=== PATIENT | male | born 1960 | race African-American/Black ===

== ENCOUNTER 2016-08-02 08:18 | Inpatient (IN) | payer OTHER ==
[2016-08-02 11:06] VITALS: BMI 29.4
--- NOTE | 2016-08-02 12:22 | HP ---
CIWA Score - CIWA Score Nausea/Vomitin-No Nausea/No Vomiting Muscle Tremors: 4-Moderate,w/Arms Extend Anxiety: 3 Agitation: 4-Moderately Restless Paroxysmal Sweats: 3 Orientation: 0-Oriented Tacttile Disturbances: 0-None Auditory Disturbances: 0-None Visual Disturbances: 0-None Headache: 0-None Present CIWA-Ar Total Score: 14 Admission ROS BHS - HPI Chief Complaint: I need to stop the alcohol. Allergies/Adverse Reactions: Allergies Allergy/AdvReac Type Severity Reaction Status Date / Time nkda Allergy Uncoded 08/02/16 11:16 RED SAUCE AdvReac Severe heart burn Uncoded 08/02/16 10:43 History of Present Illness: pt is a 56yr old male with a history of alcohol dependence seeking detox for treatment. Exam Limitations: No Limitations - Ebola screening Have you traveled outside of the country in the last 21 days: No Have you had contact with anyone from an Ebola affected area: No Have you been sick,other than usual withdrawal symptoms: No Do you have a fever: No - Review of Systems Constitutional: Chills, Diaphoresis, Loss of Appetite, Night Sweats EENT: reports: No Symptoms Reported Respiratory: reports: Cough Cardiac: reports: No Symptoms Reported GI: reports: Poor Appetite, Poor Fluid Intake : reports: No Symptoms Reported Musculoskeletal: reports: No Symptoms Reported Integumentary: reports: Flushing, Sweating Neuro: reports: Tingling, Tremors Endocrine: reports: Excessive Sweating, Flushing, Intolerance to Cold, Intolerance to Heat Hematology: reports: No Symptoms Reported Psychiatric: reports: Judgement Intact, Mood/Affect Appropiate, Orientated x3, Agitated, Anxious Other Systems: Reviewed and Negative Patient History - Patient Medical History Hx Anemia: No Hx Asthma: No Hx Chronic Obstructive Pulmonary Disease (COPD): No Hx Cancer: No Hx Cardiac Disorders: No Hx Congestive Heart Failure: No Hx Hypertension: No Hx Hypercholesterolemia: No Hx Pacemaker: No HX Cerebrovascular Accident: No Hx Seizures: No Hx Dementia: No Hx Diabetes: No Hx Gastrointestinal Disorders: No Hx Genitourinary Disorders: No Hx Sexually Transmitted Disorders: Yes (syphilis treated) Hx Renal Disease (ESRD): No Hx Thyroid Disease: No Hx Human Immunodeficiency Virus (HIV): No (negative) Hx Hepatitis C: No (hep c treated 2013.) Hx Depression: Yes Hx Suicide Attempt: No (denies ) Hx Bipolar Disorder: No Hx Schizophrenia: No - Patient Surgical History Past Surgical History: Yes Hx Neurologic Surgery: No Hx Cataract Extraction: No Hx Cardiac Surgery: No Hx Lung Surgery: No Hx Breast Surgery: No Hx Breast Biopsy: No Hx Abdominal Surgery: No Hx Appendectomy: No Hx Cholecystectomy: No Hx Genitourinary Surgery: No Hx Section: No Hx Orthopedic Surgery: Yes (fx, left orbit in 09/1994) - PPD History Previous Implant?: Yes Documented Results: Negative w/o proof Implanted On Prior R Admission?: No PPD to be Administered?: Yes - Reproductive History Patient is a Female of Child Bearing Age (11 -55 yrs old): No - Smoking Cessation Smoking history: Current every day smoker Have you smoked in the past 12 months: Yes Aproximately how many cigarettes per day: 5 Hx Chewing Tobacco Use: No Initiated information on smoking cessation: Yes 'Breaking Loose' booklet given: 08/02/16 - Substance & Tx. History Hx Alcohol Use: Yes Hx Substance Use: No Substance Use Type: Alcohol Hx Substance Use Treatment: Yes - Substances Abused Alcohol-vodka Route: Oral Frequency: Daily Amount used: fifth Age of first use: 16 Date of Last Use: 08/02/16 Family Disease History - Family Disease History Family Disease History: CA: Mother (lung ca ) Admission Physical Exam BHS - Vital Signs Vital Signs: Vital Signs - 24 hr 08/02/16 10:54 Temperature 97.6 F Pulse Rate 66 Respiratory 20 Rate Blood Pressure 146/75 - Physical General Appearance: Yes: Appropriately Dressed, Moderate Distress, Tremorous, Irritable, Sweating, Anxious HEENTM: Yes: Normal Voice Respiratory: Yes: Lungs Clear, Normal Breath Sounds, No Respiratory Distress Neck: Yes: No masses,lesions,Nodules Breast: Yes: Within Normal Limits Cardiology: Yes: Regular Rhythm, Regular Rate, S1, S2 Abdominal: Yes: Normal Bowel Sounds, Non Tender, Soft Genitourinary: Yes: Within Normal Limits Back: Yes: Normal Inspection Musculoskeletal: Yes: full range of Motion, Back pain Extremities: Yes: Normal Capillary Refill, Normal Inspection, Tremors Neurological: Yes: Fully Oriented, Alert, Normal Response Integumentary: Yes: Normal Color, Diaphoresis Lymphatic: Yes: Within Normal Limits - Diagnostic (1) Alcohol dependence with uncomplicated withdrawal Current Visit: Yes Status: Chronic (2) Nicotine dependence Current Visit: Yes Status: Chronic Qualifiers: Nicotine product type: cigarettes Substance use status: uncomplicated Qualified Code(s): F17.210 - Nicotine dependence, cigarettes, uncomplicated (3) Depression Current Visit: Yes Status: Acute Cleared for Admission [facility] - Detox or Rehab [facility] Level of Care: Medically Managed Detox Regimen/Protocol: Librium S Breath Alcohol Content Breath Alcohol Content: 0 Urine Drug Screen - Results Drug Screen Negative: No Urine Drug Screen Results: KASSIE-Cocaine, TCA-Tricyclic Antidepress
[2016-08-02] MEDS ORDERED: hydrOXYzine PAMOATE 50 MG CAPSULE (FP) PO PRN (12:26)
[2016-08-02] MEDS ORDERED: MENTHOL/PHENOL 1 EACH UD MM PRN (12:26)
[2016-08-02] MEDS ORDERED: MAG HYDROX/AL HYDROX/SIMETH 30 ML UNIT-DOSE CUP PO PRN (12:26)
[2016-08-02] MEDS ORDERED: MAGNESIUM HYDROX 2400MG/30ML ORAL SUSPENSION 30 ML CUP PO PRN (12:26)
[2016-08-02] MEDS ORDERED: IBUPROFEN 400 MG TABLET (FP) PO PRN (12:26)
[2016-08-02] MEDS ORDERED: chlordiazePOXIDE HCL 25 MG CAPSULE PO PRN (12:26)
[2016-08-02] MEDS ORDERED: diphenhydrAMINE HCL 50 MG CAPSULE PO PRN (12:26)
[2016-08-02] MEDS ORDERED: ACETAMINOPHEN 325 MG TABLET (FP) PO PRN (12:26)
[2016-08-02] MEDS ORDERED: MAGNESIUM CITRATE 300 ML BOTTLE PO PRN (12:26)
[2016-08-02] MEDS ORDERED: guaiFENesin/D-METHORPHAN HB 10 ML UNIT-DOSE CUPS PO PRN (12:26)
[2016-08-02] MEDS ORDERED: P-EPHED 60MG/TRIPROLIDI 2.5MG TABLET PO PRN (12:26)
[2016-08-02] MEDS ORDERED: LOPERAMIDE HCL 2 MG CAPSULE PO PRN (12:26)
[2016-08-02] MEDS ORDERED: chlordiazePOXIDE HCL 25 MG CAPSULE PO ONE (13:15)
[2016-08-02] MEDS: chlordiazePOXIDE HCL 25 MG CAPSULE PO SCH ×3 (13:46→23:30)
[2016-08-02] MEDS: NICOTINE POLACRILEX 4 MG GUM BC PRN ×3 (15:22→20:49)
--- NOTE | 2016-08-02 15:46 | CONSULT ---
[facility] Psychiatric Consult - Data Date of interview: 08/02/16 Admission source: [facility] Identifying data: First admission to [facility] for this 56 y/o AA male seeking detox treatment on for alcohol dependence.Patient is single,a father of two,domiciled,unemployed and supported on SSI benefits. Substance Abuse History: - Smoking Cessation. Smoking history: Current every day smoker. Have you smoked in the past 12 months: Yes. Aproximately how many cigarettes per day: 5. Hx Chewing Tobacco Use: No. Initiated information on smoking cessation: Yes. 'Breaking Loose' booklet given: 08/02/16. - Substance & Tx. History. Hx Alcohol Use: Yes. Hx Substance Use: No. Substance Use Type : Alcohol. Hx Substance Use Treatment: Yes. - Substances Abused. Alcohol- vodka. Route: Oral. Frequency: Daily. Amount used: fifth. Age of first use: 16. Date of Last Use: 08/02/16. Confirmed by the patient. Medical History: Hepatitis C (treated) and past treatment for syphilis.History of fracture of left orbit (1994). Psychiatric History: No history of psychiatric hospitalizations.OPD care at the [facility] OPD clinic.Diagnosed with MDD.Mr Mackey is prescribed seroquel 25 mg/hs + doxepin 25 mg/hs.Patient denies history of suicide attempts. Physical/Sexual Abuse/Trauma History: Patient denies. Additional Comment: Urine Drug Screen Results: KASSIE-Cocaine, TCA-Tricyclic Antidepressants.Noted. Mental Status Exam - Mental Status Exam Alert and Oriented to: Time, Place, Person Cognitive Function: Good Patient Appearance: Well Groomed Mood: Hopeful, Euthymic Affect: Appropriate, Normal Range Patient Behavior: Cooperative Speech Pattern: Clear, Appropriate Voice Loudness: Normal Thought Process: Goal Oriented Thought Disorder: Not Present Hallucinations: Denies Suicidal Ideation: Denies Homicidal Ideation: Denies Insight/Judgement: Fair Sleep: Poorly, Difficulty falling asleep Muscle strength/Tone: Normal Gait/Station: Normal Psychiatric Findings - Problem List ([place] 1, 2,3) (1) Alcohol dependence with uncomplicated withdrawal Current Visit: Yes Status: Chronic (2) Nicotine dependence Current Visit: Yes Status: Acute Qualifiers: Nicotine product type: cigarettes Substance use status: uncomplicated Qualified Code(s): F17.210 - Nicotine dependence, cigarettes, uncomplicated (3) Substance induced mood disorder Current Visit: Yes Status: Acute (4) Insomnia Current Visit: Yes Status: Acute - Initial Treatment Plan Initial Treatment Plan: Psychoeducation.Detoxification.Medications : seroquel 25 mg po hs + doxepin 25 mg po hs.Side effects/benefits discussed with the patient.He agrees with this careplan.Observation.
[2016-08-02 19:13] LABS: URINE APPEARANCE CLEAR; URINE BILIRUBIN NEGATIVE (NEGATIVE); URINE BLOOD NEGATIVE (NEGATIVE); URINE COLOR STRAW; URINE GLUCOSE (UA) NEGATIVE (NEGATIVE); URINE KETONE NEGATIVE (NEGATIVE); URINE LEUK ESTERASE NEGATIVE (NEGATIVE); URINE NITRITE NEGATIVE (NEGATIVE); URINE PROTEIN NEGATIVE (NEGATIVE); URINE UROBILINOGEN NEGATIVE E.U./dl (0.2-1.0)
[2016-08-02] MEDS ORDERED: DOXEPIN HCL 25 MG CAPSULE PO SCH (22:00)
[2016-08-02] MEDS ORDERED: QUEtiapine FUMARATE 25 MG TABLET (FP) PO SCH (22:00)
[2016-08-02] MEDS: THIAMINE HCL 100 MG TABLET (FP) PO SCH (23:31)
[2016-08-03] MEDS ORDERED: QUEtiapine FUMARATE 25 MG TABLET (FP) PO ONE (00:40)
[2016-08-03] MEDS ORDERED: DOXEPIN HCL 25 MG CAPSULE PO ONE (00:41)
[2016-08-03] MEDS: chlordiazePOXIDE HCL 25 MG CAPSULE PO SCH ×4 (05:51→22:44)
[2016-08-03] MEDS: NICOTINE POLACRILEX 4 MG GUM BC PRN ×6 (05:53→21:21)
[2016-08-03 10:23] LABS: MCH 29.5 pg (25.7-33.7); MCHC 32.7 g/dl (32.0-35.9); MEAN CELL VOLUME 90.3 fl (80-96); MEAN PLT VOLUME 10.3 fl (7.5-11.1); PLATELET COUNT 163 K/MM3 (134-434); RDW 14.3 % (11.9-15.9)
[2016-08-03] MEDS: PRENATAL VITAMINS W/ FOLIC ACID TABLET (FP) PO SCH (10:28)
[2016-08-03 10:35] LABS: ALBUMIN 3.7 g/dl (3.4-5.0); ANION GAP 8 (8-16); BILIRUBIN,TOTAL 0.5 mg/dL (0.2-1.0); CALCIUM 8.8 mg/dL (8.5-10.1); CO2 28 mmol/L (21-32); CREATININE 1.2 mg/dL (0.7-1.3); GLUCOSE,RANDOM 90 mg/dL (74-106); SGOT/AST 49 U/L (15-37); SGPT/ALT 100 U/L (12-78); TOT PROT 7.2 g/dl (6.4-8.2)
[2016-08-03 10:36] LABS: ALK PHOS 85 U/L (45-117)
--- NOTE | 2016-08-03 14:32 | PN ---
[facility] CIWA - CIWA Score Nausea/Vomitin Muscle Tremors: 1-None Visible, but [place] Anxiety: 4-Mod. Anxious/Guarded Agitation: 4-Moderately Restless Paroxysmal Sweats: No Perspiration Orientation: 0-Oriented Tacttile Disturbances: 0-None Auditory Disturbances: 0-None Visual Disturbances: 0-None Headache: 3-Moderate CIWA-Ar Total Score: 15 S Progress Note (SOAP) Subjective: Anxious, Restlessness, Tremors, Body Aches, Interrupted Sleep Objective: Vital Signs Temperature 96.1 F L 08/03/16 14:02 Pulse Rate 74 08/03/16 14:02 Respiratory Rate 18 08/03/16 14:02 Blood Pressure 120/72 08/03/16 14:02 O2 Sat by Pulse Oximetry (%) Laboratory Last Values WBC 5.0 K/mm3 (4.0-10.0) 08/03/16 06:00 RBC 4.97 M/mm3 (4.00-5.60) 08/03/16 06:00 Hgb 14.7 GM/dL (11.7-16.9) 08/03/16 06:00 Hct 44.9 % (35.4-49) 08/03/16 06:00 MCV 90.3 fl (80-96) 08/03/16 06:00 MCHC 32.7 g/dl (32.0-35.9) 08/03/16 06:00 RDW 14.3 % (11.9-15.9) 08/03/16 06:00 Plt Count 163 K/MM3 (134-434) 08/03/16 06:00 MPV 10.3 fl (7.5-11.1) 08/03/16 06:00 Sodium 142 mmol/L (136-145) 08/03/16 06:00 Potassium 3.9 mmol/L (3.5-5.1) 08/03/16 06:00 Chloride 106 mmol/L (98-107) 08/03/16 06:00 Carbon Dioxide 28 mmol/L (21-32) 08/03/16 06:00 Anion Gap 8 (8-16) 08/03/16 06:00 BUN 21 mg/dL (7-18) H 08/03/16 06:00 Creatinine 1.2 mg/dL (0.7-1.3) 08/03/16 06:00 Creat Clearance w eGFR > 60 (>60) 08/03/16 06:00 Random Glucose 90 mg/dL (74-106) 08/03/16 06:00 Calcium 8.8 mg/dL (8.5-10.1) 08/03/16 06:00 Total Bilirubin 0.5 mg/dL (0.2-1.0) 08/03/16 06:00 AST 49 U/L (15-37) H 08/03/16 06:00 ALT 100 U/L (12-78) H 08/03/16 06:00 Alkaline Phosphatase 85 U/L (45-117) 08/03/16 06:00 Total Protein 7.2 g/dl (6.4-8.2) 08/03/16 06:00 Albumin 3.7 g/dl (3.4-5.0) 08/03/16 06:00 Urine Color Straw 08/02/16 15:00 Urine Appearance Clear 08/02/16 15:00 Urine pH 5.0 (5.0-8.0) 08/02/16 15:00 Ur Specific [place] 1.015 (1.001-1.035) 08/02/16 15:00 Urine Protein Negative (NEGATIVE) 08/02/16 15:00 Urine Glucose (UA) Negative (NEGATIVE) 08/02/16 15:00 Urine Ketones Negative (NEGATIVE) 08/02/16 15:00 Urine Blood Negative (NEGATIVE) 08/02/16 15:00 Urine Nitrite Negative (NEGATIVE) 08/02/16 15:00 Urine Bilirubin Negative (NEGATIVE) 08/02/16 15:00 Urine Urobilinogen Negative E.U./dl (0.2-1.0) 08/02/16 15:00 Ur Leukocyte Esterase Negative (NEGATIVE) 08/02/16 15:00 RPR Titer Nonreactive (NONREACTIVE) 08/03/16 06:00 Hepatitis C Antibody >11.0 s/co ratio (0.0-0.9) H 08/02/16 11:00 labs noted Patient with Known Hx of Hep C 08/03/16 14:33 Assessment: Withdrawal Symptoms Plan: Continue Detox
[2016-08-03] MEDS: QUEtiapine FUMARATE 25 MG TABLET (FP) PO SCH (21:19)
[2016-08-03] MEDS: DOXEPIN HCL 25 MG CAPSULE PO SCH (21:19)
[2016-08-03] MEDS: THIAMINE HCL 100 MG TABLET (FP) PO SCH (21:20)
[2016-08-04] MEDS: chlordiazePOXIDE HCL 25 MG CAPSULE PO SCH (05:49)
[2016-08-04] MEDS: NICOTINE POLACRILEX 4 MG GUM BC PRN ×6 (05:51→20:58)
[2016-08-04] MEDS: chlordiazePOXIDE 5 MG CAPSULE PO SCH ×3 (10:25→22:59)
[2016-08-04] MEDS: PRENATAL VITAMINS W/ FOLIC ACID TABLET (FP) PO SCH (10:25)
--- NOTE | 2016-08-04 12:05 | PN ---
[facility] CIWA - CIWA Score Nausea/Vomitin-No Nausea/No Vomiting Muscle Tremors: 3 Anxiety: 3 Agitation: 4-Moderately Restless Paroxysmal Sweats: 3 Orientation: 0-Oriented Tacttile Disturbances: 0-None Auditory Disturbances: 0-None Visual Disturbances: 0-None Headache: 0-None Present CIWA-Ar Total Score: 13 S Progress Note (SOAP) Subjective: Sweating,interrupted sleep,anxiety,tremors,restless Objective: 08/04/16 12:03 Vital Signs - 8 hr 08/04/16 08/04/16 06:54 11:17 Temperature 96.0 F L 95.8 F L Pulse Rate 63 69 Respiratory 16 18 Rate Blood Pressure 109/70 128/80 Laboratory Last Values WBC 5.0 K/mm3 (4.0-10.0) 08/03/16 06:00 RBC 4.97 M/mm3 (4.00-5.60) 08/03/16 06:00 Hgb 14.7 GM/dL (11.7-16.9) 08/03/16 06:00 Hct 44.9 % (35.4-49) 08/03/16 06:00 MCV 90.3 fl (80-96) 08/03/16 06:00 MCHC 32.7 g/dl (32.0-35.9) 08/03/16 06:00 RDW 14.3 % (11.9-15.9) 08/03/16 06:00 Plt Count 163 K/MM3 (134-434) 08/03/16 06:00 MPV 10.3 fl (7.5-11.1) 08/03/16 06:00 Sodium 142 mmol/L (136-145) 08/03/16 06:00 Potassium 3.9 mmol/L (3.5-5.1) 08/03/16 06:00 Chloride 106 mmol/L (98-107) 08/03/16 06:00 Carbon Dioxide 28 mmol/L (21-32) 08/03/16 06:00 Anion Gap 8 (8-16) 08/03/16 06:00 BUN 21 mg/dL (7-18) H 08/03/16 06:00 Creatinine 1.2 mg/dL (0.7-1.3) 08/03/16 06:00 Creat Clearance w eGFR > 60 (>60) 08/03/16 06:00 Random Glucose 90 mg/dL (74-106) 08/03/16 06:00 Calcium 8.8 mg/dL (8.5-10.1) 08/03/16 06:00 Total Bilirubin 0.5 mg/dL (0.2-1.0) 08/03/16 06:00 AST 49 U/L (15-37) H 08/03/16 06:00 ALT 100 U/L (12-78) H 08/03/16 06:00 Alkaline Phosphatase 85 U/L (45-117) 08/03/16 06:00 Total Protein 7.2 g/dl (6.4-8.2) 08/03/16 06:00 Albumin 3.7 g/dl (3.4-5.0) 08/03/16 06:00 Urine Color Straw 08/02/16 15:00 Urine Appearance Clear 08/02/16 15:00 Urine pH 5.0 (5.0-8.0) 08/02/16 15:00 Ur Specific [place] 1.015 (1.001-1.035) 08/02/16 15:00 Urine Protein Negative (NEGATIVE) 08/02/16 15:00 Urine Glucose (UA) Negative (NEGATIVE) 08/02/16 15:00 Urine Ketones Negative (NEGATIVE) 08/02/16 15:00 Urine Blood Negative (NEGATIVE) 08/02/16 15:00 Urine Nitrite Negative (NEGATIVE) 08/02/16 15:00 Urine Bilirubin Negative (NEGATIVE) 08/02/16 15:00 Urine Urobilinogen Negative E.U./dl (0.2-1.0) 08/02/16 15:00 Ur Leukocyte Esterase Negative (NEGATIVE) 08/02/16 15:00 RPR Titer Nonreactive (NONREACTIVE) 08/03/16 06:00 Hepatitis C Antibody >11.0 s/co ratio (0.0-0.9) H 08/02/16 11:00 labs noted, pt. was treated for Hep C in the past Assessment: 08/04/16 12:05 Withdrawal sx. Plan: Continue detox
[2016-08-04] MEDS: DOXEPIN HCL 25 MG CAPSULE PO SCH (20:58)
[2016-08-04] MEDS: QUEtiapine FUMARATE 25 MG TABLET (FP) PO SCH (20:58)
[2016-08-04] MEDS: THIAMINE HCL 100 MG TABLET (FP) PO SCH (22:59)
[2016-08-05] MEDS: chlordiazePOXIDE 5 MG CAPSULE PO SCH (05:51)
[2016-08-05] MEDS: NICOTINE POLACRILEX 4 MG GUM BC PRN ×6 (05:53→20:54)
[2016-08-05] MEDS: chlordiazePOXIDE HCL 10 MG CAPSULE PO SCH ×3 (10:38→22:35)
[2016-08-05] MEDS: PRENATAL VITAMINS W/ FOLIC ACID TABLET (FP) PO SCH (10:39)
--- NOTE | 2016-08-05 12:08 | PN ---
BHS Progress Note (SOAP) Subjective: ANXIETY,SWEATS,INTERMITTENT SLEEP. Objective: 08/05/16 12:08 Vital Signs Temperature 97 F L 08/05/16 11:08 Pulse Rate 69 08/05/16 11:08 Respiratory Rate 18 08/05/16 11:08 Blood Pressure 123/80 08/05/16 11:08 O2 Sat by Pulse Oximetry (%) Assessment: 08/05/16 12:08 WITHDRAWAL SX Plan: CONTINUE DETOX
[2016-08-05] MEDS: QUEtiapine FUMARATE 25 MG TABLET (FP) PO SCH (20:53)
[2016-08-05] MEDS: DOXEPIN HCL 25 MG CAPSULE PO SCH (21:44)
[2016-08-05] MEDS: THIAMINE HCL 100 MG TABLET (FP) PO SCH (21:45)
[2016-08-06] MEDS: chlordiazePOXIDE HCL 10 MG CAPSULE PO SCH (05:51)
[2016-08-06] MEDS: NICOTINE POLACRILEX 4 MG GUM BC PRN ×6 (05:53→20:05)
[2016-08-06] MEDS: PRENATAL VITAMINS W/ FOLIC ACID TABLET (FP) PO SCH (09:50)
--- NOTE | 2016-08-06 10:45 | PN ---
S Progress Note (SOAP) Subjective: ALERT O X 3. NAD. SAFE DETOX Objective: 08/06/16 10:41 Vital Signs Temperature 96.0 F L 08/06/16 09:43 Pulse Rate 77 08/06/16 09:43 Respiratory Rate 16 08/06/16 09:43 Blood Pressure 126/85 08/06/16 09:43 O2 Sat by Pulse Oximetry (%) Laboratory Last Values WBC 5.0 K/mm3 (4.0-10.0) 08/03/16 06:00 RBC 4.97 M/mm3 (4.00-5.60) 08/03/16 06:00 Hgb 14.7 GM/dL (11.7-16.9) 08/03/16 06:00 Hct 44.9 % (35.4-49) 08/03/16 06:00 MCV 90.3 fl (80-96) 08/03/16 06:00 MCHC 32.7 g/dl (32.0-35.9) 08/03/16 06:00 RDW 14.3 % (11.9-15.9) 08/03/16 06:00 Plt Count 163 K/MM3 (134-434) 08/03/16 06:00 MPV 10.3 fl (7.5-11.1) 08/03/16 06:00 Sodium 142 mmol/L (136-145) 08/03/16 06:00 Potassium 3.9 mmol/L (3.5-5.1) 08/03/16 06:00 Chloride 106 mmol/L (98-107) 08/03/16 06:00 Carbon Dioxide 28 mmol/L (21-32) 08/03/16 06:00 Anion Gap 8 (8-16) 08/03/16 06:00 BUN 21 mg/dL (7-18) H 08/03/16 06:00 Creatinine 1.2 mg/dL (0.7-1.3) 08/03/16 06:00 Creat Clearance w eGFR > 60 (>60) 08/03/16 06:00 Random Glucose 90 mg/dL (74-106) 08/03/16 06:00 Calcium 8.8 mg/dL (8.5-10.1) 08/03/16 06:00 Total Bilirubin 0.5 mg/dL (0.2-1.0) 08/03/16 06:00 AST 49 U/L (15-37) H 08/03/16 06:00 ALT 100 U/L (12-78) H 08/03/16 06:00 Alkaline Phosphatase 85 U/L (45-117) 08/03/16 06:00 Total Protein 7.2 g/dl (6.4-8.2) 08/03/16 06:00 Albumin 3.7 g/dl (3.4-5.0) 08/03/16 06:00 Urine Color Straw 08/02/16 15:00 Urine Appearance Clear 08/02/16 15:00 Urine pH 5.0 (5.0-8.0) 08/02/16 15:00 Ur Specific [place] 1.015 (1.001-1.035) 08/02/16 15:00 Urine Protein Negative (NEGATIVE) 08/02/16 15:00 Urine Glucose (UA) Negative (NEGATIVE) 08/02/16 15:00 Urine Ketones Negative (NEGATIVE) 08/02/16 15:00 Urine Blood Negative (NEGATIVE) 08/02/16 15:00 Urine Nitrite Negative (NEGATIVE) 08/02/16 15:00 Urine Bilirubin Negative (NEGATIVE) 08/02/16 15:00 Urine Urobilinogen Negative E.U./dl (0.2-1.0) 08/02/16 15:00 Ur Leukocyte Esterase Negative (NEGATIVE) 08/02/16 15:00 RPR Titer Nonreactive (NONREACTIVE) 08/03/16 06:00 Hepatitis C Antibody >11.0 s/co ratio (0.0-0.9) H 08/02/16 11:00 Assessment: 08/06/16 10:41 DECREASED WITHDRAWAL SX Plan: REHAB IF BED AVAILABLE. 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
[2016-08-06] MEDS: DOXEPIN HCL 25 MG CAPSULE PO SCH (21:06)
[2016-08-06] MEDS: THIAMINE HCL 100 MG TABLET (FP) PO SCH (21:06)
[2016-08-06] MEDS: QUEtiapine FUMARATE 25 MG TABLET (FP) PO SCH (21:06)
[2016-08-07] MEDS: NICOTINE POLACRILEX 4 MG GUM BC PRN ×2 (05:38→10:12)
[2016-08-07 06:56] VITALS: TEMP 96
--- NOTE | 2016-08-07 09:27 | DS ---
[facility] Detox Discharge Summary Admission Date: 08/02/16 Discharge Date: 08/07/16 - History Present History: Alcohol Dependence Additional Comments: DETOX COMPLETED.ALERT O X 3. NAD. Pertinent Past History: HEP C DEPRESSION - Physical Exam Results Vital Signs: Vital Signs Temperature 96.0 F L 08/07/16 06:55 Pulse Rate 67 08/07/16 06:55 Respiratory Rate 18 08/07/16 06:55 Blood Pressure 124/82 08/07/16 06:55 O2 Sat by Pulse Oximetry (%) Pertinent Admission Physical Exam Findings: WITHDRAWAL SX - Treatment Hospital Course: Detox Protocol Followed, Detoxed Safely, Responded well, Discharged Condition Good - Medication Discharge Medications: Ambulatory Orders Doxepin HCl [[place] -] 25 mg PO HS 08/02/16 Nicotine Polacrilex [Nicotine Gum] 4 mg PO Q2H 08/02/16 Quetiapine Fumarate [Seroquel -] 25 mg PO HS 08/02/16 - Diagnosis (1) Insomnia Current Visit: Yes Status: Acute (2) Nicotine dependence Current Visit: Yes Status: Acute Qualifiers: Nicotine product type: cigarettes Substance use status: in withdrawal Qualified Code(s): F17.213 - Nicotine dependence, cigarettes, with withdrawal (3) Substance induced mood disorder Current Visit: Yes Status: Acute (4) Alcohol dependence with uncomplicated withdrawal Current Visit: Yes Status: Acute (5) History of hepatitis C Current Visit: Yes Status: Chronic - AMA Did Patient Leave Against Medical Advice: No
[2016-08-07 09:43] VITALS: BP 125/77; PULSE 78
[2016-08-07] MEDS: PRENATAL VITAMINS W/ FOLIC ACID TABLET (FP) PO SCH (10:12)
--- NOTE | 2016-08-07 10:57 | HP ---
Psychiatrist Admission - Data Date of interview: 08/07/16 Admission source: 3N Identifying data: This is the first [facility] admission for this 56 years old single Black male, father of 2 children, unemployed on SSI, domiciled seeking rehabilitation for alcohol Medical History: Significant for treatment for Hepatitis C, Syphilis and Surgery for left orbital fracture in 1994. Smokes 5 cigarettes daily. Psychiatric History: Reports that his first psychiatric contact was in 2001 when he was diagnosed with depression by a psychiatrist at [facility]. States his mother dies in 2000 while he was in nursing home. He was released in 2001 and went to live at his sister. He became homeless when he has to leave his sister's house and go to a custodial. He was seeing aPCP at [facility] and told him that he did not feel like doing anything and was depressed. So he was referred to see a staff psychiatrist there and was started on Wellbutrin XL 150 mg po daily and Trazadone from 50 to 200 mg. Ambien was later substituted for Trazadone because of the delopment of priapism. He admitted to life insurance underwriter that he was smoking crack cocaine and drinking at the time and that could have contributed to his depression. In 2003 he stopped going to [place], though he was receiving medication on & off whenever admitted to inpatient detox or rehab, he did not see a treating psychiatrist again till 2009 when he was referred to [facility] for psychiatric services from [facility]. At [facility], he was continued on Wellbutrin at first then switched to Doxepin 25 mg po HS for insomnia and Seroquel 25 mg po HS. He was seen in detox by Dr Rodriguez on 08/02/16 and was continued on same medications. Claims that Doxepin 25 mg no longer helps him sleep and he requests a higher dosage. Physical/Sexual Abuse/Trauma History: Denies history of emotional, physical or sexual abuse as well as DV relationship Additional Comment: Reports history of multiple misdemeanor arrests. Denies being on probation at present Vital Signs: Vital Signs - 24 hr 08/06/16 08/06/16 08/06/16 14:12 18:17 22:21 Temperature 96.2 F L 98.6 F 96.9 F L Pulse Rate 81 81 77 Respiratory 18 18 20 Rate Blood Pressure 130/83 123/70 129/81 08/07/16 08/07/16 08/07/16 00:30 03:30 06:55 Temperature 96.0 F L Pulse Rate 67 Respiratory 18 18 18 Rate Blood Pressure 124/82 08/07/16 09:42 Temperature 96.0 F L Pulse Rate 78 Respiratory 20 Rate Blood Pressure 125/77 Allergies/Adverse Reactions: Allergies Allergy/AdvReac Type Severity Reaction Status Date / Time No Known Drug Allergies Allergy Verified 08/02/16 13:01 nkda Allergy Uncoded 08/02/16 11:16 Date of last physical exam: 08/02/16 Concur with the findings of this exam: Yes - Substance Abuse/Tx History Hx Alcohol Use: Yes Substance Use Type: Alcohol (Started drinking alcohol at age 16, consumes a fifth of vodka daily. Last drink on 08/02/16) Hx Substance Use Treatment: Yes (multiple inpt detox & inpt rehab) - Admission Criteria Previous failed treatment: Yes Poor recovery environment: Yes Comorbidities: Yes Lacks judgement: Yes Mental Status Exam - Mental Status Exam Alert and Oriented to: Time, Place, Person Cognitive Function: Fair Patient Appearance: Well Groomed Mood: Hopeful, Euthymic Affect: Appropriate Patient Behavior: Cooperative Speech Pattern: Clear Voice Loudness: Normal Thought Process: Intact Thought Disorder: Not Present Hallucinations: Denies Suicidal Ideation: Denies Homicidal Ideation: Denies Insight/Judgement: Fair Sleep: Poorly Appetite: Good Muscle strength/Tone: Normal Gait/Station: Normal Psychiatric Findings - Problem List ([place] 1, 2,3) (1) Alcohol dependence with uncomplicated withdrawal Status: Acute (2) Nicotine dependence Status: Acute Qualifiers: Nicotine product type: cigarettes Substance use status: in withdrawal Qualified Code(s): F17.213 - Nicotine dependence, cigarettes, with withdrawal (3) Substance induced mood disorder Status: Acute (4) History of hepatitis C Status: Chronic - Initial Treatment Plan Initial Treatment Plan: 1) Continue Seroquel 25 mg po HS. 2) Start Doxepin 50 mg po HS. 3) Monitor progress
[2016-08-08 10:12] LABS: HCV LOG 10 5.944 (.)
== END 2016-08-07 10:15 | disposition other institution (70) | DRG 775 ==
LOC: YASAS 08:18 → Y3N 12:28
PROVIDERS: ADMIT Internal Medicine; ATTEND Internal Medicine
PROC: HZ2ZZZZ Detoxification Services for Substance Abuse Treatment (ICD-10-PCS; principal; 2016-08-07)
DX: F10.230 Alcohol dependence with withdrawal, uncomplicated (principal); F17.213 Nicotine dependence, cigarettes, with withdrawal; F19.24 Other psychoactive substance dependence with psychoactive substance-induced mood disorder; F32.9 Major depressive disorder, single episode, unspecified; G47.00 Insomnia, unspecified; B18.2 Chronic viral hepatitis C
CPT/HCPCS: 36415; 80053; 81003; 85027; 86593; 87522

== ENCOUNTER 2016-08-07 10:17 | Inpatient (IN) | payer OTHER ==
[2016-08-07 10:50] VITALS: BMI 29.9
[2016-08-07] MEDS ORDERED: P-EPHED 60MG/TRIPROLIDI 2.5MG TABLET PO PRN (11:01)
[2016-08-07] MEDS ORDERED: diphenhydrAMINE HCL 50 MG CAPSULE PO PRN (11:01)
[2016-08-07] MEDS ORDERED: MAG HYDROX/AL HYDROX/SIMETH 30 ML UNIT-DOSE CUP PO PRN (11:01)
[2016-08-07] MEDS ORDERED: MAGNESIUM HYDROX 2400MG/30ML ORAL SUSPENSION 30 ML CUP PO PRN (11:01)
[2016-08-07] MEDS ORDERED: IBUPROFEN 400 MG TABLET (FP) PO PRN (11:01)
[2016-08-07] MEDS ORDERED: LOPERAMIDE HCL 2 MG CAPSULE PO PRN (11:01)
[2016-08-07] MEDS ORDERED: MAGNESIUM CITRATE 300 ML BOTTLE PO PRN (11:01)
[2016-08-07] MEDS ORDERED: ACETAMINOPHEN 325 MG TABLET (FP) PO PRN (11:01)
[2016-08-07] MEDS ORDERED: MENTHOL/PHENOL 1 EACH UD MM PRN (11:01)
--- NOTE | 2016-08-07 11:53 | HP ---
Psychiatrist Admission - Data Date of interview: 08/07/16 Admission source: 3N Identifying data: This is the first [facility] admission for this 56 years old single Black male, father of 2 children, unemployed on SSI, domiciled seeking rehabilitation for alcohol Medical History: Significant for treatment for Hepatitis C, Syphilis and Surgery for left orbital fracture in 1994. Smokes 5 cigarettes daily. Psychiatric History: Reports that his first psychiatric contact was in 2001 when he was diagnosed with depression by a psychiatrist at [facility]. States his mother dies in 2000 while he was in [facility]. He was released in 2001 and went to live at his sister. He became homeless when he has to leave his sister's house and go to a detention. He was seeing aPCP at [facility] and told him that he did not feel like doing anything and was depressed. So he was referred to see a staff psychiatrist there and was started on Wellbutrin XL 150 mg po daily and Trazadone from 50 to 200 mg. Ambien was later substituted for Trazadone because of the delopment of priapism. He admitted to scenario writer that he was smoking crack cocaine and drinking at the time and that could have contributed to his depression. In 2003 he stopped going to [place], though he was receiving medication on & off whenever admitted to inpatient detox or rehab, he did not see a treating psychiatrist again till 2009 when he was referred to [facility] for psychiatric services from [facility]. At [facility], he was continued on Wellbutrin at first then switched to Doxepin 25 mg po HS for insomnia and Seroquel 25 mg po HS. He was seen in detox by Dr Rodriguez on 08/02/16 and was continued on same medications. Claims that Doxepin 25 mg no longer helps him sleep and he requests a higher dosage. Physical/Sexual Abuse/Trauma History: Denies history of Emotional, physical or sexual abuse as well as DV relationship Additional Comment: Reports history of multiple misdemeanor arrests. Denies being on probation at present Vital Signs: Vital Signs - 24 hr 08/07/16 10:32 Temperature 98.8 F Pulse Rate 84 Respiratory 16 Rate Blood Pressure 115/69 Allergies/Adverse Reactions: Allergies Allergy/AdvReac Type Severity Reaction Status Date / Time No Known Drug Allergies Allergy Verified 08/02/16 13:01 nkda Allergy Uncoded 08/02/16 11:16 Date of last physical exam: 08/02/16 Concur with the findings of this exam: Yes - Substance Abuse/Tx History Hx Alcohol Use: Yes Hx Substance Use: No Substance Use Type: Alcohol (Started drinking alcohol at age 16, consumes a fifth of vodka daily. Last drink on 08/02/16)) Hx Substance Use Treatment: Yes (Multiple inpt detox & inpt rehab) - Admission Criteria Previous failed treatment: Yes Poor recovery environment: Yes Comorbidities: Yes Lacks judgement: Yes Mental Status Exam - Mental Status Exam Alert and Oriented to: Time, Place, Person Cognitive Function: Fair Patient Appearance: Well Groomed Mood: Hopeful, Euthymic Affect: Appropriate Patient Behavior: Cooperative Speech Pattern: Clear Voice Loudness: Normal Thought Process: Intact Thought Disorder: Not Present Hallucinations: Denies Suicidal Ideation: Denies Homicidal Ideation: Denies Insight/Judgement: Fair Sleep: Poorly Muscle strength/Tone: Normal Gait/Station: Normal Psychiatric Findings - Problem List ([place] 1, 2,3) (1) Alcohol dependence with uncomplicated withdrawal Current Visit: No Status: Acute (2) Nicotine dependence Current Visit: No Status: Acute Qualifiers: Nicotine product type: cigarettes Substance use status: in withdrawal Qualified Code(s): F17.213 - Nicotine dependence, cigarettes, with withdrawal (3) Substance induced mood disorder Current Visit: No Status: Acute (4) MDD (major depressive disorder) Current Visit: Yes Status: Ruled-out (5) History of hepatitis C Current Visit: No Status: Chronic - Initial Treatment Plan Initial Treatment Plan: 1) Continue Seroquel 25 mg po HS. 2) Start Doxepin 50 mg po HS. 3) Monitor progress
[2016-08-07] MEDS: NICOTINE POLACRILEX 4 MG GUM BUC PRN ×2 (15:49→20:06)
--- NOTE | 2016-08-07 16:25 | HP ---
[facility] Rehab Assess/Revision - Admission History Admitted to Rehab from: [facility] Date of Admission to Rehab: 08/07/16 - Vital signs Vital Signs: Vital Signs Period Temp Pulse Resp BP Sys/Giron Pulse Ox Last 24 Hr 98.8 F 84 16 115/69 - Findings Detox History & Physical reviewed: Yes Concur with findings: Yes Comments/Additional Findings: transferred from detox to rehab admission as per protocol
[2016-08-07] MEDS: QUEtiapine FUMARATE 25 MG TABLET (FP) PO SCH (21:23)
[2016-08-07] MEDS: DOXEPIN HCL 50 MG CAPSULE PO SCH (21:23)
[2016-08-07] MEDS: THIAMINE HCL 100 MG TABLET (FP) PO SCH (21:23)
[2016-08-08] MEDS: NICOTINE POLACRILEX 4 MG GUM BUC PRN ×6 (05:42→21:29)
[2016-08-08] MEDS: guaiFENesin/D-METHORPHAN HB 10 ML UNIT-DOSE CUPS PO PRN ×2 (08:28→17:04)
[2016-08-08] MEDS: PRENATAL VITAMINS W/ FOLIC ACID TABLET (FP) PO SCH (09:47)
[2016-08-08] MEDS ORDERED: PT OWN MED DRAWER 7, Y5N ONE (10:52)
[2016-08-08] MEDS: DOXEPIN HCL 50 MG CAPSULE PO SCH (21:28)
[2016-08-08] MEDS: THIAMINE HCL 100 MG TABLET (FP) PO SCH (21:28)
[2016-08-08] MEDS: QUEtiapine FUMARATE 25 MG TABLET (FP) PO SCH (21:28)
[2016-08-09] MEDS: NICOTINE POLACRILEX 4 MG GUM BUC PRN ×7 (06:17→22:24)
[2016-08-09] MEDS: PRENATAL VITAMINS W/ FOLIC ACID TABLET (FP) PO SCH (09:05)
[2016-08-09] MEDS: QUEtiapine FUMARATE 25 MG TABLET (FP) PO SCH (21:35)
[2016-08-09] MEDS: THIAMINE HCL 100 MG TABLET (FP) PO SCH (21:35)
[2016-08-09] MEDS: DOXEPIN HCL 50 MG CAPSULE PO SCH (21:36)
[2016-08-10] MEDS: NICOTINE POLACRILEX 4 MG GUM BUC PRN ×7 (05:34→21:25)
[2016-08-10] MEDS: PRENATAL VITAMINS W/ FOLIC ACID TABLET (FP) PO SCH (10:08)
[2016-08-10] MEDS: QUEtiapine FUMARATE 25 MG TABLET (FP) PO SCH (21:24)
[2016-08-10] MEDS: guaiFENesin/D-METHORPHAN HB 10 ML UNIT-DOSE CUPS PO PRN (21:24)
[2016-08-10] MEDS: DOXEPIN HCL 50 MG CAPSULE PO SCH (21:24)
[2016-08-10] MEDS: THIAMINE HCL 100 MG TABLET (FP) PO SCH (21:25)
[2016-08-11] MEDS: NICOTINE POLACRILEX 4 MG GUM BUC PRN ×6 (05:59→22:09)
[2016-08-11] MEDS: PRENATAL VITAMINS W/ FOLIC ACID TABLET (FP) PO SCH (10:00)
[2016-08-11] MEDS: THIAMINE HCL 100 MG TABLET (FP) PO SCH (21:44)
[2016-08-11] MEDS: QUEtiapine FUMARATE 25 MG TABLET (FP) PO SCH (21:44)
[2016-08-11] MEDS: DOXEPIN HCL 50 MG CAPSULE PO SCH (21:44)
[2016-08-12] MEDS: NICOTINE POLACRILEX 4 MG GUM BUC PRN ×4 (08:38→15:41)
[2016-08-12] MEDS: PRENATAL VITAMINS W/ FOLIC ACID TABLET (FP) PO SCH (10:30)
--- NOTE | 2016-08-12 14:23 | PN ---
BHS Progress Note (SOAP) Subjective: cough , phlegm in am > 1 yr Objective: 08/12/16 14:22 Vital Signs Temperature 98.3 F 08/12/16 06:05 Pulse Rate 69 08/12/16 06:05 Respiratory Rate 20 08/12/16 06:05 Blood Pressure 111/71 08/12/16 06:05 O2 Sat by Pulse Oximetry (%) pt aox3 in nad ambulating lungs clear to a/p Assessment: 08/12/16 14:22 chronic cough Plan: fluids robitussin dm prn cxr
[2016-08-12] MEDS: guaiFENesin/D-METHORPHAN HB 10 ML UNIT-DOSE CUPS PO PRN ×2 (14:54→21:20)
[2016-08-12] MEDS: THIAMINE HCL 100 MG TABLET (FP) PO SCH (21:18)
[2016-08-12] MEDS: QUEtiapine FUMARATE 25 MG TABLET (FP) PO SCH (21:19)
[2016-08-12] MEDS: DOXEPIN HCL 50 MG CAPSULE PO SCH (21:19)
[2016-08-13] MEDS: guaiFENesin/D-METHORPHAN HB 10 ML UNIT-DOSE CUPS PO PRN ×2 (03:34→10:24)
[2016-08-13] MEDS: NICOTINE POLACRILEX 4 MG GUM BUC PRN ×7 (06:02→19:59)
[2016-08-13] MEDS: PRENATAL VITAMINS W/ FOLIC ACID TABLET (FP) PO SCH (10:23)
--- NOTE | 2016-08-13 14:38 | PN ---
BHS Progress Note Note: cough phlegm , nasal congestion oral +pnd --- cxr -neg imp- post nasal drip plan flonase nasasl spray augmentin 875mg bid
[2016-08-13] MEDS: AMOX TR/POT CLAV 875MG/125MG TABLETS (FP) PO SCH (17:30)
[2016-08-13] MEDS: FLUTICASONE PROP 0.05% 16 GM NASAL SPRAY NS SCH (21:18)
[2016-08-13] MEDS: QUEtiapine FUMARATE 25 MG TABLET (FP) PO SCH (21:19)
[2016-08-13] MEDS: THIAMINE HCL 100 MG TABLET (FP) PO SCH (21:19)
[2016-08-13] MEDS: DOXEPIN HCL 50 MG CAPSULE PO SCH (21:19)
[2016-08-14] MEDS: guaiFENesin/D-METHORPHAN HB 10 ML UNIT-DOSE CUPS PO PRN ×3 (02:44→17:32)
[2016-08-14] MEDS: NICOTINE POLACRILEX 4 MG GUM BUC PRN ×6 (06:04→21:20)
[2016-08-14] MEDS: AMOX TR/POT CLAV 875MG/125MG TABLETS (FP) PO SCH ×2 (07:13→17:32)
[2016-08-14] MEDS ORDERED: PT OWN MED DRAWER 7, Y5N ONE ×2 (08:58→21:19)
[2016-08-14] MEDS: FLUTICASONE PROP 0.05% 16 GM NASAL SPRAY NS SCH ×2 (10:03→21:19)
[2016-08-14] MEDS: PRENATAL VITAMINS W/ FOLIC ACID TABLET (FP) PO SCH (10:03)
[2016-08-14] MEDS: THIAMINE HCL 100 MG TABLET (FP) PO SCH (21:18)
[2016-08-14] MEDS: DOXEPIN HCL 50 MG CAPSULE PO SCH (21:18)
[2016-08-14] MEDS: QUEtiapine FUMARATE 25 MG TABLET (FP) PO SCH (21:18)
[2016-08-15] MEDS: guaiFENesin/D-METHORPHAN HB 10 ML UNIT-DOSE CUPS PO PRN ×3 (02:01→17:25)
[2016-08-15] MEDS: NICOTINE POLACRILEX 4 MG GUM BUC PRN ×5 (06:16→21:38)
[2016-08-15] MEDS: AMOX TR/POT CLAV 875MG/125MG TABLETS (FP) PO SCH ×2 (07:06→17:24)
[2016-08-15] MEDS: FLUTICASONE PROP 0.05% 16 GM NASAL SPRAY NS SCH ×2 (10:13→21:37)
[2016-08-15] MEDS ORDERED: PT OWN MED DRAWER 7, Y5N ONE ×2 (10:13→21:38)
[2016-08-15] MEDS: PRENATAL VITAMINS W/ FOLIC ACID TABLET (FP) PO SCH (10:14)
[2016-08-15] MEDS ORDERED: NICOTINE POLACRILEX 4 MG GUM BUC ONE (17:25)
[2016-08-15] MEDS: THIAMINE HCL 100 MG TABLET (FP) PO SCH (21:36)
[2016-08-15] MEDS: QUEtiapine FUMARATE 25 MG TABLET (FP) PO SCH (21:37)
[2016-08-15] MEDS: DOXEPIN HCL 50 MG CAPSULE PO SCH (21:37)
[2016-08-16] MEDS: guaiFENesin/D-METHORPHAN HB 10 ML UNIT-DOSE CUPS PO PRN ×3 (06:28→19:21)
[2016-08-16] MEDS: NICOTINE POLACRILEX 4 MG GUM BUC PRN ×4 (06:28→21:42)
[2016-08-16] MEDS: AMOX TR/POT CLAV 875MG/125MG TABLETS (FP) PO SCH ×2 (07:02→17:05)
[2016-08-16] MEDS ORDERED: PT OWN MED DRAWER 7, Y5N ONE ×2 (09:27→21:41)
[2016-08-16] MEDS: FLUTICASONE PROP 0.05% 16 GM NASAL SPRAY NS SCH ×2 (10:17→21:41)
[2016-08-16] MEDS: PRENATAL VITAMINS W/ FOLIC ACID TABLET (FP) PO SCH (10:17)
[2016-08-16] MEDS: QUEtiapine FUMARATE 25 MG TABLET (FP) PO SCH (21:41)
[2016-08-16] MEDS: DOXEPIN HCL 50 MG CAPSULE PO SCH (21:41)
[2016-08-17] MEDS: THIAMINE HCL 100 MG TABLET (FP) PO SCH ×2 (00:03→21:31)
[2016-08-17] MEDS: guaiFENesin/D-METHORPHAN HB 10 ML UNIT-DOSE CUPS PO PRN ×3 (03:57→17:30)
[2016-08-17] MEDS: NICOTINE POLACRILEX 4 MG GUM BUC PRN ×5 (06:17→21:32)
[2016-08-17] MEDS: AMOX TR/POT CLAV 875MG/125MG TABLETS (FP) PO SCH ×2 (07:11→17:29)
[2016-08-17] MEDS ORDERED: PT OWN MED DRAWER 7, Y5N ONE ×2 (09:24→21:32)
[2016-08-17] MEDS: PRENATAL VITAMINS W/ FOLIC ACID TABLET (FP) PO SCH (10:21)
[2016-08-17] MEDS: FLUTICASONE PROP 0.05% 16 GM NASAL SPRAY NS SCH ×2 (10:21→21:32)
[2016-08-17] MEDS: QUEtiapine FUMARATE 25 MG TABLET (FP) PO SCH (21:31)
[2016-08-17] MEDS: DOXEPIN HCL 50 MG CAPSULE PO SCH (21:32)
[2016-08-17] MEDS ORDERED: NICOTINE POLACRILEX 4 MG GUM BUC ONE (21:33)
[2016-08-18] MEDS: NICOTINE POLACRILEX 4 MG GUM BUC PRN ×7 (05:50→21:32)
[2016-08-18] MEDS: guaiFENesin/D-METHORPHAN HB 10 ML UNIT-DOSE CUPS PO PRN ×3 (05:50→17:48)
[2016-08-18] MEDS: AMOX TR/POT CLAV 875MG/125MG TABLETS (FP) PO SCH ×2 (07:05→17:29)
[2016-08-18] MEDS ORDERED: PT OWN MED DRAWER 7, Y5N ONE ×2 (08:44→21:32)
[2016-08-18] MEDS: PRENATAL VITAMINS W/ FOLIC ACID TABLET (FP) PO SCH (09:52)
[2016-08-18] MEDS: FLUTICASONE PROP 0.05% 16 GM NASAL SPRAY NS SCH ×2 (09:52→21:32)
[2016-08-18] MEDS: QUEtiapine FUMARATE 25 MG TABLET (FP) PO SCH (21:31)
[2016-08-18] MEDS: THIAMINE HCL 100 MG TABLET (FP) PO SCH (21:31)
[2016-08-18] MEDS: DOXEPIN HCL 50 MG CAPSULE PO SCH (21:32)
[2016-08-19] MEDS: guaiFENesin/D-METHORPHAN HB 10 ML UNIT-DOSE CUPS PO PRN ×2 (06:12→21:30)
[2016-08-19 06:48] VITALS: PULSE 68
[2016-08-19] MEDS: AMOX TR/POT CLAV 875MG/125MG TABLETS (FP) PO SCH ×3 (07:32→18:17)
[2016-08-19] MEDS: PRENATAL VITAMINS W/ FOLIC ACID TABLET (FP) PO SCH (10:17)
[2016-08-19] MEDS: FLUTICASONE PROP 0.05% 16 GM NASAL SPRAY NS SCH ×2 (10:17→21:29)
[2016-08-19] MEDS: NICOTINE POLACRILEX 4 MG GUM BUC PRN ×2 (10:20→18:14)
--- NOTE | 2016-08-19 13:13 | PN ---
Psychiatric Progress Note Vital Signs: Vital Signs Period Temp Pulse Resp BP Sys/Giron Pulse Ox Last 24 Hr 98.6 F 68 18-18 115/70 Date of Session: 08/19/16 Chief Complaint:: Psychiatrist Discharge Note HPI: Patient addressing Alcohol mDependence comorbid with Nicotine Dependence and Substance-Induced mood Disorder ROS: Hepatitis C was medically managed Current Medications: Active Medications Generic Name Dose Route Start Last Admin Trade Name Freq PRN Reason Stop Dose Admin Acetaminophen 650 mg 08/07/16 11:01 08/08/16 17:04 Tylenol - PO 650 mg Q4H PRN Administration FEVER OR PAIN Al Hydroxide/Mg Hydroxide 30 ml 08/07/16 11:01 Mylanta Oral Suspension - PO Q6H PRN DYSPEPSIA Amoxicillin/Clavulanate Potassium 1 tab 08/13/16 17:30 08/19/16 07:32 Augmentin - 875mg Tablet PO 1 tab BID@0800,1730 RICARDO Administration Diphenhydramine HCl 50 mg 08/07/16 11:01 Benadryl - PO HSMR1 PRN FOR ITCHING Doxepin HCl 50 mg 08/07/16 22:00 08/18/16 21:32 Sinequan - PO 50 mg HS RICARDO Administration Eucalyptus/Menthol/Phenol/Sorbitol 1 each 08/07/16 11:01 Cepastat Lozenge - MM Q4H PRN SORE THROAT Fluticasone Propionate 1 spray 08/13/16 22:00 08/19/16 10:17 Flonase - NS Not Given BID RICARDO Guaifenesin 10 ml 08/07/16 11:01 08/19/16 06:12 Robitussin Dm - PO 10 ml Q6H PRN Administration COUGH Ibuprofen 400 mg 08/07/16 11:01 08/08/16 06:42 Motrin - PO 400 mg Q6H PRN Administration PAIN Loperamide HCl 4 mg 08/07/16 11:01 Imodium - PO Q6H PRN DIARRHEA Magnesium Hydroxide 30 ml 08/07/16 11:01 Milk Of Magnesia - PO DAILY PRN CONSTIPATION Nicotine Polacrilex 4 mg 08/07/16 11:01 08/19/16 10:20 Nicorette Gum - BUC 4 mg Q2H PRN Administration NICOTINE REPLACEMENT RX Multivit/Folic Acid/Iron 1 tab 08/08/16 10:00 08/19/16 10:17 Vitamins (Sjr) - PO 1 tab DAILY RICARDO Administration Pseudoephedrine/Triprolidine 1 combo 08/07/16 11:01 Actifed - PO TID PRN NASAL CONGESTION Quetiapine Fumarate 25 mg 08/07/16 22:00 08/18/16 21:31 Seroquel - PO 25 mg HS RICARDO Administration Thiamine HCl 100 mg 08/07/16 22:00 08/18/16 21:31 Vitamin B1 - PO 100 mg HS RICARDO Administration Current Side Effect: No Lab tests ordered: Yes Lab tests reviewed: Yes Provider note:: Patient will complete this program on 08/20/16. He has met his treatment goals and will continue to address his issues by attending AA/NA since he refuses referral to outpatient treatment. Told parts data writer that from his participation in this program, he has learm to identify his triggers and how to deal with them. He responded well to Seroquel 25 mg po HS and Doxepin 50 mg po HS. Scripts for 30 days supply of medications will be electronicaly transmitted to [facility]. He is stable for discharge on 08/20/16 Total face to face time:: 35 Mental Status Exam - Mental Status Exam Alert and Oriented to: Time, Place, Person Cognitive Function: Fair Patient Appearance: Well Groomed Mood: Hopeful, Euthymic Affect: Appropriate Patient Behavior: Cooperative Speech Pattern: Clear Voice Loudness: Normal Thought Process: Intact Thought Disorder: Not Present Hallucinations: Denies Suicidal Ideation: Denies Homicidal Ideation: Denies Insight/Judgement: Fair Sleep: Fair Appetite: Good Muscle strength/Tone: Normal Gait/Station: Normal Psychiatric Treatment Plan - Problem List (1) Alcohol dependence with uncomplicated withdrawal Current Visit: No (2) Nicotine dependence Current Visit: No Qualifiers: Nicotine product type: cigarettes Substance use status: in withdrawal Qualified Code(s): F17.213 - Nicotine dependence, cigarettes, with withdrawal (3) Substance induced mood disorder Current Visit: No (4) MDD (major depressive disorder) Current Visit: Yes (5) History of hepatitis C Current Visit: No Initial treatment plan: Patient is discharged tomorrow and will be attending AA/ NA
[2016-08-19] MEDS: THIAMINE HCL 100 MG TABLET (FP) PO SCH (21:29)
[2016-08-19] MEDS: QUEtiapine FUMARATE 25 MG TABLET (FP) PO SCH (21:30)
[2016-08-19] MEDS: DOXEPIN HCL 50 MG CAPSULE PO SCH (21:30)
[2016-08-20] MEDS: guaiFENesin/D-METHORPHAN HB 10 ML UNIT-DOSE CUPS PO PRN (06:14)
[2016-08-20 06:56] VITALS: BP 126/70; TEMP 98
[2016-08-20] MEDS: AMOX TR/POT CLAV 875MG/125MG TABLETS (FP) PO SCH (07:13)
[2016-08-20] MEDS ORDERED: PT OWN MED DRAWER 7, Y5N ONE ×2 (08:57→09:27)
[2016-08-20] MEDS: FLUTICASONE PROP 0.05% 16 GM NASAL SPRAY NS SCH (09:32)
[2016-08-20] MEDS: PRENATAL VITAMINS W/ FOLIC ACID TABLET (FP) PO SCH (09:32)
== END 2016-08-20 09:40 | disposition home or self-care (01) | DRG 772 ==
LOC: YASAS 10:17 → Y3W 10:19
PROVIDERS: ADMIT Psychiatry & Neurology Psychiatry; ATTEND Psychiatry & Neurology Psychiatry
PROC: HZ42ZZZ Group Counseling for Substance Abuse Treatment, Cognitive-Behavioral (ICD-10-PCS; principal; 2016-08-20)
DX: F10.230 Alcohol dependence with withdrawal, uncomplicated (principal); F17.213 Nicotine dependence, cigarettes, with withdrawal; F19.24 Other psychoactive substance dependence with psychoactive substance-induced mood disorder; F33.9 Major depressive disorder, recurrent, unspecified; B18.2 Chronic viral hepatitis C
CPT/HCPCS: 71020-TC

== ENCOUNTER 2017-11-03 12:08 | Inpatient (IN) | payer OTHER ==
[2017-11-03 13:56] VITALS: BMI 30.2
--- NOTE | 2017-11-03 15:02 | HP ---
CIWA Score - CIWA Score Nausea/Vomitin Muscle Tremors: 3 Anxiety: 3 Agitation: 3 Paroxysmal Sweats: 2 Orientation: 0-Oriented Tacttile Disturbances: 1-Very Mild Itch/Numbness Auditory Disturbances: 2-Mild Harshness/Frighten Visual Disturbances: 0-None Headache: 2-Mild CIWA-Ar Total Score: 18 Admission ROS BHS - HPI Chief Complaint: i need help to stop drinking alcohol and cocaine Allergies/Adverse Reactions: Allergies Allergy/AdvReac Type Severity Reaction Status Date / Time No Known Drug Allergies Allergy Verified 11/03/17 13:38 History of Present Illness: this 57 years old male with alcohol and cocaine dependence,seeking withdrawal symptom,last detox 09/10 [facility],complete syncope last 2 weeks ago hepatitis c treated 2012 depression nicotine dependence old injury of right knee since 1979 longest period of sobriety 2 years Exam Limitations: No Limitations - Ebola screening Have you traveled outside of the country in the last 21 days: No (N) Have you had contact with anyone from an Ebola affected area: No Have you been sick,other than usual withdrawal symptoms: No Do you have a fever: No - Review of Systems Constitutional: Malaise, Night Sweats, Changes in sleep, Weakness, Unexplained wgt Loss EENT: reports: Nose Congestion Respiratory: reports: No Symptoms reported Cardiac: reports: No Symptoms Reported GI: reports: Nausea, Poor Appetite, Abdominal cramping : reports: No Symptoms Reported Musculoskeletal: reports: Back Pain, Joint Pain (right knee pain), Muscle Pain Integumentary: reports: Dryness Neuro: reports: Headache, Tremors Endocrine: reports: No Symptoms Reported Hematology: reports: No Symptoms Reported Psychiatric: reports: No Sypmtoms Reported, Judgement Intact, Mood/Affect Appropiate, Orientated x3 (insomnia), Depressed Patient History - Patient Medical History Hx Anemia: No Hx Asthma: No Hx Chronic Obstructive Pulmonary Disease (COPD): No Hx Cancer: No Hx Cardiac Disorders: No Hx Congestive Heart Failure: No Hx Hypertension: No Hx Hypercholesterolemia: No Hx Pacemaker: No HX Cerebrovascular Accident: No Hx Seizures: No Hx Dementia: No Hx Diabetes: No Hx Gastrointestinal Disorders: No Hx Genitourinary Disorders: No Hx Sexually Transmitted Disorders: Yes (syphilis) Hx Renal Disease (ESRD): No Hx Thyroid Disease: No Hx Human Immunodeficiency Virus (HIV): No (negative) Hx Hepatitis C: No (hep c treated 2012.) Hx Depression: Yes Hx Suicide Attempt: No Hx Bipolar Disorder: No Hx Schizophrenia: No Other Medical History: no suicidal,no homicidal - Patient Surgical History Past Surgical History: Yes Hx Neurologic Surgery: No Hx Cataract Extraction: No Hx Cardiac Surgery: No Hx Lung Surgery: No Hx Breast Surgery: No Hx Breast Biopsy: No Hx Abdominal Surgery: No Hx Appendectomy: No Hx Cholecystectomy: No Hx Genitourinary Surgery: No Hx Section: No Hx Orthopedic Surgery: Yes (fx, left orbit in 09/1994) - PPD History Previous Implant?: Yes Documented Results: Negative w/proof Implanted On Prior [facility] Admission?: Yes Date: 08/04/16 Results: 0 mm PPD to be Administered?: Yes - Smoking Cessation Smoking history: Current every day smoker Have you smoked in the past 12 months: Yes Aproximately how many cigarettes per day: 5 Hx Chewing Tobacco Use: No Initiated information on smoking cessation: Yes 'Breaking Loose' booklet given: 11/03/17 - Substance & Tx. History Hx Alcohol Use: Yes Hx Substance Use: Yes Substance Use Type: Alcohol, Cocaine Hx Substance Use Treatment: Yes ([facility] 09/10) - Substances Abused Alcohol-vodka Route: Oral Frequency: Daily Amount used: fifth Age of first use: 16 Date of Last Use: 11/03/17 Cocaine Route: Inhalation Frequency: 1-3 times last 30 days Amount used: 20$ Age of first use: 24 Date of Last Use: 11/01/17 Family Disease History - Family Disease History Family Disease History: CA: Mother (lung ca ,decesed) Admission Physical Exam S - Vital Signs Vital Signs: Vital Signs - 24 hr 11/03/17 13:46 Temperature 99 F Pulse Rate 64 Respiratory 20 Rate Blood Pressure 142/77 - Physical General Appearance: Yes: Moderate Distress, Tremorous, Irritable, Sweating, Anxious HEENTM: Yes: Normal ENT Inspection, KEEGAN, Pharynx Normal Respiratory: Yes: Lungs Clear, Normal Breath Sounds, No Respiratory Distress Neck: Yes: Within Normal Limits, Supple, Trachea in good position Breast: Yes: Within Normal Limits Cardiology: Yes: Within Normal Limits, Regular Rhythm, Regular Rate, S1, S2 Abdominal: Yes: Within Normal Limits, Normal Bowel Sounds, Flat, Soft Genitourinary: Yes: Within Normal Limits Back: Yes: Normal Inspection, Muscle Spasm Musculoskeletal: Yes: full range of Motion, Back pain, Muscle Pain, Other ( swelling of right knee won bandage right knee) Extremities: Yes: Within Normal Limits, Tremors Neurological: Yes: extension associate II-XII NML intact, Alert, Motor Strength 5/5 Integumentary: Yes: Dry Lymphatic: Yes: Within Normal Limits - Diagnostic (1) Alcohol dependence with uncomplicated withdrawal Current Visit: No Status: Acute (2) Depression Current Visit: No Status: Acute (3) Insomnia Current Visit: No Status: Acute (4) Nicotine dependence Current Visit: No Status: Acute Qualifiers: Nicotine product type: cigarettes Substance use status: in withdrawal Qualified Code(s): F17.213 - Nicotine dependence, cigarettes, with withdrawal (5) History of hepatitis C Current Visit: No Status: Chronic (6) Cocaine dependence Current Visit: Yes Status: Acute Cleared for Admission [facility] - Detox or Rehab [facility] Level of Care: Medically Managed Detox Regimen/Protocol: Librium S Breath Alcohol Content Breath Alcohol Content: 0 Urine Drug Screen - Results Drug Screen Negative: No Urine Drug Screen Results: KASSIE-Cocaine
[2017-11-03] MEDS ORDERED: MAGNESIUM HYDROX 2400MG/30ML ORAL SUSPENSION 30 ML CUP PO PRN (15:19)
[2017-11-03] MEDS ORDERED: P-EPHED 60MG/TRIPROLIDI 2.5MG TABLET PO PRN (15:19)
[2017-11-03] MEDS ORDERED: LOPERAMIDE HCL 2 MG CAPSULE PO PRN (15:19)
[2017-11-03] MEDS ORDERED: chlordiazePOXIDE HCL 25 MG CAPSULE PO PRN (15:19)
[2017-11-03] MEDS ORDERED: guaiFENesin/D-METHORPHAN HB 10 ML UNIT-DOSE CUPS PO PRN (15:19)
[2017-11-03] MEDS ORDERED: MAGNESIUM CITRATE 300 ML BOTTLE PO PRN (15:19)
[2017-11-03] MEDS ORDERED: MENTHOL/PHENOL 1 EACH UD MM PRN (15:19)
[2017-11-03] MEDS ORDERED: hydrOXYzine PAMOATE 50 MG CAPSULE (FP) PO PRN (15:19)
[2017-11-03] MEDS ORDERED: MAG HYDROX/AL HYDROX/SIMETH 30 ML UNIT-DOSE CUP PO PRN (15:19)
[2017-11-03] MEDS ORDERED: ACETAMINOPHEN 325 MG TABLET (FP) PO PRN (15:19)
[2017-11-03] MEDS ORDERED: chlordiazePOXIDE HCL 25 MG CAPSULE PO ONE (15:40)
[2017-11-03] MEDS: chlordiazePOXIDE HCL 25 MG CAPSULE PO SCH ×2 (17:13→22:28)
[2017-11-03] MEDS: NICOTINE POLACRILEX 2 MG GUM BC PRN ×2 (17:45→22:30)
[2017-11-03] MEDS ORDERED: MELATONIN 5 MG TABLETS PO PRN (22:00)
[2017-11-03] MEDS: THIAMINE HCL 100 MG TABLET (FP) PO SCH (22:28)
[2017-11-03 23:30] LABS: URINE APPEARANCE CLEAR; URINE BILIRUBIN NEGATIVE (<2.0 mg/dL); URINE COLOR LTYELLOW; URINE GLUCOSE (UA) NEGATIVE (NEGATIVE); URINE KETONE NEGATIVE (NEGATIVE); URINE LEUK ESTERASE NEGATIVE (NEGATIVE); URINE NITRITE NEGATIVE (NEGATIVE); URINE PROTEIN NEGATIVE (NEGATIVE); URINE UROBILINOGEN NEGATIVE mg/dL (0.2-1.0)
[2017-11-04] MEDS: chlordiazePOXIDE HCL 25 MG CAPSULE PO SCH ×4 (05:22→22:20)
[2017-11-04] MEDS: NICOTINE POLACRILEX 2 MG GUM BC PRN ×3 (05:22→10:36)
[2017-11-04] MEDS: IBUPROFEN 400 MG TABLET (FP) PO PRN ×2 (06:15→13:36)
[2017-11-04 10:09] LABS: MCH 30.1 pg (25.7-33.7); MCHC 34.1 g/dl (32.0-35.9); MEAN CELL VOLUME 88.5 fl (80-96); MEAN PLT VOLUME 9.9 fl (7.5-11.1); PLATELET COUNT 183 K/MM3 (134-434); RBC 4.98 M/mm3 (4.00-5.60); RDW 13.9 % (11.9-15.9); WHITE BLOOD COUNT 6.7 K/mm3 (4.0-10.0)
[2017-11-04] MEDS: PRENATAL VITAMINS W/ FOLIC ACID TABLET (FP) PO SCH (10:15)
[2017-11-04 10:50] LABS: CHLORIDE 105 mmol/L (98-107); SODIUM 139 mmol/L (136-145)
--- NOTE | 2017-11-04 11:14 | PN ---
[facility] CIWA - CIWA Score Nausea/Vomitin-No Nausea/No Vomiting Muscle Tremors: 4-Moderate,w/Arms Extend Anxiety: 4-Mod. Anxious/Guarded Agitation: 4-Moderately Restless Paroxysmal Sweats: 1-Minimal Palms Moist Orientation: 0-Oriented Tacttile Disturbances: 3-Moderate Itch/Numb/Burn Auditory Disturbances: 0-None Visual Disturbances: 0-None Headache: 0-None Present CIWA-Ar Total Score: 16 BHS Progress Note (SOAP) Subjective: ANXIETY,IRRITABILITY,SWEATS,C/O PAIN TO LEFT HAND AFTER AWAKENING AT HOME 2 DAYS AGO. DENIES FALL OR TRUAMA TO HAND. Objective: 11/04/17 11:10 Vital Signs 11/04/17 11/04/17 11/04/17 03:30 06:12 06:30 Temperature 97.2 F L Pulse Rate 68 Respiratory 18 18 18 Rate Blood Pressure 132/90 11/04/17 09:06 Temperature 98.0 F Pulse Rate 65 Respiratory 18 Rate Blood Pressure 112/70 Laboratory Tests 11/03/17 11/04/17 11/04/17 22:30 05:50 05:50 WBC 6.7 D RBC 4.98 Hgb 15.0 Hct 44.0 MCV 88.5 MCH 30.1 MCHC 34.1 RDW 13.9 Plt Count 183 MPV 9.9 Sodium 139 Potassium 4.0 Chloride 105 Urine Color Ltyellow Urine Appearance Clear Urine pH 5.0 Ur Specific [place] 1.012 Urine Protein Negative Urine Glucose (UA) Negative Urine Ketones Negative Urine Blood Negative Urine Nitrite Negative Urine Bilirubin Negative Urine Urobilinogen Negative Ur Leukocyte Esterase Negative OTHER LABS PENDING SLIGHT REDNESS, SWELLING WITH PAIN TO LEFT HAND BETWEEN BASE OF INDEX FINGER AND THUMB. ACTIVE ROM TO ALL HAND JOINTS Assessment: 11/04/17 11:10 WITHDRAWAL SX PAIN AND SWELLING TO LEFT HAND Plan: CONTINUE DETOX MOTRIN PRN ANALGESIC BALM TO AREA.
[2017-11-04 12:20] LABS: ALBUMIN 3.9 g/dl (3.4-5.0); ALK PHOS 73 U/L (45-117); ANION GAP 11 (8-16); BILIRUBIN,TOTAL 0.4 mg/dL (0.2-1.0); BLOOD UREA NITROGEN 13 mg/dL (7-18); CALCIUM 9.1 mg/dL (8.5-10.1); CO2 23 mmol/L (21-32); CREATININE 1.1 mg/dL (0.7-1.3); GLUCOSE,RANDOM 84 mg/dL (74-106); SGOT/AST 58 U/L (15-37); SGPT/ALT 115 U/L (12-78); TOT PROT 7.6 g/dl (6.4-8.2)
--- NOTE | 2017-11-04 12:25 | EKG ---
Test Reason : Blood Pressure : / mmHG Vent. Rate : 060 BPM Atrial Rate : 060 BPM P-R Int : 146 ms QRS Dur : 100 ms QT Int : 410 ms P-R-T Axes : 056 073 064 degrees QTc Int : 410 ms NORMAL SINUS RHYTHM MINIMAL VOLTAGE CRITERIA FOR LVH, MAY BE NORMAL VARIANT BORDERLINE ECG NO PREVIOUS ECGS AVAILABLE Confirmed by MD SANTOSH, JAILYN ([id number]) on 11/04/2017 12:25:01 PM Referred By: Confirmed By:JAILYN FROST MD
--- NOTE | 2017-11-04 13:07 | CONSULT ---
[facility] Psychiatric Consult - Data Date of interview: 11/04/17 Admission source: [facility] Identifying data: Patient is a 57 year old single male, father of two, unemployed, domiciled, and supported by [facility]. This is one of multiple admissions for detox. Pt. admitted to for alcohol and cocaine dependence. Substance Abuse History: Smoking Cessation. Smoking history: Current every day smoker. Have you smoked in the past 12 months: Yes. Aproximately how many cigarettes per day: 5. Hx Chewing Tobacco Use: No. Initiated information on smoking cessation: Yes. 'Breaking Loose' booklet given: 11/03/17. - Substance & Tx. History. Hx Alcohol Use: Yes. Hx Substance Use: Yes. Substance Use Type : Alcohol, Cocaine. Hx [facility] - Substances Abused. Alcohol-vodka. Route: Oral. Frequency: Daily. Amount used: fifth. Age of first use: 16. Date of Last Use: 11/03/17. Cocaine. Route: Inhalation. Frequency: 1-3 times last 30 days. Amount used: 20$. Age of first use: 24. Date of Last Use: 11/01/17 Medical History: Hep C Psychiatric History: Patient denies h/o psychiatric hospitalizations and suicide attempt. Patient's first psychiatric contact was in 2001 at the diagnostic center in [place] which resulted in a diagnosis of depression. OPD is provided at [facility] outpatient clinic. Pt. is prescribed doxepin 50mg qhs + Seroquel 25mg. Physical/Sexual Abuse/Trauma History: Denies. Mental Status Exam - Mental Status Exam Alert and Oriented to: Time, Place, Person Cognitive Function: Good Patient Appearance: Well Groomed Mood: Hopeful Affect: Mood Congruent Patient Behavior: Appropriate, Cooperative Speech Pattern: Appropriate Voice Loudness: Normal Thought Process: Intact, Goal Oriented Thought Disorder: Not Present Hallucinations: Denies Suicidal Ideation: Denies Homicidal Ideation: Denies Insight/Judgement: Poor Sleep: Poorly Appetite: Fair Muscle strength/Tone: Normal Gait/Station: Normal Psychiatric Findings - Problem List ([place] 1, 2,3) (1) Alcohol dependence with uncomplicated withdrawal Current Visit: Yes Status: Acute (2) Cocaine dependence Current Visit: Yes Status: Acute Qualifiers: Substance use status: uncomplicated Qualified Code(s): F14.20 - Cocaine dependence, uncomplicated (3) Nicotine dependence Current Visit: Yes Status: Chronic Qualifiers: Nicotine product type: cigarettes Substance use status: in withdrawal Qualified Code(s): F17.213 - Nicotine dependence, cigarettes, with withdrawal (4) Insomnia Current Visit: Yes Status: Acute (5) Substance induced mood disorder Current Visit: Yes Status: Acute - Initial Treatment Plan Initial Treatment Plan: Psychoeducation provided. Detoxification in progress. Doxepin 50mg qhs + Seroquel 25mg qhs ordered. Benefits and side effects discussed. Verbal consent given. Will continue to monitor.
[2017-11-04] MEDS: NICOTINE POLACRILEX 4 MG GUM BUC PRN ×3 (13:37→19:35)
[2017-11-04] MEDS: METHYL SALICYLATE/MENTHOL OINT 30 GM TUBE TP SCH ×2 (13:43→21:26)
[2017-11-04] MEDS: DOXEPIN HCL 50 MG CAPSULE PO SCH (21:24)
[2017-11-04] MEDS: THIAMINE HCL 100 MG TABLET (FP) PO SCH (21:24)
[2017-11-04] MEDS: QUEtiapine FUMARATE 25 MG TABLET (FP) PO SCH (21:25)
[2017-11-05] MEDS: chlordiazePOXIDE HCL 25 MG CAPSULE PO SCH ×2 (05:41→10:06)
[2017-11-05] MEDS: METHYL SALICYLATE/MENTHOL OINT 30 GM TUBE TP SCH ×3 (07:59→21:32)
[2017-11-05] MEDS: IBUPROFEN 400 MG TABLET (FP) PO PRN (08:50)
[2017-11-05] MEDS: NICOTINE POLACRILEX 4 MG GUM BUC PRN ×4 (08:51→21:31)
[2017-11-05] MEDS: PRENATAL VITAMINS W/ FOLIC ACID TABLET (FP) PO SCH (10:06)
--- NOTE | 2017-11-05 10:21 | PN ---
S CIWA - CIWA Score Nausea/Vomitin-No Nausea/No Vomiting Muscle Tremors: 4-Moderate,w/Arms Extend Anxiety: 4-Mod. Anxious/Guarded Agitation: 4-Moderately Restless Paroxysmal Sweats: 1-Minimal Palms Moist Orientation: 0-Oriented Tacttile Disturbances: 0-None Auditory Disturbances: 0-None Visual Disturbances: 0-None Headache: 0-None Present CIWA-Ar Total Score: 13 BHS Progress Note (SOAP) Subjective: ANXIETY,SWEATS,SLIGHT TREMORS, LEFT HAND PAIN. Objective: 11/05/17 10:20 Vital Signs 11/05/17 11/05/17 11/05/17 03:30 06:36 09:14 Temperature 97.9 F 96.4 F L Pulse Rate 73 75 Respiratory 18 18 18 Rate Blood Pressure 112/77 123/74 Laboratory Tests 11/03/17 11/04/17 11/04/17 22:30 05:50 05:50 WBC 6.7 D RBC 4.98 Hgb 15.0 Hct 44.0 MCV 88.5 MCH 30.1 MCHC 34.1 RDW 13.9 Plt Count 183 MPV 9.9 Sodium Potassium Chloride Carbon Dioxide Anion Gap BUN Creatinine Creat Clearance w eGFR Random Glucose Calcium Total Bilirubin AST ALT Alkaline Phosphatase Total Protein Albumin Urine Color Ltyellow Urine Appearance Clear Urine pH 5.0 Ur Specific [place] 1.012 Urine Protein Negative Urine Glucose (UA) Negative Urine Ketones Negative Urine Blood Negative Urine Nitrite Negative Urine Bilirubin Negative Urine Urobilinogen Negative Ur Leukocyte Esterase Negative RPR Titer HIV 1&2 Antibody Screen Negative HIV P24 Antigen Negative 11/04/17 11/04/17 05:50 05:50 WBC RBC Hgb Hct MCV MCH MCHC RDW Plt Count MPV Sodium 139 Potassium 4.0 Chloride 105 Carbon Dioxide 23 Anion Gap 11 BUN 13 D Creatinine 1.1 Creat Clearance w eGFR > 60 Random Glucose 84 Calcium 9.1 Total Bilirubin 0.4 AST 58 H ALT 115 H Alkaline Phosphatase 73 Total Protein 7.6 Albumin 3.9 Urine Color Urine Appearance Urine pH Ur Specific [place] Urine Protein Urine Glucose (UA) Urine Ketones Urine Blood Urine Nitrite Urine Bilirubin Urine Urobilinogen Ur Leukocyte Esterase RPR Titer Nonreactive HIV 1&2 Antibody Screen HIV P24 Antigen Assessment: 11/05/17 10:20 WITHDRAWAL SX Plan: CONTINUE DETOX XRAY LEFT HAND R/O FRACTURE.
--- NOTE | 2017-11-05 15:15 | PN ---
BHS Progress Note Note: XRAY LEFT HAND NO FRACTURE ON RESULT. SLIGHT TISSUE SWELLING. PLAN:COLD COMPRESS.
[2017-11-05] MEDS: chlordiazePOXIDE 5 MG CAPSULE PO SCH ×2 (17:15→22:21)
[2017-11-05] MEDS: DOXEPIN HCL 50 MG CAPSULE PO SCH (21:30)
[2017-11-05] MEDS: QUEtiapine FUMARATE 25 MG TABLET (FP) PO SCH (21:30)
[2017-11-05] MEDS: THIAMINE HCL 100 MG TABLET (FP) PO SCH (21:32)
[2017-11-06 09:16] VITALS: BP 117/71; PULSE 81; TEMP 98.5
[2017-11-06] MEDS: chlordiazePOXIDE HCL 10 MG CAPSULE PO SCH ×2 (09:42→10:05)
[2017-11-06] MEDS: METHYL SALICYLATE/MENTHOL OINT 30 GM TUBE TP SCH ×2 (09:42→13:05)
[2017-11-06] MEDS: PRENATAL VITAMINS W/ FOLIC ACID TABLET (FP) PO SCH (10:05)
[2017-11-06] MEDS: NICOTINE POLACRILEX 4 MG GUM BUC PRN ×2 (10:08→13:06)
--- NOTE | 2017-11-06 10:43 | PN ---
BHS Progress Note (SOAP) Subjective: DETOX COMPLETED. ALERT O X 3. NAD. PT REFERRED TO REHAB TODAY. Objective: 11/06/17 10:41 Vital Signs 11/06/17 09:16 Temperature 98.5 F Pulse Rate 81 Respiratory 18 Rate Blood Pressure 117/71 Laboratory Tests 11/03/17 11/04/17 11/04/17 22:30 05:50 05:50 WBC 6.7 D RBC 4.98 Hgb 15.0 Hct 44.0 MCV 88.5 MCH 30.1 MCHC 34.1 RDW 13.9 Plt Count 183 MPV 9.9 Sodium Potassium Chloride Carbon Dioxide Anion Gap BUN Creatinine Creat Clearance w eGFR Random Glucose Calcium Total Bilirubin AST ALT Alkaline Phosphatase Total Protein Albumin Urine Color Ltyellow Urine Appearance Clear Urine pH 5.0 Ur Specific [place] 1.012 Urine Protein Negative Urine Glucose (UA) Negative Urine Ketones Negative Urine Blood Negative Urine Nitrite Negative Urine Bilirubin Negative Urine Urobilinogen Negative Ur Leukocyte Esterase Negative RPR Titer HIV 1&2 Antibody Screen Negative HIV P24 Antigen Negative 11/04/17 11/04/17 05:50 05:50 WBC RBC Hgb Hct MCV MCH MCHC RDW Plt Count MPV Sodium 139 Potassium 4.0 Chloride 105 Carbon Dioxide 23 Anion Gap 11 BUN 13 D Creatinine 1.1 Creat Clearance w eGFR > 60 Random Glucose 84 Calcium 9.1 Total Bilirubin 0.4 AST 58 H ALT 115 H Alkaline Phosphatase 73 Total Protein 7.6 Albumin 3.9 Urine Color Urine Appearance Urine pH Ur Specific [place] Urine Protein Urine Glucose (UA) Urine Ketones Urine Blood Urine Nitrite Urine Bilirubin Urine Urobilinogen Ur Leukocyte Esterase RPR Titer Nonreactive HIV 1&2 Antibody Screen HIV P24 Antigen Assessment: 11/06/17 10:42 MEDICALLY STABLE Plan: D/C PT TODAY
--- NOTE | 2017-11-06 10:48 | DS ---
[facility] Detox Discharge Summary Admission Date: 11/03/17 Discharge Date: 11/06/17 - History Present History: Alcohol Dependence, Cocaine Dependence Additional Comments: DETOX COMPLETED. ALERT O X 3. NAD. PT REPORTS PRIMARY CARE AT [facility] BY [facility] WITH DR. CHANEL AT [address] [place] [address]. PT IS REFERRED TO AFTERCARE TODAY IN [address] Pertinent Past History: PLEASE SEE DX BELOW - Physical Exam Results Vital Signs: Vital Signs Temperature 98.5 F 11/06/17 09:16 Pulse Rate 81 11/06/17 09:16 Respiratory Rate 18 11/06/17 09:16 Blood Pressure 117/71 11/06/17 09:16 O2 Sat by Pulse Oximetry (%) Pertinent Admission Physical Exam Findings: WITHDRAWAL SX Laboratory Tests 11/03/17 11/04/17 11/04/17 22:30 05:50 05:50 WBC 6.7 D RBC 4.98 Hgb 15.0 Hct 44.0 MCV 88.5 MCH 30.1 MCHC 34.1 RDW 13.9 Plt Count 183 MPV 9.9 Sodium Potassium Chloride Carbon Dioxide Anion Gap BUN Creatinine Creat Clearance w eGFR Random Glucose Calcium Total Bilirubin AST ALT Alkaline Phosphatase Total Protein Albumin Urine Color Ltyellow Urine Appearance Clear Urine pH 5.0 Ur Specific Burton 1.012 Urine Protein Negative Urine Glucose (UA) Negative Urine Ketones Negative Urine Blood Negative Urine Nitrite Negative Urine Bilirubin Negative Urine Urobilinogen Negative Ur Leukocyte Esterase Negative RPR Titer HIV 1&2 Antibody Screen Negative HIV P24 Antigen Negative 11/04/17 11/04/17 05:50 05:50 WBC RBC Hgb Hct MCV MCH MCHC RDW Plt Count MPV Sodium 139 Potassium 4.0 Chloride 105 Carbon Dioxide 23 Anion Gap 11 BUN 13 D Creatinine 1.1 Creat Clearance w eGFR > 60 Random Glucose 84 Calcium 9.1 Total Bilirubin 0.4 AST 58 H ALT 115 H Alkaline Phosphatase 73 Total Protein 7.6 Albumin 3.9 Urine Color Urine Appearance Urine pH Ur Specific Burton Urine Protein Urine Glucose (UA) Urine Ketones Urine Blood Urine Nitrite Urine Bilirubin Urine Urobilinogen Ur Leukocyte Esterase RPR Titer Nonreactive HIV 1&2 Antibody Screen HIV P24 Antigen LEFT HAND PAIN WITH SWELLING ON ADMISSION. XRAY LEFT HAND: NO FRACTURE. - Treatment Hospital Course: Detox Protocol Followed, Detoxed Safely, Responded well, Discharged Condition Good, Rehab Referral Accepted Patient has Accepted a Rehab Referral to: [facility] - Medication Discharge Medications: Ambulatory Orders Quetiapine Fumarate [Seroquel -] 25 mg PO HS 08/02/16 Doxepin HCl 50 mg PO HS #30 capsule 08/19/16 - Diagnosis (1) Cocaine dependence Status: Acute Qualifiers: Substance use status: uncomplicated Qualified Code(s): F14.20 - Cocaine dependence, uncomplicated (2) Alcohol dependence with uncomplicated withdrawal Status: Acute (3) Nicotine dependence Status: Chronic Qualifiers: Nicotine product type: cigarettes Substance use status: in withdrawal Qualified Code(s): F17.213 - Nicotine dependence, cigarettes, with withdrawal (4) History of hepatitis C Status: Chronic (5) Pain in left hand Status: Acute - AMA Did Patient Leave Against Medical Advice: No
[2017-11-06] MEDS ORDERED: chlordiazePOXIDE HCL 10 MG CAPSULE PO SCH (17:00)
== END 2017-11-06 13:08 | disposition other institution (70) | DRG 774 ==
LOC: YASAS 12:08 → Y3N 14:53
PROVIDERS: ADMIT Surgery; ATTEND Surgery
PROC: HZ2ZZZZ Detoxification Services for Substance Abuse Treatment (ICD-10-PCS; principal; 2017-11-03)
DX: F10.230 Alcohol dependence with withdrawal, uncomplicated (principal); F14.20 Cocaine dependence, uncomplicated; F17.213 Nicotine dependence, cigarettes, with withdrawal; F19.24 Other psychoactive substance dependence with psychoactive substance-induced mood disorder; F32.9 Major depressive disorder, single episode, unspecified; B18.2 Chronic viral hepatitis C; M79.642 Pain in left hand; G47.00 Insomnia, unspecified; Z87.438 Personal history of other diseases of male genital organs
CPT/HCPCS: 36415; 73130-TC-LR-FY; 80053; 81003; 85027; 86593; 87389; 93005; 93010

== ENCOUNTER 2017-11-06 13:27 | Inpatient (IN) | payer OTHER ==
--- NOTE | 2017-11-06 13:41 | HP ---
Psychiatrist Admission - Data Date of interview: 11/06/17 Admission source: [facility] Identifying data: Patient is a 57 year old single male, father of two, unemployed, domiciled, and supported by [facility]. This is one of multiple admissions for detox. Pt. admitted to for alcohol dependence. Medical History: Hep C Psychiatric History: Patient denies h/o psychiatric hospitalizations and suicide attempt. Patient's first psychiatric contact was in 2001 at the diagnostic center in [place] which resulted in a diagnosis of depression. Patient had trials of accepting wellbutrin, trazodone (had an episiode of priapism) and ambien. Current OPD is provided at [facility] outpatient clinic. Pt. is prescribed doxepin 50mg qhs + Seroquel 25mg. Physical/Sexual Abuse/Trauma History: Denies. Allergies/Adverse Reactions: Allergies Allergy/AdvReac Type Severity Reaction Status Date / Time No Known Drug Allergies Allergy Verified 11/06/17 13:55 Date of last physical exam: 11/03/17 Concur with the findings of this exam: Yes - Substance Abuse/Tx History Hx Alcohol Use: Yes (1/5 of a bottle of vodka daily) Hx Substance Use: Yes ($20 every 2-3 months) Substance Use Type: Opiates Hx Substance Use Treatment: Yes (2017 at [facility]) Mental Status Exam - Mental Status Exam Alert and Oriented to: Time, Place, Person Cognitive Function: Good Patient Appearance: Well Groomed Mood: Hopeful Affect: Mood Congruent Patient Behavior: Appropriate, Cooperative Speech Pattern: Clear, Appropriate Voice Loudness: Normal Thought Process: Intact, Goal Oriented Thought Disorder: Not Present Hallucinations: Denies Suicidal Ideation: Denies Homicidal Ideation: Denies Insight/Judgement: Poor Sleep: Fair Appetite: Good Muscle strength/Tone: Normal Gait/Station: Normal Psychiatric Findings - Problem List ([place] 1, 2,3) (1) Alcohol dependence Current Visit: Yes Status: Acute (2) Substance-induced sleep disorder Current Visit: Yes Status: Acute (3) Nicotine dependence Current Visit: Yes Status: Chronic Qualifiers: Nicotine product type: cigarettes Substance use status: in withdrawal Qualified Code(s): F17.213 - Nicotine dependence, cigarettes, with withdrawal - Initial Treatment Plan Initial Treatment Plan: Psychoeducation provided. Detoxification in progress. Doxepin 50mg qhs + Seroquel 25mg qhs ordered. Benefits and side effects discussed. Verbal consent given.
[2017-11-06] MEDS ORDERED: ACETAMINOPHEN 325 MG TABLET (FP) PO PRN (14:42)
[2017-11-06] MEDS ORDERED: LOPERAMIDE HCL 2 MG CAPSULE PO PRN (14:42)
[2017-11-06] MEDS ORDERED: MAG HYDROX/AL HYDROX/SIMETH 30 ML UNIT-DOSE CUP PO PRN (14:42)
[2017-11-06] MEDS ORDERED: hydrOXYzine PAMOATE 50 MG CAPSULE (FP) PO PRN (14:42)
[2017-11-06] MEDS ORDERED: MAGNESIUM CITRATE 300 ML BOTTLE PO PRN (14:42)
[2017-11-06] MEDS ORDERED: P-EPHED 60MG/TRIPROLIDI 2.5MG TABLET PO PRN (14:42)
[2017-11-06] MEDS ORDERED: MAGNESIUM HYDROX 2400MG/30ML ORAL SUSPENSION 30 ML CUP PO PRN (14:42)
[2017-11-06] MEDS ORDERED: guaiFENesin/D-METHORPHAN HB 10 ML UNIT-DOSE CUPS PO PRN (14:42)
[2017-11-06] MEDS ORDERED: MENTHOL/PHENOL 1 EACH UD MM PRN (14:42)
--- NOTE | 2017-11-06 14:42 | HP ---
[facility] Rehab Assess/Revision - Admission History Admitted to Rehab from[facility] Date of Admission to Rehab: 11/06/17 - Vital signs Vital Signs: Vital Signs Period Temp Pulse Resp BP Sys/Giron Pulse Ox Last 24 Hr 98.6 F 82 18 145/84 - Findings Detox History & Physical reviewed: Yes Concur with findings: Yes Comments/Additional Findings: PT COMPLETED DETOX TODAY. ALERT O X 3. NAD. ADMIT TO REHAB FOR AFTERCARE. Inpatient Rehab Admission - Initial Determination Are CD services needed?: Yes Free of communicable disease: Yes Not in need of hospitalization: Yes - Rehab Admission Criteria Patient is meeting Inpatient Rehab admission criteria:: Yes
[2017-11-06] MEDS: NICOTINE POLACRILEX 2 MG GUM BUC PRN ×2 (15:40→20:10)
[2017-11-06] MEDS: NICOTINE 14 MG/24 HOURS TOPICAL PATCH TD SCH (15:42)
[2017-11-06] MEDS: DOXEPIN HCL 50 MG CAPSULE PO SCH (21:00)
[2017-11-06] MEDS: QUEtiapine FUMARATE 25 MG TABLET (FP) PO SCH (21:00)
[2017-11-06] MEDS: THIAMINE HCL 100 MG TABLET (FP) PO SCH (21:00)
[2017-11-06] MEDS ORDERED: MELATONIN 5 MG TABLETS PO PRN (22:00)
[2017-11-07] MEDS: NICOTINE POLACRILEX 2 MG GUM BUC PRN ×3 (05:00→12:56)
[2017-11-07] MEDS: PRENATAL VITAMINS W/ FOLIC ACID TABLET (FP) PO SCH (10:34)
[2017-11-07] MEDS: NICOTINE 14 MG/24 HOURS TOPICAL PATCH TD SCH (10:34)
[2017-11-07] MEDS: IBUPROFEN 400 MG TABLET (FP) PO PRN (10:54)
[2017-11-07] MEDS: NICOTINE POLACRILEX 4 MG GUM BUC PRN ×2 (14:57→16:57)
[2017-11-07] MEDS: THIAMINE HCL 100 MG TABLET (FP) PO SCH (21:05)
[2017-11-07] MEDS: DOXEPIN HCL 50 MG CAPSULE PO SCH (21:05)
[2017-11-07] MEDS: METHYL SALICYLATE/MENTHOL OINT 30 GM TUBE TP SCH (21:05)
[2017-11-07] MEDS: QUEtiapine FUMARATE 25 MG TABLET (FP) PO SCH (21:05)
[2017-11-08] MEDS: IBUPROFEN 400 MG TABLET (FP) PO PRN ×2 (06:22→18:36)
[2017-11-08] MEDS: NICOTINE POLACRILEX 4 MG GUM BUC PRN ×5 (06:23→21:09)
[2017-11-08] MEDS: NICOTINE 21 MG/24 HOURS TOPICAL PATCH TD SCH (10:20)
[2017-11-08] MEDS: PRENATAL VITAMINS W/ FOLIC ACID TABLET (FP) PO SCH (10:20)
[2017-11-08] MEDS: METHYL SALICYLATE/MENTHOL OINT 30 GM TUBE TP SCH ×2 (10:20→21:09)
[2017-11-08] MEDS: DOXEPIN HCL 50 MG CAPSULE PO SCH (21:08)
[2017-11-08] MEDS: QUEtiapine FUMARATE 25 MG TABLET (FP) PO SCH (21:08)
[2017-11-08] MEDS: THIAMINE HCL 100 MG TABLET (FP) PO SCH (21:09)
[2017-11-09] MEDS: NICOTINE POLACRILEX 4 MG GUM BUC PRN ×5 (08:52→21:12)
[2017-11-09] MEDS: PRENATAL VITAMINS W/ FOLIC ACID TABLET (FP) PO SCH (10:27)
[2017-11-09] MEDS: NICOTINE 21 MG/24 HOURS TOPICAL PATCH TD SCH (10:28)
[2017-11-09] MEDS: METHYL SALICYLATE/MENTHOL OINT 30 GM TUBE TP SCH ×2 (10:28→21:10)
[2017-11-09] MEDS: THIAMINE HCL 100 MG TABLET (FP) PO SCH (21:10)
[2017-11-09] MEDS: DOXEPIN HCL 50 MG CAPSULE PO SCH (21:10)
[2017-11-09] MEDS: QUEtiapine FUMARATE 25 MG TABLET (FP) PO SCH (21:10)
[2017-11-09] MEDS: BENZOCAINE 20 % GEL 9 GM TUBE MM PRN (21:11)
[2017-11-10] MEDS: NICOTINE POLACRILEX 4 MG GUM BUC PRN ×5 (06:00→21:11)
[2017-11-10] MEDS: BENZOCAINE 20 % GEL 9 GM TUBE MM PRN ×2 (06:05→14:06)
[2017-11-10] MEDS: IBUPROFEN 400 MG TABLET (FP) PO PRN (08:44)
[2017-11-10] MEDS: METHYL SALICYLATE/MENTHOL OINT 30 GM TUBE TP SCH ×2 (10:47→21:11)
[2017-11-10] MEDS: PRENATAL VITAMINS W/ FOLIC ACID TABLET (FP) PO SCH (10:47)
[2017-11-10] MEDS: NICOTINE 21 MG/24 HOURS TOPICAL PATCH TD SCH (10:47)
[2017-11-10] MEDS: DOXEPIN HCL 50 MG CAPSULE PO SCH (21:11)
[2017-11-10] MEDS: THIAMINE HCL 100 MG TABLET (FP) PO SCH (21:11)
[2017-11-10] MEDS: QUEtiapine FUMARATE 25 MG TABLET (FP) PO SCH (21:11)
[2017-11-11] MEDS: NICOTINE POLACRILEX 4 MG GUM BUC PRN ×6 (06:13→21:03)
[2017-11-11] MEDS: METHYL SALICYLATE/MENTHOL OINT 30 GM TUBE TP SCH ×2 (10:12→21:07)
[2017-11-11] MEDS: NICOTINE 21 MG/24 HOURS TOPICAL PATCH TD SCH (10:12)
[2017-11-11] MEDS: PRENATAL VITAMINS W/ FOLIC ACID TABLET (FP) PO SCH (10:12)
[2017-11-11] MEDS: IBUPROFEN 400 MG TABLET (FP) PO PRN (14:14)
[2017-11-11] MEDS: DOXEPIN HCL 50 MG CAPSULE PO SCH (21:03)
[2017-11-11] MEDS: QUEtiapine FUMARATE 25 MG TABLET (FP) PO SCH (21:03)
[2017-11-11] MEDS: THIAMINE HCL 100 MG TABLET (FP) PO SCH (21:03)
[2017-11-12] MEDS: BENZOCAINE 20 % GEL 9 GM TUBE MM PRN (06:42)
[2017-11-12] MEDS: IBUPROFEN 400 MG TABLET (FP) PO PRN (06:42)
[2017-11-12] MEDS: NICOTINE POLACRILEX 4 MG GUM BUC PRN ×5 (08:51→21:06)
[2017-11-12] MEDS: NICOTINE 21 MG/24 HOURS TOPICAL PATCH TD SCH (10:05)
[2017-11-12] MEDS: METHYL SALICYLATE/MENTHOL OINT 30 GM TUBE TP SCH ×2 (10:05→21:06)
[2017-11-12] MEDS: PRENATAL VITAMINS W/ FOLIC ACID TABLET (FP) PO SCH (10:05)
[2017-11-12] MEDS: DOXEPIN HCL 50 MG CAPSULE PO SCH (21:06)
[2017-11-12] MEDS: QUEtiapine FUMARATE 25 MG TABLET (FP) PO SCH (21:06)
[2017-11-12] MEDS: THIAMINE HCL 100 MG TABLET (FP) PO SCH (21:06)
[2017-11-13] MEDS: NICOTINE POLACRILEX 4 MG GUM BUC PRN ×6 (05:14→20:09)
[2017-11-13] MEDS: BENZOCAINE 20 % GEL 9 GM TUBE MM PRN (07:03)
[2017-11-13] MEDS: IBUPROFEN 400 MG TABLET (FP) PO PRN ×2 (07:04→14:10)
[2017-11-13] MEDS: PRENATAL VITAMINS W/ FOLIC ACID TABLET (FP) PO SCH (09:54)
[2017-11-13] MEDS: METHYL SALICYLATE/MENTHOL OINT 30 GM TUBE TP SCH ×2 (09:54→21:06)
[2017-11-13] MEDS: NICOTINE 21 MG/24 HOURS TOPICAL PATCH TD SCH (09:55)
[2017-11-13] MEDS: DOXEPIN HCL 50 MG CAPSULE PO SCH (21:05)
[2017-11-13] MEDS: QUEtiapine FUMARATE 25 MG TABLET (FP) PO SCH (21:05)
[2017-11-13] MEDS: THIAMINE HCL 100 MG TABLET (FP) PO SCH (21:05)
[2017-11-14] MEDS: NICOTINE POLACRILEX 4 MG GUM BUC PRN ×5 (06:31→21:09)
[2017-11-14] MEDS: IBUPROFEN 400 MG TABLET (FP) PO PRN ×2 (06:32→21:08)
[2017-11-14] MEDS: BENZOCAINE 20 % GEL 9 GM TUBE MM PRN ×2 (06:32→21:08)
[2017-11-14] MEDS: NICOTINE 21 MG/24 HOURS TOPICAL PATCH TD SCH (09:48)
[2017-11-14] MEDS: METHYL SALICYLATE/MENTHOL OINT 30 GM TUBE TP SCH ×2 (09:48→21:06)
[2017-11-14] MEDS: PRENATAL VITAMINS W/ FOLIC ACID TABLET (FP) PO SCH (09:48)
[2017-11-14] MEDS: DOXEPIN HCL 50 MG CAPSULE PO SCH (21:05)
[2017-11-14] MEDS: QUEtiapine FUMARATE 25 MG TABLET (FP) PO SCH (21:05)
[2017-11-14] MEDS: THIAMINE HCL 100 MG TABLET (FP) PO SCH (21:06)
[2017-11-15] MEDS: IBUPROFEN 400 MG TABLET (FP) PO PRN ×2 (06:21→12:38)
[2017-11-15] MEDS: NICOTINE POLACRILEX 4 MG GUM BUC PRN ×5 (06:23→21:01)
[2017-11-15] MEDS: BENZOCAINE 20 % GEL 9 GM TUBE MM PRN (06:25)
[2017-11-15] MEDS: NICOTINE 21 MG/24 HOURS TOPICAL PATCH TD SCH (09:39)
[2017-11-15] MEDS: PRENATAL VITAMINS W/ FOLIC ACID TABLET (FP) PO SCH (09:39)
[2017-11-15] MEDS: METHYL SALICYLATE/MENTHOL OINT 30 GM TUBE TP SCH ×2 (11:34→21:02)
[2017-11-15] MEDS: DOXEPIN HCL 50 MG CAPSULE PO SCH (21:01)
[2017-11-15] MEDS: THIAMINE HCL 100 MG TABLET (FP) PO SCH (21:01)
[2017-11-15] MEDS: QUEtiapine FUMARATE 25 MG TABLET (FP) PO SCH (21:01)
[2017-11-16] MEDS: NICOTINE POLACRILEX 4 MG GUM BUC PRN ×3 (06:55→17:37)
[2017-11-16] MEDS: PRENATAL VITAMINS W/ FOLIC ACID TABLET (FP) PO SCH (09:51)
[2017-11-16] MEDS: METHYL SALICYLATE/MENTHOL OINT 30 GM TUBE TP SCH (09:51)
[2017-11-16] MEDS: NICOTINE 21 MG/24 HOURS TOPICAL PATCH TD SCH (09:51)
[2017-11-16] MEDS: BENZOCAINE 20 % GEL 9 GM TUBE MM PRN (09:53)
[2017-11-16] MEDS: IBUPROFEN 400 MG TABLET (FP) PO PRN (09:54)
[2017-11-17] MEDS: DOXEPIN HCL 50 MG CAPSULE PO SCH (00:16)
[2017-11-17] MEDS: QUEtiapine FUMARATE 25 MG TABLET (FP) PO SCH (00:16)
[2017-11-17] MEDS: METHYL SALICYLATE/MENTHOL OINT 30 GM TUBE TP SCH ×3 (00:16→21:05)
[2017-11-17] MEDS: THIAMINE HCL 100 MG TABLET (FP) PO SCH ×2 (00:17→21:06)
[2017-11-17] MEDS: NICOTINE POLACRILEX 4 MG GUM BUC PRN ×5 (06:04→20:12)
[2017-11-17] MEDS: PRENATAL VITAMINS W/ FOLIC ACID TABLET (FP) PO SCH (09:36)
[2017-11-17] MEDS: NICOTINE 21 MG/24 HOURS TOPICAL PATCH TD SCH (09:37)
[2017-11-17] MEDS: DOXEPIN HCL 50 MG PO SCH (21:05)
[2017-11-17] MEDS: QUETIAPINE FUMARATE 25 MG PO SCH (21:05)
[2017-11-18] MEDS: NICOTINE POLACRILEX 4 MG GUM BUC PRN (06:34)
[2017-11-18] MEDS: METHYL SALICYLATE/MENTHOL OINT 30 GM TUBE TP SCH ×2 (09:46→22:13)
[2017-11-18] MEDS: NICOTINE 21 MG/24 HOURS TOPICAL PATCH TD SCH (09:46)
[2017-11-18] MEDS: PRENATAL VITAMINS W/ FOLIC ACID TABLET (FP) PO SCH (09:46)
[2017-11-18] MEDS: IBUPROFEN 400 MG TABLET (FP) PO PRN (09:47)
[2017-11-18] MEDS: QUETIAPINE FUMARATE 25 MG PO SCH (22:10)
[2017-11-18] MEDS: THIAMINE HCL 100 MG TABLET (FP) PO SCH (22:13)
[2017-11-18] MEDS: DOXEPIN HCL 50 MG PO SCH (22:13)
[2017-11-19] MEDS: NICOTINE POLACRILEX 4 MG GUM BUC PRN ×3 (05:55→16:43)
[2017-11-19] MEDS: NICOTINE 21 MG/24 HOURS TOPICAL PATCH TD SCH (10:01)
[2017-11-19] MEDS: METHYL SALICYLATE/MENTHOL OINT 30 GM TUBE TP SCH ×2 (10:01→21:04)
[2017-11-19] MEDS: IBUPROFEN 400 MG TABLET (FP) PO PRN (10:02)
[2017-11-19] MEDS: PRENATAL VITAMINS W/ FOLIC ACID TABLET (FP) PO SCH (10:02)
[2017-11-19] MEDS ORDERED: INSULIN (NOVOLOG) ASPART 100 UNITS/ML 10ML VIAL SQ ONE (10:30)
[2017-11-19] MEDS ORDERED: INSULIN REGULAR HUMAN 100 UNITS/ML *VIAL SQ ONE (10:30)
[2017-11-19] MEDS ORDERED: INSULIN (NOVOLOG) ASPART 100 UNITS/ML 10ML VIAL ONE ×3 (10:33→21:07)
--- NOTE | 2017-11-19 13:04 | PN ---
S Progress Note Note: NOTIFIED BY RN THIS MORNING AT 10AM, PATIENT COMPLAINING OF BLURRY VISION AND INCREASED URINATION. BGM RESULTS 577. Laboratory Tests 11/19/17 11:54 POC Glucometer 391 Vital Signs Temperature 97.1 F L 11/19/17 06:47 Pulse Rate 64 11/19/17 06:47 Respiratory Rate 18 11/19/17 06:47 Blood Pressure 119/82 11/19/17 06:47 O2 Sat by Pulse Oximetry (%) SUBJ: PATIENT EVALUATED WHILE IN BED. ALERT AND ORIENTED X 3. IN NAD. DENIES HEADACHE , CP, SOB AND DIZZINESS. OBJ: SKIN:WARM AND DRY CAR: S1S2, RRR RESP: CTA BL GI: SOFT, BS+, NT EXT: NO EDEMA A/P: NEW DX OF DM WILL ORDER CMP AND AIC STAT 12 UNITS OF NOVOLOG GIVEN STAT BGM AC/HS ORDERED START METFORMIN 500MG BID DIET MODIFICATIONS REVIEWED PATIENT RECOMMENDED TO FOLLOW UP WITH PCP NOEL UPON DISCHARGE FOR ONGOING MEDICAL CARE CONTINUE TO MONITOR CLINICALLY REPEAT BGM 391 WILL FOLLOW UP LABS ONCE AVAILABLE.
[2017-11-19 14:30] LABS: CHLORIDE 97 mmol/L (98-107); POTASSIUM 4.1 mmol/L (3.5-5.1); SODIUM 133 mmol/L (136-145)
[2017-11-19 14:40] LABS: ALBUMIN 4.1 g/dl (3.4-5.0); ALK PHOS 175 U/L (45-117); ANION GAP 9 (8-16); BILIRUBIN,TOTAL 0.5 mg/dL (0.2-1.0); BLOOD UREA NITROGEN 22 mg/dL (7-18); CALCIUM 9.2 mg/dL (8.5-10.1); CO2 27 mmol/L (21-32); CREATININE 1.2 mg/dL (0.7-1.3); SGOT/AST 97 U/L (15-37); SGPT/ALT 207 U/L (12-78); TOT PROT 8.1 g/dl (6.4-8.2)
[2017-11-19 15:36] LABS: GLUCOSE,RANDOM 499 mg/dL (74-106)
--- NOTE | 2017-11-19 15:54 | PN ---
S Progress Note Note: Vital Signs Temperature 97.1 F L 11/19/17 06:47 Pulse Rate 64 11/19/17 06:47 Respiratory Rate 18 11/19/17 06:47 Blood Pressure 119/82 11/19/17 06:47 O2 Sat by Pulse Oximetry (%) Laboratory Tests 11/19/17 11/19/17 11/19/17 11:15 11:15 11:54 Sodium 133 L Potassium 4.1 Chloride 97 L Carbon Dioxide 27 Anion Gap 9 BUN 22 H Creatinine 1.2 Creat Clearance w eGFR > 60 POC Glucometer 391 Random Glucose 499 H* D Hemoglobin A1c % 8.7 H Calcium 9.2 Total Bilirubin 0.5 AST 97 H D ALT 207 H D Alkaline Phosphatase 175 H D Total Protein 8.1 Albumin 4.1 LABS REVIEWED NOTED ABOVE. REVIEWED LABS WITH PATIENT AND EXPLAINED RESULTS. PATIENT TO BE DISCHARGED TOMORROW. D/C MEDICATION AND GLUCOMETER SENT. PATIENT STRONGLY RECOMMENDED TO FOLLOW UP WITH PCP FOR ONGOING MANAGEMENT. ADVISED TO GO TO ER IF DIZZINESS, NERVOUSNESS, CP, SOB AND SWEATING OCCURS. PT VERBALIZED UNDERSTADING OF EDUCATION PROVIDED. WILL CONTINUE TO MONITOR CLINICALLY.
[2017-11-19] MEDS: metFORMIN HCL 500 MG TABLET (FP) PO SCH (16:39)
[2017-11-19] MEDS: INSULIN SLIDING SCALE (NOVOLOG) 1 VIAL SQ SCH ×2 (16:43→21:08)
[2017-11-19] MEDS: QUETIAPINE FUMARATE 25 MG PO SCH (21:04)
[2017-11-19] MEDS: DOXEPIN HCL 50 MG PO SCH (21:04)
[2017-11-19] MEDS: THIAMINE HCL 100 MG TABLET (FP) PO SCH (21:08)
[2017-11-20] MEDS: metFORMIN HCL 500 MG TABLET (FP) PO SCH (06:21)
[2017-11-20 06:23] VITALS: BP 105/72; PULSE 70; TEMP 98.7
[2017-11-20] MEDS ORDERED: INSULIN (NOVOLOG) ASPART 100 UNITS/ML 10ML VIAL ONE (06:26)
[2017-11-20] MEDS: NICOTINE POLACRILEX 4 MG GUM BUC PRN ×2 (06:27→09:56)
[2017-11-20] MEDS: INSULIN SLIDING SCALE (NOVOLOG) 1 VIAL SQ SCH (06:27)
[2017-11-20] MEDS: PRENATAL VITAMINS W/ FOLIC ACID TABLET (FP) PO SCH (09:56)
[2017-11-20] MEDS: METHYL SALICYLATE/MENTHOL OINT 30 GM TUBE TP SCH (09:56)
[2017-11-20] MEDS: NICOTINE 21 MG/24 HOURS TOPICAL PATCH TD SCH (09:56)
--- NOTE | 2017-11-20 10:06 | PN ---
Psychiatric Progress Note Vital Signs: Vital Signs Period Temp Pulse Resp BP Sys/Giron Pulse Ox Last 24 Hr 98.7 F 70 18-18 105/72 Date of Session: 11/20/17 Chief Complaint:: Discharge visit HPI: patient addressed Alcohol and Cocaine dependence comorbid with substance induced mood/sleep disorder. ROS: Significant for hyperglycemia. Current Medications: Active Medications Generic Name Dose Route Start Last Admin Trade Name Freq PRN Reason Stop Dose Admin Acetaminophen 650 mg 11/06/17 14:42 Tylenol - PO Q4H PRN FEVER Al Hydroxide/Mg Hydroxide 30 ml 11/06/17 14:42 11/18/17 08:27 Mylanta Oral Suspension - PO 30 ml Q6H PRN Administration DYSPEPSIA Benzocaine 1 applic 11/09/17 16:03 11/16/17 09:53 Anbesol - MM 1 applic Q2H PRN Administration FOR TOOTHACHE Doxepin HCl 50 mg 11/17/17 21:00 11/19/17 21:04 Sinequan - PO 50 mg HS@2100 RICARDO Administration Eucalyptus/Menthol/Phenol/Sorbitol 1 each 11/06/17 14:42 Cepastat Lozenge - MM Q4H PRN SORE THROAT Guaifenesin 10 ml 11/06/17 14:42 Robitussin Dm - PO Q6H PRN COUGH Hydroxyzine Pamoate 50 mg 11/06/17 14:42 Vistaril - PO Q4H PRN AGITATION Ibuprofen 400 mg 11/06/17 14:42 11/19/17 10:02 Motrin - PO 400 mg Q6H PRN Administration Pain Level 4-6 Insulin Aspart 1 vial 11/19/17 16:30 11/20/17 06:27 Novolog Vial Sliding Scale - SQ 8 units ACHS RICARDO Administration Protocol Loperamide HCl 4 mg 11/06/17 14:42 Imodium - PO Q6H PRN DIARRHEA Magnesium Citrate 300 ml 11/06/17 14:42 Citroma - PO Q48H PRN CONSTIPATION Magnesium Hydroxide 30 ml 11/06/17 14:42 11/18/17 22:11 Milk Of Magnesia - PO 30 ml DAILY PRN Administration CONSTIPATION Melatonin 5 mg 11/06/17 22:00 Melatonin PO HS PRN INSOMNIA Metformin HCl 500 mg 11/19/17 16:30 06/28/18 06:21 Glucophage - PO 500 mg BID@0700,1630 RICARDO Administration Methyl Salicylate 1 applic 11/07/17 22:00 11/20/17 09:56 Khari-Sharma - TP Not Given BID RICARDO Nicotine 21 mg 11/08/17 10:00 11/20/17 09:56 Nicoderm Patch - TD Not Given DAILY RICARDO Nicotine Polacrilex 4 mg 11/07/17 13:01 11/20/17 09:56 Nicorette Gum - BUC 4 mg Q2H PRN Administration NICOTINE REPLACEMENT RX Multivit/Folic Acid/Iron 1 tab 11/07/17 10:00 11/20/17 09:56 Vitamins (Sjr) - PO Not Given DAILY RICARDO Pseudoephedrine/Triprolidine 1 combo 11/06/17 14:42 Actifed - PO TID PRN NASAL CONGESTION Quetiapine Fumarate 25 mg 11/17/17 21:00 11/19/17 21:04 Seroquel - PO 25 mg HS@2100 RICARDO Administration Thiamine HCl 100 mg 11/06/17 22:00 11/19/17 21:08 Vitamin B1 - PO Not Given HS RICARDO Current Side Effect: No Lab tests ordered: No Lab tests reviewed: Yes Provider note:: Patient completed this program today.he has met his treatment goals and will continue to address his issues at [facility].Patient will continue current medications as per plan.scripts for 30 days supply provided. Psychotherapy provided focusing on relapse prevention. Patient is stabble for discharge today. Total face to face time:: 25 Mental Status Exam - Mental Status Exam Alert and Oriented to: Time, Place, Person Cognitive Function: Grossly Intact Patient Appearance: Well Groomed Mood: Hopeful, Euthymic Affect: Appropriate, Mood Congruent Patient Behavior: Cooperative Speech Pattern: Clear Voice Loudness: Normal Thought Process: Goal Oriented Thought Disorder: Not Present Hallucinations: Denies Suicidal Ideation: Denies Homicidal Ideation: Denies Insight/Judgement: Fair Sleep: Fair Appetite: Fair Muscle strength/Tone: Normal Gait/Station: Normal Psychiatric Treatment Plan - Problem List (1) Alcohol dependence Current Visit: Yes (2) Substance-induced sleep disorder Current Visit: Yes (3) Nicotine dependence Current Visit: Yes Qualifiers: Nicotine product type: cigarettes Substance use status: in withdrawal Qualified Code(s): F17.213 - Nicotine dependence, cigarettes, with withdrawal (4) Cocaine dependence Current Visit: No Qualifiers: Substance use status: uncomplicated Qualified Code(s): F14.20 - Cocaine dependence, uncomplicated (5) Hyperglycemia Current Visit: Yes
== END 2017-11-20 10:55 | disposition home or self-care (01) | DRG 772 ==
LOC: YASAS 13:27 → Y5N 13:28
PROVIDERS: ADMIT Psychiatry & Neurology Psychiatry; ATTEND Psychiatry & Neurology Psychiatry
PROC: HZ42ZZZ Group Counseling for Substance Abuse Treatment, Cognitive-Behavioral (ICD-10-PCS; principal; 2017-11-06)
DX: F10.20 Alcohol dependence, uncomplicated (principal); F14.20 Cocaine dependence, uncomplicated; F17.213 Nicotine dependence, cigarettes, with withdrawal; F19.24 Other psychoactive substance dependence with psychoactive substance-induced mood disorder; F19.282 Other psychoactive substance dependence with psychoactive substance-induced sleep disorder; R73.9 Hyperglycemia, unspecified
CPT/HCPCS: 36415; 80053; 82962; 83036

== ENCOUNTER 2018-02-07 08:16 | Inpatient (IN) | payer OTHER ==
[2018-02-07 09:17] VITALS: BMI 32.0
--- NOTE | 2018-02-07 11:29 | HP ---
CIWA Score - CIWA Score Nausea/Vomitin-Mild Nausea/No Vomiting Muscle Tremors: 4-Moderate,w/Arms Extend Anxiety: 4-Mod. Anxious/Guarded Agitation: 1-Slight > Activity Paroxysmal Sweats: 1-Minimal Palms Moist Orientation: 0-Oriented Tacttile Disturbances: 1-Very Mild Itch/Numbness Auditory Disturbances: 1-Very Mild Visual Disturbances: 1-Very Mild Sensitivity Headache: 2-Mild CIWA-Ar Total Score: 16 Admission ROS BHS - HPI Chief Complaint: My boss said I have to get help to stop drinking, I got caught drinking on the job Allergies/Adverse Reactions: Allergies Allergy/AdvReac Type Severity Reaction Status Date / Time No Known Drug Allergies Allergy Verified 02/07/18 10:20 History of Present Illness: 57 yo gentleman here for detox from alcohol, also using cocaine. No seizures, does have black outs. Last here October 2017 but relapsed. Exam Limitations: No Limitations - Ebola screening Have you traveled outside of the country in the last 21 days: No (N) Have you had contact with anyone from an Ebola affected area: No Have you been sick,other than usual withdrawal symptoms: No Do you have a fever: No - Review of Systems Constitutional: Night Sweats, Changes in sleep EENT: reports: No Symptoms Reported Respiratory: reports: No Symptoms reported Cardiac: reports: No Symptoms Reported GI: reports: Nausea, Indigestion, Abdominal cramping : reports: Frequency Musculoskeletal: reports: Back Pain, Joint Pain (right knee - wears won wrap) Integumentary: reports: Dryness Neuro: reports: Headache, Tremors Endocrine: reports: No Symptoms Reported Hematology: reports: No Symptoms Reported Psychiatric: reports: Mood/Affect Appropiate, Orientated x3, Anxious Other Systems: Reviewed and Negative Patient History - Patient Medical History Hx Anemia: No Hx Asthma: No Hx Chronic Obstructive Pulmonary Disease (COPD): No Hx Cancer: No Hx Cardiac Disorders: No Hx Congestive Heart Failure: No Hx Hypertension: Yes (ON MEDICATION) Hx Hypercholesterolemia: No Hx Pacemaker: No HX Cerebrovascular Accident: No Hx Seizures: No Hx Dementia: No Hx Diabetes: Yes (on meds) Hx Gastrointestinal Disorders: No Hx Liver Disease: Yes (fatty liver) Hx Genitourinary Disorders: No Hx Sexually Transmitted Disorders: Yes (SYPHILIS TREATED ON ) Hx Renal Disease (ESRD): No Hx Thyroid Disease: No Hx Human Immunodeficiency Virus (HIV): No (negative) Hx Hepatitis C: No (hep c treated 2013.) Hx Depression: Yes (on meds, with insomnia) Hx Suicide Attempt: No Hx Bipolar Disorder: No Hx Schizophrenia: No Other Medical History: right knee osteoarthritis - Patient Surgical History Past Surgical History: Yes Hx Neurologic Surgery: No Hx Cataract Extraction: No Hx Cardiac Surgery: No Hx Lung Surgery: No Hx Breast Surgery: No Hx Breast Biopsy: No Hx Abdominal Surgery: No Hx Appendectomy: No Hx Cholecystectomy: No Hx Genitourinary Surgery: No Hx Section: No Hx Orthopedic Surgery: Yes (fx, left orbit in 09/1994) Anesthesia Reaction: No - PPD History Previous Implant?: Yes Documented Results: Negative w/proof Implanted On Prior R Admission?: Yes Date: 11/05/17 Results: 0 mm PPD to be Administered?: No - Reproductive History Patient is a Female of Child Bearing Age (11 -55 yrs old): No (amle) - Smoking Cessation Smoking history: Current every day smoker Have you smoked in the past 12 months: Yes Aproximately how many cigarettes per day: 3 Hx Chewing Tobacco Use: No Initiated information on smoking cessation: Yes 'Breaking Loose' booklet given: 02/07/18 (give on floor) - Substance & Tx. History Hx Alcohol Use: Yes Hx Substance Use: Yes Substance Use Type: Alcohol, Cocaine Hx Substance Use Treatment: Yes (detox , rehab) - Substances Abused Alcohol Route: Oral Frequency: Daily Amount used: 1/5TH VODKA Age of first use: 16 Date of Last Use: 02/07/18 Cocaine Route: Inhalation Frequency: 1-3 times last 30 days Amount used: $30-40 Age of first use: 24 Date of Last Use: 02/05/18 Family Disease History - Family Disease History Family Disease History: Diabetes: Sister (one ), [place]: Father (, hx etoh) , Mother (lung ca ,), Other: Father, Brother (one - in [place]), Sister, Son (one - adult - healthy), Daughter (one - adult - healthy) Admission Physical Exam BHS - Vital Signs Vital Signs: Vital Signs - 24 hr 02/07/18 09:10 Temperature 98.2 F Pulse Rate 62 Respiratory 18 Rate Blood Pressure 143/82 - Physical General Appearance: Yes: Nourished, Appropriately Dressed, Moderate Distress, Anxious HEENTM: Yes: EOMI, Hearing grossly Normal, Normocephalic, Normal Voice, Pharynx Normal Respiratory: Yes: Normal Breath Sounds, No Respiratory Distress Neck: Yes: No masses,lesions,Nodules, Supple Breast: Yes: Breast Exam Deferred Cardiology: Yes: Regular Rhythm, Regular Rate Abdominal: Yes: Soft Genitourinary: Yes: Within Normal Limits Back: Yes: Normal Inspection Musculoskeletal: Yes: full range of Motion, Gait Steady, Joint Stiffness (right knee) Extremities: Yes: Normal Inspection, Normal Range of Motion, Other (right knee with OA - wears won wrap) Neurological: Yes: Fully Oriented, Alert, Normal Mood/Affect, Normal Response Integumentary: Yes: Normal Color, Dry, Warm Lymphatic: Yes: Within Normal Limits - Addiitonal Findings: [id number] - Diagnostic (1) Alcohol dependence with uncomplicated withdrawal Current Visit: Yes Status: Chronic (2) Cocaine dependence Current Visit: Yes Status: Acute Qualifiers: Substance use status: uncomplicated Qualified Code(s): F14.20 - Cocaine dependence, uncomplicated (3) Diabetes mellitus treated with oral medication Current Visit: Yes Status: Chronic (4) Osteoarthritis of right knee Current Visit: Yes Status: Chronic Qualifiers: Osteoarthritis type: primary Qualified Code(s): M17.11 - Unilateral primary osteoarthritis, right knee (5) History of hepatitis C Current Visit: Yes Status: Chronic (6) Nicotine dependence Current Visit: Yes Status: Chronic Qualifiers: Nicotine product type: cigarettes Substance use status: in withdrawal Qualified Code(s): F17.213 - Nicotine dependence, cigarettes, with withdrawal (7) Fatty liver Current Visit: Yes Status: Chronic Cleared for Admission [facility] - Detox or Rehab [facility] Level of Care: Medically Managed Detox Regimen/Protocol: Librium [facility] Breath Alcohol Content Breath Alcohol Content: 0.024 Urine Drug Screen - Results Drug Screen Negative: No Urine Drug Screen Results: KASSIE-Cocaine
[2018-02-07] MEDS ORDERED: MAGNESIUM HYDROX 2400MG/30ML ORAL SUSPENSION 30 ML CUP PO PRN (11:40)
[2018-02-07] MEDS ORDERED: LOPERAMIDE HCL 2 MG CAPSULE PO PRN (11:40)
[2018-02-07] MEDS ORDERED: hydrOXYzine PAMOATE 25 MG CAPSULE (FP) PO PRN (11:40)
[2018-02-07] MEDS ORDERED: MENTHOL/PHENOL 1 EACH UD MM PRN (11:40)
[2018-02-07] MEDS ORDERED: guaiFENesin/D-METHORPHAN HB 10 ML UNIT-DOSE CUPS PO PRN (11:40)
[2018-02-07] MEDS ORDERED: MAGNESIUM CITRATE 300 ML BOTTLE PO PRN (11:40)
[2018-02-07] MEDS ORDERED: chlordiazePOXIDE HCL 25 MG CAPSULE PO PRN (11:40)
[2018-02-07] MEDS ORDERED: ACETAMINOPHEN 325 MG TABLET (FP) PO PRN (11:40)
[2018-02-07] MEDS ORDERED: P-EPHED 60MG/TRIPROLIDI 2.5MG TABLET PO PRN (11:40)
[2018-02-07] MEDS ORDERED: MAG HYDROX/AL HYDROX/SIMETH 30 ML UNIT-DOSE CUP PO PRN (11:40)
[2018-02-07] MEDS ORDERED: chlordiazePOXIDE HCL 25 MG CAPSULE PO ONE (13:00)
[2018-02-07] MEDS: METHYL SALICYLATE/MENTHOL OINT 30 GM TUBE TP SCH ×2 (13:49→22:06)
[2018-02-07] MEDS: NICOTINE POLACRILEX 4 MG GUM BUC PRN ×4 (13:49→22:08)
[2018-02-07] MEDS: INSULIN SLIDING SCALE (NOVOLOG) 1 VIAL SQ SCH (17:14)
[2018-02-07] MEDS: chlordiazePOXIDE HCL 25 MG CAPSULE PO SCH ×2 (17:14→22:04)
[2018-02-07] MEDS ORDERED: MELATONIN 5 MG TABLETS PO PRN (22:00)
[2018-02-07] MEDS: THIAMINE HCL 100 MG TABLET (FP) PO SCH (22:05)
[2018-02-08] MEDS: chlordiazePOXIDE HCL 25 MG CAPSULE PO SCH ×4 (05:56→22:21)
[2018-02-08] MEDS: NICOTINE POLACRILEX 4 MG GUM BUC PRN ×5 (06:00→20:16)
[2018-02-08] MEDS: INSULIN SLIDING SCALE (NOVOLOG) 1 VIAL SQ SCH ×2 (06:21→17:21)
[2018-02-08] MEDS: METHYL SALICYLATE/MENTHOL OINT 30 GM TUBE TP SCH ×2 (10:08→22:22)
[2018-02-08] MEDS: IBUPROFEN 400 MG TABLET (FP) PO PRN (10:10)
[2018-02-08] MEDS: PRENATAL VITAMINS W/ FOLIC ACID TABLET (FP) PO SCH (10:13)
[2018-02-08 10:41] LABS: HEMATOCRIT 44.6 % (35.4-49); HEMOGLOBIN 14.7 GM/dL (11.7-16.9); MCH 29.5 pg (25.7-33.7); MEAN CELL VOLUME 89.2 fl (80-96); MEAN PLT VOLUME 10.4 fl (7.5-11.1); PLATELET COUNT 172 K/MM3 (134-434); RDW 14.4 % (11.9-15.9); WHITE BLOOD COUNT 5.2 K/mm3 (4.0-10.0)
[2018-02-08 10:51] LABS: CHLORIDE 106 mmol/L (98-107); SODIUM 143 mmol/L (136-145)
[2018-02-08 10:59] LABS: ALBUMIN 3.8 g/dl (3.4-5.0); ALK PHOS 84 U/L (45-117); ANION GAP 10 MMOL/L (8-16); BILIRUBIN,TOTAL 0.4 mg/dL (0.2-1.0); BLOOD UREA NITROGEN 12 mg/dL (7-18); CO2 27 mmol/L (21-32); CREATININE 0.8 mg/dL (0.55-1.3); GLUCOSE,RANDOM 96 mg/dL (74-106); SGOT/AST 32 U/L (15-37); SGPT/ALT 69 U/L (13-61)
[2018-02-08] MEDS: LOSARTAN POTASSIUM 25 MG TABLET PO SCH (11:12)
--- NOTE | 2018-02-08 12:49 | PN ---
S CIWA - CIWA Score Nausea/Vomitin-Mild Nausea/No Vomiting Muscle Tremors: 4-Moderate,w/Arms Extend Anxiety: 4-Mod. Anxious/Guarded Agitation: 4-Moderately Restless Paroxysmal Sweats: 3 Orientation: 0-Oriented Tacttile Disturbances: 0-None Auditory Disturbances: 0-None Visual Disturbances: 0-None Headache: 0-None Present CIWA-Ar Total Score: 16 BHS Progress Note (SOAP) Subjective: Interrupted sleep Objective: 02/08/18 12:47 Last Vital Signs Temp Pulse Resp BP Pulse Ox 97 F L 57 L 18 119/79 02/08/18 09:27 02/08/18 09:27 02/08/18 09:27 02/08/18 09:27 Laboratory Tests 02/07/18 02/07/18 02/08/18 10:37 16:59 05:55 WBC RBC Hgb Hct MCV MCH MCHC RDW Plt Count MPV Sodium Potassium Chloride Carbon Dioxide Anion Gap BUN Creatinine Creat Clearance w eGFR POC Glucometer 111 125 120 Random Glucose Calcium Total Bilirubin AST ALT Alkaline Phosphatase Total Protein Albumin RPR Titer 02/08/18 02/08/18 02/08/18 07:25 07:25 07:25 WBC 5.2 RBC 5.00 Hgb 14.7 Hct 44.6 MCV 89.2 MCH 29.5 MCHC 33.0 RDW 14.4 Plt Count 172 MPV 10.4 Sodium 143 Potassium 4.0 Chloride 106 Carbon Dioxide 27 Anion Gap 10 BUN 12 Creatinine 0.8 Creat Clearance w eGFR > 60 POC Glucometer Random Glucose 96 Calcium 9.0 Total Bilirubin 0.4 AST 32 ALT 69 H Alkaline Phosphatase 84 Total Protein 7.0 Albumin 3.8 RPR Titer Nonreactive Labs reviewed Assessment: 02/08/18 12:48 Withdrawal symptoms Plan: Continue detox Encouraged PO water hydration
[2018-02-08 18:07] LABS: URINE APPEARANCE CLEAR; URINE BILIRUBIN NEGATIVE (<2.0 mg/dL); URINE COLOR YELLOW; URINE GLUCOSE (UA) NEGATIVE (NEGATIVE); URINE KETONE NEGATIVE (NEGATIVE); URINE LEUK ESTERASE TRACE (NEGATIVE); URINE NITRITE NEGATIVE (NEGATIVE); URINE PROTEIN NEGATIVE (NEGATIVE)
[2018-02-08 18:33] LABS: EPI CELLS RARE /HPF (FEW); URINE MUCUS RARE
[2018-02-08] MEDS: THIAMINE HCL 100 MG TABLET (FP) PO SCH (22:20)
--- NOTE | 2018-02-08 22:30 | EKG ---
Test Reason : Blood Pressure : / mmHG Vent. Rate : 061 BPM Atrial Rate : 061 BPM P-R Int : 144 ms QRS Dur : 098 ms QT Int : 404 ms P-R-T Axes : 047 069 057 degrees QTc Int : 406 ms NORMAL SINUS RHYTHM NORMAL ECG WHEN COMPARED WITH ECG OF 03-NOV-2017 16:54, NO SIGNIFICANT CHANGE WAS FOUND Confirmed by ANTHONY LAO MD ([id number]) on 02/08/2018 10:29:43 PM Referred By: Confirmed By:ANTHONY LAO MD
[2018-02-09] MEDS: chlordiazePOXIDE HCL 25 MG CAPSULE PO SCH ×2 (05:03→10:18)
[2018-02-09] MEDS: NICOTINE POLACRILEX 4 MG GUM BUC PRN ×6 (05:05→21:21)
[2018-02-09] MEDS: INSULIN SLIDING SCALE (NOVOLOG) 1 VIAL SQ SCH ×2 (08:20→16:29)
[2018-02-09] MEDS: PRENATAL VITAMINS W/ FOLIC ACID TABLET (FP) PO SCH (10:17)
[2018-02-09] MEDS: METHYL SALICYLATE/MENTHOL OINT 30 GM TUBE TP SCH ×2 (10:17→21:22)
[2018-02-09] MEDS: LOSARTAN POTASSIUM 25 MG TABLET PO SCH (10:19)
--- NOTE | 2018-02-09 13:30 | PN ---
BHS CIWA - CIWA Score Nausea/Vomitin Muscle Tremors: 3 Anxiety: 3 Agitation: 2 Paroxysmal Sweats: 3 Orientation: 0-Oriented Tacttile Disturbances: 0-None Auditory Disturbances: 0-None Visual Disturbances: 0-None Headache: 0-None Present CIWA-Ar Total Score: 13 BHS Progress Note (SOAP) Subjective: sleep disturbance itch between the feet some sweats Objective: 02/09/18 13:30 A & O x 3 met in day room eating Vital Signs Period Temp Pulse Resp BP Sys/Giron Pulse Ox Last 24 Hr 96.6 F-98.2 F 61-82 -18 107-132/69-78 Assessment: 02/09/18 13:42 withdrawal syndrome Athlete's foot Plan: continue detox antifungal for athlete's foot
--- NOTE | 2018-02-09 17:04 | CONSULT ---
[facility] Psychiatric Consult - Data Date of interview: 02/09/18 Admission source: [facility] Identifying data: This is one of several admissions to [facility] for this 57 y/ o AA male self-referred for detoxification treatment (cocaine,alcohol dependence ).Admitted to [address] [place] [address].Patient is single,a father of two,domiciled,unemployed and supported on SSI benefits. Substance Abuse History: Confirmed by the patient in this interview.Details in current [facility] report : Smoking history: Current every day smoker. Have you smoked in the past 12 months: Yes. Aproximately how many cigarettes per day: 3. Hx Chewing Tobacco Use: No. Initiated information on smoking cessation: Yes. 'Breaking Loose' booklet given: 02/07/18 (give on floor). - Substance & Tx. History. Hx Alcohol Use: Yes. Hx Substance Use: Yes. Substance Use Type: Alcohol, Cocaine. Hx Substance Use Treatment: Yes (detox , rehab). - Substances Abused. Alcohol. Route: Oral. Frequency: Daily. Amount used: / VODKA. Age of first use: 16. Date of Last Use: 02/07/18. Cocaine. Route: Inhalation. Frequency: 1-3 times last 30 days. Amount used: $30-40. Age of first use: 24. Date of Last Use: 02/05/18 Medical History: Hypertension,diabetes mellitus,hepatitis C (treated),fatty liver,osteoarthritis of right knee and antecedent of syphilis.History of fracture of left orbit (1994). Psychiatric History: Patient denies history of psychiatric hospitalizations.First contact with Psychiatry in 2001.Diagnosed with MDD at the [facility] and tried on various psychotropic medications ( bupropion,trazodone,doxepin,seroquel).After several months of non-adherence, the patient resumed OPD care at the [facility] mental health clinic.Currently managed with doxepin 50 mg/hs + seroquel 25 mg/hs.Mr Mackey denies history of suicide attempts. Physical/Sexual Abuse/Trauma History: Patient denies. Additional Comment: Urine Drug Screen Results: KASSIE-Cocaine.Noted. Mental Status Exam - Mental Status Exam Alert and Oriented to: Time, Place, Person Cognitive Function: Good Patient Appearance: Well Groomed (poor oral hygiene) Mood: Nervous, Withdrawn, Hopeful Affect: Appropriate, Normal Range Patient Behavior: Appropriate, Cooperative Speech Pattern: Clear Voice Loudness: Normal Thought Process: Intact, Goal Oriented Thought Disorder: Not Present Hallucinations: Denies Suicidal Ideation: Denies Homicidal Ideation: Denies Insight/Judgement: Poor Sleep: Poorly, Difficulty falling asleep Appetite: Good Muscle strength/Tone: Normal Gait/Station: Normal Psychiatric Findings - Problem List ([place] 1, 2,3) (1) Alcohol dependence with uncomplicated withdrawal Current Visit: Yes Status: Acute (2) Cocaine dependence Current Visit: Yes Status: Acute Qualifiers: Substance use status: uncomplicated Qualified Code(s): F14.20 - Cocaine dependence, uncomplicated (3) Nicotine dependence Current Visit: Yes Status: Acute Qualifiers: Nicotine product type: cigarettes Substance use status: in withdrawal Qualified Code(s): F17.213 - Nicotine dependence, cigarettes, with withdrawal (4) Substance induced mood disorder Current Visit: Yes Status: Chronic (5) Insomnia Current Visit: Yes Status: Acute - Initial Treatment Plan Initial Treatment Plan: Psychoeducation.Sleep hygiene discussed in this session.Detoxification in progress.Groups.AA meetings.Medications : doxepin 50 mg po hs + seroquel 25 mg po hs.Side effects/benefits of both medications are discussed with the patient.Mr Mackey is in agreement with this careplan.Observation.NO need for scripts at discharge (refills already available from OPD provider as of 02/06/18).
[2018-02-09] MEDS: NYSTATIN POWDER 100,000 UNITS/GM - 15 GM TOPICAL POWDER TP SCH (17:26)
[2018-02-09] MEDS: chlordiazePOXIDE 5 MG CAPSULE PO SCH ×2 (17:27→22:13)
--- NOTE | 2018-02-09 21:07 | PN ---
[facility] Progress Note Note: Psychiatric nurse practitioner note: Call received by RN requesting patients evening dose of doxepin + Seroquel. Dr. Rodriguez note read and appreciated. Will order Doxepin 50mg qhs + Seroquel 25mg qhs.
[2018-02-09] MEDS: THIAMINE HCL 100 MG TABLET (FP) PO SCH (21:19)
[2018-02-09] MEDS ORDERED: DOXEPIN HCL 50 MG CAPSULE PO SCH (22:00)
[2018-02-09] MEDS ORDERED: QUEtiapine FUMARATE 25 MG TABLET (FP) PO SCH (22:00)
[2018-02-10] MEDS: chlordiazePOXIDE 5 MG CAPSULE PO SCH ×2 (05:20→10:04)
[2018-02-10] MEDS: NICOTINE POLACRILEX 4 MG GUM BUC PRN ×7 (05:25→20:04)
[2018-02-10] MEDS: INSULIN SLIDING SCALE (NOVOLOG) 1 VIAL SQ SCH ×2 (06:26→17:13)
--- NOTE | 2018-02-10 09:56 | PN ---
[facility] CIWA - CIWA Score Nausea/Vomitin-No Nausea/No Vomiting Muscle Tremors: None Anxiety: 1-Mildly Anxious Agitation: 1-Slight > Activity Paroxysmal Sweats: No Perspiration Orientation: 0-Oriented Tacttile Disturbances: 0-None Auditory Disturbances: 0-None Visual Disturbances: 0-None Headache: 0-None Present CIWA-Ar Total Score: 2 [facility] Progress Note (SOAP) Subjective: PATIENT PRESENTS WITH MILD ANXIETY REGARDING BLOOD SUGAR. PACING IN HALLWAY. Objective: 02/10/18 09:55 Laboratory Tests 02/07/18 02/07/18 02/08/18 10:37 16:59 05:55 WBC RBC Hgb Hct MCV MCH MCHC RDW Plt Count MPV Sodium Potassium Chloride Carbon Dioxide Anion Gap BUN Creatinine Creat Clearance w eGFR POC Glucometer 111 125 120 Random Glucose Calcium Total Bilirubin AST ALT Alkaline Phosphatase Total Protein Albumin Urine Color Urine Appearance Urine pH Ur Specific [place] Urine Protein Urine Glucose (UA) Urine Ketones Urine Blood Urine Nitrite Urine Bilirubin Urine Urobilinogen Ur Leukocyte Esterase Urine WBC (Auto) Urine RBC (Auto) Ur Epithelial Cells Urine Mucus RPR Titer 02/08/18 02/08/18 02/08/18 07:25 07:25 07:25 WBC 5.2 RBC 5.00 Hgb 14.7 Hct 44.6 MCV 89.2 MCH 29.5 MCHC 33.0 RDW 14.4 Plt Count 172 MPV 10.4 Sodium 143 Potassium 4.0 Chloride 106 Carbon Dioxide 27 Anion Gap 10 BUN 12 Creatinine 0.8 Creat Clearance w eGFR > 60 POC Glucometer Random Glucose 96 Calcium 9.0 Total Bilirubin 0.4 AST 32 ALT 69 H Alkaline Phosphatase 84 Total Protein 7.0 Albumin 3.8 Urine Color Urine Appearance Urine pH Ur Specific [place] Urine Protein Urine Glucose (UA) Urine Ketones Urine Blood Urine Nitrite Urine Bilirubin Urine Urobilinogen Ur Leukocyte Esterase Urine WBC (Auto) Urine RBC (Auto) Ur Epithelial Cells Urine Mucus RPR Titer Nonreactive 02/08/18 02/08/18 02/09/18 16:24 17:34 05:04 WBC RBC Hgb Hct MCV MCH MCHC RDW Plt Count MPV Sodium Potassium Chloride Carbon Dioxide Anion Gap BUN Creatinine Creat Clearance w eGFR POC Glucometer 95 81 Random Glucose Calcium Total Bilirubin AST ALT Alkaline Phosphatase Total Protein Albumin Urine Color Yellow Urine Appearance Clear Urine pH 6.0 Ur Specific [place] 1.030 Urine Protein Negative Urine Glucose (UA) Negative Urine Ketones Negative Urine Blood Negative Urine Nitrite Negative Urine Bilirubin Negative Urine Urobilinogen 2.0 Ur Leukocyte Esterase Trace Urine WBC (Auto) 1 Urine RBC (Auto) 1 Ur Epithelial Cells Rare Urine Mucus Rare RPR Titer 02/09/18 02/10/18 16:14 05:23 WBC RBC Hgb Hct MCV MCH MCHC RDW Plt Count MPV Sodium Potassium Chloride Carbon Dioxide Anion Gap BUN Creatinine Creat Clearance w eGFR POC Glucometer 116 173 Random Glucose Calcium Total Bilirubin AST ALT Alkaline Phosphatase Total Protein Albumin Urine Color Urine Appearance Urine pH Ur Specific [place] Urine Protein Urine Glucose (UA) Urine Ketones Urine Blood Urine Nitrite Urine Bilirubin Urine Urobilinogen Ur Leukocyte Esterase Urine WBC (Auto) Urine RBC (Auto) Ur Epithelial Cells Urine Mucus RPR Titer Laboratory Tests 02/07/18 02/07/18 02/08/18 10:37 16:59 05:55 WBC RBC Hgb Hct MCV MCH MCHC RDW Plt Count MPV Sodium Potassium Chloride Carbon Dioxide Anion Gap BUN Creatinine Creat Clearance w eGFR POC Glucometer 111 125 120 Random Glucose Calcium Total Bilirubin AST ALT Alkaline Phosphatase Total Protein Albumin Urine Color Urine Appearance Urine pH Ur Specific [place] Urine Protein Urine Glucose (UA) Urine Ketones Urine Blood Urine Nitrite Urine Bilirubin Urine Urobilinogen Ur Leukocyte Esterase Urine WBC (Auto) Urine RBC (Auto) Ur Epithelial Cells Urine Mucus RPR Titer 02/08/18 02/08/18 02/08/18 07:25 07:25 07:25 WBC 5.2 RBC 5.00 Hgb 14.7 Hct 44.6 MCV 89.2 MCH 29.5 MCHC 33.0 RDW 14.4 Plt Count 172 MPV 10.4 Sodium 143 Potassium 4.0 Chloride 106 Carbon Dioxide 27 Anion Gap 10 BUN 12 Creatinine 0.8 Creat Clearance w eGFR > 60 POC Glucometer Random Glucose 96 Calcium 9.0 Total Bilirubin 0.4 AST 32 ALT 69 H Alkaline Phosphatase 84 Total Protein 7.0 Albumin 3.8 Urine Color Urine Appearance Urine pH Ur Specific [place] Urine Protein Urine Glucose (UA) Urine Ketones Urine Blood Urine Nitrite Urine Bilirubin Urine Urobilinogen Ur Leukocyte Esterase Urine WBC (Auto) Urine RBC (Auto) Ur Epithelial Cells Urine Mucus RPR Titer Nonreactive 02/08/18 02/08/18 02/09/18 16:24 17:34 05:04 WBC RBC Hgb Hct MCV MCH MCHC RDW Plt Count MPV Sodium Potassium Chloride Carbon Dioxide Anion Gap BUN Creatinine Creat Clearance w eGFR POC Glucometer 95 81 Random Glucose Calcium Total Bilirubin AST ALT Alkaline Phosphatase Total Protein Albumin Urine Color Yellow Urine Appearance Clear Urine pH 6.0 Ur Specific [place] 1.030 Urine Protein Negative Urine Glucose (UA) Negative Urine Ketones Negative Urine Blood Negative Urine Nitrite Negative Urine Bilirubin Negative Urine Urobilinogen 2.0 Ur Leukocyte Esterase Trace Urine WBC (Auto) 1 Urine RBC (Auto) 1 Ur Epithelial Cells Rare Urine Mucus Rare RPR Titer 02/09/18 02/10/18 16:14 05:23 WBC RBC Hgb Hct MCV MCH MCHC RDW Plt Count MPV Sodium Potassium Chloride Carbon Dioxide Anion Gap BUN Creatinine Creat Clearance w eGFR POC Glucometer 116 173 Random Glucose Calcium Total Bilirubin AST ALT Alkaline Phosphatase Total Protein Albumin Urine Color Urine Appearance Urine pH Ur Specific [place] Urine Protein Urine Glucose (UA) Urine Ketones Urine Blood Urine Nitrite Urine Bilirubin Urine Urobilinogen Ur Leukocyte Esterase Urine WBC (Auto) Urine RBC (Auto) Ur Epithelial Cells Urine Mucus RPR Titer Vital Signs Temperature 96.6 F L 02/10/18 09:20 Pulse Rate 72 02/10/18 09:20 Respiratory Rate 18 02/10/18 09:20 Blood Pressure 104/59 02/10/18 09:20 O2 Sat by Pulse Oximetry (%) SKIN: AFEBRILE, WARM AND DRY CAR: S1S2 RESP: CTA BL EXT: NO EDEMA Assessment: 02/10/18 09:56 WITHDRAWAL SYNDROME DM Plan: CONTINUE DETOX PER PROTOCOL CONTINUE TO MONITOR BLOOD SUGAR ORDERED CHECK AIC CONTINUE TO MONITOR CLINICALLY
[2018-02-10] MEDS: METHYL SALICYLATE/MENTHOL OINT 30 GM TUBE TP SCH ×2 (10:03→22:42)
[2018-02-10] MEDS: LOSARTAN POTASSIUM 25 MG TABLET PO SCH ×2 (10:04→18:17)
[2018-02-10] MEDS: PRENATAL VITAMINS W/ FOLIC ACID TABLET (FP) PO SCH (10:04)
[2018-02-10] MEDS: NYSTATIN POWDER 100,000 UNITS/GM - 15 GM TOPICAL POWDER TP SCH (10:04)
[2018-02-10] MEDS: IBUPROFEN 400 MG TABLET (FP) PO PRN ×2 (10:07→20:02)
[2018-02-10] MEDS: chlordiazePOXIDE HCL 10 MG CAPSULE PO SCH ×2 (17:13→22:42)
--- NOTE | 2018-02-10 19:16 | PN ---
S Progress Note Note: Psychiatry Attending's note : Patient requested that his HS medications be dispensed at 9 PM. Medications concerned : seroquel and doxepin.Discussed with the patient. Intervention : time changed to 21:00 (according to patient's wishes).
[2018-02-10] MEDS ORDERED: DOXEPIN HCL 50 MG CAPSULE PO SCH (21:00)
[2018-02-10] MEDS ORDERED: QUEtiapine FUMARATE 25 MG TABLET (FP) PO SCH (21:00)
[2018-02-10] MEDS: THIAMINE HCL 100 MG TABLET (FP) PO SCH (22:42)
[2018-02-11] MEDS: chlordiazePOXIDE HCL 10 MG CAPSULE PO SCH ×2 (05:22→10:04)
[2018-02-11] MEDS: NICOTINE POLACRILEX 4 MG GUM BUC PRN ×4 (05:23→15:35)
[2018-02-11] MEDS: INSULIN SLIDING SCALE (NOVOLOG) 1 VIAL SQ SCH ×2 (06:09→16:55)
--- NOTE | 2018-02-11 09:42 | PN ---
[facility] Progress Note Note: Patient tolerating detox well. No medical complaints offered. Patient for discharge today and would like to go to rehab here at [facility]. Inpatient bed pending. Vital Signs Temperature 97.0 F L 02/11/18 09:04 Pulse Rate 70 02/11/18 09:04 Respiratory Rate 18 02/11/18 09:04 Blood Pressure 113/66 02/11/18 09:04 O2 Sat by Pulse Oximetry (%) Laboratory Tests 02/07/18 02/07/18 02/08/18 10:37 16:59 05:55 WBC RBC Hgb Hct MCV MCH MCHC RDW Plt Count MPV Sodium Potassium Chloride Carbon Dioxide Anion Gap BUN Creatinine Creat Clearance w eGFR POC Glucometer 111 125 120 Random Glucose Calcium Total Bilirubin AST ALT Alkaline Phosphatase Total Protein Albumin Urine Color Urine Appearance Urine pH Ur Specific [place] Urine Protein Urine Glucose (UA) Urine Ketones Urine Blood Urine Nitrite Urine Bilirubin Urine Urobilinogen Ur Leukocyte Esterase Urine WBC (Auto) Urine RBC (Auto) Ur Epithelial Cells Urine Mucus RPR Titer 02/08/18 02/08/18 02/08/18 07:25 07:25 07:25 WBC 5.2 RBC 5.00 Hgb 14.7 Hct 44.6 MCV 89.2 MCH 29.5 MCHC 33.0 RDW 14.4 Plt Count 172 MPV 10.4 Sodium 143 Potassium 4.0 Chloride 106 Carbon Dioxide 27 Anion Gap 10 BUN 12 Creatinine 0.8 Creat Clearance w eGFR > 60 POC Glucometer Random Glucose 96 Calcium 9.0 Total Bilirubin 0.4 AST 32 ALT 69 H Alkaline Phosphatase 84 Total Protein 7.0 Albumin 3.8 Urine Color Urine Appearance Urine pH Ur Specific [place] Urine Protein Urine Glucose (UA) Urine Ketones Urine Blood Urine Nitrite Urine Bilirubin Urine Urobilinogen Ur Leukocyte Esterase Urine WBC (Auto) Urine RBC (Auto) Ur Epithelial Cells Urine Mucus RPR Titer Nonreactive 02/08/18 02/08/18 02/09/18 16:24 17:34 05:04 WBC RBC Hgb Hct MCV MCH MCHC RDW Plt Count MPV Sodium Potassium Chloride Carbon Dioxide Anion Gap BUN Creatinine Creat Clearance w eGFR POC Glucometer 95 81 Random Glucose Calcium Total Bilirubin AST ALT Alkaline Phosphatase Total Protein Albumin Urine Color Yellow Urine Appearance Clear Urine pH 6.0 Ur Specific [place] 1.030 Urine Protein Negative Urine Glucose (UA) Negative Urine Ketones Negative Urine Blood Negative Urine Nitrite Negative Urine Bilirubin Negative Urine Urobilinogen 2.0 Ur Leukocyte Esterase Trace Urine WBC (Auto) 1 Urine RBC (Auto) 1 Ur Epithelial Cells Rare Urine Mucus Rare RPR Titer 02/09/18 02/10/18 02/10/18 16:14 05:23 16:21 WBC RBC Hgb Hct MCV MCH MCHC RDW Plt Count MPV Sodium Potassium Chloride Carbon Dioxide Anion Gap BUN Creatinine Creat Clearance w eGFR POC Glucometer 116 173 182 Random Glucose Calcium Total Bilirubin AST ALT Alkaline Phosphatase Total Protein Albumin Urine Color Urine Appearance Urine pH Ur Specific [place] Urine Protein Urine Glucose (UA) Urine Ketones Urine Blood Urine Nitrite Urine Bilirubin Urine Urobilinogen Ur Leukocyte Esterase Urine WBC (Auto) Urine RBC (Auto) Ur Epithelial Cells Urine Mucus RPR Titer 02/11/18 03:44 WBC RBC Hgb Hct MCV MCH MCHC RDW Plt Count MPV Sodium Potassium Chloride Carbon Dioxide Anion Gap BUN Creatinine Creat Clearance w eGFR POC Glucometer 140 Random Glucose Calcium Total Bilirubin AST ALT Alkaline Phosphatase Total Protein Albumin Urine Color Urine Appearance Urine pH Ur Specific [place] Urine Protein Urine Glucose (UA) Urine Ketones Urine Blood Urine Nitrite Urine Bilirubin Urine Urobilinogen Ur Leukocyte Esterase Urine WBC (Auto) Urine RBC (Auto) Ur Epithelial Cells Urine Mucus RPR Titer obj: alert and oriented skin warm and dry car s1s2 resp cta bl ext no edema a/p: Withdrawal syndrome: stable. Tolerated detox well. rehab bed pending.
[2018-02-11] MEDS: PRENATAL VITAMINS W/ FOLIC ACID TABLET (FP) PO SCH (10:04)
[2018-02-11] MEDS: NYSTATIN POWDER 100,000 UNITS/GM - 15 GM TOPICAL POWDER TP SCH (10:04)
[2018-02-11] MEDS: LOSARTAN POTASSIUM 25 MG TABLET PO SCH (10:04)
[2018-02-11] MEDS: METHYL SALICYLATE/MENTHOL OINT 30 GM TUBE TP SCH ×2 (10:06→21:43)
[2018-02-11] MEDS ORDERED: QUEtiapine FUMARATE 25 MG TABLET (FP) PO SCH (21:00)
[2018-02-11] MEDS ORDERED: DOXEPIN HCL 50 MG CAPSULE PO SCH (21:00)
[2018-02-11] MEDS: THIAMINE HCL 100 MG TABLET (FP) PO SCH (21:43)
[2018-02-12] MEDS: NICOTINE POLACRILEX 4 MG GUM BUC PRN ×4 (05:47→12:35)
[2018-02-12] MEDS: IBUPROFEN 400 MG TABLET (FP) PO PRN (06:33)
[2018-02-12] MEDS: INSULIN SLIDING SCALE (NOVOLOG) 1 VIAL SQ SCH (06:35)
[2018-02-12 09:07] VITALS: BP 124/75; PULSE 75; TEMP 97.4
--- NOTE | 2018-02-12 09:35 | DS ---
[facility] Detox Discharge Summary Admission Date: 02/07/18 Discharge Date: 02/12/18 - History Present History: Alcohol Dependence - Physical Exam Results Vital Signs: Vital Signs Temperature 97.4 F L 02/12/18 09:06 Pulse Rate 75 02/12/18 09:06 Respiratory Rate 18 02/12/18 09:06 Blood Pressure 124/75 02/12/18 09:06 O2 Sat by Pulse Oximetry (%) - Treatment Hospital Course: Detox Protocol Followed, Detoxed Safely, Responded well, Discharged Condition Good, Rehab Referral Accepted - Medication Discharge Medications: Ambulatory Orders Doxepin HCl 50 mg PO HS #30 capsule 11/20/17 Losartan Potassium 25 mg PO DAILY 02/07/18 Metformin HCl 850 mg PO BID 02/07/18 Nicotine Polacrilex [Nicotine Gum] 4 mg PO Q2H PRN 02/07/18 Quetiapine Fumarate [Seroquel -] 25 mg PO HS 02/07/18 - Diagnosis (1) Alcohol dependence with uncomplicated withdrawal Current Visit: Yes Status: Acute (2) Diabetes mellitus treated with oral medication Current Visit: Yes Status: Chronic - AMA Did Patient Leave Against Medical Advice: No
--- NOTE | 2018-02-12 09:45 | PN ---
[facility] Progress Note Note: Patient seen for follow up withdrawal syndrome. Patient states he is feeling well. Denies chest pain, tremors, headache, CP and SOB. Laboratory Tests 02/07/18 02/07/18 02/08/18 10:37 16:59 05:55 WBC RBC Hgb Hct MCV MCH MCHC RDW Plt Count MPV Sodium Potassium Chloride Carbon Dioxide Anion Gap BUN Creatinine Creat Clearance w eGFR POC Glucometer 111 125 120 Random Glucose Hemoglobin A1c % Calcium Total Bilirubin AST ALT Alkaline Phosphatase Total Protein Albumin Urine Color Urine Appearance Urine pH Ur Specific [place] Urine Protein Urine Glucose (UA) Urine Ketones Urine Blood Urine Nitrite Urine Bilirubin Urine Urobilinogen Ur Leukocyte Esterase Urine WBC (Auto) Urine RBC (Auto) Ur Epithelial Cells Urine Mucus RPR Titer 02/08/18 02/08/18 02/08/18 07:25 07:25 07:25 WBC 5.2 RBC 5.00 Hgb 14.7 Hct 44.6 MCV 89.2 MCH 29.5 MCHC 33.0 RDW 14.4 Plt Count 172 MPV 10.4 Sodium 143 Potassium 4.0 Chloride 106 Carbon Dioxide 27 Anion Gap 10 BUN 12 Creatinine 0.8 Creat Clearance w eGFR > 60 POC Glucometer Random Glucose 96 Hemoglobin A1c % Calcium 9.0 Total Bilirubin 0.4 AST 32 ALT 69 H Alkaline Phosphatase 84 Total Protein 7.0 Albumin 3.8 Urine Color Urine Appearance Urine pH Ur Specific [place] Urine Protein Urine Glucose (UA) Urine Ketones Urine Blood Urine Nitrite Urine Bilirubin Urine Urobilinogen Ur Leukocyte Esterase Urine WBC (Auto) Urine RBC (Auto) Ur Epithelial Cells Urine Mucus RPR Titer Nonreactive 02/08/18 02/08/18 02/09/18 16:24 17:34 05:04 WBC RBC Hgb Hct MCV MCH MCHC RDW Plt Count MPV Sodium Potassium Chloride Carbon Dioxide Anion Gap BUN Creatinine Creat Clearance w eGFR POC Glucometer 95 81 Random Glucose Hemoglobin A1c % Calcium Total Bilirubin AST ALT Alkaline Phosphatase Total Protein Albumin Urine Color Yellow Urine Appearance Clear Urine pH 6.0 Ur Specific [place] 1.030 Urine Protein Negative Urine Glucose (UA) Negative Urine Ketones Negative Urine Blood Negative Urine Nitrite Negative Urine Bilirubin Negative Urine Urobilinogen 2.0 Ur Leukocyte Esterase Trace Urine WBC (Auto) 1 Urine RBC (Auto) 1 Ur Epithelial Cells Rare Urine Mucus Rare RPR Titer 02/09/18 02/10/18 02/10/18 16:14 05:23 16:21 WBC RBC Hgb Hct MCV MCH MCHC RDW Plt Count MPV Sodium Potassium Chloride Carbon Dioxide Anion Gap BUN Creatinine Creat Clearance w eGFR POC Glucometer 116 173 182 Random Glucose Hemoglobin A1c % Calcium Total Bilirubin AST ALT Alkaline Phosphatase Total Protein Albumin Urine Color Urine Appearance Urine pH Ur Specific [place] Urine Protein Urine Glucose (UA) Urine Ketones Urine Blood Urine Nitrite Urine Bilirubin Urine Urobilinogen Ur Leukocyte Esterase Urine WBC (Auto) Urine RBC (Auto) Ur Epithelial Cells Urine Mucus RPR Titer 02/11/18 02/11/18 02/11/18 03:44 07:23 16:20 WBC RBC Hgb Hct MCV MCH MCHC RDW Plt Count MPV Sodium Potassium Chloride Carbon Dioxide Anion Gap BUN Creatinine Creat Clearance w eGFR POC Glucometer 140 110 Random Glucose Hemoglobin A1c % 5.7 Calcium Total Bilirubin AST ALT Alkaline Phosphatase Total Protein Albumin Urine Color Urine Appearance Urine pH Ur Specific [place] Urine Protein Urine Glucose (UA) Urine Ketones Urine Blood Urine Nitrite Urine Bilirubin Urine Urobilinogen Ur Leukocyte Esterase Urine WBC (Auto) Urine RBC (Auto) Ur Epithelial Cells Urine Mucus RPR Titer 02/12/18 04:29 WBC RBC Hgb Hct MCV MCH MCHC RDW Plt Count MPV Sodium Potassium Chloride Carbon Dioxide Anion Gap BUN Creatinine Creat Clearance w eGFR POC Glucometer 126 Random Glucose Hemoglobin A1c % Calcium Total Bilirubin AST ALT Alkaline Phosphatase Total Protein Albumin Urine Color Urine Appearance Urine pH Ur Specific [place] Urine Protein Urine Glucose (UA) Urine Ketones Urine Blood Urine Nitrite Urine Bilirubin Urine Urobilinogen Ur Leukocyte Esterase Urine WBC (Auto) Urine RBC (Auto) Ur Epithelial Cells Urine Mucus RPR Titer PE: alert and oriented x 3 skin warm and dry car s1s2 resp cta bl ext no edema neuro cn 1-x11 grossly intact a/p: withdrawal syndrome: patient tolerated detox well. Medically stable. Accepted transfer to rehab here at [facility]. To be transferred today. dm continue medication. A1C 5.7. diet modifications reinforced.
[2018-02-12] MEDS: METHYL SALICYLATE/MENTHOL OINT 30 GM TUBE TP SCH (10:01)
[2018-02-12] MEDS: LOSARTAN POTASSIUM 25 MG TABLET PO SCH (10:01)
[2018-02-12] MEDS: PRENATAL VITAMINS W/ FOLIC ACID TABLET (FP) PO SCH (10:01)
[2018-02-12] MEDS: NYSTATIN POWDER 100,000 UNITS/GM - 15 GM TOPICAL POWDER TP SCH (10:04)
== END 2018-02-12 12:59 | disposition other institution (70) | DRG 774 ==
LOC: YASAS 08:16 → Y3N 11:13
PROC: HZ2ZZZZ Detoxification Services for Substance Abuse Treatment (ICD-10-PCS; principal; 2018-02-07)
DX: F10.230 Alcohol dependence with withdrawal, uncomplicated (principal); F14.20 Cocaine dependence, uncomplicated; F17.213 Nicotine dependence, cigarettes, with withdrawal; F19.24 Other psychoactive substance dependence with psychoactive substance-induced mood disorder; F32.9 Major depressive disorder, single episode, unspecified; G47.00 Insomnia, unspecified; I10 Essential (primary) hypertension; E11.9 Type 2 diabetes mellitus without complications; Z79.84 Long term (current) use of oral hypoglycemic drugs; B18.2 Chronic viral hepatitis C; K76.0 Fatty (change of) liver, not elsewhere classified; M17.11 Unilateral primary osteoarthritis, right knee; B35.3 Tinea pedis; Z86.19 Personal history of other infectious and parasitic diseases
CPT/HCPCS: 36415; 80053; 81003; 81015; 82962; 83036; 85027; 86593; 93005; 93010

== ENCOUNTER 2018-02-12 13:01 | Inpatient (IN) | payer OTHER ==
[2018-02-12] MEDS ORDERED: MENTHOL/PHENOL 1 EACH UD MM PRN (13:21)
[2018-02-12] MEDS ORDERED: MAGNESIUM HYDROX 2400MG/30ML ORAL SUSPENSION 30 ML CUP PO PRN (13:21)
[2018-02-12] MEDS ORDERED: guaiFENesin/D-METHORPHAN HB 10 ML UNIT-DOSE CUPS PO PRN (13:21)
[2018-02-12] MEDS ORDERED: hydrOXYzine PAMOATE 50 MG CAPSULE (FP) PO PRN (13:21)
[2018-02-12] MEDS ORDERED: P-EPHED 60MG/TRIPROLIDI 2.5MG TABLET PO PRN (13:21)
[2018-02-12] MEDS ORDERED: MAG HYDROX/AL HYDROX/SIMETH 30 ML UNIT-DOSE CUP PO PRN (13:21)
[2018-02-12] MEDS ORDERED: ACETAMINOPHEN 325 MG TABLET (FP) PO PRN (13:21)
[2018-02-12] MEDS ORDERED: MAGNESIUM CITRATE 300 ML BOTTLE PO PRN (13:21)
[2018-02-12] MEDS ORDERED: LOPERAMIDE HCL 2 MG CAPSULE PO PRN (13:21)
--- NOTE | 2018-02-12 14:27 | HP ---
Psychiatrist Admission - Data Date of interview: 02/12/18 Admission source: 3N Identifying data: This is the second [facility] admission for this single Black male, father of 2 children, unemployed on SSI, domiciled Medical History: Significant for hypertension, diabetes mellitus, hepatitis C ( treated), fatty liver, osteoarthritis of right knee, history of treatment for syphilis and orthosurgery for fracture of left orbit (1994). Smokes 3 cigarettes daily Psychiatric History: Reports that his first psychiatric contact was in 2001 when he was diagnosed with MDD by a a psychiatrist at [facility]. Over the years, he was tried on several psychotropic medications( Wellbutrin, Trazadone, Seroquel, Doxepin) He currently receives OPD care at [facility] and He is prescribed Doxepin 50 mg po HS and Seroquel 25 mg po HS. Denies history of previous psychiatric hospitalization or suicidal attempt. At present, reports sleeping poorly Physical/Sexual Abuse/Trauma History: Denies history of emotional, physical or sexual abuse as well as DV relationship. No service Additional Comment: Reports history of multiple previous misdemeanor arrests Allergies/Adverse Reactions: Allergies Allergy/AdvReac Type Severity Reaction Status Date / Time No Known Drug Allergies Allergy Verified 02/07/18 10:20 Date of last physical exam: 02/07/18 Concur with the findings of this exam: Yes - Substance Abuse/Tx History Hx Alcohol Use: Yes Hx Substance Use: Yes Hx Substance Use Treatment: Yes (9 previous inpt detox & 12 inpt rehab) Mental Status Exam - Mental Status Exam Alert and Oriented to: Time, Place, Person Cognitive Function: Fair Patient Appearance: Well Groomed Mood: Hopeful, Euthymic Patient Behavior: Cooperative Speech Pattern: Clear Voice Loudness: Normal Thought Process: Intact, Goal Oriented Thought Disorder: Not Present Hallucinations: Denies Suicidal Ideation: Denies Homicidal Ideation: Denies Insight/Judgement: Fair Sleep: Poorly Appetite: Good Muscle strength/Tone: Normal Gait/Station: Normal Psychiatric Findings - Problem List ([place] 1, 2,3) (1) Alcohol dependence Current Visit: No Status: Acute (2) Cocaine dependence Current Visit: No Status: Acute Qualifiers: Substance use status: uncomplicated Qualified Code(s): F14.20 - Cocaine dependence, uncomplicated (3) Nicotine dependence Current Visit: No Status: Chronic Qualifiers: Nicotine product type: cigarettes Substance use status: in withdrawal Qualified Code(s): F17.213 - Nicotine dependence, cigarettes, with withdrawal (4) Substance induced mood disorder Current Visit: No Status: Chronic (5) MDD (major depressive disorder) Current Visit: No Status: Ruled-out (6) Diabetes mellitus treated with oral medication Current Visit: No Status: Chronic (7) Fatty liver Current Visit: No Status: Chronic (8) HTN (hypertension), benign Current Visit: No Status: Chronic (9) History of hepatitis C Current Visit: No Status: Chronic (10) Osteoarthritis of right knee Current Visit: No Status: Chronic Qualifiers: Osteoarthritis type: primary Qualified Code(s): M17.11 - Unilateral primary osteoarthritis, right knee - Initial Treatment Plan Initial Treatment Plan: 1) Continue Doxepin 50 mg po HS and Seroquel 25 mg po HS. 2) Monitor progress
[2018-02-12 14:48] VITALS: BMI 32.8
--- NOTE | 2018-02-12 15:03 | HP ---
[facility] Rehab Assess/Revision - Admission History Admitted to Rehab from: [facility] [place] Date of Admission to Rehab: 02/12/18 - Vital signs Vital Signs: Vital Signs Period Temp Pulse Resp BP Sys/Giron Pulse Ox Last 24 Hr 98.4 F 80 19 116/66 - Findings Detox History & Physical reviewed: Yes Concur with findings: Yes Inpatient Rehab Admission - Initial Determination Are CD services needed?: Yes Free of communicable disease: Yes Not in need of hospitalization: Yes - Rehab Admission Criteria Previous failed treatment: Yes Poor recovery environment: Yes Comorbidities: Yes Lacks judgement: Yes Patient is meeting Inpatient Rehab admission criteria:: Yes
[2018-02-12] MEDS: NICOTINE POLACRILEX 4 MG GUM BUC PRN ×2 (15:27→17:42)
[2018-02-12] MEDS ORDERED: PT OWN MED DRAWER 7, Y5N ONE (17:24)
[2018-02-12] MEDS: THIAMINE HCL 100 MG TABLET (FP) PO SCH (21:59)
[2018-02-12] MEDS ORDERED: DOXEPIN HCL 50 MG CAPSULE PO SCH (22:00)
[2018-02-12] MEDS ORDERED: QUEtiapine FUMARATE 25 MG TABLET (FP) PO SCH (22:00)
[2018-02-12] MEDS ORDERED: MELATONIN 5 MG TABLETS PO PRN (22:00)
[2018-02-13] MEDS: NICOTINE POLACRILEX 4 MG GUM BUC PRN ×7 (06:10→20:12)
[2018-02-13] MEDS ORDERED: PT OWN MED DRAWER 7, Y5N ONE ×2 (08:22→16:31)
[2018-02-13] MEDS: IBUPROFEN 400 MG TABLET (FP) PO PRN (08:23)
[2018-02-13] MEDS ORDERED: LOSARTAN POTASSIUM 25 MG TABLET PO SCH (10:00)
[2018-02-13] MEDS: PRENATAL VITAMINS W/ FOLIC ACID TABLET (FP) PO SCH (10:31)
[2018-02-13] MEDS: LOSARTAN POTASSIUM 25 MG TABLET PO SCH (10:31)
[2018-02-13] MEDS: METHYL SALICYLATE/MENTHOL OINT 30 GM TUBE TP SCH (10:31)
[2018-02-13] MEDS: DOXEPIN HCL 50 MG CAPSULE PO SCH (20:12)
[2018-02-13] MEDS: QUEtiapine FUMARATE 25 MG TABLET (FP) PO SCH (20:12)
[2018-02-13] MEDS: THIAMINE HCL 100 MG TABLET (FP) PO SCH (22:30)
[2018-02-14] MEDS: NICOTINE POLACRILEX 4 MG GUM BUC PRN ×3 (06:06→13:53)
[2018-02-14] MEDS: IBUPROFEN 400 MG TABLET (FP) PO PRN (08:49)
[2018-02-14] MEDS: METHYL SALICYLATE/MENTHOL OINT 30 GM TUBE TP SCH (10:01)
[2018-02-14] MEDS: PRENATAL VITAMINS W/ FOLIC ACID TABLET (FP) PO SCH (10:01)
[2018-02-14] MEDS: LOSARTAN POTASSIUM 25 MG TABLET PO SCH (10:01)
[2018-02-14] MEDS ORDERED: PT OWN MED DRAWER 7, Y5N ONE (19:35)
[2018-02-14] MEDS: DOXEPIN HCL 50 MG CAPSULE PO SCH (22:19)
[2018-02-14] MEDS: QUEtiapine FUMARATE 25 MG TABLET (FP) PO SCH (22:19)
[2018-02-14] MEDS: THIAMINE HCL 100 MG TABLET (FP) PO SCH (22:19)
[2018-02-15] MEDS: NICOTINE POLACRILEX 4 MG GUM BUC PRN ×6 (06:02→21:00)
[2018-02-15] MEDS: PRENATAL VITAMINS W/ FOLIC ACID TABLET (FP) PO SCH (10:06)
[2018-02-15] MEDS: LOSARTAN POTASSIUM 25 MG TABLET PO SCH (10:06)
[2018-02-15] MEDS: METHYL SALICYLATE/MENTHOL OINT 30 GM TUBE TP SCH (10:06)
[2018-02-15] MEDS: IBUPROFEN 400 MG TABLET (FP) PO PRN (10:07)
[2018-02-15] MEDS: QUEtiapine FUMARATE 25 MG TABLET (FP) PO SCH (20:53)
[2018-02-15] MEDS: DOXEPIN HCL 50 MG CAPSULE PO SCH (20:53)
[2018-02-15] MEDS: THIAMINE HCL 100 MG TABLET (FP) PO SCH (21:00)
[2018-02-16] MEDS: NICOTINE POLACRILEX 4 MG GUM BUC PRN ×4 (06:00→17:02)
[2018-02-16] MEDS: METHYL SALICYLATE/MENTHOL OINT 30 GM TUBE TP SCH (10:05)
[2018-02-16] MEDS: LOSARTAN POTASSIUM 25 MG TABLET PO SCH (10:05)
[2018-02-16] MEDS: PRENATAL VITAMINS W/ FOLIC ACID TABLET (FP) PO SCH (10:05)
[2018-02-16] MEDS: IBUPROFEN 400 MG TABLET (FP) PO PRN (10:06)
--- NOTE | 2018-02-16 10:22 | PN ---
[facility] Progress Note Note: PT REQUESTS BLOOD SUGAR MONITORING TO TID BUT WILL INCREASE BLOOD SUGAR MONITORING TO [facility]. PT AGREED TO PLAN.
[2018-02-16] MEDS ORDERED: PT OWN MED DRAWER 7, Y5N ONE ×2 (16:32→22:28)
[2018-02-16] MEDS: QUEtiapine FUMARATE 25 MG TABLET (FP) PO SCH (20:00)
[2018-02-16] MEDS: DOXEPIN HCL 50 MG CAPSULE PO SCH (20:00)
[2018-02-16] MEDS: THIAMINE HCL 100 MG TABLET (FP) PO SCH (22:10)
[2018-02-17] MEDS: NICOTINE POLACRILEX 4 MG GUM BUC PRN ×5 (05:59→17:47)
[2018-02-17] MEDS: LOSARTAN POTASSIUM 25 MG TABLET PO SCH (10:14)
[2018-02-17] MEDS: PRENATAL VITAMINS W/ FOLIC ACID TABLET (FP) PO SCH (10:14)
[2018-02-17] MEDS: METHYL SALICYLATE/MENTHOL OINT 30 GM TUBE TP SCH (10:15)
[2018-02-17] MEDS ORDERED: PT OWN MED DRAWER 7, Y5N ONE ×2 (10:15→20:05)
[2018-02-17] MEDS: IBUPROFEN 400 MG TABLET (FP) PO PRN (10:15)
[2018-02-17] MEDS: QUEtiapine FUMARATE 25 MG TABLET (FP) PO SCH (20:18)
[2018-02-17] MEDS: DOXEPIN HCL 50 MG CAPSULE PO SCH (20:18)
[2018-02-17] MEDS: THIAMINE HCL 100 MG TABLET (FP) PO SCH (22:07)
[2018-02-18] MEDS: NICOTINE POLACRILEX 4 MG GUM BUC PRN ×6 (06:01→16:29)
[2018-02-18] MEDS: LOSARTAN POTASSIUM 25 MG TABLET PO SCH (10:02)
[2018-02-18] MEDS: METHYL SALICYLATE/MENTHOL OINT 30 GM TUBE TP SCH (10:03)
[2018-02-18] MEDS: PRENATAL VITAMINS W/ FOLIC ACID TABLET (FP) PO SCH (10:03)
--- NOTE | 2018-02-18 12:58 | PN ---
Psychiatric Progress Note Vital Signs: Vital Signs Period Temp Pulse Resp BP Sys/Giron Pulse Ox Last 24 Hr 98.1 F 63-77 -18 110-126/64-71 Date of Session: 02/18/18 Chief Complaint:: Discharge Note HPI: Patient addressing Alcohol and Cocaine Dependence comorbid with Nicotine Dependence, MDD and Substance-Induced Mood Disorder ROS: Type 2 DNM, HTN, Hep C, Osteoarthritis right knee Current Medications: Active Medications Generic Name Dose Route Start Last Admin Trade Name Freq PRN Reason Stop Dose Admin Acetaminophen 650 mg 02/12/18 13:21 Tylenol - PO Q4H PRN FEVER Al Hydroxide/Mg Hydroxide 30 ml 02/12/18 13:21 Mylanta Oral Suspension - PO Q6H PRN DYSPEPSIA Doxepin HCl 50 mg 02/13/18 20:00 02/17/18 20:18 Sinequan - PO 50 mg HS@2000 RICARDO Administration Eucalyptus/Menthol/Phenol/Sorbitol 1 each 02/12/18 13:21 Cepastat Lozenge - MM Q4H PRN SORE THROAT Guaifenesin 10 ml 02/12/18 13:21 Robitussin Dm - PO Q6H PRN COUGH Hydroxyzine Pamoate 50 mg 02/12/18 13:21 Vistaril - PO Q4H PRN AGITATION Ibuprofen 400 mg 02/12/18 13:21 02/17/18 10:15 Motrin - PO 400 mg Q6H PRN Administration Pain Level 4-6 Loperamide HCl 4 mg 02/12/18 13:21 Imodium - PO Q6H PRN DIARRHEA Losartan Potassium 25 mg 02/13/18 10:00 02/18/18 10:02 Cozaar - PO 25 mg DAILY RICARDO Administration Magnesium Citrate 300 ml 02/12/18 13:21 Citroma - PO Q48H PRN CONSTIPATION Magnesium Hydroxide 30 ml 02/12/18 13:21 Milk Of Magnesia - PO DAILY PRN CONSTIPATION Melatonin 5 mg 02/12/18 22:00 Melatonin PO HS PRN INSOMNIA Metformin HCl 850 mg 02/13/18 07:00 02/18/18 07:09 Glucophage - PO 850 mg BID@0700,1630 RICARDO Administration Methyl Salicylate 1 applic 02/13/18 10:00 02/18/18 10:03 Khari-Sharma - TP 1 applic DAILY RICARDO Administration Nicotine Polacrilex 4 mg 02/12/18 13:21 02/18/18 12:46 Nicorette Gum - BUC 4 mg Q2H PRN Administration NICOTINE REPLACEMENT RX Multivit/Folic Acid/Iron 1 tab 02/13/18 10:00 02/18/18 10:03 Vitamins (Sjr) - PO 1 tab DAILY RICARDO Administration Pseudoephedrine/Triprolidine 1 combo 02/12/18 13:21 Actifed - PO TID PRN NASAL CONGESTION Quetiapine Fumarate 25 mg 02/13/18 20:00 02/17/18 20:18 Seroquel - PO 25 mg HS@2000 RICARDO Administration Thiamine HCl 100 mg 02/12/18 22:00 02/17/18 22:07 Vitamin B1 - PO 100 mg HS RICARDO Administration Current Side Effect: No Lab tests ordered: Yes Lab tests reviewed: Yes Provider note:: Patient will complete this program on 02/19/18. He has met his treatment goals and ayad continue to address his issues in outpatient treatment at [facility]. 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 He responded well to Doxepin 50 mg po HS and Seroquel 25 mg po HS. Scripts fot 30 days supply of these medications will be electronicaly transmitted to [facility] at [address] [place] [address]. He is stable for discharge on 02/19/18 Total face to face time:: 35 Mental Status Exam - Mental Status Exam Alert and Oriented to: Time, Place, Person Cognitive Function: Fair Patient Appearance: Well Groomed Mood: Hopeful, Euthymic Affect: Appropriate Patient Behavior: Cooperative Speech Pattern: Clear Voice Loudness: Normal Thought Process: Intact, Goal Oriented Thought Disorder: Not Present Hallucinations: Denies Suicidal Ideation: Denies Homicidal Ideation: Denies Insight/Judgement: Fair Sleep: Fair Appetite: Good Muscle strength/Tone: Normal Gait/Station: Normal Psychiatric Treatment Plan - Problem List (1) Alcohol dependence Current Visit: No (2) Cocaine dependence Current Visit: No Qualifiers: Substance use status: uncomplicated Qualified Code(s): F14.20 - Cocaine dependence, uncomplicated (3) Nicotine dependence Current Visit: No Qualifiers: Nicotine product type: cigarettes Substance use status: in withdrawal Qualified Code(s): F17.213 - Nicotine dependence, cigarettes, with withdrawal (4) Substance induced mood disorder Current Visit: No (5) MDD (major depressive disorder) Current Visit: No (6) Diabetes mellitus treated with oral medication Current Visit: No (7) Fatty liver Current Visit: No (8) HTN (hypertension), benign Current Visit: No (9) History of hepatitis C Current Visit: No (10) Osteoarthritis of right knee Current Visit: No Qualifiers: Osteoarthritis type: primary Qualified Code(s): M17.11 - Unilateral primary osteoarthritis, right knee Initial treatment plan: Patient will be discharged tomorrow and referred to [facility] for outpatient treatment
[2018-02-18] MEDS: QUEtiapine FUMARATE 25 MG TABLET (FP) PO SCH (20:31)
[2018-02-18] MEDS: DOXEPIN HCL 50 MG CAPSULE PO SCH (20:31)
[2018-02-18] MEDS ORDERED: PT OWN MED DRAWER 7, Y5N ONE ×2 (20:32→20:44)
[2018-02-18] MEDS: THIAMINE HCL 100 MG TABLET (FP) PO SCH (22:04)
[2018-02-19 07:12] VITALS: BP 134/77; PULSE 63; TEMP 98.3
[2018-02-19] MEDS: METHYL SALICYLATE/MENTHOL OINT 30 GM TUBE TP SCH (09:48)
[2018-02-19] MEDS: LOSARTAN POTASSIUM 25 MG TABLET PO SCH (09:48)
[2018-02-19] MEDS: PRENATAL VITAMINS W/ FOLIC ACID TABLET (FP) PO SCH (09:48)
== END 2018-02-19 10:00 | disposition home or self-care (01) | DRG 772 ==
LOC: YASAS 13:01 → Y3W 13:03
PROVIDERS: ADMIT Psychiatry & Neurology Psychiatry; ATTEND Psychiatry & Neurology Psychiatry
PROC: HZ42ZZZ Group Counseling for Substance Abuse Treatment, Cognitive-Behavioral (ICD-10-PCS; principal; 2018-02-12)
DX: F10.20 Alcohol dependence, uncomplicated (principal); F14.20 Cocaine dependence, uncomplicated; F17.213 Nicotine dependence, cigarettes, with withdrawal; F19.24 Other psychoactive substance dependence with psychoactive substance-induced mood disorder; F33.9 Major depressive disorder, recurrent, unspecified; I10 Essential (primary) hypertension; E11.9 Type 2 diabetes mellitus without complications; Z79.84 Long term (current) use of oral hypoglycemic drugs; B18.2 Chronic viral hepatitis C; M17.11 Unilateral primary osteoarthritis, right knee
CPT/HCPCS: 82962

== ENCOUNTER 2018-06-13 09:18 | Inpatient (IN) | payer OTHER ==
[2018-06-13 09:38] VITALS: BMI 30.1
--- NOTE | 2018-06-13 09:59 | HP ---
CIWA Score Nausea/Vomitin Muscle Tremors: 4-Moderate,w/Arms Extend Anxiety: 3 Agitation: 0-Normal Activity Paroxysmal Sweats: No Perspiration Orientation: 0-Oriented Tacttile Disturbances: 0-None Auditory Disturbances: 1-Very Mild Visual Disturbances: 1-Very Mild Sensitivity Headache: 2-Mild CIWA-Ar Total Score: 13 - Admission Criteria OASAS Guidelines: Admission for Medically Managed Detox: Requires at least one of the followin. CIWA greater than 12 2. Seizures within the past 24 hours 3. Delirium tremens within the past 24 hours 4. Hallucinations within the past 24 hours 5. Acute intervention needed for co occurring medical disorder 6. Acute intervention needed for co occurring psychiatric disorder 7. Severe withdrawal that cannot be handled at a lower level of care (continued vomiting, continued diarrhea, abnormal vital signs) requiring intravenous medication and/or fluids 8. Patient presents the following: CIWA greater than 12 Admission Criteria Met: Admission criteria met Admission ROS S - HPI Chief Complaint: My job sent me, I need help to stop drinking Allergies/Adverse Reactions: Allergies Allergy/AdvReac Type Severity Reaction Status Date / Time No Known Drug Allergies Allergy Verified 06/13/18 09:50 History of Present Illness: 58 yo gentleman here for detox from alcohol - also using crack. Previously here in January for treatment - attended 12 step meetings but then stopped and susequently relapsed about three months ago. Works as manager security. History of black outs, no seizures. Exam Limitations: Clinical Condition - Ebola screening Have you traveled outside of the country in the last 21 days: No (N) Have you had contact with anyone from an Ebola affected area: No Have you been sick,other than usual withdrawal symptoms: No Do you have a fever: No - Review of Systems Constitutional: Loss of Appetite, Night Sweats, Changes in sleep EENT: reports: No Symptoms Reported Respiratory: reports: No Symptoms reported Cardiac: reports: No Symptoms Reported GI: reports: Diarrhea, Nausea, Poor Fluid Intake, Abdominal cramping : reports: Frequency Musculoskeletal: reports: Joint Pain Integumentary: reports: Dryness Neuro: reports: Headache, Tremors Endocrine: reports: No Symptoms Reported Hematology: reports: No Symptoms Reported Psychiatric: reports: Judgement Intact, Mood/Affect Appropiate, Orientated x3, Anxious Other Systems: Reviewed and Negative Patient History - Patient Medical History Hx Anemia: No Hx Asthma: No Hx Chronic Obstructive Pulmonary Disease (COPD): No Hx Cancer: No Hx Cardiac Disorders: No Hx Congestive Heart Failure: No Hx Hypertension: Yes Hx Hypercholesterolemia: No Hx Pacemaker: No HX Cerebrovascular Accident: No Hx Seizures: No Hx Dementia: No Hx Diabetes: Yes Hx Gastrointestinal Disorders: No Hx Liver Disease: Yes (fatty liver) Hx Genitourinary Disorders: No Hx Sexually Transmitted Disorders: No Hx Renal Disease (ESRD): No Hx Thyroid Disease: No Hx Human Immunodeficiency Virus (HIV): No (negative) Hx Hepatitis C: Yes (hep c treated 2012 however noted + viral load 08/02/2016) Hx Depression: Yes (never hospitalized, sees psych outpatient) Hx Suicide Attempt: No (denies) Hx Bipolar Disorder: No Hx Schizophrenia: No Other Medical History: right knee arthritis - Patient Surgical History Past Surgical History: Yes Hx Neurologic Surgery: No Hx Cataract Extraction: No Hx Cardiac Surgery: No Hx Lung Surgery: No Hx Breast Surgery: No Hx Breast Biopsy: No Hx Abdominal Surgery: No Hx Appendectomy: No Hx Cholecystectomy: No Hx Genitourinary Surgery: No Hx Section: No Hx Orthopedic Surgery: Yes (fx, left orbit in 09/1994) Anesthesia Reaction: No - PPD History Previous Implant?: Yes Documented Results: Negative w/proof Implanted On Prior R Admission?: Yes Date: 11/05/17 Results: 0 MM PPD to be Administered?: No - Reproductive History Patient is a Female of Child Bearing Age (11 -55 yrs old): No (male) - Smoking Cessation Smoking history: Current every day smoker Have you smoked in the past 12 months: Yes Aproximately how many cigarettes per day: 3 Hx Chewing Tobacco Use: No Initiated information on smoking cessation: Yes 'Breaking Loose' booklet given: 06/13/18 (give on floor) - Substance & Tx. History Hx Alcohol Use: Yes Hx Substance Use: Yes Substance Use Type: Alcohol, Cocaine Hx Substance Use Treatment: Yes (detox, rehab) - Substances Abused Alcohol Route: Oral Frequency: Daily Amount used: 5TH VODKA Age of first use: 16 Date of Last Use: 06/12/18 Cocaine Route: Smoking Frequency: 3-6 times per week Amount used: $60 Age of first use: 24 Date of Last Use: 06/12/18 Family Disease History - Family Disease History Family Disease History: Diabetes: Sister (one ), CA: Father (, hx etoh) , Mother (lung ca ,), Other: Father, Brother (one - in [place]), Sister, Son (one - adult - healthy), Daughter (one - adult - healthy) Admission Physical Exam S - Vital Signs Vital Signs: Vital Signs - 24 hr 06/13/18 09:31 Temperature 99.3 F Pulse Rate 58 L Respiratory 18 Rate Blood Pressure 161/96 - Physical General Appearance: Yes: Nourished, Appropriately Dressed, Moderate Distress, Tremorous, Anxious HEENTM: Yes: EOMI, Hearing grossly Normal, Normocephalic, Normal Voice, Pharynx Normal Respiratory: Yes: Normal Breath Sounds, No Respiratory Distress Neck: Yes: No masses,lesions,Nodules, Supple Breast: Yes: Breast Exam Deferred Cardiology: Yes: Regular Rhythm, Regular Rate Abdominal: Yes: Soft Genitourinary: Yes: Frequency Back: Yes: Normal Inspection Musculoskeletal: Yes: Gait Steady, Joint Stiffness (right knee), Other (slight limp from right knee arthritis) Extremities: Yes: Other (right knee arthritis - wears won wrap) Neurological: Yes: Fully Oriented, Alert, Motor Strength 5/5, Normal Mood/Affect , Normal Response Integumentary: Yes: Normal Color, Dry, Warm Lymphatic: Yes: Within Normal Limits - Addiitonal Findings: UMR=175 - Diagnostic (1) Alcohol dependence with uncomplicated withdrawal Current Visit: Yes Status: Acute (2) Cocaine dependence Current Visit: Yes Status: Acute Qualifiers: Substance use status: uncomplicated Qualified Code(s): F14.20 - Cocaine dependence, uncomplicated (3) Depression Current Visit: Yes Status: Acute Qualifiers: Depression Type: other depression Qualified Code(s): F32.89 - Other specified depressive episodes (4) Hyperglycemia Current Visit: Yes Status: Acute (5) Insomnia Current Visit: Yes Status: Acute Qualifiers: Insomnia type: primary Qualified Code(s): F51.01 - Primary insomnia (6) Diabetes mellitus treated with oral medication Current Visit: Yes Status: Chronic (7) Fatty liver Current Visit: Yes Status: Chronic (8) HTN (hypertension), benign Current Visit: Yes Status: Chronic (9) History of hepatitis C Current Visit: Yes Status: Chronic (10) Nicotine dependence Current Visit: Yes Status: Chronic Qualifiers: Nicotine product type: cigarettes Substance use status: in withdrawal Qualified Code(s): F17.213 - Nicotine dependence, cigarettes, with withdrawal (11) Osteoarthritis of right knee Current Visit: Yes Status: Chronic Qualifiers: Osteoarthritis type: primary Qualified Code(s): M17.11 - Unilateral primary osteoarthritis, right knee Cleared for Admission S - Detox or Rehab [facility] Level of Care: Medically Managed Detox Regimen/Protocol: Librium S Breath Alcohol Content Breath Alcohol Content: 0 Urine Drug Screen - Results Drug Screen Negative: No Urine Drug Screen Results: KASSIE-Cocaine
[2018-06-13] MEDS ORDERED: MENTHOL/PHENOL 1 EACH UD MM PRN (10:05)
[2018-06-13] MEDS ORDERED: IBUPROFEN 400 MG TABLET (FP) PO PRN (10:05)
[2018-06-13] MEDS ORDERED: P-EPHED 60MG/TRIPROLIDI 2.5MG TABLET PO PRN (10:05)
[2018-06-13] MEDS ORDERED: LOPERAMIDE HCL 2 MG CAPSULE PO PRN (10:05)
[2018-06-13] MEDS ORDERED: ACETAMINOPHEN 325 MG TABLET (FP) PO PRN (10:05)
[2018-06-13] MEDS ORDERED: MAGNESIUM HYDROX 2400MG/30ML ORAL SUSPENSION 30 ML CUP PO PRN (10:05)
[2018-06-13] MEDS ORDERED: MAG HYDROX/AL HYDROX/SIMETH 30 ML UNIT-DOSE CUP PO PRN (10:05)
[2018-06-13] MEDS ORDERED: guaiFENesin/D-METHORPHAN HB 10 ML UNIT-DOSE CUPS PO PRN (10:05)
[2018-06-13] MEDS ORDERED: chlordiazePOXIDE HCL 25 MG CAPSULE PO PRN (10:05)
[2018-06-13] MEDS ORDERED: MAGNESIUM CITRATE 300 ML BOTTLE PO PRN (10:05)
[2018-06-13] MEDS: INSULIN SLIDING SCALE (NOVOLOG) 1 VIAL SQ SCH ×3 (11:30→22:30)
[2018-06-13] MEDS: METHYL SALICYLATE/MENTHOL OINT 30 GM TUBE TP SCH ×2 (13:26→22:32)
[2018-06-13] MEDS: LOSARTAN POTASSIUM 25 MG TABLET PO SCH (13:26)
[2018-06-13] MEDS: NICOTINE POLACRILEX 4 MG GUM BUC PRN ×3 (15:28→22:31)
[2018-06-13] MEDS: chlordiazePOXIDE HCL 25 MG CAPSULE PO SCH ×2 (17:24→22:31)
[2018-06-13] MEDS ORDERED: DOXEPIN HCL 50 MG CAPSULE PO SCH (22:00)
[2018-06-13] MEDS ORDERED: QUEtiapine FUMARATE 25 MG TABLET (FP) PO SCH (22:00)
[2018-06-13] MEDS ORDERED: MELATONIN 5 MG TABLETS PO PRN (22:00)
[2018-06-13] MEDS: THIAMINE HCL 100 MG TABLET (FP) PO SCH (22:30)
[2018-06-14] MEDS: chlordiazePOXIDE HCL 25 MG CAPSULE PO SCH ×4 (06:11→22:48)
[2018-06-14] MEDS: NICOTINE POLACRILEX 4 MG GUM BUC PRN ×3 (06:14→14:04)
[2018-06-14] MEDS: INSULIN SLIDING SCALE (NOVOLOG) 1 VIAL SQ SCH ×4 (06:21→22:47)
[2018-06-14] MEDS: PRENATAL VITAMINS W/ FOLIC ACID TABLET (FP) PO SCH (10:05)
[2018-06-14] MEDS: METHYL SALICYLATE/MENTHOL OINT 30 GM TUBE TP SCH ×2 (10:05→22:46)
[2018-06-14] MEDS: LOSARTAN POTASSIUM 25 MG TABLET PO SCH (10:05)
[2018-06-14 11:27] LABS: ALBUMIN 3.7 g/dl (3.4-5.0); ALK PHOS 74 U/L (45-117); ANION GAP 9 MMOL/L (8-16); BILIRUBIN,TOTAL 0.8 mg/dL (0.2-1); BLOOD UREA NITROGEN 16 mg/dL (7-18); CALCIUM 8.6 mg/dL (8.5-10.1); CHLORIDE 104 mmol/L (98-107); CO2 25 mmol/L (21-32); CREATININE 1.3 mg/dL (0.55-1.3); GLUCOSE,RANDOM 151 mg/dL (74-106); POTASSIUM 3.8 mmol/L (3.5-5.1); SGOT/AST 85 U/L (15-37); SGPT/ALT 135 U/L (13-61); SODIUM 139 mmol/L (136-145); TOT PROT 7.1 g/dl (6.4-8.2)
[2018-06-14 11:33] LABS: HEMATOCRIT 41.8 % (35.4-49); HEMOGLOBIN 14.1 GM/dL (11.7-16.9); MCH 30.5 pg (25.7-33.7); MCHC 33.8 g/dl (32.0-35.9); MEAN CELL VOLUME 90.2 fl (80-96); MEAN PLT VOLUME 10.7 fl (7.5-11.1); PLATELET COUNT 193 K/MM3 (134-434); RBC 4.64 M/mm3 (4.00-5.60); RDW 14.3 % (11.9-15.9); WHITE BLOOD COUNT 4.9 K/mm3 (4.0-10.0)
[2018-06-14] MEDS: CLOTRIMAZOLE 1% CREAM 15 GM TUBE TP SCH ×2 (15:04→22:46)
--- NOTE | 2018-06-14 17:16 | PN ---
S CIWA - CIWA Score Nausea/Vomitin Muscle Tremors: 4-Moderate,w/Arms Extend Anxiety: 4-Mod. Anxious/Guarded Agitation: 4-Moderately Restless Paroxysmal Sweats: 3 Orientation: 0-Oriented Tacttile Disturbances: 0-None Auditory Disturbances: 0-None Visual Disturbances: 0-None Headache: 0-None Present CIWA-Ar Total Score: 17 BHS Progress Note (SOAP) Subjective: Diarrhea, anxious; c/o itching between toes and requesting fungal treatment. Patient requested to change his doxopin and seroquel to 7pm because that's the time he takes it at home as he works at night and it's currently making him drowsy if takes it qhs. Objective: 06/14/18 17:12 Last Vital Signs Temp Pulse Resp BP Pulse Ox 97.4 F L 66 19 106/57 L 06/14/18 15:03 06/14/18 15:03 06/14/18 15:03 06/14/18 15:03 Laboratory Tests 06/13/18 06/13/18 06/13/18 10:41 11:29 16:24 WBC RBC Hgb Hct MCV MCH MCHC RDW Plt Count MPV Sodium Potassium Chloride Carbon Dioxide Anion Gap BUN Creatinine Creat Clearance w eGFR POC Glucometer 173 147 147 Random Glucose Calcium Total Bilirubin AST ALT Alkaline Phosphatase Total Protein Albumin RPR Titer 06/13/18 06/14/18 06/14/18 21:13 05:50 05:50 WBC 4.9 RBC 4.64 Hgb 14.1 Hct 41.8 MCV 90.2 MCH 30.5 MCHC 33.8 RDW 14.3 Plt Count 193 MPV 10.7 Sodium 139 Potassium 3.8 Chloride 104 Carbon Dioxide 25 Anion Gap 9 BUN 16 Creatinine 1.3 Creat Clearance w eGFR 57.10 POC Glucometer 140 Random Glucose 151 H Calcium 8.6 Total Bilirubin 0.8 AST 85 H ALT 135 H Alkaline Phosphatase 74 Total Protein 7.1 Albumin 3.7 RPR Titer 06/14/18 06/14/18 06/14/18 05:50 06:13 11:42 WBC RBC Hgb Hct MCV MCH MCHC RDW Plt Count MPV Sodium Potassium Chloride Carbon Dioxide Anion Gap BUN Creatinine Creat Clearance w eGFR POC Glucometer 98 138 Random Glucose Calcium Total Bilirubin AST ALT Alkaline Phosphatase Total Protein Albumin RPR Titer Nonreactive 06/14/18 16:24 WBC RBC Hgb Hct MCV MCH MCHC RDW Plt Count MPV Sodium Potassium Chloride Carbon Dioxide Anion Gap BUN Creatinine Creat Clearance w eGFR POC Glucometer 113 Random Glucose Calcium Total Bilirubin AST ALT Alkaline Phosphatase Total Protein Albumin RPR Titer Labs reviewed: prerenal azotemia Assessment: 06/14/18 17:13 Withdrawal symptoms Prerenal azotemia noted Plan: Continue detox Prerenal azotemia: encouraged PO water intake Tinea pedis: clotrimazole cream bid
[2018-06-14] MEDS: DOXEPIN HCL 50 MG CAPSULE PO SCH (18:51)
[2018-06-14] MEDS: QUEtiapine FUMARATE 25 MG TABLET (FP) PO SCH (18:51)
[2018-06-14] MEDS: THIAMINE HCL 100 MG TABLET (FP) PO SCH (22:47)
[2018-06-15] MEDS: chlordiazePOXIDE HCL 25 MG CAPSULE PO SCH ×2 (05:34→10:15)
[2018-06-15] MEDS: NICOTINE POLACRILEX 4 MG GUM BUC PRN ×3 (05:36→13:42)
[2018-06-15] MEDS: INSULIN SLIDING SCALE (NOVOLOG) 1 VIAL SQ SCH ×5 (07:24→22:39)
[2018-06-15] MEDS ORDERED: INSULIN SLIDING SCALE (NOVOLOG) 1 VIAL SQ ONE (07:46)
[2018-06-15] MEDS: PRENATAL VITAMINS W/ FOLIC ACID TABLET (FP) PO SCH (10:15)
[2018-06-15] MEDS: CLOTRIMAZOLE 1% CREAM 15 GM TUBE TP SCH ×2 (10:17→22:38)
[2018-06-15] MEDS: METHYL SALICYLATE/MENTHOL OINT 30 GM TUBE TP SCH ×2 (10:18→22:38)
[2018-06-15] MEDS: LOSARTAN POTASSIUM 50 MG TABLET (FP) PO SCH (10:49)
[2018-06-15] MEDS ORDERED: INSULIN (NOVOLOG MIX 70/30) 100 UNITS/ML MDV SQ ONE (11:35)
--- NOTE | 2018-06-15 14:02 | PN ---
S CIWA - CIWA Score Nausea/Vomitin-Mild Nausea/No Vomiting Muscle Tremors: 3 Anxiety: 2 Agitation: 2 Paroxysmal Sweats: 1-Minimal Palms Moist Orientation: 1-Uncertain about Date Tacttile Disturbances: 0-None Auditory Disturbances: 0-None Visual Disturbances: 0-None Headache: 2-Mild CIWA-Ar Total Score: 12 S Progress Note (SOAP) Subjective: tremor sweating anxiety restlessness Objective: 06/15/18 14:05 Vital Signs Temperature 96.7 F L 06/15/18 09:17 Pulse Rate 73 06/15/18 09:17 Respiratory Rate 16 06/15/18 09:17 Blood Pressure 126/77 06/15/18 09:17 O2 Sat by Pulse Oximetry (%) Laboratory Last Values WBC 4.9 K/mm3 (4.0-10.0) 06/14/18 05:50 RBC 4.64 M/mm3 (4.00-5.60) 06/14/18 05:50 Hgb 14.1 GM/dL (11.7-16.9) 06/14/18 05:50 Hct 41.8 % (35.4-49) 06/14/18 05:50 MCV 90.2 fl (80-96) 06/14/18 05:50 MCH 30.5 pg (25.7-33.7) 06/14/18 05:50 MCHC 33.8 g/dl (32.0-35.9) 06/14/18 05:50 RDW 14.3 % (11.9-15.9) 06/14/18 05:50 Plt Count 193 K/MM3 (134-434) 06/14/18 05:50 MPV 10.7 fl (7.5-11.1) 06/14/18 05:50 Sodium 139 mmol/L (136-145) 06/14/18 05:50 Potassium 3.8 mmol/L (3.5-5.1) 06/14/18 05:50 Chloride 104 mmol/L (98-107) 06/14/18 05:50 Carbon Dioxide 25 mmol/L (21-32) 06/14/18 05:50 Anion Gap 9 MMOL/L (8-16) 06/14/18 05:50 BUN 16 mg/dL (7-18) 06/14/18 05:50 Creatinine 1.3 mg/dL (0.55-1.3) 06/14/18 05:50 Creat Clearance w eGFR 57.10 (>60) 06/14/18 05:50 POC Glucometer 152 UNITS (80-120) 06/15/18 11:27 Random Glucose 151 mg/dL (74-106) H 06/14/18 05:50 Calcium 8.6 mg/dL (8.5-10.1) 06/14/18 05:50 Total Bilirubin 0.8 mg/dL (0.2-1) 06/14/18 05:50 AST 85 U/L (15-37) H 06/14/18 05:50 ALT 135 U/L (13-61) H 06/14/18 05:50 Alkaline Phosphatase 74 U/L (45-117) 06/14/18 05:50 Total Protein 7.1 g/dl (6.4-8.2) 06/14/18 05:50 Albumin 3.7 g/dl (3.4-5.0) 06/14/18 05:50 RPR Titer Nonreactive (NONREACTIVE) 06/14/18 05:50 lab noted Assessment: 06/15/18 14:05 withdrawal sx Plan: continue detox
[2018-06-15] MEDS: chlordiazePOXIDE 5 MG CAPSULE PO SCH ×2 (16:24→22:40)
[2018-06-15] MEDS: QUEtiapine FUMARATE 25 MG TABLET (FP) PO SCH (18:46)
[2018-06-15] MEDS: DOXEPIN HCL 50 MG CAPSULE PO SCH (18:46)
[2018-06-15] MEDS: THIAMINE HCL 100 MG TABLET (FP) PO SCH (22:39)
[2018-06-16] MEDS: chlordiazePOXIDE 5 MG CAPSULE PO SCH ×2 (05:30→10:06)
[2018-06-16] MEDS: NICOTINE POLACRILEX 4 MG GUM BUC PRN ×2 (05:37→08:45)
[2018-06-16] MEDS: INSULIN SLIDING SCALE (NOVOLOG) 1 VIAL SQ SCH ×2 (06:33→11:07)
[2018-06-16 09:04] VITALS: BP 134/81; PULSE 71; TEMP 98.4
--- NOTE | 2018-06-16 09:51 | DS ---
[facility] Detox Discharge Summary Admission Date: 06/13/18 Discharge Date: 06/16/18 - History Present History: Alcohol Dependence Additional Comments: 58 years old male admitted on 06/13/18 for alcohol withdrawal stabilization completed detox regimen aftercare [facility] Physical Exam Results Vital Signs: Vital Signs Temperature 98.4 F 06/16/18 09:04 Pulse Rate 71 06/16/18 09:04 Respiratory Rate 18 06/16/18 09:04 Blood Pressure 134/81 06/16/18 09:04 O2 Sat by Pulse Oximetry (%) Pertinent Admission Physical Exam Findings: alcohol withdrawal sx Laboratory Last Values WBC 4.9 K/mm3 (4.0-10.0) 06/14/18 05:50 RBC 4.64 M/mm3 (4.00-5.60) 06/14/18 05:50 Hgb 14.1 GM/dL (11.7-16.9) 06/14/18 05:50 Hct 41.8 % (35.4-49) 06/14/18 05:50 MCV 90.2 fl (80-96) 06/14/18 05:50 MCH 30.5 pg (25.7-33.7) 06/14/18 05:50 MCHC 33.8 g/dl (32.0-35.9) 06/14/18 05:50 RDW 14.3 % (11.9-15.9) 06/14/18 05:50 Plt Count 193 K/MM3 (134-434) 06/14/18 05:50 MPV 10.7 fl (7.5-11.1) 06/14/18 05:50 Sodium 139 mmol/L (136-145) 06/14/18 05:50 Potassium 3.8 mmol/L (3.5-5.1) 06/14/18 05:50 Chloride 104 mmol/L (98-107) 06/14/18 05:50 Carbon Dioxide 25 mmol/L (21-32) 06/14/18 05:50 Anion Gap 9 MMOL/L (8-16) 06/14/18 05:50 BUN 16 mg/dL (7-18) 06/14/18 05:50 Creatinine 1.3 mg/dL (0.55-1.3) 06/14/18 05:50 Creat Clearance w eGFR 57.10 (>60) 06/14/18 05:50 POC Glucometer 143 UNITS (80-120) 06/16/18 11:05 Random Glucose 151 mg/dL (74-106) H 06/14/18 05:50 Calcium 8.6 mg/dL (8.5-10.1) 06/14/18 05:50 Total Bilirubin 0.8 mg/dL (0.2-1) 06/14/18 05:50 AST 85 U/L (15-37) H 06/14/18 05:50 ALT 135 U/L (13-61) H 06/14/18 05:50 Alkaline Phosphatase 74 U/L (45-117) 06/14/18 05:50 Total Protein 7.1 g/dl (6.4-8.2) 06/14/18 05:50 Albumin 3.7 g/dl (3.4-5.0) 06/14/18 05:50 RPR Titer Nonreactive (NONREACTIVE) 06/14/18 05:50 lab noted - Treatment Hospital Course: Detox Protocol Followed, Detoxed Safely, Responded well, Discharged Condition Good, Rehab Referral Accepted Patient has Accepted a Rehab Referral to: [facility] - Medication Discharge Medications: Ambulatory Orders Doxepin HCl 50 mg PO HS #30 capsule 11/20/17 Quetiapine Fumarate [Seroquel -] 25 mg PO HS 02/07/18 metFORMIN HCL [Metformin HCl] 850 mg PO BID 02/07/18 Losartan Potassium 50 mg PO DAILY #14 tablet 06/16/18 metFORMIN HCL [Glucophage -] 850 mg PO BIDAC #30 tablet 06/16/18 - Diagnosis (1) Alcohol dependence with uncomplicated withdrawal Current Visit: Yes Status: Acute (2) HTN (hypertension), benign Current Visit: Yes Status: Chronic (3) History of hepatitis C Current Visit: Yes Status: Chronic (4) Type 2 diabetes mellitus with hyperglycemia Current Visit: Yes Status: Chronic Qualifiers: Diabetes mellitus assisted insulin use: without extermination supervisor use Qualified Code(s): E11.65 - Type 2 diabetes mellitus with hyperglycemia (5) Substance induced mood disorder Current Visit: Yes Status: Suspected - AMA Did Patient Leave Against Medical Advice: No
[2018-06-16] MEDS: PRENATAL VITAMINS W/ FOLIC ACID TABLET (FP) PO SCH (10:06)
[2018-06-16] MEDS: LOSARTAN POTASSIUM 50 MG TABLET (FP) PO SCH (10:06)
[2018-06-16] MEDS: METHYL SALICYLATE/MENTHOL OINT 30 GM TUBE TP SCH (10:08)
[2018-06-16] MEDS: CLOTRIMAZOLE 1% CREAM 15 GM TUBE TP SCH (10:08)
[2018-06-16] MEDS ORDERED: chlordiazePOXIDE HCL 10 MG CAPSULE PO SCH (17:00)
== END 2018-06-16 11:51 | disposition other institution (70) | DRG 775 ==
LOC: YASAS 09:18 → Y3N 10:10
PROVIDERS: ADMIT Neuromusculoskeletal Medicine & OMM; ATTEND Neuromusculoskeletal Medicine & OMM
PROC: HZ2ZZZZ Detoxification Services for Substance Abuse Treatment (ICD-10-PCS; principal; 2018-06-13)
DX: F10.230 Alcohol dependence with withdrawal, uncomplicated (principal); F12.20 Cannabis dependence, uncomplicated; F17.213 Nicotine dependence, cigarettes, with withdrawal; F19.24 Other psychoactive substance dependence with psychoactive substance-induced mood disorder; F32.89 Other specified depressive episodes; I10 Essential (primary) hypertension; B18.2 Chronic viral hepatitis C; E11.65 Type 2 diabetes mellitus with hyperglycemia; R79.89 Other specified abnormal findings of blood chemistry; B35.3 Tinea pedis; G47.00 Insomnia, unspecified; K76.0 Fatty (change of) liver, not elsewhere classified; M17.11 Unilateral primary osteoarthritis, right knee; Z79.84 Long term (current) use of oral hypoglycemic drugs
CPT/HCPCS: 36415; 80053; 82962; 85027; 86593

== ENCOUNTER 2018-06-16 12:05 | Inpatient (IN) | payer OTHER ==
--- NOTE | 2018-06-16 12:36 | HP ---
ALEX RASCON Rehab Assess/Revision - Admission History Admitted to Rehab from: [facility] Date of Admission to Rehab: 06/16/18 - Findings Detox History & Physical reviewed: Yes Concur with findings: Yes Comments/Additional Findings: transferred from detox to rehab admission as per protocol Inpatient Rehab Admission - Initial Determination Are CD services needed?: Yes Free of communicable disease: Yes Not in need of hospitalization: Yes - Rehab Admission Criteria Previous failed treatment: Yes Poor recovery environment: Yes Comorbidities: Yes Lacks judgement: No Patient is meeting Inpatient Rehab admission criteria:: Yes
[2018-06-16] MEDS ORDERED: guaiFENesin/D-METHORPHAN HB 10 ML UNIT-DOSE CUPS PO PRN (12:37)
[2018-06-16] MEDS ORDERED: LOPERAMIDE HCL 2 MG CAPSULE PO PRN (12:37)
[2018-06-16] MEDS ORDERED: MAGNESIUM HYDROX 2400MG/30ML ORAL SUSPENSION 30 ML CUP PO PRN (12:37)
[2018-06-16] MEDS ORDERED: ACETAMINOPHEN 325 MG TABLET (FP) PO PRN (12:37)
[2018-06-16] MEDS ORDERED: MAG HYDROX/AL HYDROX/SIMETH 30 ML UNIT-DOSE CUP PO PRN (12:37)
[2018-06-16] MEDS ORDERED: MAGNESIUM CITRATE 300 ML BOTTLE PO PRN (12:37)
[2018-06-16] MEDS ORDERED: MENTHOL/PHENOL 1 EACH UD MM PRN (12:37)
[2018-06-16] MEDS ORDERED: P-EPHED 60MG/TRIPROLIDI 2.5MG TABLET PO PRN (12:37)
[2018-06-16] MEDS ORDERED: NICOTINE 14 MG/24 HOURS TOPICAL PATCH TD PRN (12:37)
[2018-06-16] MEDS ORDERED: INSULIN SLIDING SCALE (NOVOLOG) 1 VIAL SQ PRN (12:43)
[2018-06-16 12:56] VITALS: BMI 32.1
[2018-06-16] MEDS: NICOTINE POLACRILEX 2 MG GUM BUC PRN ×2 (14:13→16:55)
--- NOTE | 2018-06-16 14:23 | HP ---
Psychiatrist Admission - Data Date of interview: 06/16/18 Admission source: Self-referred Identifying data: This is one of the multiple [facility] admissions for this single 58 years old Black male, father of 2 children, unemployed on SSI, domiciled Medical History: Significant for hypertension, diabetes mellitus, fatty liver, osteoarthritis of right knee, history of treatment for syphilis, hepatitis C and orthosurgery for fracture of left orbit (1994). Smokes 6 cigarettes daily Psychiatric History: Patient is well known to literary writer from a previous encouter while on inpatient rehab in this facility in January 2018. Historical narrative is consistent. Reports that his first psychiatric contact was in 2001 when he was diagnosed with MDD by a a psychiatrist at [facility]. Over the years, he was tried on several psychotropic medications( Wellbutrin, Trazadone, Seroquel, Doxepin) He currently receives OPD care at [facility] and He is prescribed Doxepin 50 mg po HS and Seroquel 25 mg po HS. Denies history of previous psychiatric hospitalization or suicidal attempt. At present, reports sleeping poorly Physical/Sexual Abuse/Trauma History: Denies history of emotional, physical or sexual abuse as well as DV relationship. No service Additional Comment: eports history of multiple previous misdemeanor arrests Vital Signs: Vital Signs - 24 hr 06/16/18 12:39 Temperature 98.7 F Pulse Rate 78 Respiratory 16 Rate Blood Pressure 123/79 Allergies/Adverse Reactions: Allergies Allergy/AdvReac Type Severity Reaction Status Date / Time No Known Drug Allergies AdvReac Mild Verified 06/16/18 12:33 red sauce AdvReac Uncoded 06/16/18 12:33 Date of last physical exam: 06/13/18 Concur with the findings of this exam: Yes - Substance Abuse/Tx History Hx Alcohol Use: Yes Hx Substance Use: Yes Substance Use Type: Alcohol (Started drinking alcohol at age 16, consumes a fifth of vodka daily. Last drank on 06/12/18), Cocaine (Started smoking crack cocaine at age 24, consumes $60 worth 3-6 times weekly. Lst smoked on 06/12/18) Hx Substance Use Treatment: Yes (4 previous inpt detox & 3 inpt rehab #@ [facility]) Mental Status Exam - Mental Status Exam Alert and Oriented to: Time, Place, Person Cognitive Function: Fair Patient Appearance: Well Groomed Mood: Hopeful, Euthymic Patient Behavior: Cooperative Speech Pattern: Clear Voice Loudness: Normal Thought Process: Intact, Goal Oriented Thought Disorder: Not Present Hallucinations: Denies Suicidal Ideation: Denies Homicidal Ideation: Denies Insight/Judgement: Fair Sleep: Fair, Poorly Appetite: Poor Muscle strength/Tone: Normal Gait/Station: Normal Psychiatric Findings - Problem List ([place] 1, 2,3) (1) Alcohol dependence Current Visit: No Status: Acute (2) Cocaine dependence Current Visit: No Status: Acute Qualifiers: Substance use status: uncomplicated Qualified Code(s): F14.20 - Cocaine dependence, uncomplicated (3) Nicotine dependence Current Visit: No Status: Chronic Qualifiers: Nicotine product type: cigarettes Substance use status: in withdrawal Qualified Code(s): F17.213 - Nicotine dependence, cigarettes, with withdrawal (4) Substance induced mood disorder Current Visit: No Status: Suspected (5) MDD (major depressive disorder) Current Visit: No Status: Ruled-out (6) Substance-induced sleep disorder Current Visit: No Status: Acute (7) Diabetes mellitus treated with oral medication Current Visit: No Status: Chronic (8) HTN (hypertension), benign Current Visit: No Status: Chronic (9) History of hepatitis C Current Visit: No Status: Chronic - Initial Treatment Plan Initial Treatment Plan: 1) Continue Doxepin 50 mg po HS and Serouel 25 mg po HS. 2) Monitor progress
[2018-06-16] MEDS ORDERED: PT OWN MED DRAWER 7, Y5N ONE (21:26)
[2018-06-16] MEDS ORDERED: DOXEPIN HCL 50 MG CAPSULE PO SCH (22:00)
[2018-06-16] MEDS ORDERED: QUEtiapine FUMARATE 25 MG TABLET (FP) PO SCH (22:00)
[2018-06-16] MEDS ORDERED: MELATONIN 5 MG TABLETS PO PRN (22:00)
[2018-06-16] MEDS: THIAMINE HCL 100 MG TABLET (FP) PO SCH (22:28)
[2018-06-16] MEDS: TOLNAFTATE 1% CREAM 15 GM TUBE TP SCH (22:46)
[2018-06-16] MEDS: METHYL SALICYLATE/MENTHOL OINT 30 GM TUBE TP SCH (22:47)
[2018-06-17] MEDS: NICOTINE POLACRILEX 2 MG GUM BUC PRN ×6 (05:54→21:15)
[2018-06-17] MEDS: TOLNAFTATE 1% CREAM 15 GM TUBE TP SCH ×2 (09:35→21:15)
[2018-06-17] MEDS: PRENATAL VITAMINS W/ FOLIC ACID TABLET (FP) PO SCH (09:35)
[2018-06-17] MEDS: METHYL SALICYLATE/MENTHOL OINT 30 GM TUBE TP SCH ×2 (09:36→21:15)
[2018-06-17] MEDS ORDERED: PT OWN MED DRAWER 7, Y5N ONE (09:47)
[2018-06-17] MEDS ORDERED: LOSARTAN POTASSIUM 50 MG TABLET (FP) PO SCH (10:00)
[2018-06-17] MEDS: PATIENT'S OWN MEDICATION (NON-FORMULARY) (Losartan Potassium [Losartan Potassium] 50 MG) PO SCH (10:46)
[2018-06-17] MEDS: THIAMINE HCL 100 MG TABLET (FP) PO SCH (21:16)
[2018-06-17] MEDS: DOXEPIN HCL 50 MG PO SCH (21:16)
[2018-06-17] MEDS: QUETIAPINE FUMARATE 25 MG PO SCH (21:16)
[2018-06-18] MEDS: NICOTINE POLACRILEX 2 MG GUM BUC PRN ×7 (06:05→21:01)
[2018-06-18] MEDS: PRENATAL VITAMINS W/ FOLIC ACID TABLET (FP) PO SCH (10:15)
[2018-06-18] MEDS: PATIENT'S OWN MEDICATION (NON-FORMULARY) (Losartan Potassium [Losartan Potassium] 50 MG) PO SCH (10:15)
[2018-06-18] MEDS: METHYL SALICYLATE/MENTHOL OINT 30 GM TUBE TP SCH ×2 (10:17→21:00)
[2018-06-18] MEDS: TOLNAFTATE 1% CREAM 15 GM TUBE TP SCH ×2 (10:49→21:01)
[2018-06-18] MEDS: THIAMINE HCL 100 MG TABLET (FP) PO SCH (21:02)
[2018-06-18] MEDS: QUETIAPINE FUMARATE 25 MG PO SCH (21:02)
[2018-06-18] MEDS: DOXEPIN HCL 50 MG PO SCH (21:02)
[2018-06-19] MEDS: NICOTINE POLACRILEX 2 MG GUM BUC PRN ×4 (06:12→21:10)
[2018-06-19] MEDS: PRENATAL VITAMINS W/ FOLIC ACID TABLET (FP) PO SCH (09:31)
[2018-06-19] MEDS: PATIENT'S OWN MEDICATION (NON-FORMULARY) (Losartan Potassium [Losartan Potassium] 50 MG) PO SCH (09:31)
[2018-06-19] MEDS: METHYL SALICYLATE/MENTHOL OINT 30 GM TUBE TP SCH ×2 (10:05→21:10)
[2018-06-19] MEDS: TOLNAFTATE 1% CREAM 15 GM TUBE TP SCH ×2 (11:05→21:11)
[2018-06-19] MEDS: IBUPROFEN 400 MG TABLET (FP) PO PRN (11:46)
[2018-06-19] MEDS: QUETIAPINE FUMARATE 25 MG PO SCH (21:11)
[2018-06-19] MEDS: DOXEPIN HCL 50 MG PO SCH (21:11)
[2018-06-19] MEDS: THIAMINE HCL 100 MG TABLET (FP) PO SCH (21:11)
[2018-06-20] MEDS: NICOTINE POLACRILEX 2 MG GUM BUC PRN ×6 (06:04→21:05)
[2018-06-20] MEDS: METHYL SALICYLATE/MENTHOL OINT 30 GM TUBE TP SCH ×2 (09:56→21:04)
[2018-06-20] MEDS: PATIENT'S OWN MEDICATION (NON-FORMULARY) (Losartan Potassium [Losartan Potassium] 50 MG) PO SCH (09:56)
[2018-06-20] MEDS: PRENATAL VITAMINS W/ FOLIC ACID TABLET (FP) PO SCH (09:56)
[2018-06-20] MEDS: TOLNAFTATE 1% CREAM 15 GM TUBE TP SCH ×2 (09:57→21:04)
[2018-06-20] MEDS: DOXEPIN HCL 50 MG PO SCH (21:04)
[2018-06-20] MEDS: THIAMINE HCL 100 MG TABLET (FP) PO SCH (21:04)
[2018-06-20] MEDS: QUETIAPINE FUMARATE 25 MG PO SCH (21:04)
[2018-06-21] MEDS: PRENATAL VITAMINS W/ FOLIC ACID TABLET (FP) PO SCH (09:30)
[2018-06-21] MEDS: PATIENT'S OWN MEDICATION (NON-FORMULARY) (Losartan Potassium [Losartan Potassium] 50 MG) PO SCH (09:30)
[2018-06-21] MEDS: METHYL SALICYLATE/MENTHOL OINT 30 GM TUBE TP SCH ×2 (09:31→21:10)
[2018-06-21] MEDS: TOLNAFTATE 1% CREAM 15 GM TUBE TP SCH ×2 (09:31→21:10)
[2018-06-21] MEDS: NICOTINE POLACRILEX 2 MG GUM BUC PRN ×5 (09:33→21:10)
[2018-06-21] MEDS ORDERED: PT OWN MED DRAWER 7, Y5N ONE ×2 (17:03→21:09)
[2018-06-21] MEDS: QUETIAPINE FUMARATE 25 MG PO SCH (21:09)
[2018-06-21] MEDS: DOXEPIN HCL 50 MG PO SCH (21:09)
[2018-06-21] MEDS: THIAMINE HCL 100 MG TABLET (FP) PO SCH (21:09)
[2018-06-22] MEDS: NICOTINE POLACRILEX 2 MG GUM BUC PRN ×4 (08:04→22:01)
[2018-06-22] MEDS ORDERED: PT OWN MED DRAWER 7, Y5N ONE ×2 (08:53→19:31)
[2018-06-22] MEDS: METHYL SALICYLATE/MENTHOL OINT 30 GM TUBE TP SCH ×2 (09:57→22:01)
[2018-06-22] MEDS: PATIENT'S OWN MEDICATION (NON-FORMULARY) (Losartan Potassium [Losartan Potassium] 50 MG) PO SCH (09:58)
[2018-06-22] MEDS: PRENATAL VITAMINS W/ FOLIC ACID TABLET (FP) PO SCH (09:58)
[2018-06-22] MEDS: TOLNAFTATE 1% CREAM 15 GM TUBE TP SCH ×2 (11:03→22:02)
[2018-06-22] MEDS: DOXEPIN HCL 50 MG PO SCH (22:02)
[2018-06-22] MEDS: THIAMINE HCL 100 MG TABLET (FP) PO SCH (22:02)
[2018-06-22] MEDS: QUETIAPINE FUMARATE 25 MG PO SCH (22:02)
[2018-06-23] MEDS: NICOTINE POLACRILEX 2 MG GUM BUC PRN ×5 (07:32→16:11)
[2018-06-23] MEDS ORDERED: PT OWN MED DRAWER 7, Y5N ONE (08:28)
[2018-06-23] MEDS: METHYL SALICYLATE/MENTHOL OINT 30 GM TUBE TP SCH ×2 (09:42→22:00)
[2018-06-23] MEDS: PRENATAL VITAMINS W/ FOLIC ACID TABLET (FP) PO SCH (09:42)
[2018-06-23] MEDS: PATIENT'S OWN MEDICATION (NON-FORMULARY) (Losartan Potassium [Losartan Potassium] 50 MG) PO SCH (09:43)
[2018-06-23] MEDS: TOLNAFTATE 1% CREAM 15 GM TUBE TP SCH ×2 (09:43→22:00)
[2018-06-23] MEDS: DOXEPIN HCL 50 MG PO SCH (21:02)
[2018-06-23] MEDS: THIAMINE HCL 100 MG TABLET (FP) PO SCH (21:02)
[2018-06-23] MEDS: QUETIAPINE FUMARATE 25 MG PO SCH (21:02)
[2018-06-24] MEDS: NICOTINE POLACRILEX 2 MG GUM BUC PRN ×6 (05:39→16:38)
[2018-06-24] MEDS ORDERED: PT OWN MED DRAWER 7, Y5N ONE ×3 (08:34→19:05)
[2018-06-24] MEDS: TOLNAFTATE 1% CREAM 15 GM TUBE TP SCH ×2 (09:51→21:18)
[2018-06-24] MEDS: PATIENT'S OWN MEDICATION (NON-FORMULARY) (Losartan Potassium [Losartan Potassium] 50 MG) PO SCH (09:51)
[2018-06-24] MEDS: PRENATAL VITAMINS W/ FOLIC ACID TABLET (FP) PO SCH (09:51)
[2018-06-24] MEDS: METHYL SALICYLATE/MENTHOL OINT 30 GM TUBE TP SCH ×2 (09:51→21:18)
--- NOTE | 2018-06-24 11:29 | PN ---
S Progress Note Note: PATIENT C/O LEFT EARACHE. PATIENT DENIES SORE THROAT, COUGH, HEADACHE AND FEVER. Vital Signs Temperature 97.9 F 06/24/18 06:30 Pulse Rate 60 06/24/18 06:30 Respiratory Rate 18 06/24/18 06:30 Blood Pressure 114/72 06/24/18 06:30 O2 Sat by Pulse Oximetry (%) PE: ALERT AND ORIENTED X 3 SKIN WARM AND DRY LEFT EAR CANAL WITH + YELLOW CERUMEN, TM IS NOT VISIBLE DUE TO CERUMEN, NO VISIBLE REDNESS OR DISCHARGE PRESENT A/P: CERUMEN OF LEFT EAR WILL ORDER DEBROX 5 DROPS BID X 5 DAYS CONTINUE TO MONITOR CLINICALLY
[2018-06-24] MEDS: CARBAMIDE PEROXIDE 6.5% OTIC 15 ML BOTTLE AS SCH ×2 (14:34→21:18)
[2018-06-24] MEDS: THIAMINE HCL 100 MG TABLET (FP) PO SCH (21:17)
[2018-06-24] MEDS: DOXEPIN HCL 50 MG PO SCH (21:18)
[2018-06-24] MEDS: QUETIAPINE FUMARATE 25 MG PO SCH (21:18)
[2018-06-25] MEDS ORDERED: PT OWN MED DRAWER 7, Y5N ONE ×4 (02:47→21:06)
[2018-06-25] MEDS: NICOTINE POLACRILEX 2 MG GUM BUC PRN ×5 (06:03→16:47)
[2018-06-25] MEDS: IBUPROFEN 400 MG TABLET (FP) PO PRN (06:19)
[2018-06-25] MEDS: PRENATAL VITAMINS W/ FOLIC ACID TABLET (FP) PO SCH (09:50)
[2018-06-25] MEDS: PATIENT'S OWN MEDICATION (NON-FORMULARY) (Losartan Potassium [Losartan Potassium] 50 MG) PO SCH (09:50)
[2018-06-25] MEDS: METHYL SALICYLATE/MENTHOL OINT 30 GM TUBE TP SCH ×2 (09:51→21:08)
[2018-06-25] MEDS: CARBAMIDE PEROXIDE 6.5% OTIC 15 ML BOTTLE AS SCH ×2 (09:52→21:06)
[2018-06-25] MEDS: TOLNAFTATE 1% CREAM 15 GM TUBE TP SCH ×2 (09:52→21:08)
[2018-06-25] MEDS: THIAMINE HCL 100 MG TABLET (FP) PO SCH (21:02)
[2018-06-25] MEDS: QUETIAPINE FUMARATE 25 MG PO SCH (21:05)
[2018-06-25] MEDS: DOXEPIN HCL 50 MG PO SCH (21:05)
[2018-06-26] MEDS: NICOTINE POLACRILEX 2 MG GUM BUC PRN ×5 (08:27→21:12)
[2018-06-26] MEDS: PRENATAL VITAMINS W/ FOLIC ACID TABLET (FP) PO SCH (09:52)
[2018-06-26] MEDS: METHYL SALICYLATE/MENTHOL OINT 30 GM TUBE TP SCH ×2 (09:52→21:12)
[2018-06-26] MEDS: CARBAMIDE PEROXIDE 6.5% OTIC 15 ML BOTTLE AS SCH ×2 (09:53→21:12)
[2018-06-26] MEDS: PATIENT'S OWN MEDICATION (NON-FORMULARY) (Losartan Potassium [Losartan Potassium] 50 MG) PO SCH (09:53)
[2018-06-26] MEDS: TOLNAFTATE 1% CREAM 15 GM TUBE TP SCH ×2 (10:27→21:12)
[2018-06-26] MEDS ORDERED: PT OWN MED DRAWER 7, Y5N ONE ×2 (16:52→20:25)
[2018-06-26] MEDS: THIAMINE HCL 100 MG TABLET (FP) PO SCH (21:12)
[2018-06-26] MEDS: QUETIAPINE FUMARATE 25 MG PO SCH (21:12)
[2018-06-26] MEDS: DOXEPIN HCL 50 MG PO SCH (21:12)
[2018-06-27] MEDS: NICOTINE POLACRILEX 2 MG GUM BUC PRN ×5 (05:59→16:45)
[2018-06-27] MEDS ORDERED: PT OWN MED DRAWER 7, Y5N ONE ×4 (08:46→20:38)
[2018-06-27] MEDS: PRENATAL VITAMINS W/ FOLIC ACID TABLET (FP) PO SCH (09:42)
[2018-06-27] MEDS: TOLNAFTATE 1% CREAM 15 GM TUBE TP SCH ×2 (09:43→21:18)
[2018-06-27] MEDS: CARBAMIDE PEROXIDE 6.5% OTIC 15 ML BOTTLE AS SCH ×2 (09:43→21:17)
[2018-06-27] MEDS: METHYL SALICYLATE/MENTHOL OINT 30 GM TUBE TP SCH ×2 (09:43→21:17)
[2018-06-27] MEDS: PATIENT'S OWN MEDICATION (NON-FORMULARY) (Losartan Potassium [Losartan Potassium] 50 MG) PO SCH (09:43)
[2018-06-27] MEDS: THIAMINE HCL 100 MG TABLET (FP) PO SCH (21:17)
[2018-06-27] MEDS: QUETIAPINE FUMARATE 25 MG PO SCH (21:18)
[2018-06-27] MEDS: DOXEPIN HCL 50 MG PO SCH (21:18)
[2018-06-28] MEDS ORDERED: PT OWN MED DRAWER 7, Y5N ONE ×2 (08:23→19:08)
[2018-06-28] MEDS: PRENATAL VITAMINS W/ FOLIC ACID TABLET (FP) PO SCH (09:25)
[2018-06-28] MEDS: PATIENT'S OWN MEDICATION (NON-FORMULARY) (Losartan Potassium [Losartan Potassium] 50 MG) PO SCH (09:25)
[2018-06-28] MEDS: METHYL SALICYLATE/MENTHOL OINT 30 GM TUBE TP SCH ×2 (09:25→21:12)
[2018-06-28] MEDS: NICOTINE POLACRILEX 2 MG GUM BUC PRN ×4 (09:28→19:14)
[2018-06-28] MEDS: TOLNAFTATE 1% CREAM 15 GM TUBE TP SCH ×2 (10:02→21:13)
[2018-06-28] MEDS: CARBAMIDE PEROXIDE 6.5% OTIC 15 ML BOTTLE AS SCH ×2 (10:02→21:12)
[2018-06-28] MEDS: DOXEPIN HCL 50 MG PO SCH (21:13)
[2018-06-28] MEDS: THIAMINE HCL 100 MG TABLET (FP) PO SCH (21:13)
[2018-06-28] MEDS: QUETIAPINE FUMARATE 25 MG PO SCH (21:13)
[2018-06-29] MEDS: NICOTINE POLACRILEX 2 MG GUM BUC PRN ×6 (06:09→19:09)
[2018-06-29] MEDS: PATIENT'S OWN MEDICATION (NON-FORMULARY) (Losartan Potassium [Losartan Potassium] 50 MG) PO SCH (09:33)
[2018-06-29] MEDS: PRENATAL VITAMINS W/ FOLIC ACID TABLET (FP) PO SCH (09:33)
[2018-06-29] MEDS: CARBAMIDE PEROXIDE 6.5% OTIC 15 ML BOTTLE AS SCH (09:33)
[2018-06-29] MEDS: METHYL SALICYLATE/MENTHOL OINT 30 GM TUBE TP SCH ×2 (09:34→21:52)
--- NOTE | 2018-06-29 10:07 | PN ---
[facility] Progress Note Note: PATIENT FOR DISCHARGE FOR TOMORROW MORNING. PATIENT STATES HE ACCOMPLISHED ALL GOALS OF REHAB AND IS MEDICALLY STABLE AT THIS TIME. PATIENT DENIES SI/HI. PATIENT IS SCHEDULED TO FOLLOW UP WITH [facility] TOMORROW UPON DISCHARGE FOR CONTINUE SUBSTANCE ABUSE TREATMENT AND ENCOURAGED TO FOLLOW UP WITH PCP WITHIN ONE WEEK OF DISCHARGE. PATIENT REPORTS HAVING ALL MEDICATIONS IN HIS BELONGINGS AND DOES NOT REQUIRE REFILLS AT THIS TIME. Vital Signs Temperature 98.5 F 06/29/18 06:55 Pulse Rate 75 06/29/18 09:00 Respiratory Rate 18 06/29/18 06:55 Blood Pressure 107/88 06/29/18 09:00 O2 Sat by Pulse Oximetry (%)
[2018-06-29] MEDS: TOLNAFTATE 1% CREAM 15 GM TUBE TP SCH ×2 (10:15→21:08)
[2018-06-29] MEDS ORDERED: PT OWN MED DRAWER 7, Y5N ONE ×2 (21:07→21:11)
[2018-06-29] MEDS: QUETIAPINE FUMARATE 25 MG PO SCH (21:08)
[2018-06-29] MEDS: DOXEPIN HCL 50 MG PO SCH (21:08)
[2018-06-29] MEDS: THIAMINE HCL 100 MG TABLET (FP) PO SCH (21:53)
[2018-06-30] MEDS ORDERED: PT OWN MED DRAWER 7, Y5N ONE (03:12)
[2018-06-30 07:18] VITALS: TEMP 97.8
[2018-06-30] MEDS: NICOTINE POLACRILEX 2 MG GUM BUC PRN (08:27)
[2018-06-30] MEDS: TOLNAFTATE 1% CREAM 15 GM TUBE TP SCH (09:44)
[2018-06-30] MEDS: PRENATAL VITAMINS W/ FOLIC ACID TABLET (FP) PO SCH (09:44)
[2018-06-30] MEDS: METHYL SALICYLATE/MENTHOL OINT 30 GM TUBE TP SCH (09:44)
[2018-06-30] MEDS: PATIENT'S OWN MEDICATION (NON-FORMULARY) (Losartan Potassium [Losartan Potassium] 50 MG) PO SCH (09:44)
[2018-06-30 09:48] VITALS: BP 115/75; PULSE 72
== END 2018-06-30 10:05 | disposition home or self-care (01) | DRG 772 ==
LOC: YASAS 12:05 → Y3W 12:07
PROVIDERS: ADMIT Psychiatry & Neurology Psychiatry; ATTEND Psychiatry & Neurology Psychiatry
PROC: HZ42ZZZ Group Counseling for Substance Abuse Treatment, Cognitive-Behavioral (ICD-10-PCS; principal; 2018-06-16)
DX: F10.20 Alcohol dependence, uncomplicated (principal); F14.20 Cocaine dependence, uncomplicated; F17.213 Nicotine dependence, cigarettes, with withdrawal; F19.24 Other psychoactive substance dependence with psychoactive substance-induced mood disorder; F19.282 Other psychoactive substance dependence with psychoactive substance-induced sleep disorder; I10 Essential (primary) hypertension; E11.9 Type 2 diabetes mellitus without complications; B18.2 Chronic viral hepatitis C; H61.22 Impacted cerumen, left ear; K76.0 Fatty (change of) liver, not elsewhere classified; M17.11 Unilateral primary osteoarthritis, right knee; Z87.438 Personal history of other diseases of male genital organs; Z79.84 Long term (current) use of oral hypoglycemic drugs
CPT/HCPCS: 36415; 82962; 87389

== ENCOUNTER 2018-09-22 08:53 | Inpatient (IN) | payer OTHER ==
[2018-09-22 09:11] VITALS: BMI 29.8
--- NOTE | 2018-09-22 09:40 | HP ---
COWS - Scale Resting Pulse: 0= DE 80 or Below CIWA Score Nausea/Vomitin Muscle Tremors: 3 Anxiety: 2 Agitation: 3 Paroxysmal Sweats: 1-Minimal Palms Moist Orientation: 0-Oriented Tacttile Disturbances: 1-Very Mild Itch/Numbness Auditory Disturbances: 1-Very Mild Visual Disturbances: 0-None Headache: 2-Mild CIWA-Ar Total Score: 15 - Admission Criteria OASAS Guidelines: Admission for Medically Managed Detox: Requires at least one of the followin. CIWA greater than 12 2. Seizures within the past 24 hours 3. Delirium tremens within the past 24 hours 4. Hallucinations within the past 24 hours 5. Acute intervention needed for co occurring medical disorder 6. Acute intervention needed for co occurring psychiatric disorder 7. Severe withdrawal that cannot be handled at a lower level of care (continued vomiting, continued diarrhea, abnormal vital signs) requiring intravenous medication and/or fluids 8. Admission ROS [facility] - HPI Chief Complaint: i need help to stop drinking alcohol and cocaine Allergies/Adverse Reactions: Allergies Allergy/AdvReac Type Severity Reaction Status Date / Time No Known Drug Allergies AdvReac Mild Verified 09/22/18 09:00 red sauce AdvReac Uncoded 09/22/18 09:00 History of Present Illness: this 58 years old male with alcohol and cocaine dependence,seeking detox, withdrawal symptom multiple admissions to detox and rehab but keep relapsing last detox 06/13/18 to 06/16/18 [facility] 06/16/18 to 06/27/18 history of hypertension,type 2 dm, hepatitis c treated arthritis right knee nicotine dependence 15 cigarette,requesting the gum longest period of sobriety 2 years plan for out patient program and aa meeting Exam Limitations: No Limitations - Ebola screening Have you traveled outside of the country in the last 21 days: No (N) Have you had contact with anyone from an Ebola affected area: No Do you have a fever: No - Review of Systems Constitutional: Loss of Appetite, Malaise, Night Sweats, Changes in sleep, Weakness, Unintentional Wgt. Loss EENT: reports: Tearing, Nose Congestion Respiratory: reports: No Symptoms reported Cardiac: reports: No Symptoms Reported GI: reports: Nausea, Poor Appetite, Abdominal cramping : reports: No Symptoms Reported Musculoskeletal: reports: Back Pain, Joint Pain, Muscle Pain, Other (arthritis of right knee) Integumentary: reports: Dryness Neuro: reports: Tremors Endocrine: reports: No Symptoms Reported Hematology: reports: No Symptoms Reported Psychiatric: reports: No Sypmtoms Reported, Judgement Intact, Mood/Affect Appropiate, Orientated x3, Depressed Other Systems: Reviewed and Negative Patient History - Patient Medical History Hx Anemia: No Hx Asthma: No Hx Chronic Obstructive Pulmonary Disease (COPD): No Hx Cancer: No Hx Cardiac Disorders: No Hx Congestive Heart Failure: No Hx Hypertension: Yes (on medication) Hx Hypercholesterolemia: No Hx Pacemaker: No HX Cerebrovascular Accident: No Hx Seizures: No Hx Dementia: No Hx Diabetes: Yes (on metformin) Hx Gastrointestinal Disorders: No Hx Liver Disease: Yes (fatty liver) Hx Genitourinary Disorders: No Hx Sexually Transmitted Disorders: Yes ([place] ) Hx Renal Disease (ESRD): No Hx Thyroid Disease: No Hx Human Immunodeficiency Virus (HIV): No (negative) Hx Hepatitis C: Yes (hep c treated 2012 however noted + viral load 08/02/2016) Hx Depression: Yes Hx Suicide Attempt: No Hx Bipolar Disorder: No Hx Schizophrenia: No Other Medical History: no suicidal,no homicidal - Patient Surgical History Past Surgical History: Yes Hx Neurologic Surgery: No Hx Cataract Extraction: No Hx Cardiac Surgery: No Hx Lung Surgery: No Hx Breast Surgery: No Hx Breast Biopsy: No Hx Abdominal Surgery: No Hx Appendectomy: No Hx Cholecystectomy: No Hx Genitourinary Surgery: No Hx Section: No Hx Orthopedic Surgery: Yes (fx, left orbit in 09/1994) Anesthesia Reaction: No - PPD History Previous Implant?: Yes Documented Results: Negative w/proof Implanted [facility] Admission?: Yes Date: 11/05/17 Results: 0 MM PPD to be Administered?: No - Smoking Cessation Smoking history: Current some day smoker Have you smoked in the past 12 months: Yes Aproximately how many cigarettes per day: 15 Hx Chewing Tobacco Use: No Initiated information on smoking cessation: Yes 'Breaking Loose' booklet given: 09/22/18 - Substance & Tx. History Hx Alcohol Use: Yes Hx Substance Use: Yes Substance Use Type: Alcohol, Cocaine Hx Substance Use Treatment: Yes ([facility] 06/13/18 to 06/16/18,[facility] 06/16/18 to 02/11) - Substances abused Alcohol Substance route: Oral Frequency: Daily Amount used: 1/5 of Vodka Age of first use: 16 Date of last use: 09/22/18 Crack Substance route: Smoking Frequency: 3-6 times per week Amount used: $ 300 Age of first use: 24 Date of last use: 09/22/18 Family Disease History - Family Disease History Family Disease History: Diabetes: Sister (one ), [place]: Father (, hx etoh) , Mother (lung ca ,), Other: Father, Brother (one - in [place]), Sister, Son (one - adult - healthy), Daughter (one - adult - healthy) Admission Physical Exam [facility] - Vital Signs Vital Signs: Vital Signs - 24 hr 09/22/18 08:59 Temperature 98.7 F Pulse Rate 67 Respiratory 18 Rate Blood Pressure 115/61 - Physical General Appearance: Yes: Moderate Distress, Tremorous, Irritable, Anxious HEENTM: Yes: Normal ENT Inspection, KEEGAN, Pharynx Normal Respiratory: Yes: Lungs Clear, Normal Breath Sounds, No Respiratory Distress Neck: Yes: Within Normal Limits, Supple, Trachea in good position Breast: Yes: Within Normal Limits Cardiology: Yes: Within Normal Limits, Regular Rhythm, Regular Rate, S1, S2 Abdominal: Yes: Within Normal Limits, Normal Bowel Sounds, Non Tender, Flat, Soft Genitourinary: Yes: Within Normal Limits Back: Yes: Muscle Spasm Musculoskeletal: Yes: Back pain, Muscle Pain Extremities: Yes: Within Normal Limits, Normal Range of Motion, Tremors, Other ( pain in the right knee earing won bandage in day time) Neurological: Yes: relationship manager II-XII NML intact, Alert, Motor Strength 5/5 Integumentary: Yes: Dry Lymphatic: Yes: Within Normal Limits - Diagnostic (1) Alcohol dependence with uncomplicated withdrawal Current Visit: No Status: Acute (2) Athletes foot Current Visit: No Status: Acute Qualifiers: Laterality: bilateral Qualified Code(s): B35.3 - Tinea pedis (3) Cocaine dependence Current Visit: No Status: Acute Qualifiers: Substance use status: uncomplicated Qualified Code(s): F14.20 - Cocaine dependence, uncomplicated (4) Depression Current Visit: No Status: Acute Qualifiers: Depression Type: other depression Qualified Code(s): F32.89 - Other specified depressive episodes (5) Insomnia Current Visit: No Status: Acute Qualifiers: Insomnia type: primary Qualified Code(s): F51.01 - Primary insomnia (6) HTN (hypertension), benign Current Visit: No Status: Chronic (7) History of hepatitis C Current Visit: No Status: Chronic (8) Nicotine dependence Current Visit: No Status: Chronic Qualifiers: Nicotine product type: cigarettes Substance use status: in withdrawal Qualified Code(s): F17.213 - Nicotine dependence, cigarettes, with withdrawal (9) Osteoarthritis of right knee Current Visit: No Status: Chronic Qualifiers: Osteoarthritis type: primary Qualified Code(s): M17.11 - Unilateral primary osteoarthritis, right knee (10) Type 2 diabetes mellitus with hyperglycemia Current Visit: No Status: Chronic Qualifiers: Diabetes mellitus skilled nursing insulin use: without skilled nursing use Qualified Code(s): E11.65 - Type 2 diabetes mellitus with hyperglycemia Cleared for Admission [facility] - Detox or Rehab [facility] Level of Care: Medically Managed Detox Regimen/Protocol: Librium Breathalyzer - Breathalyzer Breathalyzer: 0.106 Urine Drug Screen - Test Device Lot number: [id number] Expiration date: 04/24/20 - Control Is test valid?: Yes - Results Drug screen NEGATIVE: No Urine drug screen results: KASSIE-Cocaine Inpatient Rehab Admission - Rehab Decision to Admit Inpatient rehab admission?: No
[2018-09-22] MEDS ORDERED: ACETAMINOPHEN 325 MG TABLET (FP) PO PRN ×2 (09:50)
[2018-09-22] MEDS ORDERED: METHOCARBAMOL 500 MG TABLET PO PRN (09:50)
[2018-09-22] MEDS ORDERED: MELATONIN 5 MG TABLETS PO PRN (09:50)
[2018-09-22] MEDS ORDERED: MAGNESIUM HYDROX 2400MG/30ML ORAL SUSPENSION 30 ML CUP PO PRN (09:50)
[2018-09-22] MEDS ORDERED: MAGNESIUM CITRATE 300 ML BOTTLE PO PRN (09:50)
[2018-09-22] MEDS ORDERED: MENTHOL/PHENOL 1 EACH UD MM PRN (09:50)
[2018-09-22] MEDS ORDERED: chlordiazePOXIDE HCL 25 MG CAPSULE PO PRN (09:50)
[2018-09-22] MEDS ORDERED: hydrOXYzine PAMOATE 25 MG CAPSULE (FP) PO PRN (09:50)
[2018-09-22] MEDS ORDERED: IBUPROFEN 400 MG TABLET (FP) PO PRN (09:50)
[2018-09-22] MEDS ORDERED: MAG HYDROX/AL HYDROX/SIMETH 30 ML UNIT-DOSE CUP PO PRN (09:50)
[2018-09-22] MEDS: chlordiazePOXIDE HCL 25 MG CAPSULE PO SCH ×3 (10:36→22:03)
[2018-09-22 11:39] LABS: HEMATOCRIT 47.1 % (35.4-49); HEMOGLOBIN 15.7 GM/dL (11.7-16.9); MCH 30.1 pg (25.7-33.7); MCHC 33.3 g/dl (32.0-35.9); MEAN CELL VOLUME 90.4 fl (80-96); MEAN PLT VOLUME 9.4 fl (7.5-11.1); PLATELET COUNT 218 K/MM3 (134-434); RDW 16.2 % (11.9-15.9); WHITE BLOOD COUNT 7.2 K/mm3 (4.0-10.0)
[2018-09-22 11:52] LABS: ALBUMIN 4.3 g/dl (3.4-5.0); ALK PHOS 65 U/L (45-117); ANION GAP 10 MMOL/L (8-16); BILIRUBIN,TOTAL 1.4 mg/dL (0.2-1); BLOOD UREA NITROGEN 10 mg/dL (7-18); CALCIUM 9.6 mg/dL (8.5-10.1); CHLORIDE 104 mmol/L (98-107); CO2 26 mmol/L (21-32); CREATININE 0.9 mg/dL (0.55-1.3); GLUCOSE,RANDOM 109 mg/dL (74-106); POTASSIUM 3.4 mmol/L (3.5-5.1); SGOT/AST 75 U/L (15-37); SGPT/ALT 85 U/L (13-61); SODIUM 141 mmol/L (136-145)
[2018-09-22] MEDS: LOSARTAN POTASSIUM 50 MG TABLET (FP) PO SCH (11:58)
[2018-09-22] MEDS: PRENATAL VITAMINS W/ FOLIC ACID TABLET (FP) PO SCH (11:58)
[2018-09-22 14:54] LABS: EPI CELLS 2.1 /HPF (0-5/HPF); PH,URINE 5.5 (5.0-8.0); URINE APPEARANCE TURBID; URINE BACTERIA 5.4 /hpf (NEGATIVE); URINE BILIRUBIN 1+ (NEGATIVE); URINE CASTS 15 /lpf (0-8); URINE COLOR ORANGE; URINE GLUCOSE (UA) NEGATIVE (NEGATIVE); URINE KETONE TRACE (NEGATIVE); URINE LEUK ESTERASE TRACE (NEGATIVE); URINE NITRITE POSITIVE (NEGATIVE); URINE PROTEIN 1+ (NEGATIVE); URINE RBC 1 /hpf (0-4); URINE UROBILINOGEN 4.0 E.U/dl mg/dL (0.2-1.0); URINE WBC 1 /hpf (0-5)
[2018-09-22] MEDS: NICOTINE POLACRILEX 2 MG GUM BUC PRN ×2 (15:37→20:27)
[2018-09-22] MEDS: BISMUTH SUBSALICYLATE 262 MG/15 ML BTL PO PRN ×2 (20:25→22:04)
[2018-09-22] MEDS: THIAMINE HCL 100 MG TABLET (FP) PO SCH (22:03)
[2018-09-22] MEDS: DOXEPIN HCL 50 MG CAPSULE PO SCH (22:03)
[2018-09-22] MEDS: QUEtiapine FUMARATE 25 MG TABLET (FP) PO SCH (22:03)
[2018-09-23] MEDS: chlordiazePOXIDE HCL 25 MG CAPSULE PO SCH ×4 (05:32→22:32)
[2018-09-23] MEDS: NICOTINE POLACRILEX 2 MG GUM BUC PRN ×3 (05:34→11:34)
--- NOTE | 2018-09-23 09:55 | PN ---
[facility] CI[facility] - CIWA Score Nausea/Vomitin-Mild Nausea/No Vomiting Muscle Tremors: 4-Moderate,w/Arms Extend Anxiety: 4-Mod. Anxious/Guarded Agitation: 3 Paroxysmal Sweats: 1-Minimal Palms Moist Orientation: 2-Disoriented Date<2 days Tacttile Disturbances: 0-None Auditory Disturbances: 0-None Visual Disturbances: 0-None Headache: 1-Very Mild CIWA-Ar Total Score: 16 [facility] Progress Note (SOAP) Subjective: tremor low energy headaches Objective: 09/23/18 09:59 Vital Signs Temperature 97.0 F L 09/23/18 09:27 Pulse Rate 67 09/23/18 09:27 Respiratory Rate 18 09/23/18 09:27 Blood Pressure 105/62 09/23/18 09:27 O2 Sat by Pulse Oximetry (%) Laboratory Last Values WBC 7.2 K/mm3 (4.0-10.0) 09/22/18 09:45 RBC 5.20 M/mm3 (4.00-5.60) 09/22/18 09:45 Hgb 15.7 GM/dL (11.7-16.9) 09/22/18 09:45 Hct 47.1 % (35.4-49) 09/22/18 09:45 MCV 90.4 fl (80-96) 09/22/18 09:45 MCH 30.1 pg (25.7-33.7) 09/22/18 09:45 MCHC 33.3 g/dl (32.0-35.9) 09/22/18 09:45 RDW 16.2 % (11.9-15.9) H 09/22/18 09:45 Plt Count 218 K/MM3 (134-434) 09/22/18 09:45 MPV 9.4 fl (7.5-11.1) D 09/22/18 09:45 Sodium 141 mmol/L (136-145) 09/22/18 09:45 Potassium 3.4 mmol/L (3.5-5.1) L 09/22/18 09:45 Chloride 104 mmol/L (98-107) 09/22/18 09:45 Carbon Dioxide 26 mmol/L (21-32) 09/22/18 09:45 Anion Gap 10 MMOL/L (8-16) 09/22/18 09:45 BUN 10 mg/dL (7-18) 09/22/18 09:45 Creatinine 0.9 mg/dL (0.55-1.3) 09/22/18 09:45 Creat Clearance w eGFR 87.29 (>60) 09/22/18 09:45 POC Glucometer 85 UNITS (80-120) 09/23/18 05:32 Random Glucose 109 mg/dL (74-106) H 09/22/18 09:45 Calcium 9.6 mg/dL (8.5-10.1) 09/22/18 09:45 Total Bilirubin 1.4 mg/dL (0.2-1) H 09/22/18 09:45 AST 75 U/L (15-37) H 09/22/18 09:45 ALT 85 U/L (13-61) H 09/22/18 09:45 Alkaline Phosphatase 65 U/L (45-117) 09/22/18 09:45 Total Protein 8.0 g/dl (6.4-8.2) 09/22/18 09:45 Albumin 4.3 g/dl (3.4-5.0) 09/22/18 09:45 Urine Color [place] 09/22/18 11:20 Urine Appearance Turbid 09/22/18 11:20 Urine pH 5.5 (5.0-8.0) 09/22/18 11:20 Ur Specific [place] 1.022 (1.010-1.035) 09/22/18 11:20 Urine Protein 1+ (NEGATIVE) H 09/22/18 11:20 Urine Glucose (UA) Negative (NEGATIVE) 09/22/18 11:20 Urine Ketones Trace (NEGATIVE) H 09/22/18 11:20 Urine Blood Negative (NEGATIVE) 09/22/18 11:20 Urine Nitrite Positive (NEGATIVE) H 09/22/18 11:20 Urine Bilirubin 1+ (NEGATIVE) H 09/22/18 11:20 Urine Urobilinogen 4.0 e.u/dl mg/dL (0.2-1.0) 09/22/18 11:20 Ur Leukocyte Esterase Trace (NEGATIVE) 09/22/18 11:20 Urine WBC (Auto) 1 /hpf (0-5) 09/22/18 11:20 Urine RBC (Auto) 1 /hpf (0-4) 09/22/18 11:20 Urine Casts (Auto) 15 /lpf (0-8) 09/22/18 11:20 U Epithel Cells (Auto) 2.1 /HPF (0-5/HPF) 09/22/18 11:20 Urine Bacteria (Auto) 5.4 /hpf (NEGATIVE) 09/22/18 11:20 RPR Titer Nonreactive (NONREACTIVE) 09/22/18 09:45 lab noted low K+ Assessment: 09/23/18 10:02 alcohol withdrawal sx Plan: continue detox
[2018-09-23] MEDS: PRENATAL VITAMINS W/ FOLIC ACID TABLET (FP) PO SCH (10:07)
[2018-09-23] MEDS: LOSARTAN POTASSIUM 50 MG TABLET (FP) PO SCH (10:07)
--- NOTE | 2018-09-23 11:36 | CONSULT ---
[facility] Psychiatric Consult - Data Date of interview: 09/23/18 Admission source: [facility] Identifying data: Readmission to [facility] for this 58 y/o AA male self- referred for detoxification treatment (cocaine, alcohol). Examined at [address] [place] [address]. Patient is single, a father of two, domiciled, unemployed and supported on SSI benefits. Substance Abuse History: Confirmed by the patient in this interview. Details in current [facility] report as follows : Smoking history: Current some day smoker. Have you smoked in the past 12 months: Yes. Aproximately how many cigarettes per day : 15. Hx Chewing Tobacco Use: No. Initiated information on smoking cessation: Yes. 'Breaking Loose' booklet given: 09/22/18. - Substance & Tx. History. Hx Alcohol Use: Yes. Hx Substance Use: Yes. Substance Use Type: Alcohol, Cocaine. Hx Substance Use Treatment: Yes ([facility] 06/13/18 to 06/16/18,[facility] to 07/04/18). - Substances abused. Alcohol. Substance route: Oral. Frequency: Daily. Amount used: 1/5 of Vodka. Age of first use: 16. Date of last use: 09/22/18. Crack. Substance route: Smoking. Frequency: 3-6 times per week. Amount used: $ 300. Age of first use: 24. Date of last use: Medical History: Hypertension, diabetes mellitus, hepatitis C (treated), fatty liver, osteoarthritis of right knee and antecedent of syphilis. History of fracture of left orbit (1994). Psychiatric History: Patient denies history of psychiatric hospitalizations. First contact with Psychiatry : 2001. Mr Mackey was diagnosed with MDD at the [facility] and tried on various psychotropic medications that include bupropion, trazodone, doxepin and seroquel. Patient is currently seeing a psychiatrist for medication management at the [facility] mental health clinic. Medicated with doxepin 50 mg/hs + seroquel 25 mg/hs. No reported history of suicide attempts. Physical/Sexual Abuse/Trauma History: Patient denies. Additional Comment: Urine drug screen results: KASSIE-Cocaine. Noted. Mental Status Exam - Mental Status Exam Alert and Oriented to: Time, Person Cognitive Function: Good Patient Appearance: Well Groomed Mood: Nervous, Withdrawn, Anxious Affect: Mood Congruent, Constricted Patient Behavior: Fatigued, Appropriate, Cooperative Speech Pattern: Clear, Appropriate Voice Loudness: Normal Thought Process: Goal Oriented Thought Disorder: Not Present Hallucinations: Denies Suicidal Ideation: Denies Homicidal Ideation: Denies Insight/Judgement: Poor Sleep: Poorly, Difficulty falling asleep Appetite: Good Muscle strength/Tone: Normal Gait/Station: Normal Psychiatric Findings - Problem List ([place] 1, 2,3) (1) Alcohol dependence with uncomplicated withdrawal Current Visit: Yes Status: Acute (2) Cocaine dependence Current Visit: Yes Status: Chronic Qualifiers: Substance use status: uncomplicated Qualified Code(s): F14.20 - Cocaine dependence, uncomplicated (3) Nicotine dependence Current Visit: Yes Status: Chronic Qualifiers: Nicotine product type: cigarettes Substance use status: in withdrawal Qualified Code(s): F17.213 - Nicotine dependence, cigarettes, with withdrawal (4) Substance induced mood disorder Current Visit: Yes Status: Chronic (5) Insomnia Current Visit: Yes Status: Chronic Qualifiers: Insomnia type: primary Qualified Code(s): F51.01 - Primary insomnia - Initial Treatment Plan Initial Treatment Plan: Psychoeducation. Sleep hygiene. Support. AA meetings. Medications resumed : seroquel 25 mg po hs + doxepin 50 mg po hs. Side effects/ benefits of both drugs are discussed with the patient. Consent (verbal) given to MD. Garza.
[2018-09-23] MEDS: POTASSIUM CHLORIDE ORAL LIQUID 20 MEQ/15 ML PO SCH ×2 (12:24→15:47)
[2018-09-23] MEDS: BISMUTH SUBSALICYLATE 262 MG/15 ML BTL PO PRN (15:32)
[2018-09-23] MEDS: QUEtiapine FUMARATE 25 MG TABLET (FP) PO SCH (22:31)
[2018-09-23] MEDS: THIAMINE HCL 100 MG TABLET (FP) PO SCH (22:31)
[2018-09-23] MEDS: DOXEPIN HCL 50 MG CAPSULE PO SCH (22:31)
[2018-09-24] MEDS: chlordiazePOXIDE HCL 25 MG CAPSULE PO SCH (05:03)
[2018-09-24] MEDS: NICOTINE POLACRILEX 2 MG GUM BUC PRN ×5 (05:03→19:26)
[2018-09-24] MEDS: PRENATAL VITAMINS W/ FOLIC ACID TABLET (FP) PO SCH (10:09)
[2018-09-24] MEDS: chlordiazePOXIDE HCL 10 MG CAPSULE PO SCH ×3 (10:09→22:19)
[2018-09-24] MEDS ORDERED: chlordiazePOXIDE HCL 10 MG CAPSULE PO PRN (11:00)
[2018-09-24] MEDS: LOSARTAN POTASSIUM 50 MG TABLET (FP) PO SCH (11:03)
[2018-09-24] MEDS: METHYL SALICYLATE/MENTHOL OINT 30 GM TUBE TP SCH ×2 (11:03→22:19)
[2018-09-24] MEDS: CLOTRIMAZOLE 1% CREAM 15 GM TUBE TP SCH ×2 (11:03→22:19)
--- NOTE | 2018-09-24 11:45 | PN ---
S CIWA - CIWA Score Nausea/Vomitin-Mild Nausea/No Vomiting Muscle Tremors: 3 Anxiety: 2 Agitation: 3 Paroxysmal Sweats: 1-Minimal Palms Moist Orientation: 1-Uncertain about Date Tacttile Disturbances: 0-None Auditory Disturbances: 0-None Visual Disturbances: 0-None Headache: 1-Very Mild CIWA-Ar Total Score: 12 S Progress Note (SOAP) Subjective: report has long history of fungal feet clotrimazole cream ordered encourage keep feet dry and clean and open to air as much as possible report has chronic knees arthrititis treated with topical cream at home liana weber ordered patient wants to be seen by a collection systems worker that "many things I do not eat" dietary referral Objective: 09/24/18 11:48 Vital Signs Temperature 96.8 F L 09/24/18 09:19 Pulse Rate 64 09/24/18 09:19 Respiratory Rate 18 09/24/18 09:19 Blood Pressure 130/77 09/24/18 09:19 O2 Sat by Pulse Oximetry (%) Laboratory Last Values WBC 7.2 K/mm3 (4.0-10.0) 09/22/18 09:45 RBC 5.20 M/mm3 (4.00-5.60) 09/22/18 09:45 Hgb 15.7 GM/dL (11.7-16.9) 09/22/18 09:45 Hct 47.1 % (35.4-49) 09/22/18 09:45 MCV 90.4 fl (80-96) 09/22/18 09:45 MCH 30.1 pg (25.7-33.7) 09/22/18 09:45 MCHC 33.3 g/dl (32.0-35.9) 09/22/18 09:45 RDW 16.2 % (11.9-15.9) H 09/22/18 09:45 Plt Count 218 K/MM3 (134-434) 09/22/18 09:45 MPV 9.4 fl (7.5-11.1) D 09/22/18 09:45 Sodium 141 mmol/L (136-145) 09/22/18 09:45 Potassium 4.1 mmol/L (3.5-5.1) 09/24/18 07:00 Chloride 104 mmol/L (98-107) 09/22/18 09:45 Carbon Dioxide 26 mmol/L (21-32) 09/22/18 09:45 Anion Gap 10 MMOL/L (8-16) 09/22/18 09:45 BUN 10 mg/dL (7-18) 09/22/18 09:45 Creatinine 0.9 mg/dL (0.55-1.3) 09/22/18 09:45 Creat Clearance w eGFR 87.29 (>60) 09/22/18 09:45 POC Glucometer 103 UNITS (80-120) 09/24/18 05:02 Random Glucose 109 mg/dL (74-106) H 09/22/18 09:45 Calcium 9.6 mg/dL (8.5-10.1) 09/22/18 09:45 Total Bilirubin 1.4 mg/dL (0.2-1) H 09/22/18 09:45 AST 75 U/L (15-37) H 09/22/18 09:45 ALT 85 U/L (13-61) H 09/22/18 09:45 Alkaline Phosphatase 65 U/L (45-117) 09/22/18 09:45 Total Protein 8.0 g/dl (6.4-8.2) 09/22/18 09:45 Albumin 4.3 g/dl (3.4-5.0) 09/22/18 09:45 Urine Color [place] 09/22/18 11:20 Urine Appearance Turbid 09/22/18 11:20 Urine pH 5.5 (5.0-8.0) 09/22/18 11:20 Ur Specific [place] 1.022 (1.010-1.035) 09/22/18 11:20 Urine Protein 1+ (NEGATIVE) H 09/22/18 11:20 Urine Glucose (UA) Negative (NEGATIVE) 09/22/18 11:20 Urine Ketones Trace (NEGATIVE) H 09/22/18 11:20 Urine Blood Negative (NEGATIVE) 09/22/18 11:20 Urine Nitrite Positive (NEGATIVE) H 09/22/18 11:20 Urine Bilirubin 1+ (NEGATIVE) H 09/22/18 11:20 Urine Urobilinogen 4.0 e.u/dl mg/dL (0.2-1.0) 09/22/18 11:20 Ur Leukocyte Esterase Trace (NEGATIVE) 09/22/18 11:20 Urine WBC (Auto) 1 /hpf (0-5) 09/22/18 11:20 Urine RBC (Auto) 1 /hpf (0-4) 09/22/18 11:20 Urine Casts (Auto) 15 /lpf (0-8) 09/22/18 11:20 U Epithel Cells (Auto) 2.1 /HPF (0-5/HPF) 09/22/18 11:20 Urine Bacteria (Auto) 5.4 /hpf (NEGATIVE) 09/22/18 11:20 RPR Titer Nonreactive (NONREACTIVE) 09/22/18 09:45 lab noted Assessment: 09/24/18 11:48 withdrawal sx Plan: continue detox
[2018-09-24] MEDS: THIAMINE HCL 100 MG TABLET (FP) PO SCH (22:19)
[2018-09-24] MEDS: QUEtiapine FUMARATE 25 MG TABLET (FP) PO SCH (22:19)
[2018-09-24] MEDS: DOXEPIN HCL 50 MG CAPSULE PO SCH (22:19)
[2018-09-25] MEDS: chlordiazePOXIDE HCL 10 MG CAPSULE PO SCH (05:41)
[2018-09-25] MEDS: NICOTINE POLACRILEX 2 MG GUM BUC PRN ×2 (05:42→08:52)
--- NOTE | 2018-09-25 09:02 | DS ---
[facility] Detox Discharge Summary Admission Date: 09/22/18 - History Present History: Alcohol Dependence, Cocaine Dependence Pertinent Past History: Pt admitted for alcohol detox-states he is feeling fine today. REady to go to rehab at [facility]- says he has no more withdrawal Sx. - Physical Exam Results Vital Signs: Vital Signs Temperature 96.8 F L 09/25/18 06:40 Pulse Rate 63 09/25/18 06:40 Respiratory Rate 18 09/25/18 06:40 Blood Pressure 113/66 09/25/18 06:40 O2 Sat by Pulse Oximetry (%) - Treatment Hospital Course: Detox Protocol Followed, Detoxed Safely, Responded well, Discharged Condition Good, Rehab Referral Accepted - Medication Discharge Medications: Ambulatory Orders Doxepin HCl 50 mg PO HS #30 capsule 11/20/17 Quetiapine Fumarate [Seroquel -] 25 mg PO HS 02/07/18 Losartan Potassium 50 mg PO DAILY #14 tablet 06/16/18 metFORMIN HCL [Glucophage -] 850 mg PO BIDAC MDD 850 BID 06/16/18 - AMA Did Patient Leave Against Medical Advice: No
[2018-09-25 09:23] VITALS: BP 112/68; PULSE 58; TEMP 96.1
[2018-09-25] MEDS: LOSARTAN POTASSIUM 50 MG TABLET (FP) PO SCH (10:08)
[2018-09-25] MEDS: PRENATAL VITAMINS W/ FOLIC ACID TABLET (FP) PO SCH (10:08)
[2018-09-25] MEDS: CLOTRIMAZOLE 1% CREAM 15 GM TUBE TP SCH (10:09)
[2018-09-25] MEDS: METHYL SALICYLATE/MENTHOL OINT 30 GM TUBE TP SCH (10:09)
[2018-09-25] MEDS ORDERED: chlordiazePOXIDE HCL 10 MG CAPSULE PO SCH (11:00)
== END 2018-09-25 13:00 | disposition other institution (70) | DRG 774 ==
LOC: YASAS 08:53 → Y3N 09:53
PROVIDERS: ADMIT Surgery; ATTEND Surgery
PROC: HZ2ZZZZ Detoxification Services for Substance Abuse Treatment (ICD-10-PCS; principal; 2018-09-22)
DX: F10.230 Alcohol dependence with withdrawal, uncomplicated (principal); F14.20 Cocaine dependence, uncomplicated; F17.213 Nicotine dependence, cigarettes, with withdrawal; F19.24 Other psychoactive substance dependence with psychoactive substance-induced mood disorder; F51.01 Primary insomnia; F32.89 Other specified depressive episodes; I10 Essential (primary) hypertension; K76.0 Fatty (change of) liver, not elsewhere classified; E11.65 Type 2 diabetes mellitus with hyperglycemia; Z79.84 Long term (current) use of oral hypoglycemic drugs; B18.2 Chronic viral hepatitis C; M35.3 Polymyalgia rheumatica; M17.11 Unilateral primary osteoarthritis, right knee; Z86.19 Personal history of other infectious and parasitic diseases
CPT/HCPCS: 36415; 80053; 81003; 82962; 84132; 85027; 86593

== ENCOUNTER 2018-09-25 13:24 | Inpatient (IN) | payer OTHER ==
[2018-09-25] MEDS ORDERED: MAGNESIUM HYDROX 2400MG/30ML ORAL SUSPENSION 30 ML CUP PO PRN (14:50)
[2018-09-25] MEDS ORDERED: MENTHOL/PHENOL 1 EACH UD MM PRN (14:50)
[2018-09-25] MEDS ORDERED: hydrOXYzine PAMOATE 25 MG CAPSULE (FP) PO PRN (14:50)
[2018-09-25] MEDS ORDERED: P-EPHED 60MG/TRIPROLIDI 2.5MG TABLET PO PRN (14:50)
[2018-09-25] MEDS ORDERED: IBUPROFEN 400 MG TABLET (FP) PO PRN (14:50)
[2018-09-25] MEDS ORDERED: MAGNESIUM CITRATE 300 ML BOTTLE PO PRN (14:50)
[2018-09-25] MEDS ORDERED: guaiFENesin 200 MG/10 ML 10 ML UNIT-DOSE CUPS PO PRN (14:50)
[2018-09-25] MEDS ORDERED: LOPERAMIDE HCL 2 MG CAPSULE PO PRN (14:50)
--- NOTE | 2018-09-25 14:55 | HP ---
[facility] Rehab Assess/Revision - Findings Detox History & Physical reviewed: Yes Concur with findings: Yes Inpatient Rehab Admission - Rehab Decision to Admit Inpatient rehab admission?: Yes - Initial Determination Are CD services needed?: Yes Free of communicable disease: Yes Not in need of hospitalization: Yes - Rehab Admission Criteria Previous failed treatment: Yes Poor recovery environment: Yes Comorbidities: Yes Lacks judgement: Yes Patient is meeting Inpatient Rehab admission criteria:: Yes
--- NOTE | 2018-09-25 14:58 | PN ---
[facility] Progress Note Note: Patient seen by Dr Rodriguez on 09/23/18 while in detox and he was prescribed Doxepin 50 mg o Hs and Seroquel 25 mg po HS. He requetst to take his medications at 8pm instead of 10pm.
[2018-09-25] MEDS: DOXEPIN HCL 10 MG CAPSULE PO SCH ×2 (20:01→22:01)
[2018-09-25] MEDS: QUEtiapine FUMARATE 25 MG TABLET (FP) PO SCH ×2 (20:01→22:01)
[2018-09-25] MEDS: NICOTINE POLACRILEX 4 MG GUM BUC PRN (20:07)
[2018-09-25] MEDS ORDERED: DOXEPIN HCL 50 MG CAPSULE PO SCH (22:00)
[2018-09-25] MEDS ORDERED: QUEtiapine FUMARATE 25 MG TABLET (FP) PO SCH (22:00)
[2018-09-25] MEDS ORDERED: MELATONIN 5 MG TABLETS PO PRN (22:00)
[2018-09-25] MEDS: THIAMINE HCL 100 MG TABLET (FP) PO SCH (22:01)
[2018-09-26] MEDS: NICOTINE POLACRILEX 4 MG GUM BUC PRN ×5 (06:04→19:53)
[2018-09-26] MEDS: PRENATAL VITAMINS W/ FOLIC ACID TABLET (FP) PO SCH (09:40)
[2018-09-26] MEDS: LOSARTAN POTASSIUM 50 MG TABLET (FP) PO SCH (09:40)
[2018-09-26] MEDS: CLOTRIMAZOLE 1% CREAM 15 GM TUBE TP SCH ×2 (13:45→21:16)
[2018-09-26] MEDS: METHYL SALICYLATE/MENTHOL OINT 30 GM TUBE TP SCH ×2 (13:45→21:16)
[2018-09-26] MEDS: THIAMINE HCL 100 MG TABLET (FP) PO SCH (21:16)
[2018-09-26] MEDS: QUEtiapine FUMARATE 25 MG TABLET (FP) PO SCH (21:16)
[2018-09-26] MEDS: DOXEPIN HCL 10 MG CAPSULE PO SCH (21:16)
[2018-09-27] MEDS: NICOTINE POLACRILEX 4 MG GUM BUC PRN ×5 (06:05→20:01)
[2018-09-27] MEDS: CLOTRIMAZOLE 1% CREAM 15 GM TUBE TP SCH ×2 (09:40→21:51)
[2018-09-27] MEDS: METHYL SALICYLATE/MENTHOL OINT 30 GM TUBE TP SCH ×2 (09:40→21:51)
[2018-09-27] MEDS: PRENATAL VITAMINS W/ FOLIC ACID TABLET (FP) PO SCH (09:40)
[2018-09-27] MEDS: LOSARTAN POTASSIUM 50 MG TABLET (FP) PO SCH (09:40)
[2018-09-27] MEDS: THIAMINE HCL 100 MG TABLET (FP) PO SCH (21:51)
[2018-09-27] MEDS: QUEtiapine FUMARATE 25 MG TABLET (FP) PO SCH (21:51)
[2018-09-27] MEDS: DOXEPIN HCL 10 MG CAPSULE PO SCH (21:51)
[2018-09-28] MEDS: NICOTINE POLACRILEX 4 MG GUM BUC PRN ×6 (05:59→20:16)
[2018-09-28] MEDS: CLOTRIMAZOLE 1% CREAM 15 GM TUBE TP SCH ×2 (10:09→21:49)
[2018-09-28] MEDS: PRENATAL VITAMINS W/ FOLIC ACID TABLET (FP) PO SCH (10:09)
[2018-09-28] MEDS: LOSARTAN POTASSIUM 50 MG TABLET (FP) PO SCH (10:09)
[2018-09-28] MEDS: METHYL SALICYLATE/MENTHOL OINT 30 GM TUBE TP SCH ×2 (10:10→21:49)
--- NOTE | 2018-09-28 14:23 | PN ---
[facility] Progress Note Note: Laboratory Tests 09/25/18 09/26/18 09/26/18 16:53 06:02 16:45 POC Glucometer 139 84 141 09/27/18 09/27/18 09/28/18 06:05 16:33 05:55 POC Glucometer 132 203 113 Labs appreciated Total bilirubin 1.4 AST 75 ALT 85 Will repeat CMP in am. Monitor clinically.
[2018-09-28] MEDS ORDERED: DOXEPIN HCL 10 MG CAPSULE PO SCH (20:00)
[2018-09-28] MEDS ORDERED: PT OWN MED DRAWER 7, Y5N ONE (20:13)
[2018-09-28] MEDS: DOXEPIN HCL 10 MG CAPSULE PO SCH (21:49)
[2018-09-28] MEDS: QUEtiapine FUMARATE 25 MG TABLET (FP) PO SCH ×2 (21:49→21:50)
[2018-09-28] MEDS: THIAMINE HCL 100 MG TABLET (FP) PO SCH (21:49)
[2018-09-29] MEDS: NICOTINE POLACRILEX 4 MG GUM BUC PRN ×6 (06:05→20:57)
[2018-09-29] MEDS: PRENATAL VITAMINS W/ FOLIC ACID TABLET (FP) PO SCH (09:50)
[2018-09-29] MEDS: LOSARTAN POTASSIUM 50 MG TABLET (FP) PO SCH (09:50)
[2018-09-29] MEDS: METHYL SALICYLATE/MENTHOL OINT 30 GM TUBE TP SCH ×2 (09:50→21:44)
[2018-09-29] MEDS: CLOTRIMAZOLE 1% CREAM 15 GM TUBE TP SCH ×2 (09:50→21:44)
[2018-09-29] MEDS: ACETAMINOPHEN 325 MG TABLET (FP) PO PRN (12:37)
[2018-09-29] MEDS: DOXEPIN HCL 50 MG CAPSULE PO SCH ×2 (20:56→21:45)
[2018-09-29] MEDS: QUEtiapine FUMARATE 25 MG TABLET (FP) PO SCH (21:45)
[2018-09-29] MEDS: THIAMINE HCL 100 MG TABLET (FP) PO SCH (21:45)
[2018-09-30] MEDS: NICOTINE POLACRILEX 4 MG GUM BUC PRN ×6 (06:01→20:02)
[2018-09-30] MEDS: LOSARTAN POTASSIUM 50 MG TABLET (FP) PO SCH (09:58)
[2018-09-30] MEDS: PRENATAL VITAMINS W/ FOLIC ACID TABLET (FP) PO SCH (09:58)
[2018-09-30] MEDS: METHYL SALICYLATE/MENTHOL OINT 30 GM TUBE TP SCH ×2 (09:59→21:18)
[2018-09-30] MEDS ORDERED: PT OWN MED DRAWER 7, Y5N ONE (10:00)
[2018-09-30] MEDS: CLOTRIMAZOLE 1% CREAM 15 GM TUBE TP SCH ×2 (10:00→21:18)
[2018-09-30] MEDS: ACETAMINOPHEN 325 MG TABLET (FP) PO PRN (10:58)
[2018-09-30] MEDS: DOXEPIN HCL 50 MG CAPSULE PO SCH (21:18)
[2018-09-30] MEDS: THIAMINE HCL 100 MG TABLET (FP) PO SCH (21:18)
[2018-09-30] MEDS: QUEtiapine FUMARATE 25 MG TABLET (FP) PO SCH (21:18)
[2018-10-01] MEDS: NICOTINE POLACRILEX 4 MG GUM BUC PRN ×6 (06:10→19:00)
[2018-10-01] MEDS: MAG HYDROX/AL HYDROX/SIMETH 30 ML UNIT-DOSE CUP PO PRN ×2 (07:20→13:25)
[2018-10-01] MEDS: PRENATAL VITAMINS W/ FOLIC ACID TABLET (FP) PO SCH (09:38)
[2018-10-01] MEDS: LOSARTAN POTASSIUM 50 MG TABLET (FP) PO SCH (09:38)
[2018-10-01] MEDS: CLOTRIMAZOLE 1% CREAM 15 GM TUBE TP SCH ×2 (09:39→21:13)
[2018-10-01] MEDS: METHYL SALICYLATE/MENTHOL OINT 30 GM TUBE TP SCH ×2 (09:39→21:13)
[2018-10-01] MEDS: QUEtiapine FUMARATE 25 MG TABLET (FP) PO SCH (20:03)
[2018-10-01] MEDS: DOXEPIN HCL 50 MG CAPSULE PO SCH (20:04)
[2018-10-01] MEDS: THIAMINE HCL 100 MG TABLET (FP) PO SCH (21:13)
[2018-10-02] MEDS: NICOTINE POLACRILEX 4 MG GUM BUC PRN ×3 (08:04→15:56)
[2018-10-02] MEDS ORDERED: PT OWN MED DRAWER 7, Y5N ONE (09:13)
[2018-10-02] MEDS: PRENATAL VITAMINS W/ FOLIC ACID TABLET (FP) PO SCH (09:47)
[2018-10-02] MEDS: LOSARTAN POTASSIUM 50 MG TABLET (FP) PO SCH (09:48)
[2018-10-02] MEDS: METHYL SALICYLATE/MENTHOL OINT 30 GM TUBE TP SCH ×2 (09:48→21:42)
[2018-10-02] MEDS: CLOTRIMAZOLE 1% CREAM 15 GM TUBE TP SCH ×2 (10:45→21:42)
[2018-10-02] MEDS: QUEtiapine FUMARATE 25 MG TABLET (FP) PO SCH (20:10)
[2018-10-02] MEDS: DOXEPIN HCL 50 MG CAPSULE PO SCH (20:10)
[2018-10-02] MEDS: THIAMINE HCL 100 MG TABLET (FP) PO SCH (21:42)
[2018-10-03] MEDS: NICOTINE POLACRILEX 4 MG GUM BUC PRN ×5 (06:05→19:47)
[2018-10-03] MEDS: PRENATAL VITAMINS W/ FOLIC ACID TABLET (FP) PO SCH (09:47)
[2018-10-03] MEDS: LOSARTAN POTASSIUM 50 MG TABLET (FP) PO SCH (09:47)
[2018-10-03] MEDS: CLOTRIMAZOLE 1% CREAM 15 GM TUBE TP SCH ×2 (09:48→22:00)
[2018-10-03] MEDS: METHYL SALICYLATE/MENTHOL OINT 30 GM TUBE TP SCH ×2 (09:48→22:00)
[2018-10-03] MEDS: QUEtiapine FUMARATE 25 MG TABLET (FP) PO SCH (20:16)
[2018-10-03] MEDS: DOXEPIN HCL 50 MG CAPSULE PO SCH (20:16)
[2018-10-03] MEDS: THIAMINE HCL 100 MG TABLET (FP) PO SCH (21:59)
[2018-10-04] MEDS: NICOTINE POLACRILEX 4 MG GUM BUC PRN ×5 (06:01→18:56)
[2018-10-04] MEDS: LOSARTAN POTASSIUM 50 MG TABLET (FP) PO SCH (09:26)
[2018-10-04] MEDS: PRENATAL VITAMINS W/ FOLIC ACID TABLET (FP) PO SCH (09:26)
[2018-10-04] MEDS: METHYL SALICYLATE/MENTHOL OINT 30 GM TUBE TP SCH ×2 (09:28→22:13)
[2018-10-04] MEDS: CLOTRIMAZOLE 1% CREAM 15 GM TUBE TP SCH ×2 (10:14→22:13)
[2018-10-04] MEDS: QUEtiapine FUMARATE 25 MG TABLET (FP) PO SCH (20:08)
[2018-10-04] MEDS: DOXEPIN HCL 50 MG CAPSULE PO SCH (20:08)
[2018-10-04] MEDS: THIAMINE HCL 100 MG TABLET (FP) PO SCH (22:13)
[2018-10-05] MEDS: NICOTINE POLACRILEX 4 MG GUM BUC PRN ×6 (06:07→18:53)
[2018-10-05] MEDS: PRENATAL VITAMINS W/ FOLIC ACID TABLET (FP) PO SCH (09:36)
[2018-10-05] MEDS: LOSARTAN POTASSIUM 50 MG TABLET (FP) PO SCH (09:36)
[2018-10-05] MEDS: CLOTRIMAZOLE 1% CREAM 15 GM TUBE TP SCH ×2 (09:37→22:05)
[2018-10-05] MEDS: METHYL SALICYLATE/MENTHOL OINT 30 GM TUBE TP SCH ×2 (09:37→22:05)
[2018-10-05] MEDS: DOXEPIN HCL 50 MG CAPSULE PO SCH (20:12)
[2018-10-05] MEDS: QUEtiapine FUMARATE 25 MG TABLET (FP) PO SCH (20:12)
[2018-10-05] MEDS: THIAMINE HCL 100 MG TABLET (FP) PO SCH (22:05)
[2018-10-06] MEDS: NICOTINE POLACRILEX 4 MG GUM BUC PRN ×5 (06:06→20:05)
[2018-10-06] MEDS: LOSARTAN POTASSIUM 50 MG TABLET (FP) PO SCH (09:43)
[2018-10-06] MEDS: PRENATAL VITAMINS W/ FOLIC ACID TABLET (FP) PO SCH (09:43)
[2018-10-06] MEDS: CLOTRIMAZOLE 1% CREAM 15 GM TUBE TP SCH ×2 (09:44→21:58)
[2018-10-06] MEDS: METHYL SALICYLATE/MENTHOL OINT 30 GM TUBE TP SCH ×2 (09:44→21:58)
[2018-10-06] MEDS: DOXEPIN HCL 50 MG CAPSULE PO SCH (20:04)
[2018-10-06] MEDS: QUEtiapine FUMARATE 25 MG TABLET (FP) PO SCH (20:04)
[2018-10-06] MEDS: THIAMINE HCL 100 MG TABLET (FP) PO SCH (21:58)
[2018-10-07] MEDS: NICOTINE POLACRILEX 4 MG GUM BUC PRN ×4 (06:03→17:50)
[2018-10-07] MEDS ORDERED: PT OWN MED DRAWER 7, Y5N ONE (06:13)
[2018-10-07] MEDS: LOSARTAN POTASSIUM 50 MG TABLET (FP) PO SCH (09:48)
[2018-10-07] MEDS: PRENATAL VITAMINS W/ FOLIC ACID TABLET (FP) PO SCH (09:48)
[2018-10-07] MEDS: METHYL SALICYLATE/MENTHOL OINT 30 GM TUBE TP SCH ×2 (09:49→21:43)
[2018-10-07] MEDS: CLOTRIMAZOLE 1% CREAM 15 GM TUBE TP SCH ×2 (09:49→21:43)
[2018-10-07] MEDS: QUEtiapine FUMARATE 25 MG TABLET (FP) PO SCH (19:59)
[2018-10-07] MEDS: DOXEPIN HCL 50 MG CAPSULE PO SCH (19:59)
[2018-10-07] MEDS: THIAMINE HCL 100 MG TABLET (FP) PO SCH (21:43)
[2018-10-08] MEDS: NICOTINE POLACRILEX 4 MG GUM BUC PRN ×4 (08:31→16:39)
[2018-10-08] MEDS: LOSARTAN POTASSIUM 50 MG TABLET (FP) PO SCH (09:31)
[2018-10-08] MEDS: CLOTRIMAZOLE 1% CREAM 15 GM TUBE TP SCH ×2 (09:31→21:45)
[2018-10-08] MEDS: PRENATAL VITAMINS W/ FOLIC ACID TABLET (FP) PO SCH (09:31)
[2018-10-08] MEDS: METHYL SALICYLATE/MENTHOL OINT 30 GM TUBE TP SCH ×2 (09:31→21:45)
--- NOTE | 2018-10-08 14:45 | PN ---
[facility] Progress Note (SOAP) Subjective: Patient to be discharged tomorrow. Objective: A+O x3, no neurological deficits, heart sounds regular, lungs clear. Abd soft, non-tender, non-distended. 10/08/18 14:44 Vital Signs (72 hours) 10/06/18 10/06/18 10/06/18 00:30 07:04 09:36 Temperature 97.5 F L 98.4 F Pulse Rate 65 75 Respiratory 18 18 18 Rate Blood Pressure 130/72 136/69 10/07/18 10/07/18 10/08/18 06:40 10:00 00:30 Temperature 98.4 F Pulse Rate 67 75 Respiratory 18 19 18 Rate Blood Pressure 124/69 115/62 10/08/18 10/08/18 10/08/18 03:30 06:58 09:30 Temperature 98.6 F Pulse Rate 65 70 Respiratory 18 18 18 Rate Blood Pressure 124/69 121/69 10/08/18 14:53 10/08/18 14:56 Assessment: Medically stable for discharge. Discharge Dx: ETOH dependence, chronic HEP C hx Cocaine dependence, chronic 10/08/18 14:55 Plan: [facility] for after care. PCP at [address] [place] [address], in [facility]. Does not need medications transmitted to pharmacy, has refills.
[2018-10-08] MEDS: DOXEPIN HCL 50 MG CAPSULE PO SCH (20:07)
[2018-10-08] MEDS: QUEtiapine FUMARATE 25 MG TABLET (FP) PO SCH (20:07)
[2018-10-08] MEDS: THIAMINE HCL 100 MG TABLET (FP) PO SCH (21:46)
[2018-10-09] MEDS: NICOTINE POLACRILEX 4 MG GUM BUC PRN ×2 (06:02→08:03)
--- NOTE | 2018-10-09 06:10 | PN ---
[facility] Progress Note Note: Patient is scheduled for discharge today. Scripts for 30 days supply of medications(Doxepin 50 mg/hs, Seroquel 25 mg/hs) are electronically transmitted to [facility] at [address] [place] [address]
[2018-10-09 07:05] VITALS: BP 133/67; PULSE 67; TEMP 98
[2018-10-09] MEDS: PRENATAL VITAMINS W/ FOLIC ACID TABLET (FP) PO SCH (09:33)
[2018-10-09] MEDS: LOSARTAN POTASSIUM 50 MG TABLET (FP) PO SCH (09:33)
[2018-10-09] MEDS: METHYL SALICYLATE/MENTHOL OINT 30 GM TUBE TP SCH (09:34)
[2018-10-09] MEDS: CLOTRIMAZOLE 1% CREAM 15 GM TUBE TP SCH (09:34)
[2018-10-09] MEDS ORDERED: PT OWN MED DRAWER 7, Y5N ONE (09:36)
== END 2018-10-09 09:45 | disposition home or self-care (01) | DRG 772 ==
LOC: YASAS 13:24 → Y3W 13:25
PROVIDERS: ADMIT Neuromusculoskeletal Medicine & OMM; ATTEND Neuromusculoskeletal Medicine & OMM
PROC: HZ42ZZZ Group Counseling for Substance Abuse Treatment, Cognitive-Behavioral (ICD-10-PCS; principal; 2018-09-25)
DX: F10.20 Alcohol dependence, uncomplicated (principal); F14.20 Cocaine dependence, uncomplicated; F17.210 Nicotine dependence, cigarettes, uncomplicated; I10 Essential (primary) hypertension; E11.9 Type 2 diabetes mellitus without complications; B18.2 Chronic viral hepatitis C; K76.0 Fatty (change of) liver, not elsewhere classified; G47.00 Insomnia, unspecified; Z79.84 Long term (current) use of oral hypoglycemic drugs; Z87.438 Personal history of other diseases of male genital organs
CPT/HCPCS: 82962

== ENCOUNTER 2018-12-24 10:04 | Inpatient (IN) | payer OTHER | END 2018-12-28 08:37 | disposition home or self-care (01) | LOC: YASAS 10:04 → Y6N 11:43 | PROC: HZ2ZZZZ Detoxification Services for Substance Abuse Treatment (ICD-10-PCS; principal; 2018-12-24) | DX: F10.230 Alcohol dependence with withdrawal, uncomplicated (principal); F14.20 Cocaine dependence, uncomplicated; F17.213 Nicotine dependence, cigarettes, with withdrawal; F19.24 Other psychoactive substance dependence with psychoactive substance-induced mood disorder; F32.89 Other specified depressive episodes; I10 Essential (primary) hypertension; E11.65 Type 2 diabetes mellitus with hyperglycemia; Z79.4 Long term (current) use of insulin; M17.11 Unilateral primary osteoarthritis, right knee; B18.2 Chronic viral hepatitis C; R94.5 Abnormal results of liver function studies ==

== ENCOUNTER 2019-05-08 09:42 | Inpatient (IN) | payer OTHER ==
[2019-05-08 10:20] VITALS: BMI 32.8
--- NOTE | 2019-05-08 11:13 | HP ---
CIWA Score Nausea/Vomitin Muscle Tremors: 3 Anxiety: 3 Agitation: 2 Paroxysmal Sweats: 1-Minimal Palms Moist Orientation: 2-Disoriented Date<2 days Tacttile Disturbances: 1-Very Mild Itch/Numbness Auditory Disturbances: 1-Very Mild Visual Disturbances: 0-None Headache: 2-Mild CIWA-Ar Total Score: 17 - Admission Criteria OASAS Guidelines: Admission for Medically Managed Detox: Requires at least one of the followin. CIWA greater than 12 2. Seizures within the past 24 hours 3. Delirium tremens within the past 24 hours 4. Hallucinations within the past 24 hours 5. Acute intervention needed for co occurring medical disorder 6. Acute intervention needed for co occurring psychiatric disorder 7. Severe withdrawal that cannot be handled at a lower level of care (continued vomiting, continued diarrhea, abnormal vital signs) requiring intravenous medication and/or fluids 8. Patient presents the following: CIWA greater than 12 Admission Criteria Met: Admission criteria met Admitting History and Physical - Admission History Source: Patient, Medical Record Limitations to Obtaining History: No Limitations - Past Medical History Cardiovascular: Yes: HTN Psych: Yes: Addictions, Depression - Smoking History Smoking history: Current some day smoker Have you smoked in the past 12 months: Yes Aproximately how many cigarettes per day: 20 - Alcohol/Substance Use Hx Alcohol Use: Yes Admission ROS BHS - HPI Chief Complaint: As soon as the liquor store opens, boom, I'm there, I start drinking and stop when it's done. I have to get back to meetings, stop drinking, I did it before, Allergies/Adverse Reactions: Allergies Allergy/AdvReac Type Severity Reaction Status Date / Time No Known Drug Allergies AdvReac Verified 12/24/18 10:19 red sauce AdvReac Severe heart burn Uncoded 05/08/19 10:10 History of Present Illness: 58 yo gentleman here for detox from alcohol. This is one of multiple admissions for treatment. Patient last here 12/24/18 - did well, attended meetings but then stopped and relapsed about three months ago. No recent ED visits, no seizures but does have black outs. He has never been on MAT for alcohol use. He is on disability for depression, sees psych and is on meds. Lives alone in an apartment. Exam Limitations: No Limitations - Ebola screening Have you traveled outside of the country in the last 21 days: No (N) Have you had contact with anyone from an Ebola affected area: No Do you have a fever: No - Review of Systems Constitutional: Loss of Appetite, Changes in sleep, Weakness EENT: reports: No Symptoms Reported Respiratory: reports: No Symptoms reported Cardiac: reports: No Symptoms Reported GI: reports: Poor Appetite, Poor Fluid Intake, Indigestion, Abdominal cramping : reports: Frequency Musculoskeletal: reports: No Symptoms Reported Integumentary: reports: Dryness Neuro: reports: Headache, Tremors Endocrine: reports: No Symptoms Reported Hematology: reports: No Symptoms Reported Psychiatric: reports: Judgement Intact, Mood/Affect Appropiate Other Systems: Reviewed and Negative Patient History - Patient Medical History Hx Anemia: No Hx Asthma: No Hx Chronic Obstructive Pulmonary Disease (COPD): No Hx Cancer: No Hx Cardiac Disorders: No Hx Congestive Heart Failure: No Hx Hypertension: Yes (on med) Hx Hypercholesterolemia: No Hx Pacemaker: No HX Cerebrovascular Accident: No Hx Seizures: No Hx Dementia: No Hx Diabetes: Yes (on metformin) Hx Gastrointestinal Disorders: Yes (gerd) Hx Liver Disease: Yes (elevated LFTs with alcohol) Hx Genitourinary Disorders: No Hx Sexually Transmitted Disorders: No Hx Renal Disease (ESRD): No Hx Thyroid Disease: No Hx Human Immunodeficiency Virus (HIV): No (negative) Hx Hepatitis C: Yes (treated since 11/11/18) Hx Depression: Yes (on meds, sees psych, never hospitalized) Hx Suicide Attempt: No (denies) Hx Bipolar Disorder: No Hx Schizophrenia: No Other Medical History: osteoarthritis of right knee - Patient Surgical History Past Surgical History: Yes Hx Neurologic Surgery: No Hx Cataract Extraction: No Hx Cardiac Surgery: No Hx Lung Surgery: No Hx Breast Surgery: No Hx Breast Biopsy: No Hx Abdominal Surgery: No Hx Appendectomy: No Hx Cholecystectomy: No Hx Genitourinary Surgery: No Hx Section: No Hx Orthopedic Surgery: Yes (fx, left orbit in 09/1994 (metal plate)) Anesthesia Reaction: No - PPD History Previous Implant?: Yes Documented Results: Negative w/proof Implanted On Prior R Admission?: Yes Date: 11/05/17 Results: 0 MM PPD to be Administered?: Yes - Reproductive History Patient is a Female of Child Bearing Age (11 -55 yrs old): No - Smoking Cessation Smoking history: Current every day smoker Have you smoked in the past 12 months: Yes Aproximately how many cigarettes per day: 10 Hx Chewing Tobacco Use: No Initiated information on smoking cessation: Yes 'Breaking Loose' booklet given: 05/08/19 (give on floor) - Substance & Tx. History Hx Alcohol Use: Yes Hx Substance Use: Yes Substance Use Type: Alcohol, Cocaine Hx Substance Use Treatment: Yes (detox, rehab) - Substances abused Alcohol Substance route: Oral Frequency: Daily Amount used: 1/5 of Vodka Age of first use: 16 Date of last use: 05/07/19 Cocaine Substance route: Inhalation Frequency: 1-2 times per week Amount used: $40 Age of first use: 23 Date of last use: 05/06/19 Crack Substance route: Smoking Frequency: 3-6 times per week Amount used: $ 300 Age of first use: 24 Date of last use: 12/22/18 Admission Physical Exam [facility] - Vital Signs Vital Signs: Vital Signs - 24 hr 05/08/19 10:16 Temperature 97.9 F Pulse Rate 54 L Respiratory 16 Rate Blood Pressure 138/76 - Physical General Appearance: Yes: Nourished, Appropriately Dressed, Moderate Distress, Obese, Tremorous, Anxious HEENTM: Yes: EOMI, Hearing grossly Normal, Normocephalic, Normal Voice, Pharynx Normal, Other (partial dentures (upper)) Respiratory: Yes: Normal Breath Sounds, No Respiratory Distress Neck: Yes: No masses,lesions,Nodules Breast: Yes: Breast Exam Deferred Cardiology: Yes: Regular Rhythm, Regular Rate Abdominal: Yes: Soft Genitourinary: Yes: Frequency Back: Yes: Normal Inspection Musculoskeletal: Yes: full range of Motion, Gait Steady Extremities: Yes: Normal Inspection, Normal Range of Motion, Non-Tender, Tremors Neurological: Yes: Alert, Normal Mood/Affect, Normal Response Integumentary: Yes: Normal Color, Dry, Warm Lymphatic: Yes: Within Normal Limits - Diagnostic (1) Alcohol dependence with uncomplicated withdrawal Current Visit: Yes Status: Chronic (2) Cocaine dependence Current Visit: Yes Status: Chronic Qualifiers: Substance use status: uncomplicated Qualified Code(s): F14.20 - Cocaine dependence, uncomplicated (3) Hepatitis C virus infection cured after antiviral drug therapy Current Visit: Yes Status: Resolved (4) Elevated LFTs Current Visit: Yes Status: Acute Comment: occurs with drinking (5) DM2 (diabetes mellitus, type 2) Current Visit: Yes Status: Chronic Qualifiers: Diabetes mellitus half-way insulin use: unspecified certified orthoptist insulin use status Diabetes mellitus complication status: without complication Qualified Code(s): E11.9 - Type 2 diabetes mellitus without complications Comment: [id number] (6) HTN (hypertension), benign Current Visit: Yes Status: Chronic (7) Nicotine dependence Current Visit: Yes Status: Chronic Qualifiers: Nicotine product type: cigarettes Substance use status: in withdrawal Qualified Code(s): F17.213 - Nicotine dependence, cigarettes, with withdrawal (8) Osteoarthritis of right knee Current Visit: Yes Status: Chronic Qualifiers: Osteoarthritis type: primary Qualified Code(s): M17.11 - Unilateral primary osteoarthritis, right knee Cleared for Admission S - Detox or Rehab [facility] Level of Care: Medically Managed Detox Regimen/Protocol: Not Applicable (ativan) Breathalyzer - Breathalyzer Breathalyzer: 0 Urine Drug Screen - Test Device Lot number: [id number] Expiration date: 12/23/20 - Control Is test valid?: Yes - Results Drug screen NEGATIVE: No Urine drug screen results: [facility]-Cocaine Inpatient Rehab Admission - Rehab Decision to Admit Inpatient rehab admission?: No
[2019-05-08] MEDS ORDERED: MENTHOL/PHENOL 1 EACH UD MM PRN (11:23)
[2019-05-08] MEDS ORDERED: LORazepam 1 MG TABLET PO PRN (11:23)
[2019-05-08] MEDS ORDERED: ACETAMINOPHEN 325 MG TABLET (FP) PO PRN ×2 (11:23)
[2019-05-08] MEDS ORDERED: MELATONIN 5 MG TABLETS PO PRN (11:23)
[2019-05-08] MEDS ORDERED: MAGNESIUM HYDROX 2400MG/30ML ORAL SUSPENSION 30 ML CUP PO PRN (11:23)
[2019-05-08] MEDS ORDERED: LORazepam 2 MG TABLET PO ONE (11:23)
[2019-05-08] MEDS ORDERED: hydrOXYzine PAMOATE 25 MG CAPSULE (FP) PO PRN (11:23)
[2019-05-08] MEDS ORDERED: IBUPROFEN 400 MG TABLET (FP) PO PRN (11:23)
[2019-05-08] MEDS ORDERED: MAGNESIUM CITRATE 300 ML BOTTLE PO PRN (11:23)
[2019-05-08] MEDS ORDERED: METHOCARBAMOL 500 MG TABLET PO PRN (11:23)
[2019-05-08] MEDS ORDERED: MAG HYDROX/AL HYDROX/SIMETH 30 ML UNIT-DOSE CUP PO PRN (11:23)
[2019-05-08] MEDS ORDERED: BISMUTH SUBSALICYLATE 524 MG/30 ML UD PO PRN (11:23)
[2019-05-08] MEDS: NICOTINE POLACRILEX 4 MG GUM BUC PRN ×5 (12:40→23:08)
[2019-05-08] MEDS: LORazepam 2 MG TABLET PO SCH ×2 (17:12→23:13)
[2019-05-08] MEDS ORDERED: QUEtiapine FUMARATE 50 MG TABLET PO SCH ×2 (20:00→22:00)
[2019-05-08] MEDS ORDERED: DOXEPIN HCL 50 MG CAPSULE PO ONE ×2 (20:00→22:00)
[2019-05-08] MEDS: QUEtiapine FUMARATE 50 MG TABLET PO SCH ×2 (20:08→23:35)
[2019-05-08] MEDS: DOXEPIN HCL 50 MG CAPSULE PO SCH ×2 (20:08→23:35)
[2019-05-08] MEDS: THIAMINE HCL 100 MG TABLET (FP) PO SCH (23:07)
[2019-05-09] MEDS: LORazepam 2 MG TABLET PO SCH ×4 (05:28→22:23)
[2019-05-09] MEDS: NICOTINE POLACRILEX 4 MG GUM BUC PRN (05:29)
[2019-05-09] MEDS: LOSARTAN POTASSIUM 50 MG TABLET (FP) PO SCH (10:49)
[2019-05-09] MEDS: PRENATAL VITAMINS W/ FOLIC ACID TABLET (FP) PO SCH (10:49)
[2019-05-09 11:11] LABS: ALBUMIN 3.7 g/dl (3.4-5.0); BILIRUBIN,TOTAL 0.5 mg/dL (0.2-1); BLOOD UREA NITROGEN 9.6 mg/dL (7-18); CALCIUM 8.8 mg/dL (8.5-10.1); CREATININE 0.9 mg/dL (0.55-1.3); POTASSIUM 3.7 mmol/L (3.5-5.1); TOT PROT 6.8 g/dl (6.4-8.2)
--- NOTE | 2019-05-09 15:37 | CONSULT ---
[facility] Psychiatric Consult - Data Date of interview: 05/09/19 Admission source: [facility] Identifying data: Patient is a 58 year old single male, father of two, unemployed, domiciled, and is supported by [facility]. This is one of multiple admissions for patient. Patient admitted to for alcohol dependence. Substance Abuse History: Smoking Cessation. Smoking history: Current every day smoker. Have you smoked in the past 12 months: Yes. Aproximately how many cigarettes per day: 10. Hx Chewing Tobacco Use: No. Initiated information on smoking cessation: Yes. 'Breaking Loose' booklet given: 05/08/19 (give on floor ). - Substance & Tx. History. Hx Alcohol Use: Yes. Hx Substance Use: Yes. Substance Use Type: Alcohol, Cocaine. Hx Substance Use Treatment: Yes (detox, rehab). - Substances abused. Alcohol. Substance route: Oral. Frequency: Daily. Amount used: 1/5 of Vodka. Age of first use: 16. Date of last use: . Cocaine. Substance route: Inhalation. Frequency: 1-2 times per week. Amount used: $40. Age of first use: 23. Date of last use: 05/06/19. * * Crack. Substance route: Smoking. Frequency: 3-6 times per week. Amount used : $ 300. Age of first use: 24. Date of last use: 12/22/18 Medical History: Hypertension, diabetes mellitus, hepatitis C (treated), fatty liver, osteoarthritis of right knee and antecedent of syphilis. History of fracture of left orbit (1994). Psychiatric History: Patient denies history of psychiatric hospitalizations and suicide attempt. Mr. Mackey currently receives outpatient psychiatric care at [facility] and is prescribed doxepin 50mg + Seroquel 50mg HS. Diagnosis of MDD. Patient requesting to take his evening medications at 8pm instead of 10pm. Physical/Sexual Abuse/Trauma History: denies. Mental Status Exam - Mental Status Exam Alert and Oriented to: Time, Place, Person Cognitive Function: Good Patient Appearance: Well Groomed Mood: Withdrawn Affect: Appropriate Patient Behavior: Appropriate, Cooperative Speech Pattern: Appropriate Voice Loudness: Normal Thought Process: Goal Oriented Thought Disorder: Not Present Hallucinations: Denies Suicidal Ideation: Denies Homicidal Ideation: Denies Insight/Judgement: Poor Sleep: Poorly Appetite: Fair Muscle strength/Tone: Normal Gait/Station: Normal Psychiatric Findings - Problem List ([place] 1, 2,3) (1) Alcohol dependence with uncomplicated withdrawal Current Visit: Yes Status: Acute (2) Cocaine dependence Current Visit: Yes Status: Chronic Qualifiers: Substance use status: uncomplicated Qualified Code(s): F14.20 - Cocaine dependence, uncomplicated (3) Nicotine dependence Current Visit: Yes Status: Chronic Qualifiers: Nicotine product type: cigarettes Substance use status: in withdrawal Qualified Code(s): F17.213 - Nicotine dependence, cigarettes, with withdrawal (4) Substance-induced sleep disorder Current Visit: Yes Status: Acute (5) Substance induced mood disorder Current Visit: Yes Status: Chronic - Initial Treatment Plan Initial Treatment Plan: Psychoeducation provided. Will order seroquel 50mg + doxepin 50mg @ 8:00 pm as per patient's request. Benefits and side effects discussed. Verbal consent given.
--- NOTE | 2019-05-09 17:05 | PN ---
[facility] CIWA - CIWA Score Nausea/Vomitin-Mild Nausea/No Vomiting Muscle Tremors: 3 Anxiety: 3 Agitation: 3 Paroxysmal Sweats: 3 Orientation: 0-Oriented Tacttile Disturbances: 0-None Auditory Disturbances: 0-None Visual Disturbances: 0-None Headache: 0-None Present CIWA-Ar Total Score: 13 S Progress Note (SOAP) Subjective: Anxious, feels ok, medication working Objective: 05/09/19 17:02 Last Vital Signs Temp Pulse Resp BP Pulse Ox 98.1 F 79 18 148/86 05/09/19 14:26 05/09/19 14:26 05/09/19 14:26 05/09/19 14:26 Elevated b/p: has htn, on med Laboratory Tests 05/08/19 05/08/19 05/09/19 11:49 16:48 05:24 WBC Corrected WBC (auto) RBC Hgb Hct MCV MCH MCHC RDW Plt Count MPV Manual Slide Review Platelet Comment Sodium Potassium Chloride Carbon Dioxide Anion Gap BUN Creatinine Est GFR (CKD-EPI)AfAm Est GFR (CKD-EPI)NonAf POC Glucometer 103 140 126 Random Glucose Calcium Total Bilirubin AST ALT Alkaline Phosphatase Total Protein Albumin RPR Titer 05/09/19 05/09/19 05/09/19 08:00 08:00 08:00 WBC Cancelled Corrected WBC (auto) Cancelled RBC Cancelled Hgb Cancelled Hct Cancelled MCV Cancelled MCH Cancelled MCHC Cancelled RDW Cancelled Plt Count Cancelled MPV Cancelled Manual Slide Review Cancelled Platelet Comment Cancelled Sodium 141 Potassium 3.7 Chloride 107 Carbon Dioxide 26 Anion Gap 8 BUN 9.6 Creatinine 0.9 Est GFR (CKD-EPI)AfAm 110.27 Est GFR (CKD-EPI)NonAf 95.14 POC Glucometer Random Glucose 113 H Calcium 8.8 Total Bilirubin 0.5 AST 28 ALT 44 Alkaline Phosphatase 123 H Total Protein 6.8 Albumin 3.7 RPR Titer Nonreactive 05/09/19 16:28 WBC Corrected WBC (auto) RBC Hgb Hct MCV MCH MCHC RDW Plt Count MPV Manual Slide Review Platelet Comment Sodium Potassium Chloride Carbon Dioxide Anion Gap BUN Creatinine Est GFR (CKD-EPI)AfAm Est GFR (CKD-EPI)NonAf POC Glucometer 130 Random Glucose Calcium Total Bilirubin AST ALT Alkaline Phosphatase Total Protein Albumin RPR Titer Labs reviewed: hyperglycemia noted Assessment: 05/09/19 17:03 Withdrawal sxs Noted with htn and hyperglycemia Plan: Continue detox Encouraged PO water intake HTN: continue Losartan DMT2 with hyperglycemia: continue metformin, continue diabetic regimen
[2019-05-09] MEDS: DOXEPIN HCL 50 MG CAPSULE PO SCH (20:31)
[2019-05-09] MEDS: QUEtiapine FUMARATE 50 MG TABLET PO SCH (20:31)
[2019-05-09] MEDS ORDERED: DOXEPIN HCL 50 MG CAPSULE PO SCH (21:00)
[2019-05-09] MEDS ORDERED: QUEtiapine FUMARATE 50 MG TABLET PO SCH (21:00)
[2019-05-09] MEDS: THIAMINE HCL 100 MG TABLET (FP) PO SCH (22:23)
[2019-05-10] MEDS: LORazepam 1 MG TABLET PO SCH ×4 (05:45→22:13)
[2019-05-10] MEDS: NICOTINE POLACRILEX 4 MG GUM BUC PRN ×4 (05:49→20:17)
[2019-05-10] MEDS: LOSARTAN POTASSIUM 50 MG TABLET (FP) PO SCH (10:25)
[2019-05-10] MEDS: PRENATAL VITAMINS W/ FOLIC ACID TABLET (FP) PO SCH (10:25)
[2019-05-10 11:02] LABS: BASO % 0.4 % (0-2.0); EOS % 4.6 % (0-4.5); HEMOGLOBIN 15.2 GM/dL (11.7-16.9); MCH 30.1 pg (25.7-33.7); MCHC 33.1 g/dl (32.0-35.9); MEAN CELL VOLUME 90.8 fl (80-96); MONO % 8.2 % (3.8-10.2); NEUT % 43.8 % (42.8-82.8); PLATELET COUNT 163 K/MM3 (134-434); RBC 5.06 M/mm3 (4.00-5.60); RDW 15.2 % (11.9-15.9); WHITE BLOOD COUNT 4.2 K/mm3 (4.0-10.0)
--- NOTE | 2019-05-10 12:17 | PN ---
S CIWA - CIWA Score Nausea/Vomitin-No Nausea/No Vomiting Muscle Tremors: 2 Anxiety: 2 Agitation: 2 Paroxysmal Sweats: 2 Orientation: 0-Oriented Tacttile Disturbances: 0-None Auditory Disturbances: 0-None Visual Disturbances: 0-None Headache: 0-None Present CIWA-Ar Total Score: 8 BHS Progress Note (SOAP) Subjective: diarrhea sweats interrupted sleep Objective: 05/10/19 12:16 Vital Signs Temperature 97.7 F 05/10/19 09:55 Pulse Rate 79 05/10/19 09:55 Respiratory Rate 20 05/10/19 09:55 Blood Pressure 124/85 05/10/19 09:55 O2 Sat by Pulse Oximetry (%) Laboratory Tests 05/08/19 05/08/19 05/09/19 11:49 16:48 05:24 WBC Corrected WBC (auto) RBC Hgb Hct MCV MCH MCHC RDW Plt Count MPV Absolute Neuts (auto) Neutrophils % Lymphocytes % Monocytes % Eosinophils % Basophils % Nucleated RBC % Manual Slide Review Platelet Comment Sodium Potassium Chloride Carbon Dioxide Anion Gap BUN Creatinine Est GFR (CKD-EPI)AfAm Est GFR (CKD-EPI)NonAf POC Glucometer 103 140 126 Random Glucose Calcium Total Bilirubin AST ALT Alkaline Phosphatase Total Protein Albumin RPR Titer 05/09/19 05/09/19 05/09/19 08:00 08:00 08:00 WBC Cancelled Corrected WBC (auto) Cancelled RBC Cancelled Hgb Cancelled Hct Cancelled MCV Cancelled MCH Cancelled MCHC Cancelled RDW Cancelled Plt Count Cancelled MPV Cancelled Absolute Neuts (auto) Neutrophils % Lymphocytes % Monocytes % Eosinophils % Basophils % Nucleated RBC % Manual Slide Review Cancelled Platelet Comment Cancelled Sodium 141 Potassium 3.7 Chloride 107 Carbon Dioxide 26 Anion Gap 8 BUN 9.6 Creatinine 0.9 Est GFR (CKD-EPI)AfAm 110.27 Est GFR (CKD-EPI)NonAf 95.14 POC Glucometer Random Glucose 113 H Calcium 8.8 Total Bilirubin 0.5 AST 28 ALT 44 Alkaline Phosphatase 123 H Total Protein 6.8 Albumin 3.7 RPR Titer Nonreactive 05/09/19 05/10/19 05/10/19 16:28 05:42 08:15 WBC 4.2 Corrected WBC (auto) RBC 5.06 Hgb 15.2 Hct 46.0 MCV 90.8 MCH 30.1 MCHC 33.1 RDW 15.2 Plt Count 163 D MPV 10.0 Absolute Neuts (auto) 1.8 Neutrophils % 43.8 Lymphocytes % 43.0 H Monocytes % 8.2 Eosinophils % 4.6 H Basophils % 0.4 Nucleated RBC % 0 Manual Slide Review Platelet Comment Sodium Potassium Chloride Carbon Dioxide Anion Gap BUN Creatinine Est GFR (CKD-EPI)AfAm Est GFR (CKD-EPI)NonAf POC Glucometer 130 107 Random Glucose Calcium Total Bilirubin AST ALT Alkaline Phosphatase Total Protein Albumin RPR Titer aaox3 ambulating no acute distress Assessment: 05/10/19 12:16 withdrawals Plan: continue detox imodium prn increase fluids
[2019-05-10] MEDS: LOPERAMIDE HCL 2 MG CAPSULE PO PRN ×2 (14:41→14:42)
[2019-05-10] MEDS: QUEtiapine FUMARATE 50 MG TABLET PO SCH (20:16)
[2019-05-10] MEDS: DOXEPIN HCL 50 MG CAPSULE PO SCH (20:16)
[2019-05-10] MEDS: THIAMINE HCL 100 MG TABLET (FP) PO SCH (22:02)
[2019-05-11] MEDS ORDERED: LORazepam 0.5 MG TABLET PO PRN
[2019-05-11] MEDS: LORazepam 0.5 MG TABLET PO SCH ×4 (05:53→22:14)
[2019-05-11] MEDS: NICOTINE POLACRILEX 4 MG GUM BUC PRN ×7 (05:58→22:16)
[2019-05-11] MEDS: LOPERAMIDE HCL 2 MG CAPSULE PO PRN (05:59)
[2019-05-11] MEDS: LOSARTAN POTASSIUM 50 MG TABLET (FP) PO SCH (10:09)
[2019-05-11] MEDS: PRENATAL VITAMINS W/ FOLIC ACID TABLET (FP) PO SCH (10:09)
--- NOTE | 2019-05-11 10:19 | PN ---
S CIWA - CIWA Score Nausea/Vomitin-No Nausea/No Vomiting Muscle Tremors: None Anxiety: 1-Mildly Anxious Agitation: 1-Slight > Activity Paroxysmal Sweats: No Perspiration Orientation: 0-Oriented Tacttile Disturbances: 0-None Auditory Disturbances: 0-None Visual Disturbances: 0-None Headache: 0-None Present CIWA-Ar Total Score: 2 BHS Progress Note (SOAP) Subjective: feeling better little anxiety Objective: 05/11/19 10:18 Vital Signs Temperature 97.6 F 05/11/19 09:31 Pulse Rate 83 05/11/19 09:31 Respiratory Rate 18 05/11/19 09:31 Blood Pressure 124/78 05/11/19 09:31 O2 Sat by Pulse Oximetry (%) aaox3 ambulating no acute distress Assessment: 05/11/19 10:19 mild withdrawals Plan: continue detox d/c in am
[2019-05-11] MEDS: QUEtiapine FUMARATE 50 MG TABLET PO SCH (20:16)
[2019-05-11] MEDS: DOXEPIN HCL 50 MG CAPSULE PO SCH (20:17)
[2019-05-11] MEDS ORDERED: PT OWN MED DRAWER 7, Y5N ONE (21:54)
[2019-05-11] MEDS: THIAMINE HCL 100 MG TABLET (FP) PO SCH (22:14)
[2019-05-12] MEDS: NICOTINE POLACRILEX 4 MG GUM BUC PRN (04:54)
[2019-05-12] MEDS ORDERED: LORazepam 0.5 MG TABLET PO ONE (05:00)
[2019-05-12] MEDS: LOPERAMIDE HCL 2 MG CAPSULE PO PRN (05:50)
[2019-05-12 07:00] VITALS: BP 121/77; PULSE 83; TEMP 98.2
--- NOTE | 2019-05-12 09:16 | DS ---
[facility] Detox Discharge Summary Admission Date: 05/08/19 Discharge Date: 05/12/19 - History Present History: Alcohol Dependence, Cocaine Dependence - Physical Exam Results Vital Signs: Vital Signs Temperature 98.2 F 05/12/19 06:30 Pulse Rate 83 05/12/19 06:30 Respiratory Rate 20 05/12/19 06:30 Blood Pressure 121/77 05/12/19 06:30 O2 Sat by Pulse Oximetry (%) Pertinent Admission Physical Exam Findings: Vital Signs Temperature 98.2 F 05/12/19 06:30 Pulse Rate 83 05/12/19 06:30 Respiratory Rate 20 05/12/19 06:30 Blood Pressure 121/77 05/12/19 06:30 O2 Sat by Pulse Oximetry (%) Laboratory Tests 05/08/19 05/08/19 05/09/19 11:49 16:48 05:24 WBC Corrected WBC (auto) RBC Hgb Hct MCV MCH MCHC RDW Plt Count MPV Absolute Neuts (auto) Neutrophils % Lymphocytes % Monocytes % Eosinophils % Basophils % Nucleated RBC % Manual Slide Review Platelet Comment Sodium Potassium Chloride Carbon Dioxide Anion Gap BUN Creatinine Est GFR (CKD-EPI)AfAm Est GFR (CKD-EPI)NonAf POC Glucometer 103 140 126 Random Glucose Calcium Total Bilirubin AST ALT Alkaline Phosphatase Total Protein Albumin RPR Titer 05/09/19 05/09/19 05/09/19 08:00 08:00 08:00 WBC Cancelled Corrected WBC (auto) Cancelled RBC Cancelled Hgb Cancelled Hct Cancelled MCV Cancelled MCH Cancelled MCHC Cancelled RDW Cancelled Plt Count Cancelled MPV Cancelled Absolute Neuts (auto) Neutrophils % Lymphocytes % Monocytes % Eosinophils % Basophils % Nucleated RBC % Manual Slide Review Cancelled Platelet Comment Cancelled Sodium 141 Potassium 3.7 Chloride 107 Carbon Dioxide 26 Anion Gap 8 BUN 9.6 Creatinine 0.9 Est GFR (CKD-EPI)AfAm 110.27 Est GFR (CKD-EPI)NonAf 95.14 POC Glucometer Random Glucose 113 H Calcium 8.8 Total Bilirubin 0.5 AST 28 ALT 44 Alkaline Phosphatase 123 H Total Protein 6.8 Albumin 3.7 RPR Titer Nonreactive 05/09/19 05/10/19 05/10/19 16:28 05:42 08:15 WBC 4.2 Corrected WBC (auto) RBC 5.06 Hgb 15.2 Hct 46.0 MCV 90.8 MCH 30.1 MCHC 33.1 RDW 15.2 Plt Count 163 D MPV 10.0 Absolute Neuts (auto) 1.8 Neutrophils % 43.8 Lymphocytes % 43.0 H Monocytes % 8.2 Eosinophils % 4.6 H Basophils % 0.4 Nucleated RBC % 0 Manual Slide Review Platelet Comment Sodium Potassium Chloride Carbon Dioxide Anion Gap BUN Creatinine Est GFR (CKD-EPI)AfAm Est GFR (CKD-EPI)NonAf POC Glucometer 130 107 Random Glucose Calcium Total Bilirubin AST ALT Alkaline Phosphatase Total Protein Albumin RPR Titer 05/10/19 05/11/19 05/11/19 16:23 05:56 16:44 WBC Corrected WBC (auto) RBC Hgb Hct MCV MCH MCHC RDW Plt Count MPV Absolute Neuts (auto) Neutrophils % Lymphocytes % Monocytes % Eosinophils % Basophils % Nucleated RBC % Manual Slide Review Platelet Comment Sodium Potassium Chloride Carbon Dioxide Anion Gap BUN Creatinine Est GFR (CKD-EPI)AfAm Est GFR (CKD-EPI)NonAf POC Glucometer 122 87 82 Random Glucose Calcium Total Bilirubin AST ALT Alkaline Phosphatase Total Protein Albumin RPR Titer 05/12/19 06:51 WBC Corrected WBC (auto) RBC Hgb Hct MCV MCH MCHC RDW Plt Count MPV Absolute Neuts (auto) Neutrophils % Lymphocytes % Monocytes % Eosinophils % Basophils % Nucleated RBC % Manual Slide Review Platelet Comment Sodium Potassium Chloride Carbon Dioxide Anion Gap BUN Creatinine Est GFR (CKD-EPI)AfAm Est GFR (CKD-EPI)NonAf POC Glucometer 133 Random Glucose Calcium Total Bilirubin AST ALT Alkaline Phosphatase Total Protein Albumin RPR Titer aaox3 ambulating no acute distress - Treatment Hospital Course: Detox Protocol Followed, Detoxed Safely, Responded well, Discharged Condition Good, Rehab Referral Accepted Patient has Accepted a Rehab Referral to: pt declined - Medication Discharge Medications: Ambulatory Orders Doxepin HCl 50 mg PO HS #30 capsule 11/20/17 Quetiapine Fumarate [Seroquel -] 50 mg PO HS 02/07/18 Losartan Potassium 50 mg PO DAILY #14 tablet 06/16/18 metFORMIN HCL [Glucophage -] 850 mg PO BIDAC MDD 850 BID 06/16/18 - Diagnosis (1) Alcohol dependence with uncomplicated withdrawal Status: Acute (2) Depression Status: Acute Qualifiers: Depression Type: other depression Qualified Code(s): F32.89 - Other specified depressive episodes (3) Elevated LFTs Status: Acute (4) Hyperglycemia Status: Acute (5) Substance-induced sleep disorder Status: Acute (6) Cocaine dependence Status: Chronic Qualifiers: Substance use status: uncomplicated Qualified Code(s): F14.20 - Cocaine dependence, uncomplicated (7) DM2 (diabetes mellitus, type 2) Status: Chronic Qualifiers: Diabetes mellitus usp insulin use: unspecified chronograph operator insulin use status Diabetes mellitus complication status: without complication Qualified Code(s): E11.9 - Type 2 diabetes mellitus without complications (8) HTN (hypertension), benign Status: Chronic (9) History of hepatitis C Status: Chronic (10) Nicotine dependence Status: Chronic Qualifiers: Nicotine product type: cigarettes Substance use status: uncomplicated Qualified Code(s): F17.210 - Nicotine dependence, cigarettes, uncomplicated (11) Osteoarthritis of right knee Status: Chronic Qualifiers: Osteoarthritis type: primary Qualified Code(s): M17.11 - Unilateral primary osteoarthritis, right knee (12) Substance induced mood disorder Status: Chronic (13) Substance induced mood disorder Status: Chronic (14) Hepatitis C virus infection cured after antiviral drug therapy Status: Resolved (15) MDD (major depressive disorder) Status: Ruled-out - AMA Did Patient Leave Against Medical Advice: No
== END 2019-05-12 07:30 | disposition home or self-care (01) | DRG 774 ==
LOC: YASAS 09:42 → Y6N 11:52
PROVIDERS: ADMIT Allergy & Immunology; ATTEND Allergy & Immunology
PROC: HZ2ZZZZ Detoxification Services for Substance Abuse Treatment (ICD-10-PCS; principal; 2019-05-08)
DX: F10.230 Alcohol dependence with withdrawal, uncomplicated (principal); F14.20 Cocaine dependence, uncomplicated; F17.210 Nicotine dependence, cigarettes, uncomplicated; F32.89 Other specified depressive episodes; F19.24 Other psychoactive substance dependence with psychoactive substance-induced mood disorder; F19.282 Other psychoactive substance dependence with psychoactive substance-induced sleep disorder; I10 Essential (primary) hypertension; M17.11 Unilateral primary osteoarthritis, right knee; R94.5 Abnormal results of liver function studies; E11.65 Type 2 diabetes mellitus with hyperglycemia; K76.0 Fatty (change of) liver, not elsewhere classified; K21.9 Gastro-esophageal reflux disease without esophagitis; Z79.4 Long term (current) use of insulin; Z79.84 Long term (current) use of oral hypoglycemic drugs; Z86.19 Personal history of other infectious and parasitic diseases; Z91.018 Allergy to other foods; Z87.438 Personal history of other diseases of male genital organs
CPT/HCPCS: 36415; 80053; 82962; 85025; 86593

== ENCOUNTER 2019-07-05 10:38 | Inpatient (IN) | payer OTHER ==
--- NOTE | 2019-07-05 11:36 | HP ---
CIWA Score Muscle Tremors: None Anxiety: 0-No Anxiety, at Ease Agitation: 0-Normal Activity Paroxysmal Sweats: No Perspiration Orientation: 0-Oriented Tacttile Disturbances: 0-None Auditory Disturbances: 0-None Visual Disturbances: 0-None Headache: 0-None Present - Admission Criteria OASAS Guidelines: Admission for Medically Managed Detox: Requires at least one of the followin. CIWA greater than 12 2. Seizures within the past 24 hours 3. Delirium tremens within the past 24 hours 4. Hallucinations within the past 24 hours 5. Acute intervention needed for co occurring medical disorder 6. Acute intervention needed for co occurring psychiatric disorder 7. Severe withdrawal that cannot be handled at a lower level of care (continued vomiting, continued diarrhea, abnormal vital signs) requiring intravenous medication and/or fluids 8. Admitting History and Physical - Admission Chief Complaint: Mr. Mackey presents for admission to Rehab, recent detox for alcohol. History of Present Illness: Mr. Mackey presents for admission to Rehab, recent detox for alcohol. He is a 59 yo gentleman with a history of alcohol use disorder. He recently completed an alcohol detox at [facility]. He was discharged on Jul 01, no beds available in Rehab. PMH: HTN, diet controlled DM, Vit D deficiency, Hep C tx Psych: depression on Doxepin and Seroquel Substance use history Alcohol: 05/30 ov Vodka dialy, last used 07/02/19, first use age 16 y Cocaine: 3 x per month, last used sunday 07/02, first use age 22 y Nicotine: 1ppd - Past Medical History Cardiovascular: Yes: HTN Psych: Yes: Addictions, Depression Additional Past Medical History: Vit D deficiency - Smoking History Smoking history: Current every day smoker Have you smoked in the past 12 months: Yes Aproximately how many cigarettes per day: 10 - Alcohol/Substance Use Hx Alcohol Use: Yes Admission ROS S - HPI Allergies/Adverse Reactions: Allergies Allergy/AdvReac Type Severity Reaction Status Date / Time No Known Drug Allergies AdvReac Verified 12/24/18 10:19 red sauce AdvReac Severe heart burn Uncoded 05/08/19 10:10 Exam Limitations: No Limitations - Ebola screening Have you traveled outside of the country in the last 21 days: No Have you had contact with anyone from an Ebola affected area: No Have you been sick,other than usual withdrawal symptoms: No Do you have a fever: No - Review of Systems Constitutional: No Symptoms Reported EENT: reports: No Symptoms Reported Respiratory: reports: Cough Cardiac: reports: No Symptoms Reported GI: reports: No Symptoms Reported : reports: No Symptoms Reported Musculoskeletal: reports: Back Pain Integumentary: reports: Other (right knee small abrasion x 2, pt attributes to physical therapy tx) Neuro: reports: No Symptoms reported Endocrine: reports: No Symptoms Reported Psychiatric: reports: Depressed Patient History - Patient Medical History Hx Anemia: No Hx Asthma: No Hx Chronic Obstructive Pulmonary Disease (COPD): No Hx Cancer: No Hx Cardiac Disorders: No Hx Congestive Heart Failure: No Hx Hypertension: Yes (on med) Hx Hypercholesterolemia: No Hx Pacemaker: No HX Cerebrovascular Accident: No Hx Seizures: No Hx Dementia: No Hx Diabetes: Yes (on metformin) Hx Gastrointestinal Disorders: Yes (gerd) Hx Liver Disease: Yes (elevated LFTs with alcohol) Hx Genitourinary Disorders: No Hx Sexually Transmitted Disorders: No Hx Renal Disease (ESRD): No Hx Thyroid Disease: No Hx Human Immunodeficiency Virus (HIV): No (negative) Hx Hepatitis C: Yes (treated since 11/11/18) Hx Depression: Yes (on meds, sees psych, never hospitalized) Hx Suicide Attempt: No (denies) Hx Bipolar Disorder: No Hx Schizophrenia: No - Patient Surgical History Past Surgical History: Yes Hx Neurologic Surgery: No Hx Cataract Extraction: No Hx Cardiac Surgery: No Hx Lung Surgery: No Hx Breast Surgery: No Hx Breast Biopsy: No Hx Abdominal Surgery: No Hx Appendectomy: No Hx Cholecystectomy: No Hx Genitourinary Surgery: No Hx Section: No Hx Orthopedic Surgery: Yes (fx, left orbit in 09/1994 (metal plate)) Anesthesia Reaction: No - PPD History Date: 05/10/19 Results: 0 MM - Smoking Cessation Smoking history: Current every day smoker Have you smoked in the past 12 months: Yes Aproximately how many cigarettes per day: 10 Hx Chewing Tobacco Use: No Initiated information on smoking cessation: Yes 'Breaking Loose' booklet given: 07/05/19 Admission Physical Exam [facility] - Physical General Appearance: Yes: Within Normal Limits HEENTM: Yes: Within Normal Limits Respiratory: Yes: Lungs Clear, Normal Breath Sounds Neck: Yes: Within Normal Limits Breast: Yes: Breast Exam Deferred Cardiology: Yes: Regular Rate, S1, S2 Abdominal: Yes: Non Tender, Soft Back: Yes: Normal Inspection Musculoskeletal: Yes: Within Normal Limits Integumentary: Yes: Other (2 small circular skin breakdown noted right medial and lateral knee) - Diagnostic (1) Alcohol use disorder Current Visit: Yes Status: Acute Cleared for Admission S - Detox or Rehab [facility] Level of Care: Medically Supervised Breathalyzer - Breathalyzer Breathalyzer: 0 Urine Drug Screen - Test Device Lot number: [id number] Expiration date: 04/24/21 - Control Is test valid?: Yes - Results Drug screen NEGATIVE: No Urine drug screen results: BZO-Benzodiazepines Inpatient Rehab Admission - Rehab Decision to Admit Inpatient rehab admission?: Yes - Initial Determination Are CD services needed?: Yes Free of communicable disease: Yes Not in need of hospitalization: Yes - Rehab Admission Criteria Previous failed treatment: Yes Poor recovery environment: Yes Comorbidities: Yes Lacks judgement: Yes Patient is meeting Inpatient Rehab admission criteria:: Yes
[2019-07-05] MEDS ORDERED: MAG HYDROX/AL HYDROX/SIMETH 30 ML UNIT-DOSE CUP PO PRN (11:43)
[2019-07-05] MEDS ORDERED: MENTHOL/PHENOL 1 EACH UD MM PRN (11:43)
[2019-07-05] MEDS ORDERED: MAGNESIUM CITRATE 300 ML BOTTLE PO PRN (11:43)
[2019-07-05] MEDS ORDERED: MAGNESIUM HYDROX 2400MG/30ML ORAL SUSPENSION 30 ML CUP PO PRN (11:43)
[2019-07-05] MEDS ORDERED: LOPERAMIDE HCL 2 MG CAPSULE PO PRN (11:43)
[2019-07-05] MEDS ORDERED: ACETAMINOPHEN 325 MG TABLET (FP) PO PRN (11:43)
[2019-07-05 11:45] VITALS: BMI 33.0
--- NOTE | 2019-07-05 13:02 | CONSULT ---
[facility] Psychiatric Consult - Data Date of interview: 07/05/19 Admission source: [facility] Identifying data: Patient is a 59 year old single male, father of two, employed, domiciled. This is one of multiple admissions for patient. Patient admitted to for alcohol dependence. Substance Abuse History: History of alcohol dependence. Medical History: Hypertension, diabetes mellitus, hepatitis C (treated), fatty liver, osteoarthritis of right knee and antecedent of syphilis. History of fracture of left orbit (1994). Psychiatric History: Patient denies history of psychiatric hospitalizations and suicide attempt. Mr. Mackey currently receives outpatient psychiatric care at [facility] and is prescribed doxepin 50mg + Seroquel 50mg HS. Diagnosis of MDD. Patient completed detox at [facility] on 07/01/19. Patient requesting to take his evening medications at 8pm instead of 10pm. At present patient reports stable mood. Physical/Sexual Abuse/Trauma History: denies. Mental Status Exam - Mental Status Exam Alert and Oriented to: Time, Place, Person Cognitive Function: Good Patient Appearance: Well Groomed Mood: Euthymic Affect: Appropriate Patient Behavior: Appropriate, Cooperative Speech Pattern: Appropriate Voice Loudness: Normal Thought Process: Intact, Goal Oriented Thought Disorder: Not Present Hallucinations: Denies Suicidal Ideation: Denies Homicidal Ideation: Denies Insight/Judgement: Poor Sleep: Fair Appetite: Fair Muscle strength/Tone: Normal Gait/Station: Normal Psychiatric Findings - Problem List ([place] 1, 2,3) (1) Alcohol use disorder Current Visit: Yes Status: Chronic (2) Substance-induced sleep disorder Current Visit: Yes Status: Acute (3) Depressive disorder Current Visit: Yes Status: Chronic - Initial Treatment Plan Initial Treatment Plan: Psychoeducation provided. Rehab in progress. Will order Seroquel 50mg + Doxepin 50mg HS @20:00. Benefits and side effects discussed. Verbal consent given.
[2019-07-05] MEDS: NICOTINE 21 MG/24 HOURS TOPICAL PATCH TD SCH (13:29)
[2019-07-05] MEDS: NICOTINE POLACRILEX 4 MG GUM BUC PRN ×3 (15:57→20:01)
[2019-07-05 17:26] LABS: HEMATOCRIT 47.8 % (35.4-49); HEMOGLOBIN 16.2 GM/dL (11.7-16.9); MCH 30.6 pg (25.7-33.7); MCHC 33.9 g/dl (32.0-35.9); MEAN CELL VOLUME 90.5 fl (80-96); MEAN PLT VOLUME 9.9 fl (7.5-11.1); PLATELET COUNT 214 K/MM3 (134-434); RBC 5.28 M/mm3 (4.00-5.60); RDW 14.1 % (11.9-15.9); WHITE BLOOD COUNT 7.1 K/mm3 (4.0-10.0)
[2019-07-05 17:55] LABS: ALBUMIN 4.1 g/dl (3.4-5.0); BILIRUBIN,TOTAL 0.5 mg/dL (0.2-1); CALCIUM 9.3 mg/dL (8.5-10.1); POTASSIUM 4.2 mmol/L (3.5-5.1); TOT PROT 7.9 g/dl (6.4-8.2)
[2019-07-05] MEDS ORDERED: PT OWN MED DRAWER 7, Y5N ONE (18:58)
[2019-07-05] MEDS ORDERED: DOXEPIN HCL 25 MG CAPSULE PO SCH (20:00)
[2019-07-05] MEDS ORDERED: QUEtiapine FUMARATE 50 MG TABLET PO SCH (20:00)
[2019-07-05] MEDS: THIAMINE HCL 100 MG TABLET (FP) PO SCH (21:04)
[2019-07-05] MEDS: guaiFENesin 200 MG/10 ML 10 ML UNIT-DOSE CUPS PO PRN (21:05)
[2019-07-06] MEDS: NICOTINE POLACRILEX 4 MG GUM BUC PRN ×7 (06:07→21:03)
[2019-07-06] MEDS: PRENATAL VITAMINS W/ FOLIC ACID TABLET (FP) PO SCH (09:31)
[2019-07-06] MEDS: NICOTINE 21 MG/24 HOURS TOPICAL PATCH TD SCH (09:31)
[2019-07-06] MEDS ORDERED: LOSARTAN POTASSIUM 50 MG TABLET (FP) PO SCH ×2 (10:00→10:47)
--- NOTE | 2019-07-06 10:04 | PN ---
[facility] Progress Note Note: Psychiatric nurse practitioner note: Patient requesting to take his own medication of seroquel 50mg HS + Doxepin 50mg HS. LEATHA Ngo informed. Staff to obtain prescription bottle from security so that it can be taken to pharmacy for verification.
[2019-07-06] MEDS ORDERED: DOXEPIN HCL 50 MG PO SCH (10:40)
[2019-07-06 10:41] LABS: EPI CELLS 1.9 /HPF (0-5/HPF); HYALINE CASTS 4 /lpf (0-8); URINE APPEARANCE CLEAR; URINE BACTERIA 1.4 /hpf (NEGATIVE); URINE BILIRUBIN NEGATIVE (NEGATIVE); URINE COLOR YELLOW; URINE GLUCOSE (UA) 2+ (NEGATIVE); URINE KETONE NEGATIVE (NEGATIVE); URINE LEUK ESTERASE 1+ (NEGATIVE); URINE NITRITE NEGATIVE (NEGATIVE); URINE PROTEIN NEGATIVE (NEGATIVE); URINE RBC 0 /hpf (0-4); URINE UROBILINOGEN 0.2 mg/dL (0.2-1.0); URINE WBC 8 /hpf (0-5)
--- NOTE | 2019-07-06 10:50 | PN ---
[facility] Progress Note Note: Patient's brought his own medications. Reviewed. Losartan order changed to 100mg daily. Medications sent to pharmacy for verification.
[2019-07-06] MEDS ORDERED: LOSARTAN POTASSIUM 100 MG PO SCH ×2 (11:35)
[2019-07-06] MEDS ORDERED: LOSARTAN POTASSIUM 50 MG TABLET (FP) PO ONE (12:05)
[2019-07-06] MEDS ORDERED: NON-FORMULARY MED PO ONE (12:06)
--- NOTE | 2019-07-06 13:21 | PN ---
[facility] Progress Note (SOAP) Subjective: New admission to rehab. Mr. Mackey presents for admission to Rehab, recent detox for alcohol. He is a 59 yo gentleman with a history of alcohol use disorder. He recently completed an alcohol detox at [facility]. He was discharged on Jul 01, no beds available in Rehab. PMH: HTN, diet controlled DM, Vit D deficiency, Hep C tx Psych: depression on Doxepin and Seroquel Substance use history Alcohol: 05/30 ov Vodka dialy, last used 07/02/19, first use age 16 y Cocaine: 3 x per month, last used sunday 07/02, first use age 22 y Nicotine: 1ppd Objective: General: no apparent distress HEENTM: normocephalic, PERRLA, missing teeth Neck: supple Lungs: clear Heart: s1 s2 ABD: +BS, obese MSK: full weight bearing, steady gait Neuro: CN 2-12intact Vital Signs (72 hours) 07/05/19 07/05/19 07/06/19 11:40 12:58 00:24 Temperature 98.0 F 98.4 F Pulse Rate 67 69 Respiratory 20 18 20 Rate Blood Pressure 135/77 115/62 07/06/19 07/06/19 07/06/19 03:40 06:54 09:10 Temperature 97.8 F Pulse Rate 64 84 Respiratory 18 18 Rate Blood Pressure 134/70 142/77 Laboratory Last Values WBC 7.1 K/mm3 (4.0-10.0) 07/05/19 12:25 RBC 5.28 M/mm3 (4.00-5.60) 07/05/19 12:25 Hgb 16.2 GM/dL (11.7-16.9) 07/05/19 12:25 Hct 47.8 % (35.4-49) 07/05/19 12:25 MCV 90.5 fl (80-96) 07/05/19 12:25 MCH 30.6 pg (25.7-33.7) 07/05/19 12:25 MCHC 33.9 g/dl (32.0-35.9) 07/05/19 12:25 RDW 14.1 % (11.9-15.9) 07/05/19 12:25 Plt Count 214 K/MM3 (134-434) D 07/05/19 12:25 MPV 9.9 fl (7.5-11.1) 07/05/19 12:25 Sodium 135 mmol/L (136-145) L 07/05/19 12:25 Potassium 4.2 mmol/L (3.5-5.1) 07/05/19 12:25 Chloride 104 mmol/L (98-107) 07/05/19 12:25 Carbon Dioxide 23 mmol/L (21-32) 07/05/19 12:25 Anion Gap 8 MMOL/L (8-16) 07/05/19 12:25 BUN 11.0 mg/dL (7-18) 07/05/19 12:25 Creatinine 1.0 mg/dL (0.55-1.3) 07/05/19 12:25 Est GFR (CKD-EPI)AfAm 96.40 07/05/19 12:25 Est GFR (CKD-EPI)NonAf 83.18 07/05/19 12:25 Random Glucose 210 mg/dL (74-106) H 07/05/19 12:25 Hemoglobin A1c % 5.8 % (4.2-6.3) 07/06/19 07:45 Calcium 9.3 mg/dL (8.5-10.1) 07/05/19 12:25 Total Bilirubin 0.5 mg/dL (0.2-1) 07/05/19 12:25 AST 29 U/L (15-37) 07/05/19 12:25 ALT 75 U/L (13-61) H 07/05/19 12:25 Alkaline Phosphatase 133 U/L (45-117) H 07/05/19 12:25 Total Protein 7.9 g/dl (6.4-8.2) 07/05/19 12:25 Albumin 4.1 g/dl (3.4-5.0) 07/05/19 12:25 Urine Color Yellow 07/06/19 08:00 Urine Appearance Clear 07/06/19 08:00 Urine pH 5.0 (5.0-8.0) 07/06/19 08:00 Ur Specific [place] 1.016 (1.010-1.035) 07/06/19 08:00 Urine Protein Negative (NEGATIVE) 07/06/19 08:00 Urine Glucose (UA) 2+ (NEGATIVE) H 07/06/19 08:00 Urine Ketones Negative (NEGATIVE) 07/06/19 08:00 Urine Blood Negative (NEGATIVE) 07/06/19 08:00 Urine Nitrite Negative (NEGATIVE) 07/06/19 08:00 Urine Bilirubin Negative (NEGATIVE) 07/06/19 08:00 Urine Urobilinogen 0.2 mg/dL (0.2-1.0) 07/06/19 08:00 Ur Leukocyte Esterase 1+ (NEGATIVE) H 07/06/19 08:00 Urine WBC (Auto) 8 /hpf (0-5) 07/06/19 08:00 Urine RBC (Auto) 0 /hpf (0-4) 07/06/19 08:00 Urine Casts (Auto) 4 /lpf (0-8) 07/06/19 08:00 U Epithel Cells (Auto) 1.9 /HPF (0-5/HPF) 07/06/19 08:00 Urine Bacteria (Auto) 1.4 /hpf (NEGATIVE) 07/06/19 08:00 HIV 1&2 Antibody Screen Cancelled 07/05/19 12:25 HIV P24 Antigen Cancelled 07/05/19 12:25 07/06/19 13:22 Assessment: ETOH use disorder 07/06/19 13:24 Plan: Rehab for ETOH use Maintain safety Home medications ordered Labs reviewed Patient has on-going medical care
[2019-07-06] MEDS ORDERED: PT OWN MED DRAWER 7, Y5N ONE (19:20)
[2019-07-06] MEDS: DOXEPIN HCL 50 MG PO SCH (20:25)
[2019-07-06] MEDS: QUETIAPINE FUMARATE 50 MG PO SCH (20:25)
[2019-07-06] MEDS: THIAMINE HCL 100 MG TABLET (FP) PO SCH (21:02)
[2019-07-06] MEDS: MELATONIN 5 MG TABLETS PO PRN (21:02)
[2019-07-07] MEDS: guaiFENesin 200 MG/10 ML 10 ML UNIT-DOSE CUPS PO PRN (01:58)
[2019-07-07] MEDS: IBUPROFEN 400 MG TABLET (FP) PO PRN (06:04)
[2019-07-07] MEDS: NICOTINE POLACRILEX 4 MG GUM BUC PRN ×5 (06:05→19:59)
[2019-07-07] MEDS: PATIENT'S OWN MEDICATION (NON-FORMULARY) (Losartan Potassium [Cozaar] 100 MG) PO SCH (09:29)
[2019-07-07] MEDS: PRENATAL VITAMINS W/ FOLIC ACID TABLET (FP) PO SCH (09:29)
[2019-07-07] MEDS: CHOLECALCIFEROL 2000 UNIT PO SCH (09:29)
[2019-07-07] MEDS: NICOTINE 21 MG/24 HOURS TOPICAL PATCH TD SCH (09:30)
[2019-07-07] MEDS ORDERED: CHOLECALCIFEROL (VIT D3) 1,000 UNIT (25 MCG) TABLET PO SCH (10:00)
[2019-07-07] MEDS: DOXEPIN HCL 50 MG PO SCH (19:59)
[2019-07-07] MEDS: QUETIAPINE FUMARATE 50 MG PO SCH (19:59)
[2019-07-07] MEDS: THIAMINE HCL 100 MG TABLET (FP) PO SCH (22:25)
[2019-07-08] MEDS: IBUPROFEN 400 MG TABLET (FP) PO PRN (06:05)
[2019-07-08] MEDS: NICOTINE POLACRILEX 4 MG GUM BUC PRN ×5 (08:43→19:41)
[2019-07-08] MEDS: guaiFENesin 200 MG/10 ML 10 ML UNIT-DOSE CUPS PO PRN (08:43)
[2019-07-08] MEDS: CHOLECALCIFEROL 2000 UNIT PO SCH (09:29)
[2019-07-08] MEDS: PRENATAL VITAMINS W/ FOLIC ACID TABLET (FP) PO SCH (09:29)
[2019-07-08] MEDS: PATIENT'S OWN MEDICATION (NON-FORMULARY) (Losartan Potassium [Cozaar] 100 MG) PO SCH (09:29)
[2019-07-08] MEDS: NICOTINE 21 MG/24 HOURS TOPICAL PATCH TD SCH (09:29)
[2019-07-08] MEDS ORDERED: PT OWN MED DRAWER 7, Y5N ONE (19:14)
[2019-07-08] MEDS: DOXEPIN HCL 50 MG PO SCH (20:59)
[2019-07-08] MEDS: THIAMINE HCL 100 MG TABLET (FP) PO SCH (20:59)
[2019-07-08] MEDS: MELATONIN 5 MG TABLETS PO PRN (20:59)
[2019-07-08] MEDS: QUETIAPINE FUMARATE 50 MG PO SCH (20:59)
[2019-07-09] MEDS: IBUPROFEN 400 MG TABLET (FP) PO PRN (06:06)
[2019-07-09] MEDS: NICOTINE POLACRILEX 4 MG GUM BUC PRN ×6 (08:27→18:58)
[2019-07-09] MEDS ORDERED: PT OWN MED DRAWER 7, Y5N ONE (08:48)
[2019-07-09] MEDS: PATIENT'S OWN MEDICATION (NON-FORMULARY) (Losartan Potassium [Cozaar] 100 MG) PO SCH (09:26)
[2019-07-09] MEDS: PRENATAL VITAMINS W/ FOLIC ACID TABLET (FP) PO SCH (09:26)
[2019-07-09] MEDS: CHOLECALCIFEROL 2000 UNIT PO SCH (09:26)
[2019-07-09] MEDS: guaiFENesin 200 MG/10 ML 10 ML UNIT-DOSE CUPS PO PRN (09:27)
[2019-07-09] MEDS: NICOTINE 21 MG/24 HOURS TOPICAL PATCH TD SCH (10:24)
--- NOTE | 2019-07-09 13:20 | PN ---
[facility] Progress Note Note: Patient presents for lab results. States having mild body aches and requesting muscle relaxer. Laboratory Tests 07/05/19 07/05/19 07/05/19 12:25 12:25 12:25 WBC 7.1 RBC 5.28 Hgb 16.2 Hct 47.8 MCV 90.5 MCH 30.6 MCHC 33.9 RDW 14.1 Plt Count 214 D MPV 9.9 Sodium 135 L Potassium 4.2 Chloride 104 Carbon Dioxide 23 Anion Gap 8 BUN 11.0 Creatinine 1.0 Est GFR (CKD-EPI)AfAm 96.40 Est GFR (CKD-EPI)NonAf 83.18 Random Glucose 210 H Hemoglobin A1c % Calcium 9.3 Total Bilirubin 0.5 AST 29 ALT 75 H Alkaline Phosphatase 133 H Total Protein 7.9 Albumin 4.1 Urine Color Urine Appearance Urine pH Ur Specific [place] Urine Protein Urine Glucose (UA) Urine Ketones Urine Blood Urine Nitrite Urine Bilirubin Urine Urobilinogen Ur Leukocyte Esterase Urine WBC (Auto) Urine RBC (Auto) Urine Casts (Auto) U Epithel Cells (Auto) Urine Bacteria (Auto) RPR Titer Nonreactive HIV 1&2 Ag/Ab, 4th Gen HIV 1&2 Antibody Screen HIV P24 Antigen 07/05/19 07/06/19 07/06/19 12:25 07:45 08:00 WBC RBC Hgb Hct MCV MCH MCHC RDW Plt Count MPV Sodium Potassium Chloride Carbon Dioxide Anion Gap BUN Creatinine Est GFR (CKD-EPI)AfAm Est GFR (CKD-EPI)NonAf Random Glucose Hemoglobin A1c % 5.8 Calcium Total Bilirubin AST ALT Alkaline Phosphatase Total Protein Albumin Urine Color Yellow Urine Appearance Clear Urine pH 5.0 Ur Specific [place] 1.016 Urine Protein Negative Urine Glucose (UA) 2+ H Urine Ketones Negative Urine Blood Negative Urine Nitrite Negative Urine Bilirubin Negative Urine Urobilinogen 0.2 Ur Leukocyte Esterase 1+ H Urine WBC (Auto) 8 Urine RBC (Auto) 0 Urine Casts (Auto) 4 U Epithel Cells (Auto) 1.9 Urine Bacteria (Auto) 1.4 RPR Titer HIV 1&2 Ag/Ab, 4th Gen HIV 1&2 Antibody Screen Cancelled HIV P24 Antigen Cancelled 07/06/19 12:00 WBC RBC Hgb Hct MCV MCH MCHC RDW Plt Count MPV Sodium Potassium Chloride Carbon Dioxide Anion Gap BUN Creatinine Est GFR (CKD-EPI)AfAm Est GFR (CKD-EPI)NonAf Random Glucose Hemoglobin A1c % Calcium Total Bilirubin AST ALT Alkaline Phosphatase Total Protein Albumin Urine Color Urine Appearance Urine pH Ur Specific [place] Urine Protein Urine Glucose (UA) Urine Ketones Urine Blood Urine Nitrite Urine Bilirubin Urine Urobilinogen Ur Leukocyte Esterase Urine WBC (Auto) Urine RBC (Auto) Urine Casts (Auto) U Epithel Cells (Auto) Urine Bacteria (Auto) RPR Titer HIV 1&2 Ag/Ab, 4th Gen Non reactive HIV 1&2 Antibody Screen HIV P24 Antigen Vital Signs Temperature 98.4 F 07/09/19 07:40 Pulse Rate 75 07/09/19 08:10 Respiratory Rate 18 07/09/19 08:10 Blood Pressure 132/71 07/09/19 08:10 O2 Sat by Pulse Oximetry (%) PE alert and oriented x 3 skin warm and dry in good mood and no apparent distress A/P Labs appreciated elevated ALT AIC 5.8 continue oral hydration and current meds monitor clinically
[2019-07-09] MEDS ORDERED: THIAMINE HCL 100 MG TABLET (FP) PO SCH (13:22)
[2019-07-09] MEDS: DOXEPIN HCL 50 MG PO SCH (19:56)
[2019-07-09] MEDS: THIAMINE HCL 100 MG TABLET (FP) PO SCH ×2 (19:56→21:22)
[2019-07-09] MEDS: QUETIAPINE FUMARATE 50 MG PO SCH (19:56)
[2019-07-09] MEDS: MELATONIN 5 MG TABLETS PO PRN (19:56)
[2019-07-10] MEDS: CYCLOBENZAPRINE HCL 5 MG TABLET PO PRN ×2 (06:01→14:08)
[2019-07-10] MEDS: NICOTINE POLACRILEX 4 MG GUM BUC PRN ×8 (06:01→22:32)
[2019-07-10] MEDS: CHOLECALCIFEROL 2000 UNIT PO SCH (09:37)
[2019-07-10] MEDS: NICOTINE 21 MG/24 HOURS TOPICAL PATCH TD SCH (09:38)
[2019-07-10] MEDS: PRENATAL VITAMINS W/ FOLIC ACID TABLET (FP) PO SCH (09:38)
[2019-07-10] MEDS: PATIENT'S OWN MEDICATION (NON-FORMULARY) (Losartan Potassium [Cozaar] 100 MG) PO SCH (09:38)
[2019-07-10] MEDS ORDERED: PT OWN MED DRAWER 7, Y5N ONE (19:47)
[2019-07-10] MEDS: DOXEPIN HCL 50 MG PO SCH (20:25)
[2019-07-10] MEDS: QUETIAPINE FUMARATE 50 MG PO SCH (20:25)
[2019-07-10] MEDS: THIAMINE HCL 100 MG TABLET (FP) PO SCH (22:04)
[2019-07-11] MEDS: guaiFENesin 200 MG/10 ML 10 ML UNIT-DOSE CUPS PO PRN ×2 (00:14→08:17)
[2019-07-11] MEDS: CYCLOBENZAPRINE HCL 5 MG TABLET PO PRN ×2 (06:00→16:22)
[2019-07-11] MEDS: NICOTINE POLACRILEX 4 MG GUM BUC PRN ×8 (06:00→20:32)
[2019-07-11] MEDS: CHOLECALCIFEROL 2000 UNIT PO SCH (09:28)
[2019-07-11] MEDS: PRENATAL VITAMINS W/ FOLIC ACID TABLET (FP) PO SCH (09:28)
[2019-07-11] MEDS: PATIENT'S OWN MEDICATION (NON-FORMULARY) (Losartan Potassium [Cozaar] 100 MG) PO SCH (09:28)
[2019-07-11] MEDS: NICOTINE 21 MG/24 HOURS TOPICAL PATCH TD SCH (10:18)
[2019-07-11] MEDS: P-EPHED 60MG/TRIPROLIDI 2.5MG TABLET PO PRN (13:10)
[2019-07-11] MEDS: QUETIAPINE FUMARATE 50 MG PO SCH (20:30)
[2019-07-11] MEDS: DOXEPIN HCL 50 MG PO SCH (20:30)
[2019-07-11] MEDS: THIAMINE HCL 100 MG TABLET (FP) PO SCH (21:43)
[2019-07-12] MEDS: CYCLOBENZAPRINE HCL 5 MG TABLET PO PRN ×2 (06:03→14:04)
[2019-07-12] MEDS: guaiFENesin 200 MG/10 ML 10 ML UNIT-DOSE CUPS PO PRN ×2 (06:03→14:04)
[2019-07-12] MEDS: P-EPHED 60MG/TRIPROLIDI 2.5MG TABLET PO PRN ×2 (06:03→14:05)
[2019-07-12] MEDS: NICOTINE POLACRILEX 4 MG GUM BUC PRN ×7 (06:04→20:48)
--- NOTE | 2019-07-12 08:51 | PN ---
[facility] Progress Note Note: Pt states he has an open area from electrodes placed during physical therapy last month. Wants to make sure there is no infection. PE Vital Signs - 24 hr 07/11/19 07/12/19 07/12/19 09:13 00:22 03:22 Temperature Pulse Rate 70 Respiratory 18 18 Rate Blood Pressure 125/77 07/12/19 07/12/19 06:58 08:20 Temperature 99.1 F Pulse Rate 72 87 Respiratory 18 Rate Blood Pressure 121/72 141/82 R knee inner aspect with small round open area-no drainage, no redness. a/p small open area- d/w pt to keep area clean and cover with band-aid. Monitor for redness, warmth, swelling.
[2019-07-12] MEDS: NICOTINE 21 MG/24 HOURS TOPICAL PATCH TD SCH (09:25)
[2019-07-12] MEDS: PRENATAL VITAMINS W/ FOLIC ACID TABLET (FP) PO SCH (09:25)
[2019-07-12] MEDS: CHOLECALCIFEROL 2000 UNIT PO SCH (09:25)
[2019-07-12] MEDS: PATIENT'S OWN MEDICATION (NON-FORMULARY) (Losartan Potassium [Cozaar] 100 MG) PO SCH (09:25)
[2019-07-12] MEDS: QUETIAPINE FUMARATE 50 MG PO SCH (20:45)
[2019-07-12] MEDS: DOXEPIN HCL 50 MG PO SCH (20:45)
[2019-07-12] MEDS: THIAMINE HCL 100 MG TABLET (FP) PO SCH (21:34)
[2019-07-13] MEDS: guaiFENesin 200 MG/10 ML 10 ML UNIT-DOSE CUPS PO PRN ×2 (06:03→14:16)
[2019-07-13] MEDS: CYCLOBENZAPRINE HCL 5 MG TABLET PO PRN ×2 (06:03→14:16)
[2019-07-13] MEDS: P-EPHED 60MG/TRIPROLIDI 2.5MG TABLET PO PRN ×2 (06:04→14:16)
[2019-07-13] MEDS: NICOTINE POLACRILEX 4 MG GUM BUC PRN ×6 (08:38→19:58)
[2019-07-13] MEDS: PRENATAL VITAMINS W/ FOLIC ACID TABLET (FP) PO SCH (09:24)
[2019-07-13] MEDS: PATIENT'S OWN MEDICATION (NON-FORMULARY) (Losartan Potassium [Cozaar] 100 MG) PO SCH (09:24)
[2019-07-13] MEDS: NICOTINE 21 MG/24 HOURS TOPICAL PATCH TD SCH (09:24)
[2019-07-13] MEDS: CHOLECALCIFEROL 2000 UNIT PO SCH (09:24)
[2019-07-13] MEDS ORDERED: PT OWN MED DRAWER 7, Y5N ONE (18:59)
[2019-07-13] MEDS: QUETIAPINE FUMARATE 50 MG PO SCH (20:48)
[2019-07-13] MEDS: DOXEPIN HCL 50 MG PO SCH (20:48)
[2019-07-13] MEDS: THIAMINE HCL 100 MG TABLET (FP) PO SCH (22:37)
[2019-07-14] MEDS: guaiFENesin 200 MG/10 ML 10 ML UNIT-DOSE CUPS PO PRN ×2 (05:59→14:19)
[2019-07-14] MEDS: NICOTINE POLACRILEX 4 MG GUM BUC PRN ×5 (06:00→21:00)
[2019-07-14] MEDS: CYCLOBENZAPRINE HCL 5 MG TABLET PO PRN ×2 (06:00→14:19)
[2019-07-14] MEDS: P-EPHED 60MG/TRIPROLIDI 2.5MG TABLET PO PRN ×2 (06:00→14:20)
[2019-07-14] MEDS ORDERED: PT OWN MED DRAWER 7, Y5N ONE (08:39)
[2019-07-14] MEDS: PATIENT'S OWN MEDICATION (NON-FORMULARY) (Losartan Potassium [Cozaar] 100 MG) PO SCH (09:28)
[2019-07-14] MEDS: CHOLECALCIFEROL 2000 UNIT PO SCH (09:28)
[2019-07-14] MEDS: NICOTINE 21 MG/24 HOURS TOPICAL PATCH TD SCH (09:29)
[2019-07-14] MEDS: PRENATAL VITAMINS W/ FOLIC ACID TABLET (FP) PO SCH (10:14)
--- NOTE | 2019-07-14 11:03 | PN ---
[facility] Progress Note (SOAP) Subjective: Patient requests fingersticks to check his BGM. Patient states " I was diabetic. My A1c was 9 but it came down to 5.8 so my doctor stopped the Metformin. I still like to check my blood sugar." Labs indicate A1c of 5.8 upon admission. Pt denies s/s of hypo or hyper glycemia; he is on a diabetic diet. Objective: 07/14/19 11:00 Laboratory Last Values WBC 7.1 K/mm3 (4.0-10.0) 07/05/19 12:25 RBC 5.28 M/mm3 (4.00-5.60) 07/05/19 12:25 Hgb 16.2 GM/dL (11.7-16.9) 07/05/19 12:25 Hct 47.8 % (35.4-49) 07/05/19 12:25 MCV 90.5 fl (80-96) 07/05/19 12:25 MCH 30.6 pg (25.7-33.7) 07/05/19 12:25 MCHC 33.9 g/dl (32.0-35.9) 07/05/19 12:25 RDW 14.1 % (11.9-15.9) 07/05/19 12:25 Plt Count 214 K/MM3 (134-434) D 07/05/19 12:25 MPV 9.9 fl (7.5-11.1) 07/05/19 12:25 Sodium 135 mmol/L (136-145) L 07/05/19 12:25 Potassium 4.2 mmol/L (3.5-5.1) 07/05/19 12:25 Chloride 104 mmol/L (98-107) 07/05/19 12:25 Carbon Dioxide 23 mmol/L (21-32) 07/05/19 12:25 Anion Gap 8 MMOL/L (8-16) 07/05/19 12:25 BUN 11.0 mg/dL (7-18) 07/05/19 12:25 Creatinine 1.0 mg/dL (0.55-1.3) 07/05/19 12:25 Est GFR (CKD-EPI)AfAm 96.40 07/05/19 12:25 Est GFR (CKD-EPI)NonAf 83.18 07/05/19 12:25 Random Glucose 210 mg/dL (74-106) H 07/05/19 12:25 Hemoglobin A1c % 5.8 % (4.2-6.3) 07/06/19 07:45 Calcium 9.3 mg/dL (8.5-10.1) 07/05/19 12:25 Total Bilirubin 0.5 mg/dL (0.2-1) 07/05/19 12:25 AST 29 U/L (15-37) 07/05/19 12:25 ALT 75 U/L (13-61) H 07/05/19 12:25 Alkaline Phosphatase 133 U/L (45-117) H 07/05/19 12:25 Total Protein 7.9 g/dl (6.4-8.2) 07/05/19 12:25 Albumin 4.1 g/dl (3.4-5.0) 07/05/19 12:25 Urine Color Yellow 07/06/19 08:00 Urine Appearance Clear 07/06/19 08:00 Urine pH 5.0 (5.0-8.0) 07/06/19 08:00 Ur Specific [place] 1.016 (1.010-1.035) 07/06/19 08:00 Urine Protein Negative (NEGATIVE) 07/06/19 08:00 Urine Glucose (UA) 2+ (NEGATIVE) H 07/06/19 08:00 Urine Ketones Negative (NEGATIVE) 07/06/19 08:00 Urine Blood Negative (NEGATIVE) 07/06/19 08:00 Urine Nitrite Negative (NEGATIVE) 07/06/19 08:00 Urine Bilirubin Negative (NEGATIVE) 07/06/19 08:00 Urine Urobilinogen 0.2 mg/dL (0.2-1.0) 07/06/19 08:00 Ur Leukocyte Esterase 1+ (NEGATIVE) H 07/06/19 08:00 Urine WBC (Auto) 8 /hpf (0-5) 07/06/19 08:00 Urine RBC (Auto) 0 /hpf (0-4) 07/06/19 08:00 Urine Casts (Auto) 4 /lpf (0-8) 07/06/19 08:00 U Epithel Cells (Auto) 1.9 /HPF (0-5/HPF) 07/06/19 08:00 Urine Bacteria (Auto) 1.4 /hpf (NEGATIVE) 07/06/19 08:00 RPR Titer Nonreactive (NONREACTIVE) 07/05/19 12:25 HIV 1&2 Ag/Ab, 4th Gen Non reactive (Non Reactive) 07/06/19 12:00 HIV 1&2 Antibody Screen Cancelled 07/05/19 12:25 HIV P24 Antigen Cancelled 07/05/19 12:25 Vital Signs (72 hours) 07/12/19 07/12/19 07/12/19 00:22 03:22 06:58 Temperature 99.1 F Pulse Rate 72 Respiratory 18 18 18 Rate Blood Pressure 121/72 07/12/19 07/13/19 07/13/19 08:20 00:23 06:47 Temperature 98.3 F Pulse Rate 87 79 Respiratory 18 18 Rate Blood Pressure 141/82 109/67 07/13/19 07/14/19 07/14/19 08:28 00:25 03:31 Temperature Pulse Rate 97 H Respiratory 18 18 18 Rate Blood Pressure 147/67 07/14/19 07/14/19 07:08 08:12 Temperature 97.7 F Pulse Rate 67 93 H Respiratory 18 18 Rate Blood Pressure 109/74 137/83 P/E: General: no apparent distress HEENTM: normocephalic, PERRLA neck: supple ABD: +BS, obese Extremities: +pulses, Skin: intact Neuro: sensitive to sharp/soft touch. Assessment: DM2, diet controlled. 07/14/19 11:02 Plan: As per patient request, BGM x 3 days ordered. Will continue to monitor.
[2019-07-14] MEDS: DOXEPIN HCL 50 MG PO SCH (21:00)
[2019-07-14] MEDS: THIAMINE HCL 100 MG TABLET (FP) PO SCH (21:00)
[2019-07-14] MEDS: QUETIAPINE FUMARATE 50 MG PO SCH (21:00)
[2019-07-15] MEDS: guaiFENesin 200 MG/10 ML 10 ML UNIT-DOSE CUPS PO PRN ×2 (06:20→14:03)
[2019-07-15] MEDS: CYCLOBENZAPRINE HCL 5 MG TABLET PO PRN ×2 (06:20→14:03)
[2019-07-15] MEDS: P-EPHED 60MG/TRIPROLIDI 2.5MG TABLET PO PRN ×2 (06:21→14:04)
[2019-07-15] MEDS: NICOTINE POLACRILEX 4 MG GUM BUC PRN ×5 (08:44→17:31)
[2019-07-15] MEDS: CHOLECALCIFEROL 2000 UNIT PO SCH (09:24)
[2019-07-15] MEDS: PATIENT'S OWN MEDICATION (NON-FORMULARY) (Losartan Potassium [Cozaar] 100 MG) PO SCH (09:25)
[2019-07-15] MEDS: NICOTINE 21 MG/24 HOURS TOPICAL PATCH TD SCH (09:25)
[2019-07-15] MEDS: PRENATAL VITAMINS W/ FOLIC ACID TABLET (FP) PO SCH (09:25)
[2019-07-15] MEDS ORDERED: metFORMIN HCL 500 MG TABLET (FP) PO ONE (10:00)
[2019-07-15] MEDS: QUETIAPINE FUMARATE 50 MG PO SCH (20:58)
[2019-07-15] MEDS: DOXEPIN HCL 50 MG PO SCH (21:00)
[2019-07-15] MEDS: MELATONIN 5 MG TABLETS PO PRN (21:01)
[2019-07-15] MEDS ORDERED: PT OWN MED DRAWER 7, Y5N ONE (21:06)
[2019-07-15] MEDS: THIAMINE HCL 100 MG TABLET (FP) PO SCH (22:04)
[2019-07-16] MEDS: CYCLOBENZAPRINE HCL 5 MG TABLET PO PRN ×2 (06:12→14:58)
[2019-07-16] MEDS: guaiFENesin 200 MG/10 ML 10 ML UNIT-DOSE CUPS PO PRN ×2 (06:12→14:58)
[2019-07-16] MEDS: metFORMIN HCL 500 MG TABLET (FP) PO SCH (06:12)
[2019-07-16] MEDS: P-EPHED 60MG/TRIPROLIDI 2.5MG TABLET PO PRN ×2 (06:12→14:58)
[2019-07-16] MEDS: NICOTINE POLACRILEX 4 MG GUM BUC PRN ×7 (06:12→19:04)
[2019-07-16] MEDS: INSULIN SLIDING SCALE (NOVOLOG) 1 VIAL SQ SCH (06:14)
[2019-07-16] MEDS ORDERED: INSULIN (NOVOLOG) ASPART 100 UNITS/ML 10ML VIAL ONE (06:41)
[2019-07-16] MEDS: NICOTINE 21 MG/24 HOURS TOPICAL PATCH TD SCH (09:39)
[2019-07-16] MEDS: CHOLECALCIFEROL 2000 UNIT PO SCH (09:39)
[2019-07-16] MEDS: PATIENT'S OWN MEDICATION (NON-FORMULARY) (Losartan Potassium [Cozaar] 100 MG) PO SCH (09:39)
--- NOTE | 2019-07-16 09:54 | PN ---
[facility] Progress Note Note: patient to be discharged on Friday. He has a job lined up in the AM and needs to leave by 7AM. He has already called his pharmacy to ensure that his prescriptions will be ready--he has refills. P/E General: no apparent distress HEENTM: normocephalic, PERRLA Neck: supple Lungs: clear Heart: s1 s2 MSK: full weight bearing, full ROM Neuro: CN 2-12 intact Vital Signs Period Temp Pulse Resp BP Sys/Giron Pulse Ox Last 24 Hr 98.0 F-98.1 F 63-72 18-20 114-123/76-79 A/P: ETOH dependence. Medically stable for discharge at this time; should be re-evaluated on Friday to ensure he remains stable. Patient will arrange with his counselor for transportation Friday AM
[2019-07-16] MEDS: PRENATAL VITAMINS W/ FOLIC ACID TABLET (FP) PO SCH (10:55)
[2019-07-16] MEDS: DOXEPIN HCL 50 MG PO SCH (19:55)
[2019-07-16] MEDS: QUETIAPINE FUMARATE 50 MG PO SCH (19:55)
[2019-07-16] MEDS: THIAMINE HCL 100 MG TABLET (FP) PO SCH (21:33)
[2019-07-17] MEDS: guaiFENesin 200 MG/10 ML 10 ML UNIT-DOSE CUPS PO PRN (06:06)
[2019-07-17] MEDS: CYCLOBENZAPRINE HCL 5 MG TABLET PO PRN (06:06)
[2019-07-17] MEDS: metFORMIN HCL 500 MG TABLET (FP) PO SCH (06:06)
[2019-07-17] MEDS: NICOTINE POLACRILEX 4 MG GUM BUC PRN ×4 (06:07→12:15)
[2019-07-17] MEDS: P-EPHED 60MG/TRIPROLIDI 2.5MG TABLET PO PRN (06:07)
[2019-07-17] MEDS: INSULIN SLIDING SCALE (NOVOLOG) 1 VIAL SQ SCH (06:25)
[2019-07-17 07:26] VITALS: TEMP 97.4
[2019-07-17 09:48] VITALS: BP 118/69; PULSE 76
[2019-07-17] MEDS: CHOLECALCIFEROL 2000 UNIT PO SCH (09:53)
[2019-07-17] MEDS: PATIENT'S OWN MEDICATION (NON-FORMULARY) (Losartan Potassium [Cozaar] 100 MG) PO SCH (09:53)
[2019-07-17] MEDS: PRENATAL VITAMINS W/ FOLIC ACID TABLET (FP) PO SCH (09:53)
[2019-07-17] MEDS: NICOTINE 21 MG/24 HOURS TOPICAL PATCH TD SCH (09:53)
--- NOTE | 2019-07-17 11:08 | DS ---
[facility] Rehab Discharge Summary - [facility] Rehab Discharge Summary Admission Date: 07/05/19 Discharge Date: 07/17/19 - History Present History: Alcohol dependence, Cocaine dependence Pertinent Past History: HTN, DM (diet controlled), Hep C, OA, Depression - Discharge Physical Exam Vital Signs: Vital Signs Temperature 97.4 F L 07/17/19 06:02 Pulse Rate 76 07/17/19 08:16 Respiratory Rate 18 07/17/19 08:16 Blood Pressure 118/69 07/17/19 08:16 O2 Sat by Pulse Oximetry (%) Pertinent Admission Physical Exam Findings: Laboratory Last Values WBC 7.1 K/mm3 (4.0-10.0) 07/05/19 12:25 RBC 5.28 M/mm3 (4.00-5.60) 07/05/19 12:25 Hgb 16.2 GM/dL (11.7-16.9) 07/05/19 12:25 Hct 47.8 % (35.4-49) 07/05/19 12:25 MCV 90.5 fl (80-96) 07/05/19 12:25 MCH 30.6 pg (25.7-33.7) 07/05/19 12:25 MCHC 33.9 g/dl (32.0-35.9) 07/05/19 12:25 RDW 14.1 % (11.9-15.9) 07/05/19 12:25 Plt Count 214 K/MM3 (134-434) D 07/05/19 12:25 MPV 9.9 fl (7.5-11.1) 07/05/19 12:25 Sodium 135 mmol/L (136-145) L 07/05/19 12:25 Potassium 4.2 mmol/L (3.5-5.1) 07/05/19 12:25 Chloride 104 mmol/L (98-107) 07/05/19 12:25 Carbon Dioxide 23 mmol/L (21-32) 07/05/19 12:25 Anion Gap 8 MMOL/L (8-16) 07/05/19 12:25 BUN 11.0 mg/dL (7-18) 07/05/19 12:25 Creatinine 1.0 mg/dL (0.55-1.3) 07/05/19 12:25 Est GFR (CKD-EPI)AfAm 96.40 07/05/19 12:25 Est GFR (CKD-EPI)NonAf 83.18 07/05/19 12:25 POC Glucometer 171 UNITS (80-120) 07/17/19 06:05 Random Glucose 210 mg/dL (74-106) H 07/05/19 12:25 Hemoglobin A1c % 5.8 % (4.2-6.3) 07/06/19 07:45 Calcium 9.3 mg/dL (8.5-10.1) 07/05/19 12:25 Total Bilirubin 0.5 mg/dL (0.2-1) 07/05/19 12:25 AST 29 U/L (15-37) 07/05/19 12:25 ALT 75 U/L (13-61) H 07/05/19 12:25 Alkaline Phosphatase 133 U/L (45-117) H 07/05/19 12:25 Total Protein 7.9 g/dl (6.4-8.2) 07/05/19 12:25 Albumin 4.1 g/dl (3.4-5.0) 07/05/19 12:25 Urine Color Yellow 07/06/19 08:00 Urine Appearance Clear 07/06/19 08:00 Urine pH 5.0 (5.0-8.0) 07/06/19 08:00 Ur Specific [place] 1.016 (1.010-1.035) 07/06/19 08:00 Urine Protein Negative (NEGATIVE) 07/06/19 08:00 Urine Glucose (UA) 2+ (NEGATIVE) H 07/06/19 08:00 Urine Ketones Negative (NEGATIVE) 07/06/19 08:00 Urine Blood Negative (NEGATIVE) 07/06/19 08:00 Urine Nitrite Negative (NEGATIVE) 07/06/19 08:00 Urine Bilirubin Negative (NEGATIVE) 07/06/19 08:00 Urine Urobilinogen 0.2 mg/dL (0.2-1.0) 07/06/19 08:00 Ur Leukocyte Esterase 1+ (NEGATIVE) H 07/06/19 08:00 Urine WBC (Auto) 8 /hpf (0-5) 07/06/19 08:00 Urine RBC (Auto) 0 /hpf (0-4) 07/06/19 08:00 Urine Casts (Auto) 4 /lpf (0-8) 07/06/19 08:00 U Epithel Cells (Auto) 1.9 /HPF (0-5/HPF) 07/06/19 08:00 Urine Bacteria (Auto) 1.4 /hpf (NEGATIVE) 07/06/19 08:00 RPR Titer Nonreactive (NONREACTIVE) 07/05/19 12:25 HIV 1&2 Ag/Ab, 4th Gen Non reactive (Non Reactive) 07/06/19 12:00 HIV 1&2 Antibody Screen Cancelled 07/05/19 12:25 HIV P24 Antigen Cancelled 07/05/19 12:25 - Treatment Discharge Condition: Outpatient referral accepted ([facility]) - Medication Discharge Medications: Ambulatory Orders Doxepin HCl 50 mg PO HS #30 capsule 11/20/17 Quetiapine Fumarate [Seroquel -] 50 mg PO HS 02/07/18 Losartan Potassium [Cozaar] 100 mg PO DAILY 07/05/19 - Medication-Assisted Treatment (MAT) Medication-Assisted Treatment (MAT): No - Discharge Instructions Diet, activity, other medical instructions: Diet: Diabetic diet Activity: No restrictions Other medical instructions: No restrictions - Diagnosis (1) Depression Current Visit: No Status: Acute Qualifiers: Depression Type: other depression Qualified Code(s): F32.89 - Other specified depressive episodes (2) History of hepatitis C Current Visit: No Status: Chronic (3) Cocaine dependence Current Visit: No Status: Chronic Qualifiers: Substance use status: uncomplicated Qualified Code(s): F14.20 - Cocaine dependence, uncomplicated (4) MDD (major depressive disorder) Current Visit: No Status: Ruled-out (5) Osteoarthritis of right knee Current Visit: No Status: Chronic Qualifiers: Osteoarthritis type: primary Qualified Code(s): M17.11 - Unilateral primary osteoarthritis, right knee (6) HTN (hypertension), benign Current Visit: No Status: Chronic (7) DM2 (diabetes mellitus, type 2) Current Visit: No Status: Chronic Qualifiers: 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
== END 2019-07-17 12:20 | disposition home or self-care (01) | DRG 772 ==
LOC: YASAS 10:38 → Y3W 12:07
PROVIDERS: ADMIT Allergy & Immunology; ATTEND Allergy & Immunology
PROC: HZ42ZZZ Group Counseling for Substance Abuse Treatment, Cognitive-Behavioral (ICD-10-PCS; principal; 2019-07-05)
DX: F10.20 Alcohol dependence, uncomplicated (principal); F14.20 Cocaine dependence, uncomplicated; F17.210 Nicotine dependence, cigarettes, uncomplicated; F32.89 Other specified depressive episodes; F19.282 Other psychoactive substance dependence with psychoactive substance-induced sleep disorder; I10 Essential (primary) hypertension; K21.9 Gastro-esophageal reflux disease without esophagitis; M17.11 Unilateral primary osteoarthritis, right knee; N18.2 Chronic kidney disease, stage 2 (mild); E55.9 Vitamin D deficiency, unspecified; Z86.19 Personal history of other infectious and parasitic diseases
CPT/HCPCS: 36415; 80053; 81003; 82962; 83036; 85027; 86593; 87389

== ENCOUNTER 2020-03-28 13:14 | Inpatient (IN) | payer OTHER ==
[2020-03-28 14:34] VITALS: BMI 33.2
[2020-03-28] MEDS ORDERED: MAG HYDROX/AL HYDROX/SIMETH 30 ML UNIT-DOSE CUP PO PRN (16:46)
[2020-03-28] MEDS ORDERED: ACETAMINOPHEN 325 MG TABLET (FP) PO PRN (16:46)
[2020-03-28] MEDS ORDERED: LOPERAMIDE HCL 2 MG CAPSULE PO PRN (16:46)
[2020-03-28] MEDS ORDERED: MAGNESIUM CITRATE 300 ML BOTTLE PO PRN (16:46)
[2020-03-28] MEDS ORDERED: guaiFENesin 200 MG/10 ML 10 ML UNIT-DOSE CUPS PO PRN (16:46)
[2020-03-28] MEDS ORDERED: P-EPHED 60MG/TRIPROLIDI 2.5MG TABLET PO PRN (16:46)
[2020-03-28] MEDS ORDERED: MAGNESIUM HYDROX 2400MG/30ML ORAL SUSPENSION 30 ML CUP PO PRN (16:46)
[2020-03-28] MEDS: hydrOXYzine PAMOATE 25 MG CAPSULE (FP) PO SCH ×2 (18:05→21:32)
[2020-03-28] MEDS: NICOTINE POLACRILEX 2 MG GUM BC PRN ×2 (18:05→21:33)
[2020-03-28] MEDS: MELATONIN 5 MG TABLETS PO SCH (21:32)
[2020-03-28] MEDS: THIAMINE HCL 100 MG TABLET (FP) PO SCH (21:32)
[2020-03-29] MEDS: hydrOXYzine PAMOATE 25 MG CAPSULE (FP) PO SCH ×3 (06:05→14:43)
[2020-03-29] MEDS: NICOTINE POLACRILEX 2 MG GUM BC PRN ×5 (06:05→13:58)
[2020-03-29] MEDS: NICOTINE 21 MG/24 HOURS TOPICAL PATCH TD SCH (10:07)
[2020-03-29] MEDS: LOSARTAN POTASSIUM 50 MG TABLET PO SCH (10:07)
[2020-03-29] MEDS: PRENATAL VITAMINS W/ FOLIC ACID TABLET (FP) PO SCH (10:07)
[2020-03-29 10:49] LABS: PH,URINE 5.5 (5.0-8.0); URINE APPEARANCE CLEAR; URINE BILIRUBIN NEGATIVE (NEGATIVE); URINE COLOR YELLOW; URINE GLUCOSE (UA) NEGATIVE (NEGATIVE); URINE KETONE NEGATIVE (NEGATIVE); URINE LEUK ESTERASE NEGATIVE (NEGATIVE); URINE NITRITE NEGATIVE (NEGATIVE); URINE PROTEIN NEGATIVE (NEGATIVE); URINE UROBILINOGEN 0.2 mg/dL (0.2-1.0)
[2020-03-29 11:00] LABS: HEMATOCRIT 43.5 % (35.4-49); HEMOGLOBIN 14.2 GM/dL (11.7-16.9); MCH 29.2 pg (25.7-33.7); MCHC 32.7 g/dl (32.0-35.9); MEAN CELL VOLUME 89.5 fl (80-96); MEAN PLT VOLUME 9.8 fl (7.5-11.1); PLATELET COUNT 181 K/MM3 (134-434); RBC 4.86 M/mm3 (4.00-5.60); RDW 14.2 % (11.9-15.9); WHITE BLOOD COUNT 5.6 K/mm3 (4.0-10.0)
[2020-03-29 11:28] LABS: ALBUMIN 3.7 g/dl (3.4-5.0); BLOOD UREA NITROGEN 12.4 mg/dL (7-18); CALCIUM 9.2 mg/dL (8.5-10.1)
[2020-03-29 11:32] LABS: CREATININE 1.2 mg/dL (0.55-1.3)
[2020-03-29 11:33] LABS: BILIRUBIN,TOTAL 0.6 mg/dL (0.2-1)
[2020-03-29 13:16] LABS: SICKLE CELL SCREEN NEGATIVE (NEGATIVE)
[2020-03-29] MEDS: NICOTINE POLACRILEX 4 MG GUM BUC PRN ×2 (16:05→21:41)
[2020-03-29] MEDS: MELATONIN 5 MG TABLETS PO SCH (21:39)
[2020-03-29] MEDS: THIAMINE HCL 100 MG TABLET (FP) PO SCH (21:39)
[2020-03-29] MEDS ORDERED: DOXEPIN HCL 50 MG CAPSULE PO SCH (22:00)
[2020-03-29] MEDS ORDERED: QUEtiapine FUMARATE 100 MG TABLET (FP) PO SCH (22:00)
[2020-03-30] MEDS: NICOTINE POLACRILEX 4 MG GUM BUC PRN ×7 (06:02→19:52)
[2020-03-30] MEDS: LOSARTAN POTASSIUM 50 MG TABLET PO SCH (09:32)
[2020-03-30] MEDS: hydrOXYzine PAMOATE 25 MG CAPSULE (FP) PO PRN (09:32)
[2020-03-30] MEDS: PRENATAL VITAMINS W/ FOLIC ACID TABLET (FP) PO SCH (09:32)
[2020-03-30] MEDS: NICOTINE 21 MG/24 HOURS TOPICAL PATCH TD SCH (09:33)
[2020-03-30] MEDS ORDERED: PT OWN MED DRAWER 7, Y5N ONE (10:39)
[2020-03-30] MEDS: DOXEPIN HCL 50 MG CAPSULE PO SCH ×2 (20:45→21:43)
[2020-03-30] MEDS: QUEtiapine FUMARATE 100 MG TABLET (FP) PO SCH ×2 (20:45→21:43)
[2020-03-30] MEDS: MELATONIN 5 MG TABLETS PO SCH (21:03)
[2020-03-30] MEDS: THIAMINE HCL 100 MG TABLET (FP) PO SCH (21:03)
[2020-03-31] MEDS ORDERED: MASKS NR ONE (06:00)
[2020-03-31] MEDS: NICOTINE POLACRILEX 4 MG GUM BUC PRN ×5 (06:00→14:28)
[2020-03-31] MEDS: IBUPROFEN 400 MG TABLET (FP) PO PRN ×2 (06:30→13:02)
[2020-03-31] MEDS ORDERED: PT OWN MED DRAWER 7, Y5N ONE (09:12)
[2020-03-31] MEDS: LOSARTAN POTASSIUM 50 MG TABLET PO SCH (09:37)
[2020-03-31] MEDS: hydrOXYzine PAMOATE 25 MG CAPSULE (FP) PO PRN (09:38)
[2020-03-31] MEDS: PRENATAL VITAMINS W/ FOLIC ACID TABLET (FP) PO SCH (09:38)
[2020-03-31] MEDS: NICOTINE 21 MG/24 HOURS TOPICAL PATCH TD SCH (09:38)
[2020-03-31] MEDS: NICOTINE POLACRILEX 2 MG GUM BUC PRN ×2 (16:37→19:10)
[2020-03-31] MEDS: MELATONIN 5 MG TABLETS PO SCH (21:01)
[2020-03-31] MEDS: QUEtiapine FUMARATE 100 MG TABLET (FP) PO SCH (21:01)
[2020-03-31] MEDS: THIAMINE HCL 100 MG TABLET (FP) PO SCH (21:02)
[2020-03-31] MEDS: DOXEPIN HCL 50 MG CAPSULE PO SCH (21:02)
[2020-04-01] MEDS: NICOTINE POLACRILEX 2 MG GUM BUC PRN ×6 (05:54→19:12)
[2020-04-01] MEDS: IBUPROFEN 400 MG TABLET (FP) PO PRN ×2 (06:49→16:32)
[2020-04-01] MEDS ORDERED: PT OWN MED DRAWER 7, Y5N ONE ×3 (08:55→19:48)
[2020-04-01] MEDS: hydrOXYzine PAMOATE 25 MG CAPSULE (FP) PO PRN (09:27)
[2020-04-01] MEDS: PRENATAL VITAMINS W/ FOLIC ACID TABLET (FP) PO SCH (09:27)
[2020-04-01] MEDS: LOSARTAN POTASSIUM 50 MG TABLET PO SCH (09:27)
[2020-04-01] MEDS: NICOTINE 21 MG/24 HOURS TOPICAL PATCH TD SCH (09:28)
[2020-04-01] MEDS: MELATONIN 5 MG TABLETS PO SCH (21:06)
[2020-04-01] MEDS: QUEtiapine FUMARATE 100 MG TABLET (FP) PO SCH (21:06)
[2020-04-01] MEDS: THIAMINE HCL 100 MG TABLET (FP) PO SCH (21:06)
[2020-04-01] MEDS: DOXEPIN HCL 50 MG CAPSULE PO SCH (21:07)
[2020-04-02] MEDS: IBUPROFEN 400 MG TABLET (FP) PO PRN ×2 (05:59→12:57)
[2020-04-02] MEDS: NICOTINE POLACRILEX 2 MG GUM BUC PRN ×5 (05:59→18:30)
[2020-04-02] MEDS: PRENATAL VITAMINS W/ FOLIC ACID TABLET (FP) PO SCH (09:23)
[2020-04-02] MEDS: LOSARTAN POTASSIUM 50 MG TABLET PO SCH (09:23)
[2020-04-02] MEDS: NICOTINE 21 MG/24 HOURS TOPICAL PATCH TD SCH (09:24)
[2020-04-02] MEDS ORDERED: PT OWN MED DRAWER 7, Y5N ONE (19:22)
[2020-04-02] MEDS: MELATONIN 5 MG TABLETS PO SCH (21:57)
[2020-04-02] MEDS: DOXEPIN HCL 50 MG CAPSULE PO SCH (21:57)
[2020-04-02] MEDS: QUEtiapine FUMARATE 100 MG TABLET (FP) PO SCH (21:57)
[2020-04-02] MEDS: THIAMINE HCL 100 MG TABLET (FP) PO SCH (21:58)
[2020-04-03] MEDS: NICOTINE POLACRILEX 2 MG GUM BUC PRN ×6 (06:05→18:54)
[2020-04-03] MEDS: IBUPROFEN 400 MG TABLET (FP) PO PRN (06:39)
[2020-04-03] MEDS: LOSARTAN POTASSIUM 50 MG TABLET PO SCH (09:31)
[2020-04-03] MEDS: hydrOXYzine PAMOATE 25 MG CAPSULE (FP) PO PRN (09:31)
[2020-04-03] MEDS: NICOTINE 21 MG/24 HOURS TOPICAL PATCH TD SCH (09:31)
[2020-04-03] MEDS: PRENATAL VITAMINS W/ FOLIC ACID TABLET (FP) PO SCH (09:31)
[2020-04-03] MEDS ORDERED: PT OWN MED DRAWER 7, Y5N ONE (19:25)
[2020-04-03] MEDS ORDERED: QUEtiapine FUMARATE 100 MG TABLET (FP) PO SCH (20:00)
[2020-04-03] MEDS ORDERED: DOXEPIN HCL 50 MG CAPSULE PO SCH (20:00)
[2020-04-03] MEDS: QUEtiapine FUMARATE 100 MG TABLET (FP) PO SCH (20:04)
[2020-04-03] MEDS: DOXEPIN HCL 50 MG CAPSULE PO SCH (20:04)
[2020-04-03] MEDS: METHYL SALICYLATE/MENTHOL OINT 30 GM TUBE TP SCH (21:58)
[2020-04-03] MEDS: THIAMINE HCL 100 MG TABLET (FP) PO SCH (21:58)
[2020-04-03] MEDS: MELATONIN 5 MG TABLETS PO SCH (21:58)
[2020-04-04] MEDS: NICOTINE POLACRILEX 2 MG GUM BUC PRN ×7 (05:49→19:46)
[2020-04-04] MEDS: metFORMIN HCL 500 MG TABLET (FP) PO SCH (06:57)
[2020-04-04] MEDS: hydrOXYzine PAMOATE 25 MG CAPSULE (FP) PO PRN (09:53)
[2020-04-04] MEDS: PRENATAL VITAMINS W/ FOLIC ACID TABLET (FP) PO SCH (09:53)
[2020-04-04] MEDS: LOSARTAN POTASSIUM 50 MG TABLET PO SCH (09:54)
[2020-04-04] MEDS: NICOTINE 21 MG/24 HOURS TOPICAL PATCH TD SCH (09:54)
[2020-04-04] MEDS: METHYL SALICYLATE/MENTHOL OINT 30 GM TUBE TP SCH ×2 (09:54→21:00)
[2020-04-04] MEDS: IBUPROFEN 400 MG TABLET (FP) PO PRN (09:55)
[2020-04-04] MEDS ORDERED: PT OWN MED DRAWER 7, Y5N ONE ×2 (18:44→18:45)
[2020-04-04] MEDS ORDERED: DOXEPIN HCL 25 MG CAPSULE PO SCH (20:00)
[2020-04-04] MEDS: QUEtiapine FUMARATE 100 MG TABLET (FP) PO SCH (20:01)
[2020-04-04] MEDS: MELATONIN 5 MG TABLETS PO SCH (21:00)
[2020-04-04] MEDS: THIAMINE HCL 100 MG TABLET (FP) PO SCH (21:00)
[2020-04-04] MEDS: DOXEPIN HCL 50 MG CAPSULE PO SCH (21:01)
[2020-04-05] MEDS: IBUPROFEN 400 MG TABLET (FP) PO PRN (05:49)
[2020-04-05] MEDS: NICOTINE POLACRILEX 2 MG GUM BUC PRN ×7 (05:49→19:01)
[2020-04-05] MEDS: metFORMIN HCL 500 MG TABLET (FP) PO SCH (06:58)
[2020-04-05] MEDS ORDERED: PT OWN MED DRAWER 7, Y5N ONE ×2 (09:00→09:50)
[2020-04-05] MEDS: LOSARTAN POTASSIUM 50 MG TABLET PO SCH (09:48)
[2020-04-05] MEDS: hydrOXYzine PAMOATE 25 MG CAPSULE (FP) PO PRN (09:48)
[2020-04-05] MEDS: PRENATAL VITAMINS W/ FOLIC ACID TABLET (FP) PO SCH (09:48)
[2020-04-05] MEDS: METHYL SALICYLATE/MENTHOL OINT 30 GM TUBE TP SCH ×2 (09:49→21:38)
[2020-04-05] MEDS: NICOTINE 21 MG/24 HOURS TOPICAL PATCH TD SCH (09:50)
[2020-04-05] MEDS ORDERED: DOXEPIN HCL 25 MG CAPSULE PO SCH (20:00)
[2020-04-05] MEDS: QUEtiapine FUMARATE 100 MG TABLET (FP) PO SCH (20:29)
[2020-04-05] MEDS: MELATONIN 5 MG TABLETS PO SCH (21:38)
[2020-04-05] MEDS: DOXEPIN HCL 50 MG CAPSULE PO SCH (21:38)
[2020-04-05] MEDS: THIAMINE HCL 100 MG TABLET (FP) PO SCH (21:39)
[2020-04-06] MEDS: IBUPROFEN 400 MG TABLET (FP) PO PRN (05:52)
[2020-04-06] MEDS: NICOTINE POLACRILEX 2 MG GUM BUC PRN ×6 (05:53→18:58)
[2020-04-06] MEDS: metFORMIN HCL 500 MG TABLET (FP) PO SCH (07:09)
[2020-04-06] MEDS ORDERED: PT OWN MED DRAWER 7, Y5N ONE (08:49)
[2020-04-06] MEDS: LOSARTAN POTASSIUM 50 MG TABLET PO SCH (09:43)
[2020-04-06] MEDS: PRENATAL VITAMINS W/ FOLIC ACID TABLET (FP) PO SCH (09:43)
[2020-04-06] MEDS: hydrOXYzine PAMOATE 25 MG CAPSULE (FP) PO PRN (09:43)
[2020-04-06] MEDS: METHYL SALICYLATE/MENTHOL OINT 30 GM TUBE TP SCH ×2 (09:45→21:05)
[2020-04-06] MEDS: NICOTINE 21 MG/24 HOURS TOPICAL PATCH TD SCH (09:45)
[2020-04-06] MEDS: DOXEPIN HCL 50 MG CAPSULE PO SCH (21:02)
[2020-04-06] MEDS: MELATONIN 5 MG TABLETS PO SCH (21:02)
[2020-04-06] MEDS: QUEtiapine FUMARATE 100 MG TABLET (FP) PO SCH (21:02)
[2020-04-06] MEDS: THIAMINE HCL 100 MG TABLET (FP) PO SCH (21:03)
[2020-04-07] MEDS: metFORMIN HCL 500 MG TABLET (FP) PO SCH (06:05)
[2020-04-07] MEDS: NICOTINE POLACRILEX 2 MG GUM BUC PRN ×6 (08:44→21:27)
[2020-04-07] MEDS: hydrOXYzine PAMOATE 25 MG CAPSULE (FP) PO PRN (09:58)
[2020-04-07] MEDS: LOSARTAN POTASSIUM 50 MG TABLET PO SCH (09:58)
[2020-04-07] MEDS: IBUPROFEN 400 MG TABLET (FP) PO PRN (09:59)
[2020-04-07] MEDS: NICOTINE 21 MG/24 HOURS TOPICAL PATCH TD SCH (10:00)
[2020-04-07] MEDS: METHYL SALICYLATE/MENTHOL OINT 30 GM TUBE TP SCH ×2 (10:00→21:05)
[2020-04-07] MEDS: PRENATAL VITAMINS W/ FOLIC ACID TABLET (FP) PO SCH (10:00)
[2020-04-07] MEDS: DOXEPIN HCL 50 MG CAPSULE PO SCH (20:27)
[2020-04-07] MEDS: THIAMINE HCL 100 MG TABLET (FP) PO SCH (21:05)
[2020-04-07] MEDS: MELATONIN 5 MG TABLETS PO SCH (21:05)
[2020-04-07] MEDS: QUEtiapine FUMARATE 200 MG TABLET PO SCH (21:06)
[2020-04-08] MEDS: metFORMIN HCL 500 MG TABLET (FP) PO SCH (06:03)
[2020-04-08] MEDS: NICOTINE POLACRILEX 2 MG GUM BUC PRN ×6 (06:03→19:57)
[2020-04-08] MEDS: IBUPROFEN 400 MG TABLET (FP) PO PRN (06:04)
[2020-04-08] MEDS: LOSARTAN POTASSIUM 50 MG TABLET PO SCH (09:37)
[2020-04-08] MEDS: PRENATAL VITAMINS W/ FOLIC ACID TABLET (FP) PO SCH (09:37)
[2020-04-08] MEDS: METHYL SALICYLATE/MENTHOL OINT 30 GM TUBE TP SCH ×2 (09:38→21:00)
[2020-04-08] MEDS: NICOTINE 21 MG/24 HOURS TOPICAL PATCH TD SCH (09:38)
[2020-04-08] MEDS: QUEtiapine FUMARATE 200 MG TABLET PO SCH (20:59)
[2020-04-08] MEDS: MELATONIN 5 MG TABLETS PO SCH (20:59)
[2020-04-08] MEDS: DOXEPIN HCL 50 MG CAPSULE PO SCH (21:00)
[2020-04-08] MEDS: THIAMINE HCL 100 MG TABLET (FP) PO SCH (21:00)
[2020-04-09] MEDS: IBUPROFEN 400 MG TABLET (FP) PO PRN (06:25)
[2020-04-09] MEDS: metFORMIN HCL 500 MG TABLET (FP) PO SCH (06:25)
[2020-04-09] MEDS: NICOTINE POLACRILEX 2 MG GUM BUC PRN ×5 (06:25→16:25)
[2020-04-09] MEDS: PRENATAL VITAMINS W/ FOLIC ACID TABLET (FP) PO SCH (09:18)
[2020-04-09] MEDS: METHYL SALICYLATE/MENTHOL OINT 30 GM TUBE TP SCH ×2 (09:18→22:11)
[2020-04-09] MEDS: NICOTINE 21 MG/24 HOURS TOPICAL PATCH TD SCH (09:18)
[2020-04-09] MEDS: LOSARTAN POTASSIUM 50 MG TABLET PO SCH (09:18)
[2020-04-09] MEDS: QUEtiapine FUMARATE 200 MG TABLET PO SCH (19:57)
[2020-04-09] MEDS: DOXEPIN HCL 50 MG CAPSULE PO SCH (19:57)
[2020-04-09] MEDS: MELATONIN 5 MG TABLETS PO SCH (22:12)
[2020-04-09] MEDS: THIAMINE HCL 100 MG TABLET (FP) PO SCH (22:12)
[2020-04-10] MEDS: IBUPROFEN 400 MG TABLET (FP) PO PRN ×2 (06:00→16:29)
[2020-04-10] MEDS: NICOTINE POLACRILEX 2 MG GUM BUC PRN ×6 (06:01→20:00)
[2020-04-10] MEDS: metFORMIN HCL 500 MG TABLET (FP) PO SCH ×3 (06:01→16:29)
[2020-04-10] MEDS: PRENATAL VITAMINS W/ FOLIC ACID TABLET (FP) PO SCH (09:50)
[2020-04-10] MEDS: METHYL SALICYLATE/MENTHOL OINT 30 GM TUBE TP SCH ×2 (09:50→22:01)
[2020-04-10] MEDS: NICOTINE 21 MG/24 HOURS TOPICAL PATCH TD SCH (09:51)
[2020-04-10] MEDS: LOSARTAN POTASSIUM 50 MG TABLET PO SCH (09:51)
[2020-04-10] MEDS ORDERED: PT OWN MED DRAWER 7, Y5N ONE ×2 (15:12→19:55)
[2020-04-10] MEDS: QUEtiapine FUMARATE 200 MG TABLET PO SCH (19:56)
[2020-04-10] MEDS: DOXEPIN HCL 50 MG CAPSULE PO SCH (19:58)
[2020-04-10] MEDS: THIAMINE HCL 100 MG TABLET (FP) PO SCH (22:01)
[2020-04-10] MEDS: MELATONIN 5 MG TABLETS PO SCH (22:01)
[2020-04-11] MEDS: IBUPROFEN 400 MG TABLET (FP) PO PRN (05:52)
[2020-04-11] MEDS: NICOTINE POLACRILEX 2 MG GUM BUC PRN ×6 (05:52→17:16)
[2020-04-11] MEDS: metFORMIN HCL 500 MG TABLET (FP) PO SCH ×2 (06:52→17:16)
[2020-04-11] MEDS: NICOTINE 21 MG/24 HOURS TOPICAL PATCH TD SCH (10:24)
[2020-04-11] MEDS: LOSARTAN POTASSIUM 50 MG TABLET PO SCH (10:24)
[2020-04-11] MEDS: PRENATAL VITAMINS W/ FOLIC ACID TABLET (FP) PO SCH (10:24)
[2020-04-11] MEDS: METHYL SALICYLATE/MENTHOL OINT 30 GM TUBE TP SCH ×2 (11:15→22:07)
[2020-04-11] MEDS ORDERED: PT OWN MED DRAWER 7, Y5N ONE (18:56)
[2020-04-11] MEDS: QUEtiapine FUMARATE 200 MG TABLET PO SCH (20:06)
[2020-04-11] MEDS: DOXEPIN HCL 50 MG CAPSULE PO SCH (20:06)
[2020-04-11] MEDS: THIAMINE HCL 100 MG TABLET (FP) PO SCH (21:01)
[2020-04-11] MEDS: MELATONIN 5 MG TABLETS PO SCH (21:01)
[2020-04-12] MEDS: NICOTINE POLACRILEX 2 MG GUM BUC PRN (05:59)
[2020-04-12] MEDS: IBUPROFEN 400 MG TABLET (FP) PO PRN (05:59)
[2020-04-12] MEDS: metFORMIN HCL 500 MG TABLET (FP) PO SCH (06:59)
[2020-04-12 09:10] VITALS: BP 119/70; PULSE 64; TEMP 97.3
[2020-04-12] MEDS ORDERED: PT OWN MED DRAWER 7, Y5N ONE (09:12)
[2020-04-12] MEDS: PRENATAL VITAMINS W/ FOLIC ACID TABLET (FP) PO SCH (09:29)
[2020-04-12] MEDS: LOSARTAN POTASSIUM 50 MG TABLET PO SCH (09:30)
[2020-04-12] MEDS: METHYL SALICYLATE/MENTHOL OINT 30 GM TUBE TP SCH (09:32)
== END 2020-04-12 09:38 | disposition home or self-care (01) | DRG 772 ==
LOC: YASAS 13:14 → Y3W 17:05
PROVIDERS: ADMIT Allergy & Immunology; ATTEND Allergy & Immunology
PROC: HZ42ZZZ Group Counseling for Substance Abuse Treatment, Cognitive-Behavioral (ICD-10-PCS; principal; 2020-03-28)
DX: F10.20 Alcohol dependence, uncomplicated (principal); F14.20 Cocaine dependence, uncomplicated; F12.20 Cannabis dependence, uncomplicated; F17.210 Nicotine dependence, cigarettes, uncomplicated; F19.282 Other psychoactive substance dependence with psychoactive substance-induced sleep disorder; F32.9 Major depressive disorder, single episode, unspecified; I10 Essential (primary) hypertension; E11.65 Type 2 diabetes mellitus with hyperglycemia; Z79.84 Long term (current) use of oral hypoglycemic drugs; M17.11 Unilateral primary osteoarthritis, right knee; Z91.018 Allergy to other foods
CPT/HCPCS: 36415; 80053; 81003; 82962; 83036; 85027; 85660; 86593; 86780; C9803; U0003

== ENCOUNTER 2020-06-25 17:03 | Inpatient (IN) | payer OTHER ==
[2020-06-25] MEDS ORDERED: MAG HYDROX/AL HYDROX/SIMETH 30 ML UNIT-DOSE CUP PO PRN (18:36)
[2020-06-25] MEDS ORDERED: MAGNESIUM HYDROX 2400MG/30ML ORAL SUSPENSION 30 ML CUP PO PRN (18:36)
[2020-06-25] MEDS ORDERED: MENTHOL/PHENOL 1 EACH UD MM PRN (18:36)
[2020-06-25] MEDS ORDERED: BISMUTH SUBSALICYLATE 524 MG/30 ML UD PO PRN (18:36)
[2020-06-25] MEDS ORDERED: LORazepam 1 MG TABLET PO PRN (18:36)
[2020-06-25] MEDS ORDERED: METHOCARBAMOL 500 MG TABLET PO PRN (18:36)
[2020-06-25] MEDS ORDERED: ONDANSETRON *ODT* 4 MG TABLET SL PRN (18:36)
[2020-06-25] MEDS ORDERED: ACETAMINOPHEN 325 MG TABLET (FP) PO PRN ×2 (18:36)
[2020-06-25] MEDS ORDERED: MAGNESIUM CITRATE 300 ML BOTTLE PO PRN (18:36)
[2020-06-25 18:41] VITALS: BMI 30.9
[2020-06-25] MEDS: NICOTINE 21 MG/24 HOURS TOPICAL PATCH TD SCH (20:27)
[2020-06-25] MEDS: NICOTINE POLACRILEX 2 MG GUM BUC PRN (20:31)
[2020-06-25] MEDS: hydrOXYzine PAMOATE 25 MG CAPSULE (FP) PO SCH (22:08)
[2020-06-25] MEDS: MELATONIN 5 MG TABLETS PO SCH (22:08)
[2020-06-25] MEDS: THIAMINE HCL 100 MG TABLET (FP) PO SCH (22:08)
[2020-06-25] MEDS: LORazepam 2 MG TABLET PO SCH (22:08)
[2020-06-26] MEDS: LORazepam 2 MG TABLET PO SCH ×4 (05:44→23:38)
[2020-06-26] MEDS: hydrOXYzine PAMOATE 25 MG CAPSULE (FP) PO SCH ×5 (05:44→23:39)
[2020-06-26] MEDS: NICOTINE POLACRILEX 2 MG GUM BUC PRN ×4 (05:46→20:03)
[2020-06-26] MEDS: NICOTINE 21 MG/24 HOURS TOPICAL PATCH TD SCH (10:12)
[2020-06-26] MEDS: PRENATAL VITAMINS W/ FOLIC ACID TABLET (FP) PO SCH (10:12)
[2020-06-26 10:52] LABS: HEMATOCRIT 42.8 % (35.4-49); HEMOGLOBIN 14.3 GM/dL (11.7-16.9); MCH 30.1 pg (25.7-33.7); MCHC 33.3 g/dl (32.0-35.9); MEAN CELL VOLUME 90.4 fl (80-96); MEAN PLT VOLUME 9.8 fl (7.5-11.1); PLATELET COUNT 199 K/MM3 (134-434); RBC 4.74 M/mm3 (4.00-5.60); RDW 14.9 % (11.9-15.9); WHITE BLOOD COUNT 6.3 K/mm3 (4.0-10.0)
[2020-06-26 10:53] LABS: POTASSIUM 3.8 mmol/L (3.5-5.1)
[2020-06-26 10:58] LABS: CALCIUM 8.9 mg/dL (8.5-10.1)
[2020-06-26 10:59] LABS: ALBUMIN 3.9 g/dl (3.4-5.0); BLOOD UREA NITROGEN 13.4 mg/dL (7-18)
[2020-06-26 11:02] LABS: CREATININE 1.1 mg/dL (0.55-1.3)
[2020-06-26 11:03] LABS: BILIRUBIN,TOTAL 0.9 mg/dL (0.2-1)
[2020-06-26 11:04] LABS: TOT PROT 7.3 g/dl (6.4-8.2)
[2020-06-26] MEDS: LOSARTAN POTASSIUM 50 MG TABLET PO SCH (12:14)
[2020-06-26] MEDS: QUEtiapine FUMARATE 100 MG TABLET (FP) PO SCH (20:01)
[2020-06-26] MEDS ORDERED: DOXEPIN HCL 50 MG CAPSULE PO SCH (22:00)
[2020-06-26] MEDS ORDERED: QUEtiapine FUMARATE 100 MG TABLET (FP) PO SCH ×2 (22:00)
[2020-06-26] MEDS: DOXEPIN HCL 50 MG CAPSULE PO SCH (22:10)
[2020-06-26] MEDS: MELATONIN 5 MG TABLETS PO SCH (23:38)
[2020-06-26] MEDS: THIAMINE HCL 100 MG TABLET (FP) PO SCH (23:39)
[2020-06-27] MEDS: hydrOXYzine PAMOATE 25 MG CAPSULE (FP) PO SCH ×5 (05:12→23:01)
[2020-06-27] MEDS: LORazepam 1 MG TABLET PO SCH ×4 (05:12→23:02)
[2020-06-27] MEDS: NICOTINE POLACRILEX 2 MG GUM BUC PRN ×6 (05:14→20:04)
[2020-06-27] MEDS: PRENATAL VITAMINS W/ FOLIC ACID TABLET (FP) PO SCH (10:23)
[2020-06-27] MEDS: NICOTINE 21 MG/24 HOURS TOPICAL PATCH TD SCH (10:24)
[2020-06-27] MEDS: LOSARTAN POTASSIUM 50 MG TABLET PO SCH (10:24)
[2020-06-27] MEDS ORDERED: MASKS NR ONE (10:27)
[2020-06-27] MEDS: QUEtiapine FUMARATE 100 MG TABLET (FP) PO SCH (20:00)
[2020-06-27] MEDS: DOXEPIN HCL 50 MG CAPSULE PO SCH (20:01)
[2020-06-27] MEDS: MELATONIN 5 MG TABLETS PO SCH (23:01)
[2020-06-27] MEDS: THIAMINE HCL 100 MG TABLET (FP) PO SCH (23:02)
[2020-06-28] MEDS ORDERED: LORazepam 0.5 MG TABLET PO PRN
[2020-06-28] MEDS: NICOTINE POLACRILEX 2 MG GUM BUC PRN ×2 (05:10→07:14)
[2020-06-28] MEDS: LORazepam 0.5 MG TABLET PO SCH ×4 (05:11→23:07)
[2020-06-28] MEDS: hydrOXYzine PAMOATE 25 MG CAPSULE (FP) PO SCH ×5 (05:11→23:07)
[2020-06-28] MEDS: IBUPROFEN 400 MG TABLET (FP) PO PRN (06:10)
[2020-06-28] MEDS: LOSARTAN POTASSIUM 50 MG TABLET PO SCH (10:03)
[2020-06-28] MEDS: PRENATAL VITAMINS W/ FOLIC ACID TABLET (FP) PO SCH (10:04)
[2020-06-28] MEDS: NICOTINE 21 MG/24 HOURS TOPICAL PATCH TD SCH (10:04)
[2020-06-28] MEDS: NICOTINE POLACRILEX 4 MG GUM BUC PRN ×4 (10:09→20:38)
[2020-06-28] MEDS ORDERED: DOXEPIN HCL 25 MG CAPSULE PO SCH (20:00)
[2020-06-28] MEDS: QUEtiapine FUMARATE 100 MG TABLET (FP) PO SCH (20:36)
[2020-06-28] MEDS: MELATONIN 5 MG TABLETS PO SCH (23:07)
[2020-06-28] MEDS: THIAMINE HCL 100 MG TABLET (FP) PO SCH (23:08)
[2020-06-29] MEDS ORDERED: LORazepam 0.5 MG TABLET PO ONE (05:00)
[2020-06-29] MEDS: hydrOXYzine PAMOATE 25 MG CAPSULE (FP) PO SCH ×2 (05:22→09:23)
[2020-06-29] MEDS: IBUPROFEN 400 MG TABLET (FP) PO PRN (05:22)
[2020-06-29] MEDS: NICOTINE POLACRILEX 4 MG GUM BUC PRN ×3 (05:27→11:24)
[2020-06-29] MEDS: LOSARTAN POTASSIUM 50 MG TABLET PO SCH (09:23)
[2020-06-29] MEDS: NICOTINE 21 MG/24 HOURS TOPICAL PATCH TD SCH (09:23)
[2020-06-29] MEDS: PRENATAL VITAMINS W/ FOLIC ACID TABLET (FP) PO SCH (09:23)
[2020-06-29 09:42] VITALS: BP 117/70; PULSE 71; TEMP 96.6
== END 2020-06-29 12:15 | disposition other institution (70) | DRG 774 ==
LOC: YASAS 17:03 → Y6N 19:00 → Y3N 06-28 13:13
PROVIDERS: ADMIT Allergy & Immunology; ATTEND Allergy & Immunology
PROC: HZ2ZZZZ Detoxification Services for Substance Abuse Treatment (ICD-10-PCS; principal; 2020-06-25)
DX: F10.230 Alcohol dependence with withdrawal, uncomplicated (principal); F14.20 Cocaine dependence, uncomplicated; F12.20 Cannabis dependence, uncomplicated; F17.213 Nicotine dependence, cigarettes, with withdrawal; F19.282 Other psychoactive substance dependence with psychoactive substance-induced sleep disorder; F19.280 Other psychoactive substance dependence with psychoactive substance-induced anxiety disorder; F32.9 Major depressive disorder, single episode, unspecified; I10 Essential (primary) hypertension; E11.9 Type 2 diabetes mellitus without complications; M17.11 Unilateral primary osteoarthritis, right knee; B18.2 Chronic viral hepatitis C; Z86.19 Personal history of other infectious and parasitic diseases
CPT/HCPCS: 36415; 80053; 82962; 85027; 86593; 86780; C9803; U0003

== ENCOUNTER 2020-06-29 12:27 | Inpatient (IN) | payer OTHER ==
[2020-06-29] MEDS ORDERED: P-EPHED 60MG/TRIPROLIDI 2.5MG TABLET PO PRN (14:33)
[2020-06-29] MEDS ORDERED: MAGNESIUM CITRATE 300 ML BOTTLE PO PRN (14:33)
[2020-06-29] MEDS ORDERED: LOPERAMIDE HCL 2 MG CAPSULE PO PRN (14:33)
[2020-06-29] MEDS ORDERED: ACETAMINOPHEN 325 MG TABLET (FP) PO PRN (14:33)
[2020-06-29] MEDS ORDERED: MENTHOL/PHENOL 1 EACH UD MM PRN (14:33)
[2020-06-29] MEDS ORDERED: MAGNESIUM HYDROX 2400MG/30ML ORAL SUSPENSION 30 ML CUP PO PRN (14:33)
[2020-06-29] MEDS ORDERED: guaiFENesin 200 MG/10 ML 10 ML UNIT-DOSE CUPS PO PRN (14:33)
[2020-06-29] MEDS ORDERED: MAG HYDROX/AL HYDROX/SIMETH 30 ML UNIT-DOSE CUP PO PRN (14:33)
[2020-06-29] MEDS: MELATONIN 5 MG TABLETS PO SCH (21:12)
[2020-06-29] MEDS: THIAMINE HCL 100 MG TABLET (FP) PO SCH (21:12)
[2020-06-29] MEDS: DOXEPIN HCL 25 MG CAPSULE PO SCH (21:12)
[2020-06-29] MEDS: QUEtiapine FUMARATE 200 MG TABLET PO SCH (21:12)
[2020-06-29] MEDS: NICOTINE POLACRILEX 4 MG GUM BUC PRN (21:13)
[2020-06-29] MEDS ORDERED: QUEtiapine FUMARATE 25 MG TABLET PO SCH (22:00)
[2020-06-29] MEDS ORDERED: DOXEPIN HCL 50 MG CAPSULE PO SCH (22:00)
[2020-06-29] MEDS ORDERED: QUEtiapine FUMARATE 100 MG TABLET (FP) PO SCH (22:00)
[2020-06-30] MEDS: IBUPROFEN 400 MG TABLET (FP) PO PRN ×2 (06:08→14:07)
[2020-06-30] MEDS: NICOTINE POLACRILEX 4 MG GUM BUC PRN ×3 (06:09→10:43)
[2020-06-30] MEDS: PRENATAL VITAMINS W/ FOLIC ACID TABLET (FP) PO SCH (10:25)
[2020-06-30] MEDS: LOSARTAN POTASSIUM 50 MG TABLET PO SCH (10:25)
[2020-06-30] MEDS: NICOTINE POLACRILEX 2 MG GUM BUC PRN ×4 (14:06→21:44)
[2020-06-30] MEDS: MELATONIN 5 MG TABLETS PO SCH (21:43)
[2020-06-30] MEDS: QUEtiapine FUMARATE 200 MG TABLET PO SCH (21:43)
[2020-06-30] MEDS: THIAMINE HCL 100 MG TABLET (FP) PO SCH (21:43)
[2020-06-30] MEDS: DOXEPIN HCL 25 MG CAPSULE PO SCH (21:44)
[2020-07-01] MEDS: IBUPROFEN 400 MG TABLET (FP) PO PRN ×2 (06:19→13:28)
[2020-07-01] MEDS: NICOTINE POLACRILEX 2 MG GUM BUC PRN ×7 (06:20→19:57)
[2020-07-01] MEDS: PRENATAL VITAMINS W/ FOLIC ACID TABLET (FP) PO SCH (09:50)
[2020-07-01] MEDS: LOSARTAN POTASSIUM 50 MG TABLET PO SCH (09:51)
[2020-07-01] MEDS: hydrOXYzine PAMOATE 25 MG CAPSULE (FP) PO PRN ×2 (13:29→21:19)
[2020-07-01] MEDS: DOXEPIN HCL 25 MG CAPSULE PO SCH (21:18)
[2020-07-01] MEDS: THIAMINE HCL 100 MG TABLET (FP) PO SCH (21:18)
[2020-07-01] MEDS: QUEtiapine FUMARATE 200 MG TABLET PO SCH (21:18)
[2020-07-01] MEDS: MELATONIN 5 MG TABLETS PO SCH (21:19)
[2020-07-02] MEDS: IBUPROFEN 400 MG TABLET (FP) PO PRN (06:26)
[2020-07-02] MEDS: NICOTINE POLACRILEX 2 MG GUM BUC PRN ×7 (06:27→20:22)
[2020-07-02] MEDS: PRENATAL VITAMINS W/ FOLIC ACID TABLET (FP) PO SCH (09:46)
[2020-07-02] MEDS: LOSARTAN POTASSIUM 50 MG TABLET PO SCH (09:47)
[2020-07-02] MEDS: hydrOXYzine PAMOATE 25 MG CAPSULE (FP) PO PRN ×2 (09:47→21:11)
[2020-07-02] MEDS: THIAMINE HCL 100 MG TABLET (FP) PO SCH (21:11)
[2020-07-02] MEDS: MELATONIN 5 MG TABLETS PO SCH (21:11)
[2020-07-02] MEDS: QUEtiapine FUMARATE 200 MG TABLET PO SCH (21:11)
[2020-07-02] MEDS: DOXEPIN HCL 25 MG CAPSULE PO SCH (21:12)
[2020-07-03] MEDS: IBUPROFEN 400 MG TABLET (FP) PO PRN (06:05)
[2020-07-03] MEDS: NICOTINE POLACRILEX 2 MG GUM BUC PRN ×6 (06:06→21:29)
[2020-07-03] MEDS: PRENATAL VITAMINS W/ FOLIC ACID TABLET (FP) PO SCH (10:09)
[2020-07-03] MEDS: LOSARTAN POTASSIUM 50 MG TABLET PO SCH (10:09)
[2020-07-03] MEDS: DOXEPIN HCL 25 MG CAPSULE PO SCH (21:26)
[2020-07-03] MEDS: hydrOXYzine PAMOATE 25 MG CAPSULE (FP) PO PRN (21:26)
[2020-07-03] MEDS: QUEtiapine FUMARATE 200 MG TABLET PO SCH (21:26)
[2020-07-03] MEDS: MELATONIN 5 MG TABLETS PO SCH (21:27)
[2020-07-03] MEDS: THIAMINE HCL 100 MG TABLET (FP) PO SCH (21:41)
[2020-07-04] MEDS: IBUPROFEN 400 MG TABLET (FP) PO PRN (05:56)
[2020-07-04] MEDS: NICOTINE POLACRILEX 2 MG GUM BUC PRN ×7 (05:57→19:35)
[2020-07-04] MEDS: LOSARTAN POTASSIUM 50 MG TABLET PO SCH (11:10)
[2020-07-04] MEDS: PRENATAL VITAMINS W/ FOLIC ACID TABLET (FP) PO SCH (11:10)
[2020-07-04] MEDS: THIAMINE HCL 100 MG TABLET (FP) PO SCH (21:09)
[2020-07-04] MEDS: DOXEPIN HCL 25 MG CAPSULE PO SCH (21:09)
[2020-07-04] MEDS: MELATONIN 5 MG TABLETS PO SCH (21:09)
[2020-07-04] MEDS: QUEtiapine FUMARATE 200 MG TABLET PO SCH (21:09)
[2020-07-05] MEDS: NICOTINE POLACRILEX 2 MG GUM BUC PRN ×6 (06:01→17:59)
[2020-07-05] MEDS: IBUPROFEN 400 MG TABLET (FP) PO PRN (06:01)
[2020-07-05] MEDS: LOSARTAN POTASSIUM 50 MG TABLET PO SCH (10:16)
[2020-07-05] MEDS: hydrOXYzine PAMOATE 25 MG CAPSULE (FP) PO PRN ×2 (10:17→21:51)
[2020-07-05] MEDS: PRENATAL VITAMINS W/ FOLIC ACID TABLET (FP) PO SCH (10:17)
[2020-07-05] MEDS: MELATONIN 5 MG TABLETS PO SCH (21:51)
[2020-07-05] MEDS: DOXEPIN HCL 25 MG CAPSULE PO SCH (21:51)
[2020-07-05] MEDS: THIAMINE HCL 100 MG TABLET (FP) PO SCH (21:51)
[2020-07-05] MEDS: QUEtiapine FUMARATE 200 MG TABLET PO SCH (21:51)
[2020-07-06] MEDS: IBUPROFEN 400 MG TABLET (FP) PO PRN (06:02)
[2020-07-06] MEDS: NICOTINE POLACRILEX 2 MG GUM BUC PRN ×7 (06:03→19:42)
[2020-07-06] MEDS ORDERED: MASKS NR ONE (06:06)
[2020-07-06] MEDS: LOSARTAN POTASSIUM 50 MG TABLET PO SCH (10:04)
[2020-07-06] MEDS: PRENATAL VITAMINS W/ FOLIC ACID TABLET (FP) PO SCH (10:04)
[2020-07-06] MEDS ORDERED: PT OWN MED DRAWER 7, Y5N ONE (10:31)
[2020-07-06] MEDS: QUEtiapine FUMARATE 200 MG TABLET PO SCH (21:04)
[2020-07-06] MEDS: THIAMINE HCL 100 MG TABLET (FP) PO SCH (21:04)
[2020-07-06] MEDS: DOXEPIN HCL 25 MG CAPSULE PO SCH (21:04)
[2020-07-06] MEDS: MELATONIN 5 MG TABLETS PO SCH (21:04)
[2020-07-07] MEDS: IBUPROFEN 400 MG TABLET (FP) PO PRN (06:16)
[2020-07-07] MEDS: NICOTINE POLACRILEX 2 MG GUM BUC PRN ×7 (06:18→21:40)
[2020-07-07] MEDS: LOSARTAN POTASSIUM 50 MG TABLET PO SCH (10:28)
[2020-07-07] MEDS: PRENATAL VITAMINS W/ FOLIC ACID TABLET (FP) PO SCH (10:28)
[2020-07-07] MEDS ORDERED: PT OWN MED DRAWER 7, Y5N ONE (20:31)
[2020-07-07] MEDS: THIAMINE HCL 100 MG TABLET (FP) PO SCH (21:40)
[2020-07-07] MEDS: DOXEPIN HCL 25 MG CAPSULE PO SCH (21:40)
[2020-07-07] MEDS: MELATONIN 5 MG TABLETS PO SCH (21:40)
[2020-07-07] MEDS: QUEtiapine FUMARATE 200 MG TABLET PO SCH (21:40)
[2020-07-08] MEDS: IBUPROFEN 400 MG TABLET (FP) PO PRN (06:00)
[2020-07-08] MEDS: NICOTINE POLACRILEX 2 MG GUM BUC PRN ×6 (06:01→20:01)
[2020-07-08] MEDS: PRENATAL VITAMINS W/ FOLIC ACID TABLET (FP) PO SCH (10:02)
[2020-07-08] MEDS: LOSARTAN POTASSIUM 50 MG TABLET PO SCH (10:02)
[2020-07-08] MEDS: QUEtiapine FUMARATE 200 MG TABLET PO SCH (22:01)
[2020-07-08] MEDS: DOXEPIN HCL 25 MG CAPSULE PO SCH (22:01)
[2020-07-08] MEDS: MELATONIN 5 MG TABLETS PO SCH (22:01)
[2020-07-08] MEDS: THIAMINE HCL 100 MG TABLET (FP) PO SCH (22:02)
[2020-07-09] MEDS: IBUPROFEN 400 MG TABLET (FP) PO PRN (06:04)
[2020-07-09] MEDS: NICOTINE POLACRILEX 2 MG GUM BUC PRN ×5 (06:05→15:50)
[2020-07-09] MEDS: PRENATAL VITAMINS W/ FOLIC ACID TABLET (FP) PO SCH (10:02)
[2020-07-09] MEDS: LOSARTAN POTASSIUM 50 MG TABLET PO SCH (10:02)
[2020-07-09] MEDS: THIAMINE HCL 100 MG TABLET (FP) PO SCH (21:51)
[2020-07-09] MEDS: MELATONIN 5 MG TABLETS PO SCH (21:51)
[2020-07-09] MEDS: QUEtiapine FUMARATE 200 MG TABLET PO SCH (21:51)
[2020-07-09] MEDS: DOXEPIN HCL 25 MG CAPSULE PO SCH (21:52)
[2020-07-10] MEDS: NICOTINE POLACRILEX 2 MG GUM BUC PRN ×6 (06:20→21:19)
[2020-07-10] MEDS: IBUPROFEN 400 MG TABLET (FP) PO PRN (06:25)
[2020-07-10] MEDS: PRENATAL VITAMINS W/ FOLIC ACID TABLET (FP) PO SCH (10:24)
[2020-07-10] MEDS: LOSARTAN POTASSIUM 50 MG TABLET PO SCH (10:24)
[2020-07-10] MEDS ORDERED: MASKS NR ONE (18:19)
[2020-07-10] MEDS: hydrOXYzine PAMOATE 25 MG CAPSULE (FP) PO PRN (21:18)
[2020-07-10] MEDS: DOXEPIN HCL 25 MG CAPSULE PO SCH (21:18)
[2020-07-10] MEDS: MELATONIN 5 MG TABLETS PO SCH (21:18)
[2020-07-10] MEDS: QUEtiapine FUMARATE 200 MG TABLET PO SCH (21:18)
[2020-07-10] MEDS: THIAMINE HCL 100 MG TABLET (FP) PO SCH (21:18)
[2020-07-11] MEDS: IBUPROFEN 400 MG TABLET (FP) PO PRN (06:02)
[2020-07-11] MEDS: NICOTINE POLACRILEX 2 MG GUM BUC PRN ×5 (06:03→21:43)
[2020-07-11] MEDS: PRENATAL VITAMINS W/ FOLIC ACID TABLET (FP) PO SCH (10:08)
[2020-07-11] MEDS: LOSARTAN POTASSIUM 50 MG TABLET PO SCH (10:08)
[2020-07-11] MEDS: QUEtiapine FUMARATE 200 MG TABLET PO SCH (21:41)
[2020-07-11] MEDS: THIAMINE HCL 100 MG TABLET (FP) PO SCH (21:41)
[2020-07-11] MEDS: MELATONIN 5 MG TABLETS PO SCH (21:42)
[2020-07-11] MEDS: DOXEPIN HCL 25 MG CAPSULE PO SCH (21:42)
[2020-07-12] MEDS: IBUPROFEN 400 MG TABLET (FP) PO PRN (06:03)
[2020-07-12] MEDS: NICOTINE POLACRILEX 2 MG GUM BUC PRN ×5 (06:04→18:06)
[2020-07-12] MEDS: LOSARTAN POTASSIUM 50 MG TABLET PO SCH (10:08)
[2020-07-12] MEDS: PRENATAL VITAMINS W/ FOLIC ACID TABLET (FP) PO SCH (10:08)
[2020-07-12] MEDS: DOXEPIN HCL 25 MG CAPSULE PO SCH (21:15)
[2020-07-12] MEDS: MELATONIN 5 MG TABLETS PO SCH (21:16)
[2020-07-12] MEDS: THIAMINE HCL 100 MG TABLET (FP) PO SCH (21:16)
[2020-07-12] MEDS: QUEtiapine FUMARATE 200 MG TABLET PO SCH (21:16)
[2020-07-12] MEDS: hydrOXYzine PAMOATE 25 MG CAPSULE (FP) PO PRN (21:17)
[2020-07-13] MEDS: IBUPROFEN 400 MG TABLET (FP) PO PRN ×2 (06:08→15:29)
[2020-07-13] MEDS: NICOTINE POLACRILEX 2 MG GUM BUC PRN ×6 (06:09→21:11)
[2020-07-13] MEDS: PRENATAL VITAMINS W/ FOLIC ACID TABLET (FP) PO SCH (10:07)
[2020-07-13] MEDS: LOSARTAN POTASSIUM 50 MG TABLET PO SCH ×2 (10:07→12:28)
[2020-07-13] MEDS: QUEtiapine FUMARATE 200 MG TABLET PO SCH (21:10)
[2020-07-13] MEDS: THIAMINE HCL 100 MG TABLET (FP) PO SCH (21:10)
[2020-07-13] MEDS: hydrOXYzine PAMOATE 25 MG CAPSULE (FP) PO PRN (21:10)
[2020-07-13] MEDS: DOXEPIN HCL 25 MG CAPSULE PO SCH (21:10)
[2020-07-13] MEDS: MELATONIN 5 MG TABLETS PO SCH (21:11)
[2020-07-14] MEDS: NICOTINE POLACRILEX 2 MG GUM BUC PRN ×6 (06:02→21:29)
[2020-07-14] MEDS: IBUPROFEN 400 MG TABLET (FP) PO PRN (06:02)
[2020-07-14] MEDS: LOSARTAN POTASSIUM 50 MG TABLET PO SCH (09:47)
[2020-07-14] MEDS: PRENATAL VITAMINS W/ FOLIC ACID TABLET (FP) PO SCH (09:47)
[2020-07-14] MEDS ORDERED: COLLOIDAL OATMEAL 1 BAR EACH TP PRN (13:40)
[2020-07-14] MEDS: METHYL SALICYLATE/MENTHOL OINT 30 GM TUBE TP SCH ×2 (14:29→21:29)
[2020-07-14] MEDS ORDERED: PT OWN MED DRAWER 7, Y5N ONE (20:34)
[2020-07-14] MEDS: QUEtiapine FUMARATE 200 MG TABLET PO SCH (21:28)
[2020-07-14] MEDS: DOXEPIN HCL 25 MG CAPSULE PO SCH (21:28)
[2020-07-14] MEDS: MELATONIN 5 MG TABLETS PO SCH (21:28)
[2020-07-14] MEDS: THIAMINE HCL 100 MG TABLET (FP) PO SCH (21:28)
[2020-07-15] MEDS: IBUPROFEN 400 MG TABLET (FP) PO PRN (06:09)
[2020-07-15] MEDS: NICOTINE POLACRILEX 2 MG GUM BUC PRN ×6 (06:11→21:14)
[2020-07-15] MEDS: PRENATAL VITAMINS W/ FOLIC ACID TABLET (FP) PO SCH (09:56)
[2020-07-15] MEDS: LOSARTAN POTASSIUM 50 MG TABLET PO SCH (09:56)
[2020-07-15] MEDS: METHYL SALICYLATE/MENTHOL OINT 30 GM TUBE TP SCH ×2 (09:57→21:22)
[2020-07-15] MEDS: QUEtiapine FUMARATE 200 MG TABLET PO SCH (21:13)
[2020-07-15] MEDS: DOXEPIN HCL 25 MG CAPSULE PO SCH (21:13)
[2020-07-15] MEDS: THIAMINE HCL 100 MG TABLET (FP) PO SCH (21:13)
[2020-07-15] MEDS: MELATONIN 5 MG TABLETS PO SCH (21:14)
[2020-07-15] MEDS: hydrOXYzine PAMOATE 25 MG CAPSULE (FP) PO PRN (21:14)
[2020-07-16] MEDS: IBUPROFEN 400 MG TABLET (FP) PO PRN (06:11)
[2020-07-16] MEDS: NICOTINE POLACRILEX 2 MG GUM BUC PRN ×3 (08:26→16:58)
[2020-07-16] MEDS: LOSARTAN POTASSIUM 50 MG TABLET PO SCH (09:35)
[2020-07-16] MEDS: PRENATAL VITAMINS W/ FOLIC ACID TABLET (FP) PO SCH (09:35)
[2020-07-16] MEDS: METHYL SALICYLATE/MENTHOL OINT 30 GM TUBE TP SCH ×2 (09:35→21:45)
[2020-07-16] MEDS: DOXEPIN HCL 25 MG CAPSULE PO SCH (21:43)
[2020-07-16] MEDS: QUEtiapine FUMARATE 200 MG TABLET PO SCH (21:43)
[2020-07-16] MEDS: hydrOXYzine PAMOATE 25 MG CAPSULE (FP) PO PRN (21:44)
[2020-07-16] MEDS: MELATONIN 5 MG TABLETS PO SCH (21:44)
[2020-07-16] MEDS: THIAMINE HCL 100 MG TABLET (FP) PO SCH (21:44)
[2020-07-17] MEDS: IBUPROFEN 400 MG TABLET (FP) PO PRN (06:10)
[2020-07-17] MEDS: NICOTINE POLACRILEX 2 MG GUM BUC PRN ×4 (08:42→21:18)
[2020-07-17] MEDS: LOSARTAN POTASSIUM 50 MG TABLET PO SCH (10:14)
[2020-07-17] MEDS: PRENATAL VITAMINS W/ FOLIC ACID TABLET (FP) PO SCH (10:15)
[2020-07-17] MEDS: METHYL SALICYLATE/MENTHOL OINT 30 GM TUBE TP SCH ×2 (10:15→21:52)
[2020-07-17] MEDS: metFORMIN HCL 500 MG TABLET (FP) PO SCH (16:38)
[2020-07-17] MEDS ORDERED: PT OWN MED DRAWER 7, Y5N ONE (18:47)
[2020-07-17] MEDS: THIAMINE HCL 100 MG TABLET (FP) PO SCH (21:18)
[2020-07-17] MEDS: MELATONIN 5 MG TABLETS PO SCH (21:18)
[2020-07-17] MEDS: DOXEPIN HCL 25 MG CAPSULE PO SCH (21:18)
[2020-07-17] MEDS: QUEtiapine FUMARATE 200 MG TABLET PO SCH (21:18)
[2020-07-18] MEDS: IBUPROFEN 400 MG TABLET (FP) PO PRN (06:03)
[2020-07-18] MEDS: metFORMIN HCL 500 MG TABLET (FP) PO SCH ×2 (06:03→16:46)
[2020-07-18] MEDS: NICOTINE POLACRILEX 2 MG GUM BUC PRN ×2 (06:04→13:51)
[2020-07-18] MEDS: PRENATAL VITAMINS W/ FOLIC ACID TABLET (FP) PO SCH (10:03)
[2020-07-18] MEDS: LOSARTAN POTASSIUM 50 MG TABLET PO SCH (10:03)
[2020-07-18] MEDS: METHYL SALICYLATE/MENTHOL OINT 30 GM TUBE TP SCH ×2 (10:04→21:33)
[2020-07-18] MEDS ORDERED: DOXEPIN HCL 25 MG CAPSULE PO SCH (20:00)
[2020-07-18] MEDS ORDERED: QUEtiapine FUMARATE 200 MG TABLET PO SCH (20:00)
[2020-07-18] MEDS: hydrOXYzine PAMOATE 25 MG CAPSULE (FP) PO PRN (20:10)
[2020-07-18] MEDS: THIAMINE HCL 100 MG TABLET (FP) PO SCH (21:33)
[2020-07-18] MEDS: MELATONIN 5 MG TABLETS PO SCH (21:33)
[2020-07-19] MEDS: IBUPROFEN 400 MG TABLET (FP) PO PRN (05:56)
[2020-07-19] MEDS: NICOTINE POLACRILEX 2 MG GUM BUC PRN ×2 (05:58→10:18)
[2020-07-19] MEDS: metFORMIN HCL 500 MG TABLET (FP) PO SCH (06:00)
[2020-07-19 06:46] VITALS: BP 119/70; PULSE 69; TEMP 97.8
[2020-07-19] MEDS: METHYL SALICYLATE/MENTHOL OINT 30 GM TUBE TP SCH (10:17)
[2020-07-19] MEDS: LOSARTAN POTASSIUM 50 MG TABLET PO SCH ×2 (10:17→12:52)
[2020-07-19] MEDS: PRENATAL VITAMINS W/ FOLIC ACID TABLET (FP) PO SCH (10:17)
== END 2020-07-19 13:25 | disposition home or self-care (01) | DRG 772 ==
LOC: YASAS 12:27 → Y5N 12:28
PROVIDERS: ADMIT Allergy & Immunology; ATTEND Allergy & Immunology
PROC: HZ42ZZZ Group Counseling for Substance Abuse Treatment, Cognitive-Behavioral (ICD-10-PCS; principal; 2020-06-29)
DX: F10.20 Alcohol dependence, uncomplicated (principal); F14.20 Cocaine dependence, uncomplicated; F17.210 Nicotine dependence, cigarettes, uncomplicated; F19.282 Other psychoactive substance dependence with psychoactive substance-induced sleep disorder; F19.280 Other psychoactive substance dependence with psychoactive substance-induced anxiety disorder; F19.24 Other psychoactive substance dependence with psychoactive substance-induced mood disorder; F32.9 Major depressive disorder, single episode, unspecified; I10 Essential (primary) hypertension; E11.65 Type 2 diabetes mellitus with hyperglycemia; Z79.84 Long term (current) use of oral hypoglycemic drugs; M17.11 Unilateral primary osteoarthritis, right knee; Z86.19 Personal history of other infectious and parasitic diseases; Z91.018 Allergy to other foods
CPT/HCPCS: 82962; 83036; C9803; U0003

== ENCOUNTER 2021-01-11 08:25 | Inpatient (IN) | payer OTHER ==
[2021-01-11 10:15] VITALS: BMI 31.6
[2021-01-11] MEDS ORDERED: P-EPHED 60MG/TRIPROLIDI 2.5MG TABLET PO PRN (13:28)
[2021-01-11] MEDS ORDERED: hydrOXYzine PAMOATE 25 MG CAPSULE (FP) PO PRN (13:28)
[2021-01-11] MEDS ORDERED: MAGNESIUM CITRATE 300 ML BOTTLE PO PRN (13:28)
[2021-01-11] MEDS ORDERED: guaiFENesin 200 MG/10 ML 10 ML UNIT-DOSE CUPS PO PRN (13:28)
[2021-01-11] MEDS ORDERED: ACETAMINOPHEN 325 MG TABLET (FP) PO PRN (13:28)
[2021-01-11] MEDS ORDERED: NICOTINE 10 MG CARTRIDGE (INHALER) IH PRN (13:28)
[2021-01-11] MEDS ORDERED: MAGNESIUM HYDROX 2400MG/30ML ORAL SUSPENSION 30 ML CUP PO PRN (13:28)
[2021-01-11] MEDS ORDERED: LOPERAMIDE HCL 2 MG CAPSULE PO PRN (13:28)
[2021-01-11] MEDS ORDERED: MAG HYDROX/AL HYDROX/SIMETH 30 ML UNIT-DOSE CUP PO PRN (13:28)
[2021-01-11] MEDS: NICOTINE POLACRILEX 4 MG GUM BUC PRN ×3 (15:20→21:07)
[2021-01-11] MEDS ORDERED: PT OWN MED DRAWER 7, Y5N ONE ×3 (16:00→20:21)
[2021-01-11] MEDS: QUEtiapine FUMARATE 200 MG TABLET PO SCH (20:05)
[2021-01-11] MEDS: DOXEPIN HCL 50 MG CAPSULE PO SCH (21:04)
[2021-01-11] MEDS: THIAMINE HCL 100 MG TABLET (FP) PO SCH (21:04)
[2021-01-11] MEDS ORDERED: MELATONIN 5 MG TABLETS PO SCH (22:00)
[2021-01-12] MEDS ORDERED: PT OWN MED DRAWER 7, Y5N ONE ×2 (03:55→19:51)
[2021-01-12] MEDS: NICOTINE POLACRILEX 4 MG GUM BUC PRN ×6 (06:12→17:41)
[2021-01-12] MEDS: PRENATAL VITAMINS W/ FOLIC ACID TABLET (FP) PO SCH (09:33)
[2021-01-12] MEDS: LOSARTAN POTASSIUM 50 MG TABLET PO SCH (09:33)
[2021-01-12] MEDS ORDERED: NICOTINE 7 MG/24 HOURS TOPICAL PATCH TD SCH (10:00)
[2021-01-12 11:09] LABS: HEMOGLOBIN 14.4 GM/dL (11.7-16.9); MCH 30.6 pg (25.7-33.7); MCHC 34.2 g/dl (32.0-35.9); MEAN CELL VOLUME 89.4 fl (80-96); MEAN PLT VOLUME 10.2 fl (7.5-11.1); PLATELET COUNT 153 10^3/uL (134-434); RBC 4.69 M/mm3 (4.00-5.60); RDW 14.8 % (11.9-15.9); WHITE BLOOD COUNT 5.6 K/mm3 (4.0-10.0)
[2021-01-12 11:32] LABS: CALCIUM 9.3 mg/dL (8.5-10.1)
[2021-01-12 11:33] LABS: BLOOD UREA NITROGEN 10.2 mg/dL (7-18)
[2021-01-12 11:37] LABS: BILIRUBIN,TOTAL 0.5 mg/dL (0.2-1); TOT PROT 7.2 g/dl (6.4-8.2)
[2021-01-12 12:14] LABS: HIV INTERPRETATION NEGATIVE (NEGATIVE)
[2021-01-12] MEDS: MELATONIN 5 MG TABLETS PO SCH (20:10)
[2021-01-12] MEDS: QUEtiapine FUMARATE 200 MG TABLET PO SCH (20:10)
[2021-01-12] MEDS: DOXEPIN HCL 50 MG CAPSULE PO SCH ×2 (21:45→22:51)
[2021-01-12] MEDS: THIAMINE HCL 100 MG TABLET (FP) PO SCH ×2 (21:48→22:51)
[2021-01-13] MEDS ORDERED: MASKS NR ONE (06:01)
[2021-01-13] MEDS: NICOTINE POLACRILEX 4 MG GUM BUC PRN ×6 (06:15→21:03)
[2021-01-13] MEDS: IBUPROFEN 400 MG TABLET (FP) PO PRN (06:16)
[2021-01-13] MEDS: LOSARTAN POTASSIUM 50 MG TABLET PO SCH (09:24)
[2021-01-13] MEDS: PRENATAL VITAMINS W/ FOLIC ACID TABLET (FP) PO SCH (09:25)
[2021-01-13 11:20] LABS: EPI CELLS 1 /uL (0-25.1); HYALINE CASTS 0 /uL (0-3.1); URINE APPEARANCE CLEAR; URINE BACTERIA 1 /uL (0-1359); URINE BILIRUBIN NEGATIVE (NEGATIVE); URINE COLOR YELLOW; URINE GLUCOSE (UA) NEGATIVE (NEGATIVE); URINE KETONE NEGATIVE (NEGATIVE); URINE LEUK ESTERASE TRACE (NEGATIVE); URINE NITRITE NEGATIVE (NEGATIVE); URINE PROTEIN NEGATIVE (NEGATIVE); URINE RBC 2 /uL (0-23.9); URINE UROBILINOGEN 0.2 mg/dL (0.2-1.0); URINE WBC 11 /uL (0-25.8)
[2021-01-13] MEDS ORDERED: PT OWN MED DRAWER 7, Y5N ONE (18:41)
[2021-01-13] MEDS: THIAMINE HCL 100 MG TABLET (FP) PO SCH (21:02)
[2021-01-13] MEDS: QUEtiapine FUMARATE 200 MG TABLET PO SCH (21:02)
[2021-01-13] MEDS: MELATONIN 5 MG TABLETS PO SCH (21:02)
[2021-01-13] MEDS: DOXEPIN HCL 50 MG CAPSULE PO SCH (21:02)
[2021-01-14] MEDS: IBUPROFEN 400 MG TABLET (FP) PO PRN (06:09)
[2021-01-14] MEDS: NICOTINE POLACRILEX 4 MG GUM BUC PRN ×6 (06:09→18:55)
[2021-01-14] MEDS: PRENATAL VITAMINS W/ FOLIC ACID TABLET (FP) PO SCH (09:25)
[2021-01-14] MEDS: LOSARTAN POTASSIUM 50 MG TABLET PO SCH (09:26)
[2021-01-14] MEDS ORDERED: PT OWN MED DRAWER 7, Y5N ONE (19:36)
[2021-01-14] MEDS: THIAMINE HCL 100 MG TABLET (FP) PO SCH (21:07)
[2021-01-14] MEDS: QUEtiapine FUMARATE 200 MG TABLET PO SCH (21:07)
[2021-01-14] MEDS: DOXEPIN HCL 50 MG CAPSULE PO SCH (21:07)
[2021-01-14] MEDS: MELATONIN 5 MG TABLETS PO SCH (21:09)
[2021-01-15] MEDS ORDERED: PT OWN MED DRAWER 7, Y5N ONE ×3 (03:55→21:08)
[2021-01-15] MEDS: IBUPROFEN 400 MG TABLET (FP) PO PRN (06:14)
[2021-01-15] MEDS: NICOTINE POLACRILEX 4 MG GUM BUC PRN ×7 (06:16→21:11)
[2021-01-15] MEDS: LOSARTAN POTASSIUM 50 MG TABLET PO SCH (09:45)
[2021-01-15] MEDS: PRENATAL VITAMINS W/ FOLIC ACID TABLET (FP) PO SCH (09:45)
[2021-01-15] MEDS: DOXEPIN HCL 50 MG CAPSULE PO SCH (21:08)
[2021-01-15] MEDS: THIAMINE HCL 100 MG TABLET (FP) PO SCH (21:09)
[2021-01-15] MEDS: QUEtiapine FUMARATE 200 MG TABLET PO SCH (21:09)
[2021-01-15] MEDS: MELATONIN 5 MG TABLETS PO SCH (21:09)
[2021-01-16] MEDS: IBUPROFEN 400 MG TABLET (FP) PO PRN ×3 (06:09→21:24)
[2021-01-16] MEDS: NICOTINE POLACRILEX 4 MG GUM BUC PRN ×6 (08:34→21:27)
[2021-01-16] MEDS: LOSARTAN POTASSIUM 50 MG TABLET PO SCH (09:35)
[2021-01-16] MEDS: PRENATAL VITAMINS W/ FOLIC ACID TABLET (FP) PO SCH (09:35)
[2021-01-16] MEDS ORDERED: PT OWN MED DRAWER 7, Y5N ONE ×2 (12:54→19:22)
[2021-01-16] MEDS: MELATONIN 5 MG TABLETS PO SCH (21:22)
[2021-01-16] MEDS: QUEtiapine FUMARATE 200 MG TABLET PO SCH (21:22)
[2021-01-16] MEDS: DOXEPIN HCL 50 MG CAPSULE PO SCH (21:23)
[2021-01-16] MEDS: THIAMINE HCL 100 MG TABLET (FP) PO SCH (21:23)
[2021-01-17] MEDS: IBUPROFEN 400 MG TABLET (FP) PO PRN (06:30)
[2021-01-17] MEDS: NICOTINE POLACRILEX 4 MG GUM BUC PRN ×7 (06:31→21:21)
[2021-01-17] MEDS: PRENATAL VITAMINS W/ FOLIC ACID TABLET (FP) PO SCH (09:38)
[2021-01-17] MEDS: LOSARTAN POTASSIUM 50 MG TABLET PO SCH (09:38)
[2021-01-17] MEDS: DOXEPIN HCL 50 MG CAPSULE PO SCH (21:19)
[2021-01-17] MEDS: THIAMINE HCL 100 MG TABLET (FP) PO SCH (21:19)
[2021-01-17] MEDS: QUEtiapine FUMARATE 200 MG TABLET PO SCH (21:19)
[2021-01-18] MEDS: MELATONIN 5 MG TABLETS PO SCH (00:25)
[2021-01-18] MEDS: IBUPROFEN 400 MG TABLET (FP) PO PRN (06:07)
[2021-01-18] MEDS: NICOTINE POLACRILEX 4 MG GUM BUC PRN ×3 (06:08→10:40)
[2021-01-18 06:32] VITALS: TEMP 96.9
[2021-01-18 09:17] VITALS: BP 110/65; PULSE 78
[2021-01-18] MEDS: LOSARTAN POTASSIUM 50 MG TABLET PO SCH (09:34)
[2021-01-18] MEDS: PRENATAL VITAMINS W/ FOLIC ACID TABLET (FP) PO SCH (09:34)
== END 2021-01-18 13:30 | disposition left against medical advice (07) | DRG 770 ==
LOC: YASAS 08:25 → Y3E 12:23
PROVIDERS: ADMIT Allergy & Immunology; ATTEND Allergy & Immunology
PROC: HZ42ZZZ Group Counseling for Substance Abuse Treatment, Cognitive-Behavioral (ICD-10-PCS; principal; 2021-01-11)
DX: F10.20 Alcohol dependence, uncomplicated (principal); F14.20 Cocaine dependence, uncomplicated; F12.20 Cannabis dependence, uncomplicated; F17.210 Nicotine dependence, cigarettes, uncomplicated; F19.282 Other psychoactive substance dependence with psychoactive substance-induced sleep disorder; F19.24 Other psychoactive substance dependence with psychoactive substance-induced mood disorder; F32.9 Major depressive disorder, single episode, unspecified; G47.00 Insomnia, unspecified; I10 Essential (primary) hypertension; E11.9 Type 2 diabetes mellitus without complications; Z79.84 Long term (current) use of oral hypoglycemic drugs; M17.11 Unilateral primary osteoarthritis, right knee; Z86.59 Personal history of other mental and behavioral disorders; Z86.19 Personal history of other infectious and parasitic diseases
CPT/HCPCS: 36415; 80053; 81003; 82962; 85027; 86593; 86780; 87389; C9803; U0003; U0005

== ENCOUNTER 2021-06-07 09:17 | Inpatient (IN) | payer OTHER ==
[2021-06-07] MEDS ORDERED: NICOTINE 10 MG CARTRIDGE (INHALER) IH PRN (10:10)
[2021-06-07] MEDS ORDERED: IBUPROFEN 400 MG TABLET (FP) PO PRN (10:10)
[2021-06-07] MEDS ORDERED: MAGNESIUM CITRATE 300 ML BOTTLE PO PRN (10:10)
[2021-06-07] MEDS ORDERED: MENTHOL/PHENOL 1 EACH UD MM PRN (10:10)
[2021-06-07] MEDS ORDERED: ACETAMINOPHEN 325 MG TABLET (FP) PO PRN ×2 (10:10)
[2021-06-07] MEDS ORDERED: chlordiazePOXIDE HCL 25 MG CAPSULE PO PRN (10:10)
[2021-06-07] MEDS ORDERED: ONDANSETRON *ODT* 4 MG TABLET SL PRN (10:10)
[2021-06-07] MEDS ORDERED: MAGNESIUM HYDROX 2400MG/30ML ORAL SUSPENSION 30 ML CUP PO PRN (10:10)
[2021-06-07 10:37] VITALS: BMI 30.5
[2021-06-07] MEDS: hydrOXYzine PAMOATE 25 MG CAPSULE (FP) PO SCH ×3 (13:43→22:59)
[2021-06-07] MEDS: NICOTINE POLACRILEX 2 MG GUM BUC PRN ×3 (13:49→20:04)
[2021-06-07 16:00] LABS: HEMATOCRIT 44.9 % (35.4-49); HEMOGLOBIN 14.6 GM/dL (11.7-16.9); MCH 29.4 pg (25.7-33.7); MCHC 32.4 g/dl (32.0-35.9); MEAN CELL VOLUME 90.6 fl (80-96); MEAN PLT VOLUME 10.1 fl (7.5-11.1); PLATELET COUNT 189 10^3/uL (134-434); RBC 4.96 M/mm3 (4.00-5.60); RDW 15.2 % (11.9-15.9); WHITE BLOOD COUNT 6.5 K/mm3 (4.0-10.0)
[2021-06-07 16:09] LABS: BLOOD UREA NITROGEN 21.3 mg/dL (7-18); CALCIUM 9.5 mg/dL (8.5-10.1)
[2021-06-07 16:10] LABS: ALBUMIN 4.2 g/dl (3.4-5.0)
[2021-06-07 16:12] LABS: CREATININE 1.3 mg/dL (0.55-1.3)
[2021-06-07 16:14] LABS: BILIRUBIN,TOTAL 0.4 mg/dL (0.2-1); TOT PROT 7.4 g/dl (6.4-8.2)
[2021-06-07] MEDS: chlordiazePOXIDE HCL 25 MG CAPSULE PO SCH ×2 (17:44→22:59)
[2021-06-07] MEDS: DOXEPIN HCL 25 MG CAPSULE PO SCH (20:03)
[2021-06-07] MEDS: QUEtiapine FUMARATE 200 MG TABLET PO SCH (20:04)
[2021-06-07] MEDS ORDERED: MELATONIN 5 MG TABLETS PO SCH (22:00)
[2021-06-07] MEDS: THIAMINE HCL 100 MG TABLET (FP) PO SCH (22:59)
[2021-06-08] MEDS: chlordiazePOXIDE HCL 25 MG CAPSULE PO SCH ×4 (05:48→22:17)
[2021-06-08] MEDS: NICOTINE POLACRILEX 2 MG GUM BUC PRN ×3 (05:49→10:55)
[2021-06-08] MEDS: hydrOXYzine PAMOATE 25 MG CAPSULE (FP) PO SCH ×5 (05:49→22:16)
[2021-06-08] MEDS: LOSARTAN POTASSIUM 50 MG TABLET PO SCH (10:51)
[2021-06-08] MEDS: METHOCARBAMOL 500 MG TABLET PO PRN (10:52)
[2021-06-08] MEDS: PRENATAL VITAMINS W/ FOLIC ACID TABLET (FP) PO SCH (10:52)
[2021-06-08] MEDS: NICOTINE POLACRILEX 4 MG GUM BUC PRN ×3 (13:07→20:34)
[2021-06-08] MEDS: BISMUTH SUBSALICYLATE 524 MG/30 ML PO PRN (17:27)
[2021-06-08] MEDS: DOXEPIN HCL 25 MG CAPSULE PO SCH (20:31)
[2021-06-08] MEDS: QUEtiapine FUMARATE 200 MG TABLET PO SCH (20:31)
[2021-06-08] MEDS: THIAMINE HCL 100 MG TABLET (FP) PO SCH (22:16)
[2021-06-09] MEDS: hydrOXYzine PAMOATE 25 MG CAPSULE (FP) PO SCH ×5 (05:40→23:25)
[2021-06-09] MEDS: chlordiazePOXIDE HCL 25 MG CAPSULE PO SCH ×4 (05:40→23:24)
[2021-06-09] MEDS: NICOTINE POLACRILEX 4 MG GUM BUC PRN ×6 (05:40→21:31)
[2021-06-09] MEDS: PRENATAL VITAMINS W/ FOLIC ACID TABLET (FP) PO SCH (10:06)
[2021-06-09] MEDS: METHOCARBAMOL 500 MG TABLET PO PRN (10:07)
[2021-06-09] MEDS: LOSARTAN POTASSIUM 50 MG TABLET PO SCH (10:07)
[2021-06-09] MEDS: CLOTRIMAZOLE/BETAMET DIPROP 15 GM TUBE TP SCH ×2 (13:56→23:24)
[2021-06-09] MEDS: MAG HYDROX/AL HYDROX/SIMETH 30 ML UNIT-DOSE CUP PO PRN (15:57)
[2021-06-09] MEDS: QUEtiapine FUMARATE 200 MG TABLET PO SCH (20:16)
[2021-06-09] MEDS: DOXEPIN HCL 25 MG CAPSULE PO SCH (20:16)
[2021-06-09] MEDS: THIAMINE HCL 100 MG TABLET (FP) PO SCH (23:25)
[2021-06-10] MEDS ORDERED: chlordiazePOXIDE HCL 10 MG CAPSULE PO PRN
[2021-06-10] MEDS: NICOTINE POLACRILEX 4 MG GUM BUC PRN ×6 (04:58→20:23)
[2021-06-10] MEDS: MAG HYDROX/AL HYDROX/SIMETH 30 ML UNIT-DOSE CUP PO PRN (04:59)
[2021-06-10] MEDS: hydrOXYzine PAMOATE 25 MG CAPSULE (FP) PO SCH ×5 (05:01→22:34)
[2021-06-10] MEDS: chlordiazePOXIDE HCL 10 MG CAPSULE PO SCH ×2 (05:01→10:27)
[2021-06-10] MEDS: METHOCARBAMOL 500 MG TABLET PO PRN ×2 (10:26→20:06)
[2021-06-10] MEDS: LOSARTAN POTASSIUM 50 MG TABLET PO SCH (10:26)
[2021-06-10] MEDS: PRENATAL VITAMINS W/ FOLIC ACID TABLET (FP) PO SCH (10:26)
[2021-06-10] MEDS: CLOTRIMAZOLE/BETAMET DIPROP 15 GM TUBE TP SCH ×2 (10:27→22:34)
[2021-06-10] MEDS: chlordiazePOXIDE 5 MG CAPSULE PO SCH ×2 (16:40→22:34)
[2021-06-10] MEDS: SIMETHICONE 80 MG TAB.CHEW (FP) PO SCH ×2 (18:26→22:34)
[2021-06-10] MEDS: QUEtiapine FUMARATE 200 MG TABLET PO SCH (20:06)
[2021-06-10] MEDS: DOXEPIN HCL 25 MG CAPSULE PO SCH (20:06)
[2021-06-10] MEDS: THIAMINE HCL 100 MG TABLET (FP) PO SCH (22:34)
[2021-06-11] MEDS: MAG HYDROX/AL HYDROX/SIMETH 30 ML UNIT-DOSE CUP PO PRN (02:55)
[2021-06-11] MEDS ORDERED: chlordiazePOXIDE HCL 10 MG CAPSULE PO SCH (05:00)
[2021-06-11] MEDS: hydrOXYzine PAMOATE 25 MG CAPSULE (FP) PO SCH ×5 (05:16→22:40)
[2021-06-11] MEDS: chlordiazePOXIDE 5 MG CAPSULE PO SCH ×2 (05:16→17:31)
[2021-06-11] MEDS: NICOTINE POLACRILEX 4 MG GUM BUC PRN ×5 (05:19→17:33)
[2021-06-11] MEDS: PRENATAL VITAMINS W/ FOLIC ACID TABLET (FP) PO SCH (10:24)
[2021-06-11] MEDS: LOSARTAN POTASSIUM 50 MG TABLET PO SCH (10:24)
[2021-06-11] MEDS: METHOCARBAMOL 500 MG TABLET PO PRN (10:25)
[2021-06-11] MEDS: CLOTRIMAZOLE/BETAMET DIPROP 15 GM TUBE TP SCH ×2 (10:25→22:40)
[2021-06-11] MEDS: SIMETHICONE 80 MG TAB.CHEW (FP) PO SCH ×4 (10:25→22:40)
[2021-06-11] MEDS: QUEtiapine FUMARATE 200 MG TABLET PO SCH (20:07)
[2021-06-11] MEDS: DOXEPIN HCL 25 MG CAPSULE PO SCH (20:07)
[2021-06-11] MEDS: THIAMINE HCL 100 MG TABLET (FP) PO SCH (22:40)
[2021-06-12] MEDS: BISMUTH SUBSALICYLATE 524 MG/30 ML PO PRN ×3 (01:37→07:49)
[2021-06-12] MEDS ORDERED: chlordiazePOXIDE 5 MG CAPSULE PO ONE (05:00)
[2021-06-12] MEDS ORDERED: chlordiazePOXIDE HCL 10 MG CAPSULE PO ONE (05:00)
[2021-06-12] MEDS: NICOTINE POLACRILEX 4 MG GUM BUC PRN ×5 (05:10→17:47)
[2021-06-12] MEDS: hydrOXYzine PAMOATE 25 MG CAPSULE (FP) PO SCH ×4 (05:11→17:46)
[2021-06-12] MEDS ORDERED: LOPERAMIDE HCL 2 MG CAPSULE PO PRN (08:59)
[2021-06-12] MEDS: METHOCARBAMOL 500 MG TABLET PO PRN (10:23)
[2021-06-12] MEDS: PRENATAL VITAMINS W/ FOLIC ACID TABLET (FP) PO SCH (10:23)
[2021-06-12] MEDS: SIMETHICONE 80 MG TAB.CHEW (FP) PO SCH ×3 (10:24→17:46)
[2021-06-12] MEDS: LOSARTAN POTASSIUM 50 MG TABLET PO SCH (10:24)
[2021-06-12] MEDS: CLOTRIMAZOLE/BETAMET DIPROP 15 GM TUBE TP SCH (10:25)
[2021-06-12] MEDS ORDERED: LOPERAMIDE HCL 2 MG CAPSULE PO ONE (12:58)
[2021-06-12 18:57] VITALS: BP 122/76; PULSE 75; TEMP 98.2
== END 2021-06-12 18:35 | disposition other institution (70) | DRG 774 ==
LOC: YASAS 09:17 → Y6N 12:40
PROVIDERS: ADMIT Allergy & Immunology; ATTEND Allergy & Immunology
PROC: HZ2ZZZZ Detoxification Services for Substance Abuse Treatment (ICD-10-PCS; principal; 2021-06-07)
DX: F10.230 Alcohol dependence with withdrawal, uncomplicated (principal); F14.20 Cocaine dependence, uncomplicated; F12.20 Cannabis dependence, uncomplicated; F17.210 Nicotine dependence, cigarettes, uncomplicated; A53.0 Latent syphilis, unspecified as early or late; I10 Essential (primary) hypertension; E11.9 Type 2 diabetes mellitus without complications; Z79.84 Long term (current) use of oral hypoglycemic drugs; M18.2 Bilateral post-traumatic osteoarthritis of first carpometacarpal joints; M17.11 Unilateral primary osteoarthritis, right knee; R79.89 Other specified abnormal findings of blood chemistry; R74.01 Elevation of levels of liver transaminase levels; Z86.19 Personal history of other infectious and parasitic diseases
CPT/HCPCS: 36415; 80053; 82962; 85027; 86593; 86780; C9803; U0003; U0005

== ENCOUNTER 2021-06-12 18:41 | Inpatient (IN) | payer OTHER ==
[~2021-06-12 18:41] MED LIST: ACETAMINOPHEN 325 MG TABLET (FP) PO PRN; IBUPROFEN 400 MG TABLET (FP) PO PRN; LOPERAMIDE HCL 2 MG CAPSULE PO PRN; MAGNESIUM CITRATE 300 ML BOTTLE PO PRN; MAGNESIUM HYDROX 2400MG/30ML ORAL SUSPENSION 30 ML CUP PO PRN; NICOTINE 10 MG CARTRIDGE (INHALER) IH PRN; guaiFENesin 200 MG/10 ML 10 ML UNIT-DOSE CUPS PO PRN
[2021-06-12] MEDS: DOXEPIN HCL 50 MG CAPSULE PO SCH (20:53)
[2021-06-12] MEDS: QUEtiapine FUMARATE 200 MG TABLET PO SCH (20:54)
[2021-06-12] MEDS: MELATONIN 5 MG TABLETS PO SCH (21:43)
[2021-06-12] MEDS: THIAMINE HCL 100 MG TABLET (FP) PO SCH (21:43)
[2021-06-13] MEDS: metFORMIN HCL 500 MG TABLET (FP) PO SCH ×2 (06:01→16:50)
[2021-06-13] MEDS: MAG HYDROX/AL HYDROX/SIMETH 30 ML UNIT-DOSE CUP PO PRN (06:01)
[2021-06-13] MEDS: NICOTINE POLACRILEX 4 MG GUM BC PRN ×5 (06:02→19:07)
[2021-06-13] MEDS: LOSARTAN POTASSIUM 50 MG TABLET PO SCH (10:12)
[2021-06-13] MEDS: PRENATAL VITAMINS W/ FOLIC ACID TABLET (FP) PO SCH (10:12)
[2021-06-13] MEDS: QUEtiapine FUMARATE 200 MG TABLET PO SCH (20:45)
[2021-06-13] MEDS: MELATONIN 5 MG TABLETS PO SCH (21:52)
[2021-06-13] MEDS: THIAMINE HCL 100 MG TABLET (FP) PO SCH (21:52)
[2021-06-13] MEDS: DOXEPIN HCL 25 MG CAPSULE PO SCH (23:48)
[2021-06-14] MEDS: DOXEPIN HCL 50 MG CAPSULE PO SCH (00:49)
[2021-06-14] MEDS: MAG HYDROX/AL HYDROX/SIMETH 30 ML UNIT-DOSE CUP PO PRN (02:46)
[2021-06-14] MEDS: metFORMIN HCL 500 MG TABLET (FP) PO SCH ×2 (06:08→16:39)
[2021-06-14] MEDS: PRENATAL VITAMINS W/ FOLIC ACID TABLET (FP) PO SCH (10:27)
[2021-06-14] MEDS: LOSARTAN POTASSIUM 50 MG TABLET PO SCH (10:27)
[2021-06-14] MEDS: hydrOXYzine PAMOATE 25 MG CAPSULE (FP) PO PRN (10:27)
[2021-06-14] MEDS: NICOTINE POLACRILEX 4 MG GUM BC PRN ×5 (10:28→20:43)
[2021-06-14] MEDS ORDERED: METHOCARBAMOL 500 MG TABLET PO PRN (16:16)
[2021-06-14] MEDS: DOXEPIN HCL 25 MG CAPSULE PO SCH (20:40)
[2021-06-14] MEDS: QUEtiapine FUMARATE 200 MG TABLET PO SCH (20:41)
[2021-06-14] MEDS: MELATONIN 5 MG TABLETS PO SCH (21:52)
[2021-06-14] MEDS: THIAMINE HCL 100 MG TABLET (FP) PO SCH (21:52)
[2021-06-15] MEDS: metFORMIN HCL 500 MG TABLET (FP) PO SCH ×2 (06:00→16:47)
[2021-06-15] MEDS: NICOTINE POLACRILEX 4 MG GUM BC PRN ×5 (06:00→20:23)
[2021-06-15] MEDS: PRENATAL VITAMINS W/ FOLIC ACID TABLET (FP) PO SCH (09:56)
[2021-06-15] MEDS: LOSARTAN POTASSIUM 50 MG TABLET PO SCH (09:56)
[2021-06-15] MEDS ORDERED: BACLOFEN 10 MG TABLET (FP) PO PRN (11:24)
[2021-06-15] MEDS: QUEtiapine FUMARATE 200 MG TABLET PO SCH (20:20)
[2021-06-15] MEDS: hydrOXYzine PAMOATE 25 MG CAPSULE (FP) PO PRN (20:20)
[2021-06-15] MEDS: DOXEPIN HCL 25 MG CAPSULE PO SCH (20:20)
[2021-06-15] MEDS: THIAMINE HCL 100 MG TABLET (FP) PO SCH (22:21)
[2021-06-15] MEDS: MELATONIN 5 MG TABLETS PO SCH (22:21)
[2021-06-16] MEDS: metFORMIN HCL 500 MG TABLET (FP) PO SCH ×2 (05:59→17:00)
[2021-06-16] MEDS: NICOTINE POLACRILEX 4 MG GUM BC PRN ×5 (05:59→21:11)
[2021-06-16] MEDS: PRENATAL VITAMINS W/ FOLIC ACID TABLET (FP) PO SCH (09:53)
[2021-06-16] MEDS: LOSARTAN POTASSIUM 50 MG TABLET PO SCH (09:54)
[2021-06-16] MEDS: QUEtiapine FUMARATE 200 MG TABLET PO SCH (21:11)
[2021-06-16] MEDS: DOXEPIN HCL 25 MG CAPSULE PO SCH (21:11)
[2021-06-16] MEDS: MELATONIN 5 MG TABLETS PO SCH (21:11)
[2021-06-16] MEDS: THIAMINE HCL 100 MG TABLET (FP) PO SCH (21:11)
[2021-06-17] MEDS: metFORMIN HCL 500 MG TABLET (FP) PO SCH (06:02)
[2021-06-17 08:19] VITALS: TEMP 97.9
[2021-06-17] MEDS: NICOTINE POLACRILEX 4 MG GUM BC PRN (08:34)
[2021-06-17] MEDS: LOSARTAN POTASSIUM 50 MG TABLET PO SCH (09:34)
[2021-06-17] MEDS: PRENATAL VITAMINS W/ FOLIC ACID TABLET (FP) PO SCH (09:35)
[2021-06-17 11:17] VITALS: BP 101/65; PULSE 86
== END 2021-06-17 10:20 | disposition home or self-care (01) | DRG 772 ==
LOC: YASAS 18:41 → Y5N 18:42
PROVIDERS: ADMIT Allergy & Immunology; ATTEND Allergy & Immunology
PROC: HZ42ZZZ Group Counseling for Substance Abuse Treatment, Cognitive-Behavioral (ICD-10-PCS; principal; 2021-06-12)
DX: F10.20 Alcohol dependence, uncomplicated (principal); F14.20 Cocaine dependence, uncomplicated; F17.210 Nicotine dependence, cigarettes, uncomplicated; F32.A Depression, unspecified; I10 Essential (primary) hypertension; E11.9 Type 2 diabetes mellitus without complications; Z79.84 Long term (current) use of oral hypoglycemic drugs; Z86.19 Personal history of other infectious and parasitic diseases
CPT/HCPCS: 82962; C9803; U0003; U0005

== ENCOUNTER 2021-09-24 09:52 | Inpatient (IN) | payer OTHER ==
[2021-09-24] MEDS ORDERED: MAGNESIUM CITRATE 300 ML BOTTLE PO PRN (10:28)
[2021-09-24] MEDS ORDERED: NICOTINE 10 MG CARTRIDGE (INHALER) IH PRN (10:28)
[2021-09-24] MEDS ORDERED: DICYCLOMINE HCL 10 MG CAPSULE PO PRN (10:28)
[2021-09-24] MEDS ORDERED: IBUPROFEN 400 MG TABLET (FP) PO PRN (10:28)
[2021-09-24] MEDS ORDERED: METHOCARBAMOL 500 MG TABLET PO PRN (10:28)
[2021-09-24] MEDS ORDERED: BISMUTH SUBSALICYLATE 262 MG/15 ML BTL PO PRN (10:28)
[2021-09-24] MEDS ORDERED: ACETAMINOPHEN 325 MG TABLET (FP) PO PRN ×2 (10:28)
[2021-09-24] MEDS ORDERED: ONDANSETRON *ODT* 4 MG TABLET SL PRN (10:28)
[2021-09-24] MEDS ORDERED: BENZOCAINE/MENTHOL (CHLORASEPTIC ) LOZENGE MM PRN (10:28)
[2021-09-24] MEDS ORDERED: MAGNESIUM HYDROX 2400MG/30ML ORAL SUSPENSION 30 ML CUP PO PRN (10:28)
[2021-09-24] MEDS ORDERED: chlordiazePOXIDE HCL 25 MG CAPSULE PO PRN (10:28)
[2021-09-24] MEDS ORDERED: LOPERAMIDE HCL 2 MG CAPSULE PO PRN (10:28)
[2021-09-24] MEDS ORDERED: MAG HYDROX/AL HYDROX/SIMETH 30 ML UNIT-DOSE CUP PO PRN (10:28)
[2021-09-24 11:28] VITALS: BMI 31.1
[2021-09-24] MEDS ORDERED: NICOTINE 14 MG/24 HOURS TOPICAL PATCH TD SCH (12:00)
[2021-09-24] MEDS: chlordiazePOXIDE HCL 25 MG CAPSULE PO SCH ×3 (12:40→22:49)
[2021-09-24] MEDS: PRENATAL VITAMINS W/ FOLIC ACID TABLET (FP) PO SCH (12:40)
[2021-09-24] MEDS: NICOTINE POLACRILEX 4 MG GUM BUC PRN ×3 (15:00→20:17)
[2021-09-24 15:02] LABS: CHLORIDE 130 mmol/L (98-107); HEMATOCRIT 46.4 % (35.4-49); HEMOGLOBIN 15.3 GM/dL (11.7-16.9); MCH 29.5 pg (25.7-33.7); MEAN CELL VOLUME 89.3 fl (80-96); MEAN PLT VOLUME 9.7 fl (7.5-11.1); PLATELET COUNT 187 10^3/uL (134-434); RDW 14.4 % (11.9-15.9); WHITE BLOOD COUNT 5.8 K/mm3 (4.0-10.0)
[2021-09-24 15:04] LABS: CALCIUM 9.4 mg/dL (8.5-10.1)
[2021-09-24 15:05] LABS: ALBUMIN 4.2 g/dl (3.4-5.0); BLOOD UREA NITROGEN 8.6 mg/dL (7-18); CO2 23 mmol/L (21-32); GLUCOSE,RANDOM 130 mg/dL (74-106)
[2021-09-24] MEDS: hydrOXYzine PAMOATE 25 MG CAPSULE (FP) PO SCH ×3 (15:05→22:50)
[2021-09-24 15:08] LABS: CREATININE 1.1 mg/dL (0.55-1.3); SGOT/AST 63 U/L (15-37); SGPT/ALT 88 U/L (13-61)
[2021-09-24 15:10] LABS: BILIRUBIN,TOTAL 0.8 mg/dL (0.2-1); TOT PROT 7.6 g/dl (6.4-8.2)
[2021-09-24 15:11] LABS: ALK PHOS 67 U/L (45-117)
[2021-09-24 15:12] LABS: ANION GAP 18 MMOL/L (8-16); SODIUM 171 mmol/L (136-145)
[2021-09-24] MEDS: DOXEPIN HCL 25 MG CAPSULE PO SCH (20:16)
[2021-09-24] MEDS: QUEtiapine FUMARATE 200 MG TABLET PO SCH (20:16)
[2021-09-24] MEDS ORDERED: MELATONIN 5 MG TABLETS PO SCH (22:00)
[2021-09-24] MEDS: THIAMINE HCL 100 MG TABLET (FP) PO SCH (22:50)
[2021-09-25] MEDS: chlordiazePOXIDE HCL 25 MG CAPSULE PO SCH ×4 (05:39→22:59)
[2021-09-25] MEDS: hydrOXYzine PAMOATE 25 MG CAPSULE (FP) PO SCH ×5 (05:39→21:37)
[2021-09-25] MEDS: NICOTINE POLACRILEX 4 MG GUM BUC PRN ×5 (05:41→21:35)
[2021-09-25] MEDS: LOSARTAN POTASSIUM 50 MG TABLET PO SCH (10:28)
[2021-09-25] MEDS: PRENATAL VITAMINS W/ FOLIC ACID TABLET (FP) PO SCH (10:29)
[2021-09-25 16:41] LABS: HIV INTERPRETATION NEGATIVE (NEGATIVE)
[2021-09-25] MEDS: DOXEPIN HCL 25 MG CAPSULE PO SCH (21:34)
[2021-09-25] MEDS: QUEtiapine FUMARATE 200 MG TABLET PO SCH (21:34)
[2021-09-25] MEDS: THIAMINE HCL 100 MG TABLET (FP) PO SCH (21:35)
[2021-09-26] MEDS: hydrOXYzine PAMOATE 25 MG CAPSULE (FP) PO SCH ×4 (05:43→17:45)
[2021-09-26] MEDS: chlordiazePOXIDE HCL 25 MG CAPSULE PO SCH ×4 (05:43→23:55)
[2021-09-26] MEDS: NICOTINE POLACRILEX 4 MG GUM BUC PRN ×5 (05:47→20:01)
[2021-09-26] MEDS: LOSARTAN POTASSIUM 50 MG TABLET PO SCH (10:24)
[2021-09-26] MEDS: PRENATAL VITAMINS W/ FOLIC ACID TABLET (FP) PO SCH (10:24)
[2021-09-26] MEDS ORDERED: FAMOTIDINE 20 MG TABLET PO ONE (15:45)
[2021-09-26 16:09] LABS: SARS-CoV-2 NAA Not Detected (Not Detected)
[2021-09-26] MEDS: DOXEPIN HCL 25 MG CAPSULE PO SCH (20:01)
[2021-09-26] MEDS: QUEtiapine FUMARATE 200 MG TABLET PO SCH (20:01)
[2021-09-27] MEDS ORDERED: chlordiazePOXIDE HCL 10 MG CAPSULE PO PRN
[2021-09-27] MEDS: hydrOXYzine PAMOATE 25 MG CAPSULE (FP) PO SCH ×6 (00:42→23:22)
[2021-09-27] MEDS: FAMOTIDINE 20 MG TABLET PO SCH ×3 (00:42→23:22)
[2021-09-27] MEDS: THIAMINE HCL 100 MG TABLET (FP) PO SCH ×2 (00:42→23:23)
[2021-09-27] MEDS: chlordiazePOXIDE HCL 10 MG CAPSULE PO SCH ×3 (05:07→17:40)
[2021-09-27] MEDS: NICOTINE POLACRILEX 4 MG GUM BUC PRN ×7 (05:09→20:34)
[2021-09-27] MEDS: LOSARTAN POTASSIUM 50 MG TABLET PO SCH (10:33)
[2021-09-27] MEDS: PRENATAL VITAMINS W/ FOLIC ACID TABLET (FP) PO SCH (10:34)
[2021-09-27 17:03] LABS: CALCIUM 9.5 mg/dL (8.5-10.1)
[2021-09-27 17:04] LABS: BLOOD UREA NITROGEN 8.1 mg/dL (7-18)
[2021-09-27 17:07] LABS: CREATININE 1.1 mg/dL (0.55-1.3)
[2021-09-27] MEDS: DOXEPIN HCL 25 MG CAPSULE PO SCH (20:32)
[2021-09-27] MEDS: QUEtiapine FUMARATE 200 MG TABLET PO SCH (20:32)
[2021-09-28] MEDS: chlordiazePOXIDE HCL 10 MG CAPSULE PO SCH ×3 (00:02→18:34)
[2021-09-28] MEDS: NICOTINE POLACRILEX 4 MG GUM BUC PRN ×5 (04:58→21:45)
[2021-09-28] MEDS: hydrOXYzine PAMOATE 25 MG CAPSULE (FP) PO SCH ×5 (06:04→23:12)
[2021-09-28] MEDS: LOSARTAN POTASSIUM 50 MG TABLET PO SCH (10:10)
[2021-09-28] MEDS: FAMOTIDINE 20 MG TABLET PO SCH ×2 (10:10→23:12)
[2021-09-28] MEDS: PRENATAL VITAMINS W/ FOLIC ACID TABLET (FP) PO SCH (10:10)
[2021-09-28 21:20] VITALS: PULSE 73; TEMP 97.3
[2021-09-28] MEDS: QUEtiapine FUMARATE 200 MG TABLET PO SCH (21:43)
[2021-09-28] MEDS: DOXEPIN HCL 25 MG CAPSULE PO SCH (21:43)
[2021-09-28 22:27] VITALS: BP 147/74
[2021-09-28] MEDS: THIAMINE HCL 100 MG TABLET (FP) PO SCH (23:12)
[2021-09-29] MEDS ORDERED: chlordiazePOXIDE HCL 10 MG CAPSULE PO ONE (05:00)
== END 2021-09-28 22:50 | disposition other institution (70) | DRG 774 ==
LOC: YASAS 09:52 → Y3N 12:02
PROVIDERS: ADMIT Allergy & Immunology; ATTEND Allergy & Immunology
PROC: HZ2ZZZZ Detoxification Services for Substance Abuse Treatment (ICD-10-PCS; principal; 2021-09-24)
DX: F10.230 Alcohol dependence with withdrawal, uncomplicated (principal); F14.20 Cocaine dependence, uncomplicated; F17.210 Nicotine dependence, cigarettes, uncomplicated; F19.282 Other psychoactive substance dependence with psychoactive substance-induced sleep disorder; F19.280 Other psychoactive substance dependence with psychoactive substance-induced anxiety disorder; F32.A Depression, unspecified; I10 Essential (primary) hypertension; E11.9 Type 2 diabetes mellitus without complications; Z79.84 Long term (current) use of oral hypoglycemic drugs; M17.11 Unilateral primary osteoarthritis, right knee; R76.8 Other specified abnormal immunological findings in serum
CPT/HCPCS: 36415; 80048; 80053; 82962; 85027; 86593; 86780; 87389; 87811; C9803-CS; U0003; U0005

== ENCOUNTER 2021-09-28 23:15 | Inpatient (IN) | payer OTHER ==
[2021-09-29] MEDS ORDERED: hydrOXYzine PAMOATE 25 MG CAPSULE (FP) PO PRN (01:08)
[2021-09-29] MEDS ORDERED: BENZOCAINE/MENTHOL (CHLORASEPTIC ) LOZENGE MM PRN (01:08)
[2021-09-29] MEDS ORDERED: ACETAMINOPHEN 325 MG TABLET (FP) PO PRN (01:08)
[2021-09-29] MEDS ORDERED: MAG HYDROX/AL HYDROX/SIMETH 30 ML UNIT-DOSE CUP PO PRN (01:08)
[2021-09-29] MEDS ORDERED: LOPERAMIDE HCL 2 MG CAPSULE PO PRN (01:08)
[2021-09-29] MEDS ORDERED: MAGNESIUM HYDROX 2400MG/30ML ORAL SUSPENSION 30 ML CUP PO PRN (01:08)
[2021-09-29] MEDS ORDERED: P-EPHED 60MG/TRIPROLIDI 2.5MG TABLET PO PRN (01:08)
[2021-09-29] MEDS ORDERED: MAGNESIUM CITRATE 300 ML BOTTLE PO PRN (01:08)
[2021-09-29] MEDS: IBUPROFEN 400 MG TABLET (FP) PO PRN (06:11)
[2021-09-29] MEDS: NICOTINE POLACRILEX 2 MG GUM BUC PRN ×4 (06:12→19:32)
[2021-09-29] MEDS ORDERED: PATIENT'S OWN MEDICATION (NON-FORMULARY) (Losartan Potassium [Cozaar] 100 MG Tablet) PO SCH (10:00)
[2021-09-29] MEDS: FAMOTIDINE 20 MG TABLET PO SCH ×2 (10:16→21:04)
[2021-09-29] MEDS: PRENATAL VITAMINS W/ FOLIC ACID TABLET (FP) PO SCH (10:17)
[2021-09-29] MEDS: NICOTINE 14 MG/24 HOURS TOPICAL PATCH TD SCH (10:18)
[2021-09-29] MEDS: METHYL SALICYLATE/MENTHOL OINT 30 GM TUBE TP SCH ×2 (12:47→21:06)
[2021-09-29] MEDS: LOSARTAN POTASSIUM 50 MG TABLET PO SCH (13:48)
[2021-09-29] MEDS: THIAMINE HCL 100 MG TABLET (FP) PO SCH (21:04)
[2021-09-29] MEDS ORDERED: QUEtiapine FUMARATE 200 MG TABLET PO SCH (22:00)
[2021-09-29] MEDS ORDERED: DOXEPIN HCL 25 MG CAPSULE PO SCH (22:00)
[2021-09-30] MEDS: METHOCARBAMOL 500 MG TABLET PO PRN ×2 (05:44→20:00)
[2021-09-30] MEDS: NICOTINE POLACRILEX 2 MG GUM BUC PRN ×4 (05:44→17:01)
[2021-09-30] MEDS: METHYL SALICYLATE/MENTHOL OINT 30 GM TUBE TP SCH ×2 (10:11→23:38)
[2021-09-30] MEDS: NICOTINE 14 MG/24 HOURS TOPICAL PATCH TD SCH (10:11)
[2021-09-30] MEDS: FAMOTIDINE 20 MG TABLET PO SCH ×2 (10:11→23:38)
[2021-09-30] MEDS: PRENATAL VITAMINS W/ FOLIC ACID TABLET (FP) PO SCH (10:11)
[2021-09-30] MEDS: LOSARTAN POTASSIUM 50 MG TABLET PO SCH (10:11)
[2021-09-30] MEDS: QUEtiapine FUMARATE 200 MG TABLET PO SCH (19:59)
[2021-09-30] MEDS: DOXEPIN HCL 25 MG CAPSULE PO SCH (19:59)
[2021-09-30] MEDS: THIAMINE HCL 100 MG TABLET (FP) PO SCH (23:38)
[2021-10-01] MEDS: METHOCARBAMOL 500 MG TABLET PO PRN ×2 (05:54→19:52)
[2021-10-01] MEDS: NICOTINE POLACRILEX 2 MG GUM BUC PRN ×6 (05:54→18:25)
[2021-10-01] MEDS: guaiFENesin 200 MG/10 ML 10 ML UNIT-DOSE CUPS PO PRN ×2 (08:58→15:42)
[2021-10-01] MEDS: PRENATAL VITAMINS W/ FOLIC ACID TABLET (FP) PO SCH (08:59)
[2021-10-01] MEDS: LOSARTAN POTASSIUM 50 MG TABLET PO SCH (09:00)
[2021-10-01] MEDS: FAMOTIDINE 20 MG TABLET PO SCH ×2 (09:00→21:35)
[2021-10-01] MEDS: METHYL SALICYLATE/MENTHOL OINT 30 GM TUBE TP SCH ×2 (09:01→21:35)
[2021-10-01] MEDS: NICOTINE 14 MG/24 HOURS TOPICAL PATCH TD SCH (09:01)
[2021-10-01] MEDS: DOXEPIN HCL 25 MG CAPSULE PO SCH (19:50)
[2021-10-01] MEDS: QUEtiapine FUMARATE 200 MG TABLET PO SCH (19:51)
[2021-10-01] MEDS: THIAMINE HCL 100 MG TABLET (FP) PO SCH (21:35)
[2021-10-02] MEDS: guaiFENesin 200 MG/10 ML 10 ML UNIT-DOSE CUPS PO PRN ×3 (02:46→15:57)
[2021-10-02] MEDS: NICOTINE POLACRILEX 2 MG GUM BUC PRN ×7 (05:17→20:06)
[2021-10-02] MEDS: IBUPROFEN 400 MG TABLET (FP) PO PRN (07:11)
[2021-10-02] MEDS: PRENATAL VITAMINS W/ FOLIC ACID TABLET (FP) PO SCH (09:44)
[2021-10-02] MEDS: METHYL SALICYLATE/MENTHOL OINT 30 GM TUBE TP SCH ×2 (09:44→21:31)
[2021-10-02] MEDS: NICOTINE 14 MG/24 HOURS TOPICAL PATCH TD SCH (09:44)
[2021-10-02] MEDS: FAMOTIDINE 20 MG TABLET PO SCH ×2 (09:44→21:31)
[2021-10-02] MEDS: LOSARTAN POTASSIUM 50 MG TABLET PO SCH (11:00)
[2021-10-02 15:16] LABS: SARS-CoV-2 NAA Not Detected (Not Detected)
[2021-10-02] MEDS: QUEtiapine FUMARATE 200 MG TABLET PO SCH (20:05)
[2021-10-02] MEDS: METHOCARBAMOL 500 MG TABLET PO PRN (20:05)
[2021-10-02] MEDS: DOXEPIN HCL 25 MG CAPSULE PO SCH (20:05)
[2021-10-02] MEDS: THIAMINE HCL 100 MG TABLET (FP) PO SCH (21:31)
[2021-10-03] MEDS: guaiFENesin 200 MG/10 ML 10 ML UNIT-DOSE CUPS PO PRN ×2 (02:22→08:17)
[2021-10-03] MEDS: NICOTINE POLACRILEX 2 MG GUM BUC PRN ×4 (08:17→20:00)
[2021-10-03] MEDS: FAMOTIDINE 20 MG TABLET PO SCH ×2 (10:35→21:42)
[2021-10-03] MEDS: PRENATAL VITAMINS W/ FOLIC ACID TABLET (FP) PO SCH (10:36)
[2021-10-03] MEDS: NICOTINE 14 MG/24 HOURS TOPICAL PATCH TD SCH (10:36)
[2021-10-03] MEDS: METHYL SALICYLATE/MENTHOL OINT 30 GM TUBE TP SCH ×2 (10:36→21:42)
[2021-10-03] MEDS: LOSARTAN POTASSIUM 50 MG TABLET PO SCH (10:36)
[2021-10-03] MEDS: DOXEPIN HCL 25 MG CAPSULE PO SCH (19:57)
[2021-10-03] MEDS: QUEtiapine FUMARATE 200 MG TABLET PO SCH (19:57)
[2021-10-03] MEDS: METHOCARBAMOL 500 MG TABLET PO PRN (19:58)
[2021-10-03] MEDS: THIAMINE HCL 100 MG TABLET (FP) PO SCH (21:43)
[2021-10-04] MEDS: NICOTINE POLACRILEX 2 MG GUM BUC PRN ×2 (08:47→11:05)
[2021-10-04] MEDS: FAMOTIDINE 20 MG TABLET PO SCH ×2 (10:01→21:03)
[2021-10-04] MEDS: METHYL SALICYLATE/MENTHOL OINT 30 GM TUBE TP SCH ×2 (10:01→21:04)
[2021-10-04] MEDS: LOSARTAN POTASSIUM 50 MG TABLET PO SCH (10:02)
[2021-10-04] MEDS: PRENATAL VITAMINS W/ FOLIC ACID TABLET (FP) PO SCH (10:02)
[2021-10-04] MEDS: NICOTINE 14 MG/24 HOURS TOPICAL PATCH TD SCH (10:02)
[2021-10-04] MEDS: guaiFENesin 200 MG/10 ML 10 ML UNIT-DOSE CUPS PO PRN (12:59)
[2021-10-04] MEDS: NICOTINE POLACRILEX 4 MG GUM BUC PRN ×4 (13:00→21:04)
[2021-10-04] MEDS: METHOCARBAMOL 500 MG TABLET PO PRN (21:03)
[2021-10-04] MEDS: QUEtiapine FUMARATE 200 MG TABLET PO SCH (21:03)
[2021-10-04] MEDS: THIAMINE HCL 100 MG TABLET (FP) PO SCH (21:03)
[2021-10-04] MEDS: DOXEPIN HCL 25 MG CAPSULE PO SCH (21:04)
[2021-10-05] MEDS: guaiFENesin 200 MG/10 ML 10 ML UNIT-DOSE CUPS PO PRN ×2 (05:47→16:57)
[2021-10-05] MEDS: METHYL SALICYLATE/MENTHOL OINT 30 GM TUBE TP SCH ×2 (09:55→21:49)
[2021-10-05] MEDS: NICOTINE 14 MG/24 HOURS TOPICAL PATCH TD SCH (09:56)
[2021-10-05] MEDS: PRENATAL VITAMINS W/ FOLIC ACID TABLET (FP) PO SCH (09:57)
[2021-10-05] MEDS: FAMOTIDINE 20 MG TABLET PO SCH ×2 (11:00→21:49)
[2021-10-05] MEDS: LOSARTAN POTASSIUM 50 MG TABLET PO SCH (11:00)
[2021-10-05] MEDS: NICOTINE POLACRILEX 4 MG GUM BUC PRN ×3 (11:02→19:59)
[2021-10-05] MEDS: DOXEPIN HCL 25 MG CAPSULE PO SCH (19:57)
[2021-10-05] MEDS: QUEtiapine FUMARATE 200 MG TABLET PO SCH (19:57)
[2021-10-05] MEDS: THIAMINE HCL 100 MG TABLET (FP) PO SCH (21:49)
[2021-10-06] MEDS: NICOTINE POLACRILEX 4 MG GUM BUC PRN ×5 (08:38→19:32)
[2021-10-06] MEDS: NICOTINE 14 MG/24 HOURS TOPICAL PATCH TD SCH (09:54)
[2021-10-06] MEDS: METHYL SALICYLATE/MENTHOL OINT 30 GM TUBE TP SCH ×2 (09:54→21:13)
[2021-10-06] MEDS: PRENATAL VITAMINS W/ FOLIC ACID TABLET (FP) PO SCH (09:54)
[2021-10-06] MEDS: FAMOTIDINE 20 MG TABLET PO SCH ×2 (09:54→21:14)
[2021-10-06] MEDS: LOSARTAN POTASSIUM 50 MG TABLET PO SCH (09:57)
[2021-10-06] MEDS: DOXEPIN HCL 25 MG CAPSULE PO SCH (19:32)
[2021-10-06] MEDS: QUEtiapine FUMARATE 200 MG TABLET PO SCH (19:32)
[2021-10-06] MEDS: THIAMINE HCL 100 MG TABLET (FP) PO SCH (21:14)
[2021-10-07] MEDS: NICOTINE POLACRILEX 4 MG GUM BUC PRN ×6 (08:58→19:55)
[2021-10-07] MEDS: LOSARTAN POTASSIUM 50 MG TABLET PO SCH (10:17)
[2021-10-07] MEDS: FAMOTIDINE 20 MG TABLET PO SCH ×2 (10:17→21:27)
[2021-10-07] MEDS: METHYL SALICYLATE/MENTHOL OINT 30 GM TUBE TP SCH ×2 (10:18→21:27)
[2021-10-07] MEDS: NICOTINE 14 MG/24 HOURS TOPICAL PATCH TD SCH (10:18)
[2021-10-07] MEDS: PRENATAL VITAMINS W/ FOLIC ACID TABLET (FP) PO SCH (10:18)
[2021-10-07] MEDS: QUEtiapine FUMARATE 200 MG TABLET PO SCH (19:54)
[2021-10-07] MEDS: DOXEPIN HCL 25 MG CAPSULE PO SCH (19:54)
[2021-10-07] MEDS: THIAMINE HCL 100 MG TABLET (FP) PO SCH (21:27)
[2021-10-08] MEDS: NICOTINE POLACRILEX 4 MG GUM BUC PRN ×6 (05:47→17:30)
[2021-10-08] MEDS: FAMOTIDINE 20 MG TABLET PO SCH ×2 (09:42→21:44)
[2021-10-08] MEDS: LOSARTAN POTASSIUM 50 MG TABLET PO SCH (09:42)
[2021-10-08] MEDS: PRENATAL VITAMINS W/ FOLIC ACID TABLET (FP) PO SCH (09:42)
[2021-10-08] MEDS: NICOTINE 14 MG/24 HOURS TOPICAL PATCH TD SCH (09:42)
[2021-10-08] MEDS: METHYL SALICYLATE/MENTHOL OINT 30 GM TUBE TP SCH ×2 (09:43→21:45)
[2021-10-08] MEDS: METHOCARBAMOL 500 MG TABLET PO PRN (20:15)
[2021-10-08] MEDS: DOXEPIN HCL 25 MG CAPSULE PO SCH (20:16)
[2021-10-08] MEDS: QUEtiapine FUMARATE 200 MG TABLET PO SCH (20:16)
[2021-10-08] MEDS: THIAMINE HCL 100 MG TABLET (FP) PO SCH (21:45)
[2021-10-09] MEDS: IBUPROFEN 400 MG TABLET (FP) PO PRN (05:51)
[2021-10-09] MEDS: NICOTINE POLACRILEX 4 MG GUM BUC PRN ×6 (05:52→19:51)
[2021-10-09] MEDS: FAMOTIDINE 20 MG TABLET PO SCH ×2 (10:25→21:19)
[2021-10-09] MEDS: LOSARTAN POTASSIUM 50 MG TABLET PO SCH (10:25)
[2021-10-09] MEDS: PRENATAL VITAMINS W/ FOLIC ACID TABLET (FP) PO SCH (10:25)
[2021-10-09] MEDS: METHYL SALICYLATE/MENTHOL OINT 30 GM TUBE TP SCH ×2 (10:25→21:19)
[2021-10-09] MEDS: NICOTINE 14 MG/24 HOURS TOPICAL PATCH TD SCH (10:25)
[2021-10-09] MEDS: DOXEPIN HCL 25 MG CAPSULE PO SCH (19:50)
[2021-10-09] MEDS: QUEtiapine FUMARATE 200 MG TABLET PO SCH (19:50)
[2021-10-09] MEDS: THIAMINE HCL 100 MG TABLET (FP) PO SCH (21:19)
[2021-10-10] MEDS: NICOTINE POLACRILEX 4 MG GUM BUC PRN ×6 (05:37→17:28)
[2021-10-10] MEDS: LOSARTAN POTASSIUM 50 MG TABLET PO SCH (09:42)
[2021-10-10] MEDS: PRENATAL VITAMINS W/ FOLIC ACID TABLET (FP) PO SCH (09:42)
[2021-10-10] MEDS: FAMOTIDINE 20 MG TABLET PO SCH ×2 (09:42→21:20)
[2021-10-10] MEDS: METHYL SALICYLATE/MENTHOL OINT 30 GM TUBE TP SCH ×2 (09:43→23:35)
[2021-10-10] MEDS: NICOTINE 14 MG/24 HOURS TOPICAL PATCH TD SCH (09:43)
[2021-10-10] MEDS: DOXEPIN HCL 25 MG CAPSULE PO SCH (20:09)
[2021-10-10] MEDS: QUEtiapine FUMARATE 200 MG TABLET PO SCH (20:10)
[2021-10-10] MEDS: THIAMINE HCL 100 MG TABLET (FP) PO SCH (21:20)
[2021-10-11] MEDS: NICOTINE POLACRILEX 4 MG GUM BUC PRN ×5 (05:36→16:32)
[2021-10-11] MEDS: LOSARTAN POTASSIUM 50 MG TABLET PO SCH (10:21)
[2021-10-11] MEDS: FAMOTIDINE 20 MG TABLET PO SCH ×2 (10:21→22:01)
[2021-10-11] MEDS: PRENATAL VITAMINS W/ FOLIC ACID TABLET (FP) PO SCH (10:22)
[2021-10-11] MEDS: METHYL SALICYLATE/MENTHOL OINT 30 GM TUBE TP SCH ×2 (10:22→22:01)
[2021-10-11] MEDS: NICOTINE 14 MG/24 HOURS TOPICAL PATCH TD SCH (10:22)
[2021-10-11] MEDS: QUEtiapine FUMARATE 200 MG TABLET PO SCH (19:47)
[2021-10-11] MEDS: DOXEPIN HCL 25 MG CAPSULE PO SCH (19:47)
[2021-10-11] MEDS: METHOCARBAMOL 500 MG TABLET PO PRN (19:50)
[2021-10-11] MEDS: THIAMINE HCL 100 MG TABLET (FP) PO SCH (22:02)
[2021-10-12 06:46] VITALS: TEMP 97.3
[2021-10-12 09:13] VITALS: PULSE 71
[2021-10-12] MEDS: LOSARTAN POTASSIUM 50 MG TABLET PO SCH (09:55)
[2021-10-12] MEDS: FAMOTIDINE 20 MG TABLET PO SCH (09:55)
[2021-10-12] MEDS: PRENATAL VITAMINS W/ FOLIC ACID TABLET (FP) PO SCH (09:55)
[2021-10-12] MEDS: METHYL SALICYLATE/MENTHOL OINT 30 GM TUBE TP SCH (09:56)
[2021-10-12] MEDS: NICOTINE 14 MG/24 HOURS TOPICAL PATCH TD SCH (10:07)
[2021-10-12] MEDS: NICOTINE POLACRILEX 4 MG GUM BUC PRN ×2 (12:57→14:56)
[2021-10-12 15:14] VITALS: BP 139/60
== END 2021-10-12 16:07 | disposition home or self-care (01) | DRG 772 ==
LOC: YASAS 23:15 → Y3W 23:18 → Y3E 10-12 15:21 → Y3W 10-12 15:39
PROVIDERS: ADMIT Allergy & Immunology; ATTEND Allergy & Immunology
PROC: HZ42ZZZ Group Counseling for Substance Abuse Treatment, Cognitive-Behavioral (ICD-10-PCS; principal; 2021-09-28)
DX: F10.20 Alcohol dependence, uncomplicated (principal); F14.20 Cocaine dependence, uncomplicated; F17.210 Nicotine dependence, cigarettes, uncomplicated; F19.280 Other psychoactive substance dependence with psychoactive substance-induced anxiety disorder; F19.282 Other psychoactive substance dependence with psychoactive substance-induced sleep disorder; I10 Essential (primary) hypertension; E11.9 Type 2 diabetes mellitus without complications; Z79.84 Long term (current) use of oral hypoglycemic drugs; M17.11 Unilateral primary osteoarthritis, right knee; R76.8 Other specified abnormal immunological findings in serum; Z86.19 Personal history of other infectious and parasitic diseases
CPT/HCPCS: 82962; C9803-CS; U0003; U0005

== ENCOUNTER 2022-01-14 08:52 | Inpatient (IN) | payer OTHER ==
[2022-01-14 09:58] VITALS: BMI 28.7
[2022-01-14] MEDS ORDERED: chlordiazePOXIDE HCL 25 MG CAPSULE PO PRN (11:08)
[2022-01-14] MEDS ORDERED: ACETAMINOPHEN 325 MG TABLET (FP) PO PRN ×2 (11:08)
[2022-01-14] MEDS ORDERED: NICOTINE 10 MG CARTRIDGE (INHALER) IH PRN ×2 (11:08→12:29)
[2022-01-14] MEDS ORDERED: IBUPROFEN 600 MG TABLET (FP) PO PRN (11:08)
[2022-01-14] MEDS ORDERED: LOPERAMIDE HCL 2 MG CAPSULE PO PRN (11:08)
[2022-01-14] MEDS ORDERED: MAGNESIUM CITRATE 300 ML BOTTLE PO PRN (11:08)
[2022-01-14] MEDS ORDERED: ONDANSETRON *ODT* 4 MG TABLET SL PRN (11:08)
[2022-01-14] MEDS ORDERED: MAG HYDROX/AL HYDROX/SIMETH 30 ML UNIT-DOSE CUP PO PRN (11:08)
[2022-01-14] MEDS ORDERED: BENZOCAINE/MENTHOL (CHLORASEPTIC ) LOZENGE MM PRN (11:08)
[2022-01-14] MEDS ORDERED: DICYCLOMINE HCL 10 MG CAPSULE PO PRN (11:08)
[2022-01-14] MEDS ORDERED: MAGNESIUM HYDROX 2400MG/30ML ORAL SUSPENSION 30 ML CUP PO PRN (11:08)
[2022-01-14] MEDS ORDERED: BISMUTH SUBSALICYLATE 524 MG/30 ML PO PRN (11:08)
[2022-01-14] MEDS: PRENATAL VITAMINS W/ FOLIC ACID TABLET (FP) PO SCH (12:18)
[2022-01-14] MEDS: NICOTINE 14 MG/24 HOURS TOPICAL PATCH TD SCH (12:18)
[2022-01-14] MEDS: chlordiazePOXIDE HCL 25 MG CAPSULE PO SCH ×3 (12:20→23:39)
[2022-01-14] MEDS: NICOTINE POLACRILEX 4 MG GUM BUC PRN ×2 (12:34→15:07)
[2022-01-14] MEDS: hydrOXYzine PAMOATE 25 MG CAPSULE (FP) PO SCH ×3 (15:06→22:41)
[2022-01-14 17:59] LABS: HEMATOCRIT 48.1 % (35.4-49); HEMOGLOBIN 16.4 GM/dL (11.7-16.9); MCH 31.2 pg (25.7-33.7); MCHC 34.1 g/dl (32.0-35.9); MEAN CELL VOLUME 91.3 fl (80-96); MEAN PLT VOLUME 9.6 fl (7.5-11.1); PLATELET COUNT 244 10^3/uL (134-434); RBC 5.26 M/mm3 (4.00-5.60); RDW 13.7 % (11.9-15.9); WHITE BLOOD COUNT 7.5 K/mm3 (4.0-10.0)
[2022-01-14 18:05] LABS: CALCIUM 9.7 mg/dL (8.5-10.1)
[2022-01-14 18:06] LABS: ALBUMIN 4.1 g/dl (3.4-5.0); BLOOD UREA NITROGEN 12.7 mg/dL (7-18)
[2022-01-14 18:10] LABS: BILIRUBIN,TOTAL 0.8 mg/dL (0.2-1); TOT PROT 7.8 g/dl (6.4-8.2)
[2022-01-14 18:11] LABS: CREATININE 1.1 mg/dL (0.55-1.3)
[2022-01-14] MEDS ORDERED: DOXEPIN HCL 50 MG CAPSULE PO SCH (20:00)
[2022-01-14] MEDS: FAMOTIDINE 20 MG TABLET PO SCH (21:08)
[2022-01-14] MEDS: THIAMINE HCL 100 MG TABLET (FP) PO SCH (21:08)
[2022-01-14] MEDS: QUEtiapine FUMARATE 200 MG TABLET PO SCH (21:08)
[2022-01-14] MEDS: TOLNAFTATE 1% CREAM 15 GM TUBE TP SCH (21:10)
[2022-01-14] MEDS: METHOCARBAMOL 500 MG TABLET PO PRN (21:10)
[2022-01-14] MEDS: DOXEPIN HCL 25 MG CAPSULE PO SCH (21:18)
[2022-01-14] MEDS ORDERED: MELATONIN 5 MG TABLETS PO SCH (22:00)
[2022-01-15] MEDS: chlordiazePOXIDE HCL 25 MG CAPSULE PO SCH ×5 (06:40→23:52)
[2022-01-15] MEDS: hydrOXYzine PAMOATE 25 MG CAPSULE (FP) PO SCH ×5 (06:41→23:52)
[2022-01-15] MEDS: NICOTINE POLACRILEX 4 MG GUM BUC PRN ×5 (06:59→20:19)
[2022-01-15] MEDS: LOSARTAN POTASSIUM 50 MG TABLET PO SCH (10:51)
[2022-01-15] MEDS: PRENATAL VITAMINS W/ FOLIC ACID TABLET (FP) PO SCH (10:51)
[2022-01-15] MEDS: NICOTINE 14 MG/24 HOURS TOPICAL PATCH TD SCH (10:52)
[2022-01-15] MEDS: METHOCARBAMOL 500 MG TABLET PO PRN (10:52)
[2022-01-15] MEDS: FAMOTIDINE 20 MG TABLET PO SCH ×2 (10:52→23:50)
[2022-01-15] MEDS: TOLNAFTATE 1% CREAM 15 GM TUBE TP SCH ×2 (10:55→23:51)
[2022-01-15] MEDS: QUEtiapine FUMARATE 200 MG TABLET PO SCH (20:17)
[2022-01-15] MEDS: DOXEPIN HCL 25 MG CAPSULE PO SCH (20:17)
[2022-01-15] MEDS: THIAMINE HCL 100 MG TABLET (FP) PO SCH (23:52)
[2022-01-16] MEDS: chlordiazePOXIDE HCL 25 MG CAPSULE PO SCH ×4 (05:37→22:50)
[2022-01-16] MEDS: hydrOXYzine PAMOATE 25 MG CAPSULE (FP) PO SCH ×5 (05:37→22:49)
[2022-01-16] MEDS: NICOTINE POLACRILEX 4 MG GUM BUC PRN ×4 (05:46→16:45)
[2022-01-16] MEDS: LOSARTAN POTASSIUM 50 MG TABLET PO SCH (10:23)
[2022-01-16] MEDS: FAMOTIDINE 20 MG TABLET PO SCH ×2 (10:23→22:49)
[2022-01-16] MEDS: PRENATAL VITAMINS W/ FOLIC ACID TABLET (FP) PO SCH (10:23)
[2022-01-16] MEDS: METHOCARBAMOL 500 MG TABLET PO PRN (10:23)
[2022-01-16] MEDS: TOLNAFTATE 1% CREAM 15 GM TUBE TP SCH ×2 (10:23→22:49)
[2022-01-16] MEDS: NICOTINE 14 MG/24 HOURS TOPICAL PATCH TD SCH (10:23)
[2022-01-16] MEDS: DOXEPIN HCL 25 MG CAPSULE PO SCH (20:05)
[2022-01-16] MEDS: IBUPROFEN 400 MG TABLET (FP) PO PRN (20:05)
[2022-01-16] MEDS: QUEtiapine FUMARATE 200 MG TABLET PO SCH (20:05)
[2022-01-16] MEDS: THIAMINE HCL 100 MG TABLET (FP) PO SCH (22:50)
[2022-01-17] MEDS ORDERED: chlordiazePOXIDE HCL 10 MG CAPSULE PO PRN
[2022-01-17 05:16] VITALS: TEMP 97.3
[2022-01-17] MEDS: IBUPROFEN 400 MG TABLET (FP) PO PRN (05:23)
[2022-01-17] MEDS: hydrOXYzine PAMOATE 25 MG CAPSULE (FP) PO SCH ×2 (05:23→09:32)
[2022-01-17] MEDS: chlordiazePOXIDE HCL 10 MG CAPSULE PO SCH ×2 (06:43→10:08)
[2022-01-17] MEDS: NICOTINE 14 MG/24 HOURS TOPICAL PATCH TD SCH (09:30)
[2022-01-17] MEDS: FAMOTIDINE 20 MG TABLET PO SCH (09:32)
[2022-01-17] MEDS: LOSARTAN POTASSIUM 50 MG TABLET PO SCH (09:32)
[2022-01-17] MEDS: PRENATAL VITAMINS W/ FOLIC ACID TABLET (FP) PO SCH (09:33)
[2022-01-17] MEDS: TOLNAFTATE 1% CREAM 15 GM TUBE TP SCH (09:33)
[2022-01-17 10:04] VITALS: BP 118/66; PULSE 68; RESP 17
[2022-01-18] MEDS ORDERED: chlordiazePOXIDE HCL 10 MG CAPSULE PO SCH (05:00)
[2022-01-19] MEDS ORDERED: chlordiazePOXIDE HCL 10 MG CAPSULE PO ONE (05:00)
== END 2022-01-17 09:40 | disposition home or self-care (01) | DRG 774 ==
LOC: YASAS 08:52 → Y6N 11:49
PROVIDERS: ADMIT Allergy & Immunology; ATTEND Surgery
PROC: HZ2ZZZZ Detoxification Services for Substance Abuse Treatment (ICD-10-PCS; principal; 2022-01-14)
DX: F10.230 Alcohol dependence with withdrawal, uncomplicated (principal); F14.20 Cocaine dependence, uncomplicated; F17.210 Nicotine dependence, cigarettes, uncomplicated; F19.282 Other psychoactive substance dependence with psychoactive substance-induced sleep disorder; F25.1 Schizoaffective disorder, depressive type; F32.A Depression, unspecified; I10 Essential (primary) hypertension; K21.9 Gastro-esophageal reflux disease without esophagitis; M17.11 Unilateral primary osteoarthritis, right knee; E11.9 Type 2 diabetes mellitus without complications; Z79.84 Long term (current) use of oral hypoglycemic drugs; R76.8 Other specified abnormal immunological findings in serum; Z86.19 Personal history of other infectious and parasitic diseases
CPT/HCPCS: 36415; 80053; 82962; 85027; 86593; 86780; C9803-CS; U0003; U0005

== ENCOUNTER 2022-03-09 08:11 | Inpatient (IN) | payer OTHER ==
[2022-03-09 10:08] VITALS: BMI 28.2
[2022-03-09] MEDS ORDERED: ACETAMINOPHEN 325 MG TABLET (FP) PO PRN ×2 (10:21)
[2022-03-09] MEDS ORDERED: MAGNESIUM HYDROX 2400MG/30ML ORAL SUSPENSION 30 ML CUP PO PRN (10:21)
[2022-03-09] MEDS ORDERED: BENZOCAINE/MENTHOL (CHLORASEPTIC ) LOZENGE MM PRN (10:21)
[2022-03-09] MEDS ORDERED: chlordiazePOXIDE HCL 25 MG CAPSULE PO PRN (10:21)
[2022-03-09] MEDS ORDERED: MAG HYDROX/AL HYDROX/SIMETH 30 ML UNIT-DOSE CUP PO PRN (10:21)
[2022-03-09] MEDS ORDERED: BISMUTH SUBSALICYLATE 524 MG/30 ML PO PRN (10:21)
[2022-03-09] MEDS ORDERED: NICOTINE 10 MG CARTRIDGE (INHALER) IH PRN (10:21)
[2022-03-09] MEDS ORDERED: IBUPROFEN 400 MG TABLET (FP) PO PRN (10:21)
[2022-03-09] MEDS ORDERED: DICYCLOMINE HCL 10 MG CAPSULE PO PRN (10:21)
[2022-03-09] MEDS ORDERED: MAGNESIUM CITRATE 300 ML BOTTLE PO PRN (10:21)
[2022-03-09] MEDS ORDERED: IBUPROFEN 600 MG TABLET (FP) PO PRN (10:21)
[2022-03-09] MEDS ORDERED: chlordiazePOXIDE HCL 25 MG CAPSULE ONE (11:29)
[2022-03-09] MEDS: chlordiazePOXIDE HCL 25 MG CAPSULE PO SCH ×3 (11:38→22:06)
[2022-03-09] MEDS: METHOCARBAMOL 500 MG TABLET PO PRN ×2 (12:54→17:38)
[2022-03-09] MEDS: LOSARTAN POTASSIUM 50 MG TABLET PO SCH (12:54)
[2022-03-09] MEDS: hydrOXYzine PAMOATE 25 MG CAPSULE (FP) PO PRN ×3 (12:54→22:05)
[2022-03-09] MEDS: NICOTINE POLACRILEX 2 MG GUM BUC PRN ×3 (12:55→20:07)
[2022-03-09] MEDS: CLOTRIMAZOLE 1% CREAM TP SCH ×2 (14:54→22:07)
[2022-03-09] MEDS: MELATONIN 5 MG TABLETS PO SCH (22:05)
[2022-03-09] MEDS: THIAMINE HCL 100 MG TABLET (FP) PO SCH (22:05)
[2022-03-09] MEDS: QUEtiapine FUMARATE 200 MG TABLET PO SCH (22:06)
[2022-03-09] MEDS: DOXEPIN HCL 50 MG CAPSULE PO SCH (22:07)
[2022-03-10] MEDS: LOPERAMIDE HCL 2 MG CAPSULE PO PRN (01:20)
[2022-03-10] MEDS: chlordiazePOXIDE HCL 25 MG CAPSULE PO SCH ×2 (06:10→11:05)
[2022-03-10] MEDS: NICOTINE POLACRILEX 2 MG GUM BUC PRN ×6 (06:15→22:35)
[2022-03-10] MEDS: LOSARTAN POTASSIUM 50 MG TABLET PO SCH (11:05)
[2022-03-10] MEDS: CLOTRIMAZOLE 1% CREAM TP SCH ×2 (11:05→23:30)
[2022-03-10] MEDS: PRENATAL VITAMINS W/ FOLIC ACID TABLET (FP) PO SCH (11:05)
[2022-03-10 12:19] LABS: HEMATOCRIT 45.3 % (35.4-49); MCH 29.5 pg (25.7-33.7); MCHC 33.1 g/dl (32.0-35.9); MEAN CELL VOLUME 89.2 fl (80-96); MEAN PLT VOLUME 10.7 fl (7.5-11.1); PLATELET COUNT 159 10^3/uL (134-434); RBC 5.08 M/mm3 (4.00-5.60); RDW 13.5 % (11.9-15.9); WHITE BLOOD COUNT 5.4 K/mm3 (4.0-10.0)
[2022-03-10 12:42] LABS: CALCIUM 9.5 mg/dL (8.5-10.1)
[2022-03-10 12:43] LABS: ALBUMIN 3.5 g/dl (3.4-5.0); BLOOD UREA NITROGEN 11.8 mg/dL (7-18)
[2022-03-10 12:47] LABS: BILIRUBIN,TOTAL 0.4 mg/dL (0.2-1)
[2022-03-10 12:48] LABS: TOT PROT 6.5 g/dl (6.4-8.2)
[2022-03-10 13:17] LABS: HIV INTERPRETATION NEGATIVE (NEGATIVE)
[2022-03-10] MEDS: chlordiazePOXIDE HCL 10 MG CAPSULE PO SCH ×2 (17:37→23:26)
[2022-03-10] MEDS: QUEtiapine FUMARATE 200 MG TABLET PO SCH (20:02)
[2022-03-10] MEDS: DOXEPIN HCL 50 MG CAPSULE PO SCH (20:03)
[2022-03-10] MEDS: THIAMINE HCL 100 MG TABLET (FP) PO SCH (22:31)
[2022-03-10] MEDS: MELATONIN 5 MG TABLETS PO SCH (22:31)
[2022-03-10] MEDS: hydrOXYzine PAMOATE 25 MG CAPSULE (FP) PO PRN (22:33)
[2022-03-11] MEDS ORDERED: chlordiazePOXIDE HCL 25 MG CAPSULE PO SCH (05:00)
[2022-03-11] MEDS: NICOTINE POLACRILEX 2 MG GUM BUC PRN ×6 (05:07→20:03)
[2022-03-11] MEDS ORDERED: LOSARTAN POTASSIUM 50 MG TABLET PO SCH (10:00)
[2022-03-11] MEDS: PRENATAL VITAMINS W/ FOLIC ACID TABLET (FP) PO SCH (10:05)
[2022-03-11] MEDS: CLOTRIMAZOLE 1% CREAM TP SCH ×2 (10:06→23:44)
[2022-03-11] MEDS: LOPERAMIDE HCL 2 MG CAPSULE PO PRN (12:54)
[2022-03-11] MEDS: chlordiazePOXIDE 5 MG CAPSULE PO SCH ×2 (15:41→23:44)
[2022-03-11] MEDS: ONDANSETRON *ODT* 4 MG TABLET SL PRN (15:42)
[2022-03-11] MEDS: DOXEPIN HCL 25 MG CAPSULE PO SCH (20:01)
[2022-03-11] MEDS: QUEtiapine FUMARATE 200 MG TABLET PO SCH (20:03)
[2022-03-11] MEDS: THIAMINE HCL 100 MG TABLET (FP) PO SCH (23:44)
[2022-03-11] MEDS: MELATONIN 5 MG TABLETS PO SCH (23:44)
[2022-03-12] MEDS ORDERED: chlordiazePOXIDE HCL 10 MG CAPSULE PO PRN
[2022-03-12] MEDS: ONDANSETRON *ODT* 4 MG TABLET SL PRN (02:21)
[2022-03-12] MEDS: LOPERAMIDE HCL 2 MG CAPSULE PO PRN (03:03)
[2022-03-12] MEDS ORDERED: chlordiazePOXIDE HCL 10 MG CAPSULE PO SCH (05:00)
[2022-03-12] MEDS: chlordiazePOXIDE 5 MG CAPSULE PO SCH ×2 (05:42→17:52)
[2022-03-12] MEDS ORDERED: TRIMETHOBENZAMIDE HCL 200MG/2ML INJ IM PRN (08:56)
[2022-03-12] MEDS: PRENATAL VITAMINS W/ FOLIC ACID TABLET (FP) PO SCH (10:05)
[2022-03-12] MEDS: CLOTRIMAZOLE 1% CREAM TP SCH ×2 (10:06→23:30)
[2022-03-12] MEDS: NICOTINE POLACRILEX 2 MG GUM BUC PRN ×4 (10:06→20:17)
[2022-03-12] MEDS: QUEtiapine FUMARATE 200 MG TABLET PO SCH (20:14)
[2022-03-12] MEDS: DOXEPIN HCL 25 MG CAPSULE PO SCH (20:15)
[2022-03-12] MEDS: MELATONIN 5 MG TABLETS PO SCH (23:31)
[2022-03-12] MEDS: THIAMINE HCL 100 MG TABLET (FP) PO SCH (23:31)
[2022-03-13] MEDS ORDERED: chlordiazePOXIDE HCL 10 MG CAPSULE PO SCH (05:00)
[2022-03-13] MEDS ORDERED: chlordiazePOXIDE 5 MG CAPSULE PO ONE (06:00)
[2022-03-13] MEDS: CLOTRIMAZOLE 1% CREAM TP SCH ×2 (10:10→22:54)
[2022-03-13] MEDS: PRENATAL VITAMINS W/ FOLIC ACID TABLET (FP) PO SCH (10:10)
[2022-03-13] MEDS: NICOTINE POLACRILEX 2 MG GUM BUC PRN ×2 (10:11→14:34)
[2022-03-13] MEDS: BANATROL PLUS POWDER PACKET PO SCH ×2 (13:01→22:54)
[2022-03-13] MEDS: DOXEPIN HCL 25 MG CAPSULE PO SCH (20:07)
[2022-03-13] MEDS: QUEtiapine FUMARATE 200 MG TABLET PO SCH (20:07)
[2022-03-13 22:45] VITALS: RESP 18
[2022-03-13] MEDS: THIAMINE HCL 100 MG TABLET (FP) PO SCH (22:54)
[2022-03-13] MEDS: MELATONIN 5 MG TABLETS PO SCH (22:54)
[2022-03-14] MEDS ORDERED: chlordiazePOXIDE HCL 10 MG CAPSULE PO ONE (05:00)
[2022-03-14] MEDS: BANATROL PLUS POWDER PACKET PO SCH (06:08)
[2022-03-14 06:10] VITALS: TEMP 97.3
[2022-03-14 09:45] VITALS: BP 122/66; PULSE 75
[2022-03-14] MEDS: PRENATAL VITAMINS W/ FOLIC ACID TABLET (FP) PO SCH (09:59)
[2022-03-14] MEDS: CLOTRIMAZOLE 1% CREAM TP SCH (09:59)
== END 2022-03-14 09:50 | disposition home or self-care (01) | DRG 774 ==
LOC: YASAS 08:11 → Y6N 11:49
PROVIDERS: ADMIT Allergy & Immunology; ATTEND Surgery
PROC: HZ2ZZZZ Detoxification Services for Substance Abuse Treatment (ICD-10-PCS; principal; 2022-03-09)
DX: F10.230 Alcohol dependence with withdrawal, uncomplicated (principal); F14.20 Cocaine dependence, uncomplicated; F17.210 Nicotine dependence, cigarettes, uncomplicated; F25.9 Schizoaffective disorder, unspecified; I10 Essential (primary) hypertension; E11.9 Type 2 diabetes mellitus without complications; Z79.84 Long term (current) use of oral hypoglycemic drugs; M17.11 Unilateral primary osteoarthritis, right knee; M77.31 Calcaneal spur, right foot; B35.9 Dermatophytosis, unspecified; Z86.19 Personal history of other infectious and parasitic diseases
CPT/HCPCS: 36415; 80053; 82962; 85027; 86593; 86780; 87389; 87811; C9803-CS; Q0162; U0003; U0005

== ENCOUNTER 2022-08-06 10:03 | Inpatient (IN) | payer OTHER ==
[2022-08-06 10:29] VITALS: BMI 31.5
[2022-08-06] MEDS ORDERED: guaiFENesin 600 MG TABLET.ER (FP) PO PRN (11:38)
[2022-08-06] MEDS ORDERED: BENZOCAINE/MENTHOL (CHLORASEPTIC ) LOZENGE MM PRN (11:38)
[2022-08-06] MEDS ORDERED: MAG HYDROX/AL HYDROX/SIMETH 30 ML UNIT-DOSE CUP PO PRN (11:38)
[2022-08-06] MEDS ORDERED: BENZONATATE 200 MG CAPSULE PO PRN (11:38)
[2022-08-06] MEDS ORDERED: POLYETHYLENE GLYCOL (HEALTHYLAX) 3350 17 GM PACKET PO PRN (11:38)
[2022-08-06] MEDS ORDERED: IBUPROFEN 400 MG TABLET (FP) PO PRN (11:38)
[2022-08-06] MEDS ORDERED: LOPERAMIDE HCL 2 MG CAPSULE PO PRN (11:38)
[2022-08-06] MEDS ORDERED: hydrOXYzine PAMOATE 25 MG CAPSULE (FP) PO PRN (11:38)
[2022-08-06] MEDS ORDERED: ONDANSETRON *ODT* 4 MG TABLET SL PRN (11:38)
[2022-08-06] MEDS ORDERED: MAGNESIUM HYDROX 2400MG/30ML ORAL SUSPENSION 30 ML CUP PO PRN (11:38)
[2022-08-06] MEDS ORDERED: METHOCARBAMOL 500 MG TABLET PO PRN (11:38)
[2022-08-06] MEDS ORDERED: NALOXONE HCL (KLOXXADO) 8 MG SPRAY NS PRN (11:38)
[2022-08-06] MEDS ORDERED: DICYCLOMINE HCL 10 MG CAPSULE PO PRN (11:38)
[2022-08-06] MEDS ORDERED: BISMUTH SUBSALICYLATE 262 MG/15 ML BTL PO PRN (11:38)
[2022-08-06] MEDS ORDERED: NALOXONE HCL 0.4 MG/ML VIAL IM PRN (11:38)
[2022-08-06] MEDS: PRENATAL VITAMINS W/ FOLIC ACID TABLET (FP) PO SCH (13:06)
[2022-08-06] MEDS: chlordiazePOXIDE HCL 25 MG CAPSULE PO PRN (13:07)
[2022-08-06] MEDS ORDERED: chlordiazePOXIDE HCL 25 MG CAPSULE ONE (13:20)
[2022-08-06] MEDS ORDERED: PRENATAL VITAMINS W/ FOLIC ACID TABLET (FP) PO ONE (13:20)
[2022-08-06] MEDS: NICOTINE POLACRILEX 4 MG GUM BUC PRN ×2 (13:23→17:39)
[2022-08-06 13:24] LABS: HEMATOCRIT 46.5 % (35.4-49); HEMOGLOBIN 15.4 GM/dL (11.7-16.9); MCHC 33.2 g/dl (32.0-35.9); MEAN CELL VOLUME 87.3 fl (80-96); MEAN PLT VOLUME 10.2 fl (7.5-11.1); PLATELET COUNT 188 10^3/uL (134-434); RBC 5.33 M/mm3 (4.00-5.60); RDW 14.5 % (11.9-15.9); WHITE BLOOD COUNT 5.9 K/mm3 (4.0-10.0)
[2022-08-06] MEDS ORDERED: NICOTINE POLACRILEX 4 MG GUM BUC ONE (13:25)
[2022-08-06 14:13] LABS: ALBUMIN 3.8 g/dl (3.4-5.0); BLOOD UREA NITROGEN 8.6 mg/dL (7-18); CALCIUM 9.1 mg/dL (8.5-10.1)
[2022-08-06 14:16] LABS: CREATININE 1.2 mg/dL (0.55-1.3)
[2022-08-06 14:18] LABS: TOT PROT 7.2 g/dl (6.4-8.2)
[2022-08-06 14:19] LABS: BILIRUBIN,TOTAL 0.5 mg/dL (0.2-1)
[2022-08-06] MEDS: chlordiazePOXIDE HCL 25 MG CAPSULE PO SCH ×2 (17:21→22:15)
[2022-08-06] MEDS ORDERED: MELATONIN 5 MG TABLETS PO SCH (22:00)
[2022-08-06] MEDS: THIAMINE HCL 100 MG TABLET (FP) PO SCH (22:15)
[2022-08-07] MEDS: chlordiazePOXIDE HCL 25 MG CAPSULE PO PRN (02:24)
[2022-08-07] MEDS: NICOTINE POLACRILEX 4 MG GUM BUC PRN ×5 (02:31→17:02)
[2022-08-07] MEDS: chlordiazePOXIDE HCL 25 MG CAPSULE PO SCH ×4 (05:20→23:15)
[2022-08-07] MEDS: PRENATAL VITAMINS W/ FOLIC ACID TABLET (FP) PO SCH (10:24)
[2022-08-07] MEDS ORDERED: PATIENT'S OWN MEDICATION (NON-FORMULARY) (Losartan/Hydrochlorothiazide [Losartan-Hctz 100- PO SCH (11:15)
[2022-08-07] MEDS: LOSARTAN POTASSIUM 50 MG TABLET PO SCH (12:43)
[2022-08-07] MEDS: HYDROCHLOROTHIAZIDE 12.5 MG CAPSULE (FP) PO SCH (12:43)
[2022-08-07] MEDS ORDERED: DOXEPIN HCL 50 MG CAPSULE PO SCH (20:00)
[2022-08-07] MEDS: QUEtiapine FUMARATE 200 MG TABLET PO SCH (20:14)
[2022-08-07] MEDS: DOXEPIN HCL 25 MG CAPSULE PO SCH (20:15)
[2022-08-07] MEDS: THIAMINE HCL 100 MG TABLET (FP) PO SCH (23:14)
[2022-08-08] MEDS: chlordiazePOXIDE HCL 25 MG CAPSULE PO SCH ×4 (05:30→22:28)
[2022-08-08] MEDS: NICOTINE POLACRILEX 4 MG GUM BUC PRN ×5 (05:42→22:28)
[2022-08-08] MEDS: PRENATAL VITAMINS W/ FOLIC ACID TABLET (FP) PO SCH (10:41)
[2022-08-08] MEDS: NICOTINE 10 MG CARTRIDGE (INHALER) IH PRN (10:42)
[2022-08-08] MEDS: LOSARTAN POTASSIUM 50 MG TABLET PO SCH (10:46)
[2022-08-08] MEDS: HYDROCHLOROTHIAZIDE 12.5 MG CAPSULE (FP) PO SCH (10:46)
[2022-08-08] MEDS: DOXEPIN HCL 25 MG CAPSULE PO SCH (20:02)
[2022-08-08] MEDS: QUEtiapine FUMARATE 200 MG TABLET PO SCH (20:02)
[2022-08-08] MEDS: THIAMINE HCL 100 MG TABLET (FP) PO SCH (22:28)
[2022-08-09] MEDS ORDERED: chlordiazePOXIDE HCL 10 MG CAPSULE PO PRN
[2022-08-09] MEDS: NICOTINE POLACRILEX 4 MG GUM BUC PRN ×6 (02:45→20:26)
[2022-08-09] MEDS: chlordiazePOXIDE HCL 10 MG CAPSULE PO SCH ×4 (05:14→22:52)
[2022-08-09] MEDS: IBUPROFEN 600 MG TABLET (FP) PO PRN (05:27)
[2022-08-09] MEDS: PRENATAL VITAMINS W/ FOLIC ACID TABLET (FP) PO SCH (10:23)
[2022-08-09] MEDS: NICOTINE 10 MG CARTRIDGE (INHALER) IH PRN (10:24)
[2022-08-09] MEDS: AMMONIUM LACTATE 12% LOTION 225 GM BOTTLE TP PRN (13:31)
[2022-08-09] MEDS: QUEtiapine FUMARATE 200 MG TABLET PO SCH (20:24)
[2022-08-09] MEDS: DOXEPIN HCL 25 MG CAPSULE PO SCH (20:24)
[2022-08-09] MEDS: THIAMINE HCL 100 MG TABLET (FP) PO SCH (22:52)
[2022-08-10] MEDS: NICOTINE POLACRILEX 4 MG GUM BUC PRN ×5 (01:02→20:01)
[2022-08-10] MEDS: chlordiazePOXIDE HCL 10 MG CAPSULE PO SCH ×2 (04:49→17:55)
[2022-08-10] MEDS: IBUPROFEN 600 MG TABLET (FP) PO PRN ×2 (04:51→20:00)
[2022-08-10] MEDS: PRENATAL VITAMINS W/ FOLIC ACID TABLET (FP) PO SCH (10:08)
[2022-08-10] MEDS: NICOTINE 10 MG CARTRIDGE (INHALER) IH PRN ×2 (10:10→16:18)
[2022-08-10] MEDS: DOXEPIN HCL 25 MG CAPSULE PO SCH (19:58)
[2022-08-10] MEDS: QUEtiapine FUMARATE 200 MG TABLET PO SCH (19:59)
[2022-08-10] MEDS: THIAMINE HCL 100 MG TABLET (FP) PO SCH (23:00)
[2022-08-11] MEDS: NICOTINE POLACRILEX 4 MG GUM BUC PRN ×7 (02:43→23:50)
[2022-08-11] MEDS ORDERED: chlordiazePOXIDE HCL 10 MG CAPSULE PO ONE (05:00)
[2022-08-11] MEDS: IBUPROFEN 600 MG TABLET (FP) PO PRN (05:45)
[2022-08-11] MEDS: PRENATAL VITAMINS W/ FOLIC ACID TABLET (FP) PO SCH (10:08)
[2022-08-11] MEDS: ACETAMINOPHEN 325 MG TABLET (FP) PO PRN (10:12)
[2022-08-11] MEDS: NICOTINE 10 MG CARTRIDGE (INHALER) IH PRN (11:26)
[2022-08-11] MEDS: AMMONIUM LACTATE 12% LOTION 225 GM BOTTLE TP PRN (17:56)
[2022-08-11] MEDS: QUEtiapine FUMARATE 200 MG TABLET PO SCH (20:28)
[2022-08-11] MEDS: DOXEPIN HCL 25 MG CAPSULE PO SCH (20:29)
[2022-08-11] MEDS: THIAMINE HCL 100 MG TABLET (FP) PO SCH (22:39)
[2022-08-12] MEDS: NICOTINE 10 MG CARTRIDGE (INHALER) IH PRN ×2 (02:28→17:50)
[2022-08-12] MEDS: NICOTINE POLACRILEX 4 MG GUM BUC PRN ×5 (02:29→17:50)
[2022-08-12] MEDS: IBUPROFEN 600 MG TABLET (FP) PO PRN (05:34)
[2022-08-12] MEDS: PRENATAL VITAMINS W/ FOLIC ACID TABLET (FP) PO SCH ×2 (10:09→10:28)
[2022-08-12] MEDS: ACETAMINOPHEN 325 MG TABLET (FP) PO PRN (10:30)
[2022-08-12] MEDS ORDERED: LOSARTAN POTASSIUM 50 MG TABLET PO SCH (11:00)
[2022-08-12] MEDS ORDERED: HYDROCHLOROTHIAZIDE 12.5 MG CAPSULE (FP) PO SCH (12:15)
[2022-08-12 13:06] VITALS: TEMP 97.7
[2022-08-12 17:30] VITALS: BP 129/82; PULSE 87; RESP 19
== END 2022-08-12 18:10 | disposition other institution (70) | DRG 774 ==
LOC: YASAS 10:03 → Y3N 12:17
PROVIDERS: ADMIT Allergy & Immunology; ATTEND Surgery
PROC: HZ2ZZZZ Detoxification Services for Substance Abuse Treatment (ICD-10-PCS; principal; 2022-08-06)
DX: F10.230 Alcohol dependence with withdrawal, uncomplicated (principal); F14.20 Cocaine dependence, uncomplicated; F17.210 Nicotine dependence, cigarettes, uncomplicated; F19.282 Other psychoactive substance dependence with psychoactive substance-induced sleep disorder; I10 Essential (primary) hypertension; E11.9 Type 2 diabetes mellitus without complications; Z79.84 Long term (current) use of oral hypoglycemic drugs; M17.11 Unilateral primary osteoarthritis, right knee; Z86.19 Personal history of other infectious and parasitic diseases
CPT/HCPCS: 36415; 80053; 82962; 85027; 86593; 86780; C9803-CS; U0003; U0005

== ENCOUNTER 2022-08-12 18:56 | Inpatient (IN) | payer OTHER ==
[2022-08-12] MEDS ORDERED: POLYETHYLENE GLYCOL (HEALTHYLAX) 3350 17 GM PACKET PO PRN (19:14)
[2022-08-12] MEDS ORDERED: LOPERAMIDE HCL 2 MG CAPSULE PO PRN (19:14)
[2022-08-12] MEDS ORDERED: MELATONIN 5 MG TABLETS PO PRN (19:14)
[2022-08-12] MEDS ORDERED: MAG HYDROX/AL HYDROX/SIMETH 30 ML UNIT-DOSE CUP PO PRN (19:14)
[2022-08-12] MEDS ORDERED: IBUPROFEN 600 MG TABLET (FP) PO PRN (19:14)
[2022-08-12] MEDS ORDERED: MAGNESIUM HYDROX 2400MG/30ML ORAL SUSPENSION 30 ML CUP PO PRN (19:14)
[2022-08-12] MEDS ORDERED: BENZONATATE 200 MG CAPSULE PO PRN (19:14)
[2022-08-12] MEDS ORDERED: BENZOCAINE/MENTHOL (CHLORASEPTIC ) LOZENGE MM PRN (19:14)
[2022-08-12] MEDS ORDERED: ACETAMINOPHEN 325 MG TABLET (FP) PO PRN (19:14)
[2022-08-12] MEDS ORDERED: guaiFENesin 600 MG TABLET.ER (FP) PO PRN (19:14)
[2022-08-12] MEDS: THIAMINE HCL 100 MG TABLET (FP) PO SCH (21:01)
[2022-08-12] MEDS: NICOTINE POLACRILEX 2 MG GUM BUC PRN ×2 (21:03→23:31)
[2022-08-12] MEDS ORDERED: DOXEPIN HCL 25 MG CAPSULE PO SCH (22:00)
[2022-08-13] MEDS: IBUPROFEN 400 MG TABLET (FP) PO PRN ×2 (06:02→19:53)
[2022-08-13] MEDS: NICOTINE POLACRILEX 2 MG GUM BUC PRN ×2 (06:03→09:49)
[2022-08-13] MEDS: PRENATAL VITAMINS W/ FOLIC ACID TABLET (FP) PO SCH (09:47)
[2022-08-13] MEDS: HYDROCHLOROTHIAZIDE 12.5 MG CAPSULE (FP) PO SCH (09:47)
[2022-08-13] MEDS: LOSARTAN POTASSIUM 50 MG TABLET PO SCH (09:47)
[2022-08-13] MEDS ORDERED: PATIENT'S OWN MEDICATION (NON-FORMULARY) (Losartan/Hydrochlorothiazide [Losartan-Hctz 100- PO SCH (10:00)
[2022-08-13] MEDS: AMMONIUM LACTATE 12% LOTION 225 GM BOTTLE TP PRN (12:44)
[2022-08-13] MEDS: NICOTINE POLACRILEX 4 MG GUM BUC PRN ×2 (12:46→19:54)
[2022-08-13] MEDS: DOXEPIN HCL 25 MG CAPSULE PO SCH ×2 (19:52→21:50)
[2022-08-13] MEDS: QUEtiapine FUMARATE 200 MG TABLET PO SCH ×2 (19:52→21:50)
[2022-08-13] MEDS: THIAMINE HCL 100 MG TABLET (FP) PO SCH (22:45)
[2022-08-14] MEDS: IBUPROFEN 400 MG TABLET (FP) PO PRN (06:26)
[2022-08-14] MEDS: NICOTINE POLACRILEX 4 MG GUM BUC PRN ×6 (06:26→20:59)
[2022-08-14] MEDS: LOSARTAN POTASSIUM 50 MG TABLET PO SCH (10:18)
[2022-08-14] MEDS: PRENATAL VITAMINS W/ FOLIC ACID TABLET (FP) PO SCH (10:18)
[2022-08-14] MEDS: AMMONIUM LACTATE 12% LOTION 225 GM BOTTLE TP PRN (10:18)
[2022-08-14] MEDS: HYDROCHLOROTHIAZIDE 12.5 MG CAPSULE (FP) PO SCH (10:21)
[2022-08-14] MEDS: INSULIN SLIDING SCALE (NOVOLOG) 1 VIAL SQ SCH ×3 (12:16→21:02)
[2022-08-14 14:56] LABS: CHLORIDE 100 mmol/L (98-107); SODIUM 136 mmol/L (136-145)
[2022-08-14 14:57] LABS: ALBUMIN 3.7 g/dl (3.4-5.0)
[2022-08-14 14:58] LABS: ANION GAP 7 MMOL/L (8-16); BLOOD UREA NITROGEN 15.9 mg/dL (7-18); CALCIUM 9.4 mg/dL (8.5-10.1); CO2 29 mmol/L (21-32)
[2022-08-14 15:01] LABS: CREATININE 1.1 mg/dL (0.55-1.3); SGPT/ALT 31 U/L (13-61)
[2022-08-14 15:02] LABS: SGOT/AST 18 U/L (15-37)
[2022-08-14 15:03] LABS: BILIRUBIN,TOTAL 0.3 mg/dL (0.2-1); TOT PROT 7.2 g/dl (6.4-8.2)
[2022-08-14 15:05] LABS: ALK PHOS 170 U/L (45-117); GLUCOSE,RANDOM 439 mg/dL (74-106)
[2022-08-14] MEDS: QUEtiapine FUMARATE 200 MG TABLET PO SCH (21:00)
[2022-08-14] MEDS: DOXEPIN HCL 25 MG CAPSULE PO SCH (21:00)
[2022-08-14] MEDS: LACTULOSE 20 GM/30 ML UDC (FOR ORAL USE ONLY) PO SCH (21:00)
[2022-08-14] MEDS: THIAMINE HCL 100 MG TABLET (FP) PO SCH (21:03)
[2022-08-15] MEDS: LACTULOSE 20 GM/30 ML UDC (FOR ORAL USE ONLY) PO SCH ×3 (06:03→21:54)
[2022-08-15] MEDS: INSULIN SLIDING SCALE (NOVOLOG) 1 VIAL SQ SCH ×4 (06:07→21:55)
[2022-08-15] MEDS: IBUPROFEN 400 MG TABLET (FP) PO PRN (06:09)
[2022-08-15] MEDS: NICOTINE POLACRILEX 4 MG GUM BUC PRN ×6 (06:10→22:47)
[2022-08-15] MEDS: PRENATAL VITAMINS W/ FOLIC ACID TABLET (FP) PO SCH (10:16)
[2022-08-15] MEDS: LOSARTAN POTASSIUM 50 MG TABLET PO SCH (10:16)
[2022-08-15] MEDS: HYDROCHLOROTHIAZIDE 12.5 MG CAPSULE (FP) PO SCH (10:16)
[2022-08-15] MEDS: AMMONIUM LACTATE 12% LOTION 225 GM BOTTLE TP PRN (10:17)
[2022-08-15] MEDS: NICOTINE 10 MG CARTRIDGE (INHALER) IH PRN ×2 (16:37→22:47)
[2022-08-15] MEDS ORDERED: QUEtiapine FUMARATE 200 MG TABLET PO SCH (20:00)
[2022-08-15] MEDS ORDERED: DOXEPIN HCL 25 MG CAPSULE PO SCH (20:00)
[2022-08-15] MEDS: DOXEPIN HCL 25 MG CAPSULE PO SCH (20:56)
[2022-08-15] MEDS: QUEtiapine FUMARATE 200 MG TABLET PO SCH (20:56)
[2022-08-15] MEDS: THIAMINE HCL 100 MG TABLET (FP) PO SCH (21:54)
[2022-08-16] MEDS: LACTULOSE 20 GM/30 ML UDC (FOR ORAL USE ONLY) PO SCH ×3 (06:28→21:01)
[2022-08-16] MEDS: INSULIN SLIDING SCALE (NOVOLOG) 1 VIAL SQ SCH ×4 (06:31→21:01)
[2022-08-16] MEDS: NICOTINE 10 MG CARTRIDGE (INHALER) IH PRN ×2 (06:32→09:49)
[2022-08-16] MEDS: NICOTINE POLACRILEX 4 MG GUM BUC PRN ×5 (06:32→21:01)
[2022-08-16 09:02] VITALS: RESP 18
[2022-08-16] MEDS: PRENATAL VITAMINS W/ FOLIC ACID TABLET (FP) PO SCH (09:46)
[2022-08-16] MEDS: HYDROCHLOROTHIAZIDE 12.5 MG CAPSULE (FP) PO SCH (09:47)
[2022-08-16] MEDS: LOSARTAN POTASSIUM 50 MG TABLET PO SCH (09:47)
[2022-08-16] MEDS: DOXEPIN HCL 25 MG CAPSULE PO SCH (20:57)
[2022-08-16] MEDS: QUEtiapine FUMARATE 200 MG TABLET PO SCH (20:57)
[2022-08-16] MEDS: THIAMINE HCL 100 MG TABLET (FP) PO SCH (21:01)
[2022-08-17] MEDS: INSULIN SLIDING SCALE (NOVOLOG) 1 VIAL SQ SCH ×4 (06:04→21:01)
[2022-08-17] MEDS: NICOTINE 10 MG CARTRIDGE (INHALER) IH PRN ×2 (06:06→10:05)
[2022-08-17] MEDS: LACTULOSE 20 GM/30 ML UDC (FOR ORAL USE ONLY) PO SCH ×3 (06:06→21:00)
[2022-08-17] MEDS: NICOTINE POLACRILEX 4 MG GUM BUC PRN ×6 (06:06→21:02)
[2022-08-17] MEDS: LOSARTAN POTASSIUM 50 MG TABLET PO SCH (09:43)
[2022-08-17] MEDS: HYDROCHLOROTHIAZIDE 12.5 MG CAPSULE (FP) PO SCH (09:43)
[2022-08-17] MEDS: PRENATAL VITAMINS W/ FOLIC ACID TABLET (FP) PO SCH (09:43)
[2022-08-17] MEDS: DOXEPIN HCL 25 MG CAPSULE PO SCH (21:00)
[2022-08-17] MEDS: THIAMINE HCL 100 MG TABLET (FP) PO SCH (21:01)
[2022-08-17] MEDS: QUEtiapine FUMARATE 200 MG TABLET PO SCH (21:01)
[2022-08-18] MEDS: INSULIN SLIDING SCALE (NOVOLOG) 1 VIAL SQ SCH ×4 (06:03→21:02)
[2022-08-18] MEDS: LACTULOSE 20 GM/30 ML UDC (FOR ORAL USE ONLY) PO SCH ×3 (06:05→21:01)
[2022-08-18] MEDS: NICOTINE 10 MG CARTRIDGE (INHALER) IH PRN ×4 (06:05→19:56)
[2022-08-18] MEDS: HYDROCHLOROTHIAZIDE 12.5 MG CAPSULE (FP) PO SCH (09:55)
[2022-08-18] MEDS: LOSARTAN POTASSIUM 50 MG TABLET PO SCH (09:55)
[2022-08-18] MEDS: PRENATAL VITAMINS W/ FOLIC ACID TABLET (FP) PO SCH (09:55)
[2022-08-18] MEDS: NICOTINE POLACRILEX 4 MG GUM BUC PRN ×5 (09:55→19:56)
[2022-08-18] MEDS: THIAMINE HCL 100 MG TABLET (FP) PO SCH (21:01)
[2022-08-18] MEDS: DOXEPIN HCL 25 MG CAPSULE PO SCH (21:01)
[2022-08-18] MEDS: QUEtiapine FUMARATE 200 MG TABLET PO SCH (21:01)
[2022-08-19] MEDS: NICOTINE 10 MG CARTRIDGE (INHALER) IH PRN ×2 (06:10→09:38)
[2022-08-19] MEDS: NICOTINE POLACRILEX 4 MG GUM BUC PRN ×2 (06:11→09:38)
[2022-08-19] MEDS: LACTULOSE 20 GM/30 ML UDC (FOR ORAL USE ONLY) PO SCH (06:11)
[2022-08-19] MEDS: INSULIN SLIDING SCALE (NOVOLOG) 1 VIAL SQ SCH (06:14)
[2022-08-19 09:05] VITALS: BP 113/65; PULSE 89; TEMP 97.6
[2022-08-19] MEDS: PRENATAL VITAMINS W/ FOLIC ACID TABLET (FP) PO SCH (09:38)
[2022-08-19] MEDS: LOSARTAN POTASSIUM 50 MG TABLET PO SCH (09:38)
[2022-08-19] MEDS: HYDROCHLOROTHIAZIDE 12.5 MG CAPSULE (FP) PO SCH (09:38)
== END 2022-08-19 10:42 | disposition home or self-care (01) | DRG 772 ==
LOC: YASAS 18:56 → Y3W 18:57
PROVIDERS: ADMIT Allergy & Immunology; ATTEND Allergy & Immunology
PROC: HZ42ZZZ Group Counseling for Substance Abuse Treatment, Cognitive-Behavioral (ICD-10-PCS; principal; 2022-08-12)
DX: F10.20 Alcohol dependence, uncomplicated (principal); F14.20 Cocaine dependence, uncomplicated; F17.210 Nicotine dependence, cigarettes, uncomplicated; F19.282 Other psychoactive substance dependence with psychoactive substance-induced sleep disorder; F32.A Depression, unspecified; I10 Essential (primary) hypertension; E11.65 Type 2 diabetes mellitus with hyperglycemia; Z79.84 Long term (current) use of oral hypoglycemic drugs; Z62.810 Personal history of physical and sexual abuse in childhood; R79.89 Other specified abnormal findings of blood chemistry; Z86.19 Personal history of other infectious and parasitic diseases
CPT/HCPCS: 36415; 80053; 82140; 82962; 83036

== ENCOUNTER 2022-11-15 13:08 | Inpatient (IN) | payer OTHER ==
[2022-11-15 13:30] VITALS: BMI 31.5
[2022-11-15] MEDS ORDERED: guaiFENesin 600 MG TABLET.ER (FP) PO PRN (15:02)
[2022-11-15] MEDS ORDERED: ACETAMINOPHEN 325 MG TABLET (FP) PO PRN (15:02)
[2022-11-15] MEDS ORDERED: BENZONATATE 200 MG CAPSULE PO PRN (15:02)
[2022-11-15] MEDS ORDERED: NALOXONE HCL 0.4 MG/ML VIAL IM PRN (15:02)
[2022-11-15] MEDS ORDERED: BENZOCAINE/MENTHOL (CHLORASEPTIC ) LOZENGE MM PRN (15:02)
[2022-11-15] MEDS ORDERED: AMMONIUM LACTATE 12% LOTION 225 GM BOTTLE TP PRN (15:02)
[2022-11-15] MEDS ORDERED: NICOTINE 10 MG CARTRIDGE (INHALER) IH PRN (15:02)
[2022-11-15] MEDS ORDERED: COLLOIDAL OATMEAL 1 BAR EACH TP PRN (15:02)
[2022-11-15] MEDS ORDERED: MAGNESIUM HYDROX 2400MG/30ML ORAL SUSPENSION 30 ML CUP PO PRN (15:02)
[2022-11-15] MEDS ORDERED: LOPERAMIDE HCL 2 MG CAPSULE PO PRN (15:02)
[2022-11-15] MEDS ORDERED: NALOXONE HCL (KLOXXADO) 8 MG SPRAY NS PRN (15:02)
[2022-11-15] MEDS ORDERED: POLYETHYLENE GLYCOL (HEALTHYLAX) 3350 17 GM PACKET PO PRN (15:02)
[2022-11-15] MEDS: HYDROCHLOROTHIAZIDE 12.5 MG CAPSULE (FP) PO SCH (16:08)
[2022-11-15] MEDS: LOSARTAN POTASSIUM 50 MG TABLET PO SCH (16:08)
[2022-11-15] MEDS: NICOTINE POLACRILEX 2 MG GUM BUC PRN (17:52)
[2022-11-15] MEDS: QUEtiapine FUMARATE 200 MG TABLET PO SCH (19:54)
[2022-11-15] MEDS: DOXEPIN HCL 25 MG CAPSULE PO SCH (19:54)
[2022-11-15] MEDS: THIAMINE HCL 100 MG TABLET (FP) PO SCH (21:51)
[2022-11-15] MEDS ORDERED: DOXEPIN HCL 25 MG CAPSULE PO SCH (22:00)
[2022-11-15] MEDS ORDERED: MELATONIN 5 MG TABLETS PO SCH (22:00)
[2022-11-16] MEDS: NICOTINE POLACRILEX 2 MG GUM BUC PRN ×5 (06:03→15:31)
[2022-11-16] MEDS: LOSARTAN POTASSIUM 50 MG TABLET PO SCH (09:40)
[2022-11-16] MEDS: HYDROCHLOROTHIAZIDE 12.5 MG CAPSULE (FP) PO SCH (09:40)
[2022-11-16] MEDS: PRENATAL VITAMINS W/ FOLIC ACID TABLET (FP) PO SCH (09:40)
[2022-11-16 10:52] LABS: POTASSIUM 3.8 mmol/L (3.5-5.1)
[2022-11-16 11:00] LABS: HEMATOCRIT 41.3 % (35.4-49); HEMOGLOBIN 13.9 GM/dL (11.7-16.9); MCH 29.1 pg (25.7-33.7); MCHC 33.7 g/dl (32.0-35.9); MEAN CELL VOLUME 86.6 fl (80-96); MEAN PLT VOLUME 9.6 fl (7.5-11.1); PLATELET COUNT 181 10^3/uL (134-434); RBC 4.77 M/mm3 (4.00-5.60); RDW 14.7 % (11.9-15.9); WHITE BLOOD COUNT 5.9 K/mm3 (4.0-10.0)
[2022-11-16 11:04] LABS: CALCIUM 9.6 mg/dL (8.5-10.1)
[2022-11-16 11:05] LABS: ALBUMIN 3.8 g/dl (3.4-5.0); BLOOD UREA NITROGEN 18.4 mg/dL (7-18)
[2022-11-16 11:08] LABS: CREATININE 0.9 mg/dL (0.55-1.3)
[2022-11-16 11:10] LABS: BILIRUBIN,TOTAL 0.9 mg/dL (0.2-1)
[2022-11-16 12:47] LABS: SYPHILIS W/ RPR CONF REACTIVE (NONREACTIVE)
[2022-11-16 13:17] LABS: HIV INTERPRETATION NEGATIVE (NEGATIVE)
[2022-11-16 15:56] LABS: PH,URINE 6.5 (5.0-8.0); URINE APPEARANCE CLEAR; URINE BILIRUBIN NEGATIVE (NEGATIVE); URINE COLOR YELLOW; URINE GLUCOSE (UA) NEGATIVE (NEGATIVE); URINE KETONE NEGATIVE (NEGATIVE); URINE LEUK ESTERASE NEGATIVE (NEGATIVE); URINE NITRITE NEGATIVE (NEGATIVE); URINE PROTEIN NEGATIVE (NEGATIVE); URINE UROBILINOGEN 0.2 mg/dL (0.2-1.0)
[2022-11-16] MEDS: QUEtiapine FUMARATE 200 MG TABLET PO SCH (19:59)
[2022-11-16] MEDS: DOXEPIN HCL 25 MG CAPSULE PO SCH (19:59)
[2022-11-16] MEDS: THIAMINE HCL 100 MG TABLET (FP) PO SCH (21:43)
[2022-11-17] MEDS: NICOTINE POLACRILEX 2 MG GUM BUC PRN ×6 (06:07→20:15)
[2022-11-17] MEDS: PRENATAL VITAMINS W/ FOLIC ACID TABLET (FP) PO SCH (09:40)
[2022-11-17] MEDS: HYDROCHLOROTHIAZIDE 12.5 MG CAPSULE (FP) PO SCH (09:40)
[2022-11-17] MEDS: LOSARTAN POTASSIUM 50 MG TABLET PO SCH (09:40)
[2022-11-17] MEDS: IBUPROFEN 600 MG TABLET (FP) PO PRN (09:41)
[2022-11-17] MEDS: QUEtiapine FUMARATE 200 MG TABLET PO SCH (20:15)
[2022-11-17] MEDS: DOXEPIN HCL 25 MG CAPSULE PO SCH (20:15)
[2022-11-17] MEDS: THIAMINE HCL 100 MG TABLET (FP) PO SCH (22:16)
[2022-11-18] MEDS: IBUPROFEN 400 MG TABLET (FP) PO PRN (05:58)
[2022-11-18] MEDS: NICOTINE POLACRILEX 2 MG GUM BUC PRN ×6 (05:59→20:06)
[2022-11-18] MEDS ORDERED: TUBERCULIN PPD 5 TU/0.1ML VIAL ID ONE (09:58)
[2022-11-18] MEDS: LOSARTAN POTASSIUM 50 MG TABLET PO SCH (10:05)
[2022-11-18] MEDS: HYDROCHLOROTHIAZIDE 12.5 MG CAPSULE (FP) PO SCH (10:05)
[2022-11-18] MEDS: PRENATAL VITAMINS W/ FOLIC ACID TABLET (FP) PO SCH (10:06)
[2022-11-18] MEDS: QUEtiapine FUMARATE 200 MG TABLET PO SCH (20:05)
[2022-11-18] MEDS: THIAMINE HCL 100 MG TABLET (FP) PO SCH (21:50)
[2022-11-18] MEDS: DOXEPIN HCL 25 MG CAPSULE PO SCH (22:28)
[2022-11-19] MEDS: NICOTINE POLACRILEX 2 MG GUM BUC PRN ×5 (06:02→16:50)
[2022-11-19] MEDS: IBUPROFEN 400 MG TABLET (FP) PO PRN (06:03)
[2022-11-19] MEDS: LOSARTAN POTASSIUM 50 MG TABLET PO SCH (10:00)
[2022-11-19] MEDS: HYDROCHLOROTHIAZIDE 12.5 MG CAPSULE (FP) PO SCH (10:00)
[2022-11-19] MEDS: QUEtiapine FUMARATE 200 MG TABLET PO SCH (20:05)
[2022-11-19] MEDS: DOXEPIN HCL 25 MG CAPSULE PO SCH (20:05)
[2022-11-19] MEDS: THIAMINE HCL 100 MG TABLET (FP) PO SCH (21:03)
[2022-11-19] MEDS: SUVOREXANT 10 MG TABLET PO PRN (22:10)
[2022-11-20] MEDS: IBUPROFEN 400 MG TABLET (FP) PO PRN (06:00)
[2022-11-20] MEDS: NICOTINE POLACRILEX 2 MG GUM BUC PRN ×6 (06:04→21:17)
[2022-11-20] MEDS: LOSARTAN POTASSIUM 50 MG TABLET PO SCH (09:33)
[2022-11-20] MEDS: HYDROCHLOROTHIAZIDE 12.5 MG CAPSULE (FP) PO SCH (09:33)
[2022-11-20] MEDS: THIAMINE HCL 100 MG TABLET (FP) PO SCH (21:16)
[2022-11-20] MEDS: QUEtiapine FUMARATE 200 MG TABLET PO SCH (21:16)
[2022-11-20] MEDS: DOXEPIN HCL 25 MG CAPSULE PO SCH (21:16)
[2022-11-20] MEDS: hydrOXYzine PAMOATE 25 MG CAPSULE (FP) PO PRN (21:17)
[2022-11-20] MEDS: SUVOREXANT 10 MG TABLET PO PRN (21:17)
[2022-11-21] MEDS: IBUPROFEN 600 MG TABLET (FP) PO PRN (05:59)
[2022-11-21] MEDS: NICOTINE POLACRILEX 2 MG GUM BUC PRN ×5 (06:00→14:54)
[2022-11-21] MEDS: HYDROCHLOROTHIAZIDE 12.5 MG CAPSULE (FP) PO SCH (10:07)
[2022-11-21] MEDS: LOSARTAN POTASSIUM 50 MG TABLET PO SCH (10:07)
[2022-11-21] MEDS: QUEtiapine FUMARATE 200 MG TABLET PO SCH (20:03)
[2022-11-21] MEDS: DOXEPIN HCL 25 MG CAPSULE PO SCH (20:03)
[2022-11-21] MEDS: THIAMINE HCL 100 MG TABLET (FP) PO SCH (21:27)
[2022-11-21] MEDS: SUVOREXANT 10 MG TABLET PO PRN (21:28)
[2022-11-22] MEDS: NICOTINE POLACRILEX 2 MG GUM BUC PRN ×6 (04:54→21:08)
[2022-11-22] MEDS: MAG HYDROX/AL HYDROX/SIMETH 30 ML UNIT-DOSE CUP PO PRN (08:08)
[2022-11-22] MEDS: HYDROCHLOROTHIAZIDE 12.5 MG CAPSULE (FP) PO SCH (09:32)
[2022-11-22] MEDS: LOSARTAN POTASSIUM 50 MG TABLET PO SCH (09:33)
[2022-11-22] MEDS: DOXEPIN HCL 25 MG CAPSULE PO SCH (21:06)
[2022-11-22] MEDS: THIAMINE HCL 100 MG TABLET (FP) PO SCH (21:06)
[2022-11-22] MEDS: QUEtiapine FUMARATE 200 MG TABLET PO SCH (21:06)
[2022-11-22] MEDS: hydrOXYzine PAMOATE 25 MG CAPSULE (FP) PO PRN (21:07)
[2022-11-22] MEDS: SUVOREXANT 10 MG TABLET PO PRN (21:07)
[2022-11-23] MEDS: NICOTINE POLACRILEX 2 MG GUM BUC PRN ×7 (06:08→21:04)
[2022-11-23] MEDS: HYDROCHLOROTHIAZIDE 12.5 MG CAPSULE (FP) PO SCH (09:42)
[2022-11-23] MEDS: LOSARTAN POTASSIUM 50 MG TABLET PO SCH (09:42)
[2022-11-23] MEDS: THIAMINE HCL 100 MG TABLET (FP) PO SCH (21:02)
[2022-11-23] MEDS: QUEtiapine FUMARATE 200 MG TABLET PO SCH (21:02)
[2022-11-23] MEDS: DOXEPIN HCL 25 MG CAPSULE PO SCH (21:03)
[2022-11-23] MEDS: hydrOXYzine PAMOATE 25 MG CAPSULE (FP) PO PRN (21:03)
[2022-11-23] MEDS: SUVOREXANT 10 MG TABLET PO PRN (21:04)
[2022-11-24] MEDS: IBUPROFEN 600 MG TABLET (FP) PO PRN (06:13)
[2022-11-24] MEDS: NICOTINE POLACRILEX 2 MG GUM BUC PRN ×7 (06:14→19:36)
[2022-11-24] MEDS: HYDROCHLOROTHIAZIDE 12.5 MG CAPSULE (FP) PO SCH (09:25)
[2022-11-24] MEDS: LOSARTAN POTASSIUM 50 MG TABLET PO SCH (09:25)
[2022-11-24] MEDS: THIAMINE HCL 100 MG TABLET (FP) PO SCH (21:01)
[2022-11-24] MEDS: hydrOXYzine PAMOATE 25 MG CAPSULE (FP) PO PRN (21:02)
[2022-11-24] MEDS: QUEtiapine FUMARATE 200 MG TABLET PO SCH (21:02)
[2022-11-24] MEDS: DOXEPIN HCL 25 MG CAPSULE PO SCH (21:03)
[2022-11-24] MEDS: SUVOREXANT 10 MG TABLET PO PRN (21:04)
[2022-11-25] MEDS: NICOTINE POLACRILEX 2 MG GUM BUC PRN ×5 (03:00→13:03)
[2022-11-25] MEDS: MAG HYDROX/AL HYDROX/SIMETH 30 ML UNIT-DOSE CUP PO PRN (05:59)
[2022-11-25] MEDS: PRENATAL VITAMINS W/ FOLIC ACID TABLET (FP) PO PRN (09:00)
[2022-11-25] MEDS: LOSARTAN POTASSIUM 50 MG TABLET PO SCH (09:00)
[2022-11-25] MEDS: HYDROCHLOROTHIAZIDE 12.5 MG CAPSULE (FP) PO SCH (09:00)
[2022-11-25] MEDS: THIAMINE HCL 100 MG TABLET (FP) PO SCH (20:00)
[2022-11-25] MEDS: hydrOXYzine PAMOATE 25 MG CAPSULE (FP) PO PRN (20:02)
[2022-11-25] MEDS: QUEtiapine FUMARATE 200 MG TABLET PO SCH (20:02)
[2022-11-25] MEDS: SUVOREXANT 15 MG TABLET PO PRN (20:02)
[2022-11-25] MEDS: DOXEPIN HCL 25 MG CAPSULE PO SCH (20:02)
[2022-11-25] MEDS ORDERED: SUVOREXANT 10 MG TABLET PO PRN (22:00)
[2022-11-26] MEDS: NICOTINE POLACRILEX 2 MG GUM BUC PRN ×6 (06:06→18:04)
[2022-11-26] MEDS: LOSARTAN POTASSIUM 50 MG TABLET PO SCH (09:45)
[2022-11-26] MEDS: PRENATAL VITAMINS W/ FOLIC ACID TABLET (FP) PO PRN (09:45)
[2022-11-26] MEDS: HYDROCHLOROTHIAZIDE 12.5 MG CAPSULE (FP) PO SCH (09:45)
[2022-11-26] MEDS: QUEtiapine FUMARATE 200 MG TABLET PO SCH (19:56)
[2022-11-26] MEDS: DOXEPIN HCL 25 MG CAPSULE PO SCH (19:56)
[2022-11-26] MEDS: hydrOXYzine PAMOATE 25 MG CAPSULE (FP) PO PRN (19:56)
[2022-11-26] MEDS: SUVOREXANT 15 MG TABLET PO PRN (19:57)
[2022-11-26] MEDS: THIAMINE HCL 100 MG TABLET (FP) PO SCH (20:57)
[2022-11-27] MEDS: NICOTINE POLACRILEX 2 MG GUM BUC PRN ×6 (06:06→17:26)
[2022-11-27 06:35] VITALS: RESP 16
[2022-11-27] MEDS: LOSARTAN POTASSIUM 50 MG TABLET PO SCH (09:57)
[2022-11-27] MEDS: HYDROCHLOROTHIAZIDE 12.5 MG CAPSULE (FP) PO SCH (09:57)
[2022-11-27] MEDS: QUEtiapine FUMARATE 200 MG TABLET PO SCH (19:54)
[2022-11-27] MEDS: DOXEPIN HCL 25 MG CAPSULE PO SCH (19:54)
[2022-11-27] MEDS: SUVOREXANT 15 MG TABLET PO PRN (19:55)
[2022-11-27] MEDS: hydrOXYzine PAMOATE 25 MG CAPSULE (FP) PO PRN (19:56)
[2022-11-27] MEDS: THIAMINE HCL 100 MG TABLET (FP) PO SCH (21:32)
[2022-11-28] MEDS: NICOTINE POLACRILEX 2 MG GUM BUC PRN ×6 (03:52→16:38)
[2022-11-28] MEDS: LOSARTAN POTASSIUM 50 MG TABLET PO SCH (09:01)
[2022-11-28] MEDS: HYDROCHLOROTHIAZIDE 12.5 MG CAPSULE (FP) PO SCH (09:01)
[2022-11-28] MEDS: SUVOREXANT 15 MG TABLET PO PRN (19:51)
[2022-11-28] MEDS: hydrOXYzine PAMOATE 25 MG CAPSULE (FP) PO PRN (19:51)
[2022-11-28] MEDS: DOXEPIN HCL 25 MG CAPSULE PO SCH (19:52)
[2022-11-28] MEDS: QUEtiapine FUMARATE 200 MG TABLET PO SCH (19:52)
[2022-11-28] MEDS: THIAMINE HCL 100 MG TABLET (FP) PO SCH (22:32)
[2022-11-29] MEDS: NICOTINE POLACRILEX 2 MG GUM BUC PRN (06:25)
[2022-11-29 06:38] VITALS: TEMP 97.8
[2022-11-29 09:15] VITALS: BP 116/76; PULSE 82
[2022-11-29] MEDS: HYDROCHLOROTHIAZIDE 12.5 MG CAPSULE (FP) PO SCH (09:26)
[2022-11-29] MEDS: LOSARTAN POTASSIUM 50 MG TABLET PO SCH (09:26)
== END 2022-11-29 09:35 | disposition home or self-care (01) | DRG 772 ==
LOC: YASAS 13:08 → Y3E 15:16
PROVIDERS: ADMIT Allergy & Immunology; ATTEND Psychiatry & Neurology Pain Medicine
PROC: HZ42ZZZ Group Counseling for Substance Abuse Treatment, Cognitive-Behavioral (ICD-10-PCS; principal; 2022-11-15)
DX: F14.20 Cocaine dependence, uncomplicated (principal); F17.210 Nicotine dependence, cigarettes, uncomplicated; F19.282 Other psychoactive substance dependence with psychoactive substance-induced sleep disorder; F25.9 Schizoaffective disorder, unspecified; I10 Essential (primary) hypertension; E11.9 Type 2 diabetes mellitus without complications; Z86.19 Personal history of other infectious and parasitic diseases
CPT/HCPCS: 36415; 80053; 81003; 85027; 86593; 86780; 86803; 87389; 87522; 87635; 87811

== ENCOUNTER 2023-04-29 09:57 | Inpatient (IN) | payer OTHER ==
[2023-04-29 10:27] VITALS: BMI 28.5
[2023-04-29] MEDS ORDERED: IBUPROFEN 600 MG TABLET (FP) PO PRN (12:58)
[2023-04-29] MEDS ORDERED: METHOCARBAMOL 500 MG TABLET PO PRN (12:58)
[2023-04-29] MEDS ORDERED: ONDANSETRON *ODT* 4 MG TABLET SL PRN (12:58)
[2023-04-29] MEDS ORDERED: BENZOCAINE/MENTHOL (CHLORASEPTIC ) LOZENGE MM PRN (12:58)
[2023-04-29] MEDS ORDERED: guaiFENesin 600 MG TABLET.ER (FP) PO PRN (12:58)
[2023-04-29] MEDS ORDERED: MAGNESIUM HYDROX 2400MG/30ML ORAL SUSPENSION 30 ML CUP PO PRN (12:58)
[2023-04-29] MEDS ORDERED: BENZONATATE 200 MG CAPSULE PO PRN (12:58)
[2023-04-29] MEDS ORDERED: LOPERAMIDE HCL 2 MG CAPSULE PO PRN (12:58)
[2023-04-29] MEDS ORDERED: IBUPROFEN 400 MG TABLET (FP) PO PRN (12:58)
[2023-04-29] MEDS ORDERED: POLYETHYLENE GLYCOL (HEALTHYLAX) 3350 17 GM PACKET PO PRN (12:58)
[2023-04-29] MEDS ORDERED: NALOXONE HCL 0.4 MG/ML VIAL IM PRN (12:58)
[2023-04-29] MEDS ORDERED: ACETAMINOPHEN 325 MG TABLET (FP) PO PRN (12:58)
[2023-04-29] MEDS ORDERED: NALOXONE HCL (KLOXXADO) 8 MG SPRAY NS PRN (12:58)
[2023-04-29] MEDS: chlordiazePOXIDE HCL 25 MG CAPSULE PO PRN ×2 (14:01→19:16)
[2023-04-29] MEDS: NICOTINE POLACRILEX 2 MG GUM BUC PRN ×3 (14:04→20:09)
[2023-04-29] MEDS: chlordiazePOXIDE HCL 25 MG CAPSULE PO SCH ×2 (17:34→23:45)
[2023-04-29] MEDS: BISMUTH SUBSALICYLATE 524 MG/30 ML PO PRN (17:40)
[2023-04-29] MEDS: MAG HYDROX/AL HYDROX/SIMETH 30 ML UNIT-DOSE CUP PO PRN (19:18)
[2023-04-29] MEDS ORDERED: DOXEPIN HCL 50 MG CAPSULE PO SCH (20:00)
[2023-04-29] MEDS: QUEtiapine FUMARATE 200 MG TABLET PO SCH (20:06)
[2023-04-29] MEDS: MELATONIN 5 MG TABLETS PO SCH (23:44)
[2023-04-29] MEDS: THIAMINE HCL 100 MG TABLET (FP) PO SCH (23:44)
[2023-04-30] MEDS: chlordiazePOXIDE HCL 25 MG CAPSULE PO SCH ×4 (05:55→22:51)
[2023-04-30] MEDS: NICOTINE POLACRILEX 2 MG GUM BUC PRN (05:57)
[2023-04-30] MEDS: PRENATAL VITAMINS W/ FOLIC ACID TABLET (FP) PO SCH (10:20)
[2023-04-30] MEDS: HYDROCHLOROTHIAZIDE 12.5 MG CAPSULE (FP) PO SCH (10:20)
[2023-04-30] MEDS: LOSARTAN POTASSIUM 50 MG TABLET PO SCH (10:21)
[2023-04-30 11:27] LABS: POTASSIUM 3.7 mmol/L (3.5-5.1)
[2023-04-30 11:30] LABS: ALBUMIN 4.1 g/dl (3.4-5.0); BLOOD UREA NITROGEN 13.3 mg/dL (7-18); CALCIUM 9.3 mg/dL (8.5-10.1)
[2023-04-30 11:34] LABS: CREATININE 1.1 mg/dL (0.55-1.3)
[2023-04-30 11:37] LABS: HEMATOCRIT 45.3 % (35.4-49); HEMOGLOBIN 15.3 GM/dL (11.7-16.9); MCH 30.2 pg (25.7-33.7); MCHC 33.8 g/dl (32.0-35.9); MEAN CELL VOLUME 89.3 fl (80-96); MEAN PLT VOLUME 9.8 fl (7.5-11.1); PLATELET COUNT 189 10^3/uL (134-434); RBC 5.08 M/mm3 (4.00-5.60); RDW 14.2 % (11.9-15.9); WHITE BLOOD COUNT 3.8 K/mm3 (4.0-10.0)
[2023-04-30 11:38] LABS: BILIRUBIN,TOTAL 0.7 mg/dL (0.2-1); TOT PROT 7.5 g/dl (6.4-8.2)
[2023-04-30] MEDS: NICOTINE 21 MG/24 HOURS TOPICAL PATCH TD SCH (12:33)
[2023-04-30 13:33] LABS: HIV INTERPRETATION NEGATIVE (NEGATIVE)
[2023-04-30] MEDS: NICOTINE POLACRILEX 4 MG GUM BUC PRN ×2 (14:32→17:24)
[2023-04-30] MEDS: MAG HYDROX/AL HYDROX/SIMETH 30 ML UNIT-DOSE CUP PO PRN (14:50)
[2023-04-30] MEDS: SIMETHICONE 80 MG TAB.CHEW (FP) PO PRN (19:27)
[2023-04-30] MEDS: QUEtiapine FUMARATE 200 MG TABLET PO SCH (21:12)
[2023-04-30] MEDS: MELATONIN 5 MG TABLETS PO SCH (21:15)
[2023-04-30] MEDS: THIAMINE HCL 100 MG TABLET (FP) PO SCH (21:15)
[2023-04-30] MEDS: DOXEPIN HCL 25 MG CAPSULE PO SCH (21:16)
[2023-05-01] MEDS: chlordiazePOXIDE HCL 25 MG CAPSULE PO SCH ×4 (05:41→22:01)
[2023-05-01] MEDS: NICOTINE POLACRILEX 4 MG GUM BUC PRN ×6 (05:42→22:03)
[2023-05-01] MEDS: BISMUTH SUBSALICYLATE 524 MG/30 ML PO PRN (08:57)
[2023-05-01] MEDS: PRENATAL VITAMINS W/ FOLIC ACID TABLET (FP) PO SCH (10:32)
[2023-05-01] MEDS: SIMETHICONE 80 MG TAB.CHEW (FP) PO PRN (10:33)
[2023-05-01] MEDS: LOSARTAN POTASSIUM 50 MG TABLET PO SCH (10:33)
[2023-05-01] MEDS: HYDROCHLOROTHIAZIDE 12.5 MG CAPSULE (FP) PO SCH (10:35)
[2023-05-01] MEDS: NICOTINE 21 MG/24 HOURS TOPICAL PATCH TD SCH (10:35)
[2023-05-01] MEDS: MAG HYDROX/AL HYDROX/SIMETH 30 ML UNIT-DOSE CUP PO PRN (12:37)
[2023-05-01] MEDS: QUEtiapine FUMARATE 200 MG TABLET PO SCH (20:08)
[2023-05-01] MEDS: DOXEPIN HCL 25 MG CAPSULE PO SCH (20:08)
[2023-05-01] MEDS: THIAMINE HCL 100 MG TABLET (FP) PO SCH (22:00)
[2023-05-01] MEDS: MELATONIN 5 MG TABLETS PO SCH (22:00)
[2023-05-02] MEDS ORDERED: chlordiazePOXIDE HCL 10 MG CAPSULE PO PRN
[2023-05-02] MEDS: BISMUTH SUBSALICYLATE 524 MG/30 ML PO PRN ×2 (02:05→09:37)
[2023-05-02] MEDS: chlordiazePOXIDE HCL 10 MG CAPSULE PO SCH ×4 (05:56→22:59)
[2023-05-02] MEDS: NICOTINE POLACRILEX 4 MG GUM BUC PRN ×3 (06:00→20:12)
[2023-05-02] MEDS: HYDROCHLOROTHIAZIDE 12.5 MG CAPSULE (FP) PO SCH (10:13)
[2023-05-02] MEDS: LOSARTAN POTASSIUM 50 MG TABLET PO SCH (10:13)
[2023-05-02] MEDS: PRENATAL VITAMINS W/ FOLIC ACID TABLET (FP) PO SCH (10:13)
[2023-05-02] MEDS: NICOTINE 21 MG/24 HOURS TOPICAL PATCH TD SCH (10:17)
[2023-05-02] MEDS ORDERED: DIPHENOXYLATE 2.5/ATROPINE.025 1 COMBO TABLET PO ONE (10:26)
[2023-05-02] MEDS ORDERED: DIPHENOXYLATE 2.5/ATROPINE.025 1 COMBO TABLET PO PRN (13:01)
[2023-05-02] MEDS: SIMETHICONE 80 MG TAB.CHEW (FP) PO PRN (17:22)
[2023-05-02] MEDS: QUEtiapine FUMARATE 200 MG TABLET PO SCH (20:11)
[2023-05-02] MEDS: DOXEPIN HCL 25 MG CAPSULE PO SCH (20:11)
[2023-05-02] MEDS: MELATONIN 5 MG TABLETS PO SCH (22:54)
[2023-05-02] MEDS: THIAMINE HCL 100 MG TABLET (FP) PO SCH (22:55)
[2023-05-03] MEDS: chlordiazePOXIDE HCL 10 MG CAPSULE PO SCH ×2 (05:06→17:20)
[2023-05-03] MEDS: NICOTINE POLACRILEX 4 MG GUM BUC PRN ×3 (05:07→13:14)
[2023-05-03] MEDS: PRENATAL VITAMINS W/ FOLIC ACID TABLET (FP) PO SCH (10:09)
[2023-05-03] MEDS: LOSARTAN POTASSIUM 50 MG TABLET PO SCH (10:09)
[2023-05-03] MEDS: HYDROCHLOROTHIAZIDE 12.5 MG CAPSULE (FP) PO SCH (10:09)
[2023-05-03] MEDS: NICOTINE 21 MG/24 HOURS TOPICAL PATCH TD SCH (10:10)
[2023-05-03] MEDS: MAG HYDROX/AL HYDROX/SIMETH 30 ML UNIT-DOSE CUP PO PRN (19:08)
[2023-05-03] MEDS: QUEtiapine FUMARATE 200 MG TABLET PO SCH (20:07)
[2023-05-03] MEDS: DOXEPIN HCL 25 MG CAPSULE PO SCH (20:07)
[2023-05-03] MEDS: MELATONIN 5 MG TABLETS PO SCH (22:23)
[2023-05-03] MEDS: THIAMINE HCL 100 MG TABLET (FP) PO SCH (22:23)
[2023-05-04] MEDS ORDERED: chlordiazePOXIDE HCL 10 MG CAPSULE PO ONE (05:00)
[2023-05-04] MEDS: NICOTINE POLACRILEX 4 MG GUM BUC PRN ×6 (05:20→20:06)
[2023-05-04] MEDS: LOSARTAN POTASSIUM 50 MG TABLET PO SCH (09:43)
[2023-05-04] MEDS: NICOTINE 21 MG/24 HOURS TOPICAL PATCH TD SCH (09:43)
[2023-05-04] MEDS: HYDROCHLOROTHIAZIDE 12.5 MG CAPSULE (FP) PO SCH (09:43)
[2023-05-04] MEDS: PRENATAL VITAMINS W/ FOLIC ACID TABLET (FP) PO SCH (09:43)
[2023-05-04] MEDS: SIMETHICONE 80 MG TAB.CHEW (FP) PO PRN (17:19)
[2023-05-04] MEDS: DOXEPIN HCL 25 MG CAPSULE PO SCH (20:03)
[2023-05-04] MEDS: QUEtiapine FUMARATE 200 MG TABLET PO SCH (20:03)
[2023-05-04] MEDS: THIAMINE HCL 100 MG TABLET (FP) PO SCH (23:07)
[2023-05-04] MEDS: MELATONIN 5 MG TABLETS PO SCH (23:07)
[2023-05-05] MEDS: NICOTINE POLACRILEX 4 MG GUM BUC PRN ×4 (05:11→16:40)
[2023-05-05] MEDS: LOSARTAN POTASSIUM 50 MG TABLET PO SCH (09:11)
[2023-05-05] MEDS: NICOTINE 21 MG/24 HOURS TOPICAL PATCH TD SCH (09:12)
[2023-05-05] MEDS: PRENATAL VITAMINS W/ FOLIC ACID TABLET (FP) PO SCH (09:12)
[2023-05-05] MEDS: HYDROCHLOROTHIAZIDE 12.5 MG CAPSULE (FP) PO SCH (09:12)
[2023-05-05 09:45] VITALS: RESP 20
[2023-05-05 13:12] VITALS: BP 102/61; PULSE 90; TEMP 98.6
[2023-05-05] MEDS ORDERED: DOXEPIN HCL 50 MG CAPSULE PO SCH (20:00)
[2023-05-05] MEDS ORDERED: QUEtiapine FUMARATE 200 MG TABLET PO SCH (20:00)
== END 2023-05-05 16:45 | disposition other institution (70) | DRG 774 ==
LOC: YASAS 09:57 → Y3N 13:26
PROVIDERS: ADMIT Allergy & Immunology; ATTEND Surgery
PROC: HZ2ZZZZ Detoxification Services for Substance Abuse Treatment (ICD-10-PCS; principal; 2023-04-29)
DX: F10.230 Alcohol dependence with withdrawal, uncomplicated (principal); F14.20 Cocaine dependence, uncomplicated; F12.20 Cannabis dependence, uncomplicated; F17.210 Nicotine dependence, cigarettes, uncomplicated; F19.282 Other psychoactive substance dependence with psychoactive substance-induced sleep disorder; F32.9 Major depressive disorder, single episode, unspecified; I10 Essential (primary) hypertension; K21.9 Gastro-esophageal reflux disease without esophagitis; E11.9 Type 2 diabetes mellitus without complications; M17.11 Unilateral primary osteoarthritis, right knee; Z86.19 Personal history of other infectious and parasitic diseases
CPT/HCPCS: 36415; 80053; 80307; 82962; 83036; 85027; 86593; 86780; 87389; 87635; 87811; 93005; 93010

== ENCOUNTER 2023-05-05 17:26 | Inpatient (IN) | payer OTHER ==
[2023-05-05] MEDS ORDERED: MAGNESIUM HYDROX 2400MG/30ML ORAL SUSPENSION 30 ML CUP PO PRN (18:55)
[2023-05-05] MEDS ORDERED: BENZOCAINE/MENTHOL (CHLORASEPTIC ) LOZENGE MM PRN (18:55)
[2023-05-05] MEDS ORDERED: MAG HYDROX/AL HYDROX/SIMETH 30 ML UNIT-DOSE CUP PO PRN (18:55)
[2023-05-05] MEDS ORDERED: P-EPHED 60MG/TRIPROLIDI 2.5MG TABLET PO PRN (18:55)
[2023-05-05] MEDS ORDERED: guaiFENesin 600 MG TABLET.ER (FP) PO PRN (18:55)
[2023-05-05] MEDS ORDERED: BENZONATATE 200 MG CAPSULE PO PRN (18:55)
[2023-05-05] MEDS ORDERED: METHOCARBAMOL 500 MG TABLET PO PRN (18:55)
[2023-05-05] MEDS ORDERED: POLYETHYLENE GLYCOL (HEALTHYLAX) 3350 17 GM PACKET PO PRN (18:55)
[2023-05-05] MEDS ORDERED: ACETAMINOPHEN 325 MG TABLET (FP) PO PRN (18:55)
[2023-05-05] MEDS ORDERED: IBUPROFEN 400 MG TABLET (FP) PO PRN (18:55)
[2023-05-05] MEDS ORDERED: COLLOIDAL OATMEAL 1 BAR EACH TP PRN (18:55)
[2023-05-05] MEDS ORDERED: LOPERAMIDE HCL 2 MG CAPSULE PO PRN (18:55)
[2023-05-05] MEDS ORDERED: NALOXONE HCL 0.4 MG/ML VIAL IVPUSH PRN (18:55)
[2023-05-05] MEDS ORDERED: NALOXONE HCL (KLOXXADO) 8 MG SPRAY NS PRN (18:55)
[2023-05-05] MEDS: INSULIN SLIDING SCALE (NOVOLOG) 1 VIAL SQ SCH (19:18)
[2023-05-05] MEDS ORDERED: DOXEPIN HCL 50 MG CAPSULE PO ONE (20:00)
[2023-05-05] MEDS ORDERED: DOXEPIN HCL 25 MG CAPSULE PO ONE (20:00)
[2023-05-05] MEDS ORDERED: QUEtiapine FUMARATE 200 MG TABLET PO ONE (20:00)
[2023-05-05] MEDS: NICOTINE POLACRILEX 2 MG GUM BUC PRN (20:19)
[2023-05-05] MEDS: THIAMINE HCL 100 MG TABLET (FP) PO SCH (21:48)
[2023-05-05] MEDS: MELATONIN 5 MG TABLETS PO SCH (21:48)
[2023-05-06] MEDS: NICOTINE POLACRILEX 2 MG GUM BUC PRN ×5 (06:03→16:53)
[2023-05-06] MEDS: INSULIN SLIDING SCALE (NOVOLOG) 1 VIAL SQ SCH (06:05)
[2023-05-06] MEDS: HYDROCHLOROTHIAZIDE 12.5 MG CAPSULE (FP) PO SCH (09:56)
[2023-05-06] MEDS: PRENATAL VITAMINS W/ FOLIC ACID TABLET (FP) PO SCH (09:56)
[2023-05-06] MEDS: LOSARTAN POTASSIUM 50 MG TABLET PO SCH (09:56)
[2023-05-06] MEDS: QUEtiapine FUMARATE 200 MG TABLET PO SCH (20:32)
[2023-05-06] MEDS: DOXEPIN HCL 50 MG CAPSULE PO SCH (20:33)
[2023-05-06] MEDS: MELATONIN 5 MG TABLETS PO SCH (21:26)
[2023-05-06] MEDS: THIAMINE HCL 100 MG TABLET (FP) PO SCH (21:26)
[2023-05-07] MEDS: NICOTINE POLACRILEX 2 MG GUM BUC PRN ×5 (05:52→16:25)
[2023-05-07] MEDS: PRENATAL VITAMINS W/ FOLIC ACID TABLET (FP) PO SCH (10:39)
[2023-05-07] MEDS: HYDROCHLOROTHIAZIDE 12.5 MG CAPSULE (FP) PO SCH (10:40)
[2023-05-07] MEDS: LOSARTAN POTASSIUM 50 MG TABLET PO SCH (10:40)
[2023-05-07] MEDS: QUEtiapine FUMARATE 200 MG TABLET PO SCH (20:24)
[2023-05-07] MEDS: DOXEPIN HCL 50 MG CAPSULE PO SCH (20:24)
[2023-05-07] MEDS: MELATONIN 5 MG TABLETS PO SCH (21:24)
[2023-05-07] MEDS: THIAMINE HCL 100 MG TABLET (FP) PO SCH (21:24)
[2023-05-08] MEDS: NICOTINE POLACRILEX 2 MG GUM BUC PRN ×4 (06:10→16:28)
[2023-05-08] MEDS: LOSARTAN POTASSIUM 50 MG TABLET PO SCH (09:52)
[2023-05-08] MEDS: PRENATAL VITAMINS W/ FOLIC ACID TABLET (FP) PO SCH (09:52)
[2023-05-08] MEDS: HYDROCHLOROTHIAZIDE 12.5 MG CAPSULE (FP) PO SCH (09:52)
[2023-05-08] MEDS: DOXEPIN HCL 25 MG CAPSULE PO SCH (19:50)
[2023-05-08] MEDS: QUEtiapine FUMARATE 200 MG TABLET PO SCH (19:50)
[2023-05-08] MEDS: MELATONIN 5 MG TABLETS PO SCH (21:41)
[2023-05-08] MEDS: THIAMINE HCL 100 MG TABLET (FP) PO SCH (21:41)
[2023-05-09] MEDS: PRENATAL VITAMINS W/ FOLIC ACID TABLET (FP) PO SCH (10:18)
[2023-05-09] MEDS: LOSARTAN POTASSIUM 50 MG TABLET PO SCH (10:18)
[2023-05-09] MEDS: HYDROCHLOROTHIAZIDE 12.5 MG CAPSULE (FP) PO SCH (10:18)
[2023-05-09] MEDS: NICOTINE POLACRILEX 2 MG GUM BUC PRN ×3 (12:41→18:43)
[2023-05-09] MEDS: DOXEPIN HCL 25 MG CAPSULE PO SCH (19:51)
[2023-05-09] MEDS: QUEtiapine FUMARATE 200 MG TABLET PO SCH (19:52)
[2023-05-09] MEDS: THIAMINE HCL 100 MG TABLET (FP) PO SCH (21:36)
[2023-05-09] MEDS: MELATONIN 5 MG TABLETS PO SCH (21:36)
[2023-05-10] MEDS: NICOTINE POLACRILEX 2 MG GUM BUC PRN ×4 (06:31→17:18)
[2023-05-10] MEDS: LOSARTAN POTASSIUM 50 MG TABLET PO SCH (09:49)
[2023-05-10] MEDS: HYDROCHLOROTHIAZIDE 12.5 MG CAPSULE (FP) PO SCH (09:49)
[2023-05-10] MEDS: PRENATAL VITAMINS W/ FOLIC ACID TABLET (FP) PO SCH (09:49)
[2023-05-10] MEDS: QUEtiapine FUMARATE 200 MG TABLET PO SCH (20:06)
[2023-05-10] MEDS: DOXEPIN HCL 25 MG CAPSULE PO SCH (20:06)
[2023-05-10] MEDS: MELATONIN 5 MG TABLETS PO SCH (21:24)
[2023-05-10] MEDS: THIAMINE HCL 100 MG TABLET (FP) PO SCH (21:24)
[2023-05-11] MEDS: NICOTINE POLACRILEX 2 MG GUM BUC PRN ×5 (06:31→19:14)
[2023-05-11] MEDS: LOSARTAN POTASSIUM 50 MG TABLET PO SCH (10:31)
[2023-05-11] MEDS: PRENATAL VITAMINS W/ FOLIC ACID TABLET (FP) PO SCH (10:31)
[2023-05-11] MEDS: HYDROCHLOROTHIAZIDE 12.5 MG CAPSULE (FP) PO SCH (10:32)
[2023-05-11] MEDS: THIAMINE HCL 100 MG TABLET (FP) PO SCH (21:00)
[2023-05-11] MEDS: MELATONIN 5 MG TABLETS PO SCH (21:00)
[2023-05-11] MEDS: DOXEPIN HCL 25 MG CAPSULE PO SCH (21:00)
[2023-05-11] MEDS: QUEtiapine FUMARATE 200 MG TABLET PO SCH (21:00)
[2023-05-12] MEDS: NICOTINE POLACRILEX 2 MG GUM BUC PRN ×2 (06:06→09:41)
[2023-05-12] MEDS: PRENATAL VITAMINS W/ FOLIC ACID TABLET (FP) PO SCH (09:40)
[2023-05-12] MEDS: HYDROCHLOROTHIAZIDE 12.5 MG CAPSULE (FP) PO SCH (09:41)
[2023-05-12] MEDS: LOSARTAN POTASSIUM 50 MG TABLET PO SCH (09:41)
[2023-05-12] MEDS: IBUPROFEN 600 MG TABLET (FP) PO PRN (13:28)
[2023-05-12] MEDS: BENZOCAINE 20 % GEL TUBE MM PRN ×2 (13:29→19:13)
[2023-05-12] MEDS: NICOTINE POLACRILEX 4 MG GUM BUC PRN ×2 (14:16→19:13)
[2023-05-12] MEDS: QUEtiapine FUMARATE 200 MG TABLET PO SCH (20:58)
[2023-05-12] MEDS: DOXEPIN HCL 25 MG CAPSULE PO SCH (20:58)
[2023-05-12] MEDS: THIAMINE HCL 100 MG TABLET (FP) PO SCH (21:21)
[2023-05-12] MEDS: MELATONIN 5 MG TABLETS PO SCH (21:21)
[2023-05-13] MEDS: BENZOCAINE 20 % GEL TUBE MM PRN ×2 (01:06→10:11)
[2023-05-13] MEDS: IBUPROFEN 600 MG TABLET (FP) PO PRN ×3 (01:59→21:07)
[2023-05-13] MEDS: NICOTINE POLACRILEX 4 MG GUM BUC PRN ×6 (06:06→21:08)
[2023-05-13] MEDS: PRENATAL VITAMINS W/ FOLIC ACID TABLET (FP) PO SCH (10:09)
[2023-05-13] MEDS: HYDROCHLOROTHIAZIDE 12.5 MG CAPSULE (FP) PO SCH (10:10)
[2023-05-13] MEDS: LOSARTAN POTASSIUM 50 MG TABLET PO SCH (10:10)
[2023-05-13] MEDS: DOXEPIN HCL 25 MG CAPSULE PO SCH (20:55)
[2023-05-13] MEDS: QUEtiapine FUMARATE 200 MG TABLET PO SCH (20:55)
[2023-05-13] MEDS: MELATONIN 5 MG TABLETS PO SCH (21:07)
[2023-05-13] MEDS: THIAMINE HCL 100 MG TABLET (FP) PO SCH (21:54)
[2023-05-14] MEDS: NICOTINE POLACRILEX 4 MG GUM BUC PRN ×5 (06:43→19:58)
[2023-05-14] MEDS: LOSARTAN POTASSIUM 50 MG TABLET PO SCH (09:48)
[2023-05-14] MEDS: PRENATAL VITAMINS W/ FOLIC ACID TABLET (FP) PO SCH (09:48)
[2023-05-14] MEDS: HYDROCHLOROTHIAZIDE 12.5 MG CAPSULE (FP) PO SCH (09:48)
[2023-05-14] MEDS: IBUPROFEN 600 MG TABLET (FP) PO PRN (09:50)
[2023-05-14] MEDS: DOXEPIN HCL 25 MG CAPSULE PO SCH (19:57)
[2023-05-14] MEDS: QUEtiapine FUMARATE 200 MG TABLET PO SCH (19:57)
[2023-05-14] MEDS: THIAMINE HCL 100 MG TABLET (FP) PO SCH (21:49)
[2023-05-14] MEDS: MELATONIN 5 MG TABLETS PO SCH (21:49)
[2023-05-15] MEDS: NICOTINE POLACRILEX 4 MG GUM BUC PRN ×5 (03:23→21:01)
[2023-05-15] MEDS: PRENATAL VITAMINS W/ FOLIC ACID TABLET (FP) PO SCH (10:19)
[2023-05-15] MEDS: HYDROCHLOROTHIAZIDE 12.5 MG CAPSULE (FP) PO SCH (10:19)
[2023-05-15] MEDS: LOSARTAN POTASSIUM 50 MG TABLET PO SCH (10:20)
[2023-05-15] MEDS: IBUPROFEN 600 MG TABLET (FP) PO PRN (21:00)
[2023-05-15] MEDS: DOXEPIN HCL 25 MG CAPSULE PO SCH (21:00)
[2023-05-15] MEDS: QUEtiapine FUMARATE 200 MG TABLET PO SCH (21:00)
[2023-05-15] MEDS: THIAMINE HCL 100 MG TABLET (FP) PO SCH (21:00)
[2023-05-15] MEDS ORDERED: SUVOREXANT 10 MG TABLET PO PRN (22:00)
[2023-05-16] MEDS: NICOTINE POLACRILEX 4 MG GUM BUC PRN ×2 (06:32→09:22)
[2023-05-16 07:09] VITALS: RESP 18; TEMP 97.3
[2023-05-16] MEDS: PRENATAL VITAMINS W/ FOLIC ACID TABLET (FP) PO SCH (09:22)
[2023-05-16] MEDS: HYDROCHLOROTHIAZIDE 12.5 MG CAPSULE (FP) PO SCH (09:22)
[2023-05-16] MEDS: LOSARTAN POTASSIUM 50 MG TABLET PO SCH (09:22)
[2023-05-16 11:04] VITALS: BP 105/60; PULSE 67
== END 2023-05-16 10:45 | disposition home or self-care (01) | DRG 772 ==
LOC: YASAS 17:26 → Y3W 19:05
PROVIDERS: ADMIT Allergy & Immunology; ATTEND Psychiatry & Neurology Pain Medicine
PROC: HZ42ZZZ Group Counseling for Substance Abuse Treatment, Cognitive-Behavioral (ICD-10-PCS; principal; 2023-05-05)
DX: F10.20 Alcohol dependence, uncomplicated (principal); F14.20 Cocaine dependence, uncomplicated; F12.20 Cannabis dependence, uncomplicated; F17.210 Nicotine dependence, cigarettes, uncomplicated; F19.282 Other psychoactive substance dependence with psychoactive substance-induced sleep disorder; F41.9 Anxiety disorder, unspecified; F32.A Depression, unspecified; I10 Essential (primary) hypertension; E11.9 Type 2 diabetes mellitus without complications; K02.9 Dental caries, unspecified; Z86.59 Personal history of other mental and behavioral disorders; Z86.19 Personal history of other infectious and parasitic diseases

== ENCOUNTER 2023-09-03 09:59 | Inpatient (IN) | payer OTHER ==
[2023-09-03 10:35] VITALS: BMI 30.4
[2023-09-03] MEDS ORDERED: NALOXONE HCL 0.4 MG/ML VIAL IM PRN (11:08)
[2023-09-03] MEDS ORDERED: guaiFENesin 600 MG TABLET.ER (FP) PO PRN (11:08)
[2023-09-03] MEDS ORDERED: NALOXONE HCL (KLOXXADO) 8 MG SPRAY NS PRN (11:08)
[2023-09-03] MEDS ORDERED: ACETAMINOPHEN 325 MG TABLET (FP) PO PRN (11:08)
[2023-09-03] MEDS ORDERED: BENZONATATE 200 MG CAPSULE PO PRN (11:08)
[2023-09-03] MEDS ORDERED: LOPERAMIDE HCL 2 MG CAPSULE PO PRN (11:08)
[2023-09-03] MEDS ORDERED: hydrOXYzine PAMOATE 25 MG CAPSULE (FP) PO PRN (11:08)
[2023-09-03] MEDS ORDERED: BENZOCAINE/MENTHOL (CHLORASEPTIC ) LOZENGE MM PRN (11:08)
[2023-09-03] MEDS ORDERED: POLYETHYLENE GLYCOL (HEALTHYLAX) 3350 17 GM PACKET PO PRN (11:08)
[2023-09-03] MEDS: PRENATAL VITAMINS W/ FOLIC ACID TABLET (FP) PO SCH (13:05)
[2023-09-03] MEDS: LOSARTAN POTASSIUM 50 MG TABLET PO SCH (13:05)
[2023-09-03] MEDS: NICOTINE POLACRILEX 2 MG GUM BUC PRN (13:06)
[2023-09-03] MEDS: DOXEPIN HCL 25 MG CAPSULE PO SCH ×2 (13:18→19:59)
[2023-09-03] MEDS: QUEtiapine FUMARATE 200 MG TABLET PO SCH (19:59)
[2023-09-03] MEDS ORDERED: QUEtiapine FUMARATE 200 MG TABLET PO SCH (20:00)
[2023-09-03] MEDS: THIAMINE 100 MG TABLET PO SCH (22:38)
[2023-09-03] MEDS: MELATONIN 5 MG TABLETS PO SCH (22:38)
[2023-09-04 11:16] LABS: HEMATOCRIT 45.5 % (35.4-49); HEMOGLOBIN 15.5 GM/dL (11.7-16.9); MCH 30.2 pg (25.7-33.7); MCHC 34.2 g/dl (32.0-35.9); MEAN CELL VOLUME 88.4 fl (80-96); MEAN PLT VOLUME 9.8 fl (7.5-11.1); PLATELET COUNT 214 10^3/uL (134-434); RBC 5.14 M/mm3 (4.00-5.60); WHITE BLOOD COUNT 5.2 K/mm3 (4.0-10.0)
[2023-09-04 11:23] LABS: EPI CELLS 14 /uL (0-25.1); HYALINE CASTS 1 /uL (0-3.1); PH,URINE 5.5 (5.0-8.0); URINE APPEARANCE CLEAR; URINE BACTERIA 6 /uL (0-1359); URINE BILIRUBIN NEGATIVE (NEGATIVE); URINE COLOR YELLOW; URINE GLUCOSE (UA) 1+ (NEGATIVE); URINE KETONE TRACE (NEGATIVE); URINE LEUK ESTERASE TRACE (NEGATIVE); URINE NITRITE NEGATIVE (NEGATIVE); URINE PROTEIN NEGATIVE (NEGATIVE); URINE RBC 6 /uL (0-23.9); URINE WBC 25 /uL (0-25.8)
[2023-09-04 11:32] LABS: POTASSIUM 3.4 mmol/L (3.5-5.1)
[2023-09-04 11:37] LABS: ALBUMIN 3.9 g/dl (3.4-5.0); CALCIUM 9.6 mg/dL (8.5-10.1)
[2023-09-04 11:42] LABS: BILIRUBIN,TOTAL 0.7 mg/dL (0.2-1); TOT PROT 7.2 g/dl (6.4-8.2)
[2023-09-04 12:25] LABS: SYPHILIS W/ RPR CONF REACTIVE (NONREACTIVE)
[2023-09-04] MEDS: IBUPROFEN 600 MG TABLET (FP) PO PRN (13:03)
[2023-09-04] MEDS: NICOTINE POLACRILEX 4 MG GUM BUC PRN (15:09)
[2023-09-04] MEDS: POTASSIUM CHLORIDE ORAL LIQUID 20 MEQ/15 ML PO ONE (15:45)
[2023-09-04] MEDS: metFORMIN HCL 500 MG TABLET (FP) PO SCH (16:49)
[2023-09-04] MEDS: INSULIN ASPART SLIDING SCALE (NOVOLOG) 1 VIAL SQ SCH (16:53)
[2023-09-05 11:46] LABS: POTASSIUM 3.9 mmol/L (3.5-5.1)
[2023-09-05 11:51] LABS: ALBUMIN 3.6 g/dl (3.4-5.0); CALCIUM 9.1 mg/dL (8.5-10.1)
[2023-09-05 11:52] LABS: BLOOD UREA NITROGEN 9.6 mg/dL (7-18)
[2023-09-05 11:54] LABS: CREATININE 0.9 mg/dL (0.55-1.3)
[2023-09-05 11:56] LABS: BILIRUBIN,TOTAL 0.5 mg/dL (0.2-1); TOT PROT 6.3 g/dl (6.4-8.2)
[2023-09-06] MEDS: metFORMIN HCL 500 MG TABLET (FP) PO SCH (09:53)
[2023-09-06] MEDS: DOXEPIN HCL 25 MG CAPSULE PO SCH (20:03)
[2023-09-06] MEDS: QUEtiapine FUMARATE 200 MG TABLET PO SCH (20:03)
[2023-09-06] MEDS ORDERED: QUEtiapine FUMARATE 200 MG TABLET PO SCH (22:00)
[2023-09-06] MEDS ORDERED: DOXEPIN HCL 25 MG CAPSULE PO SCH (22:00)
[2023-09-07] MEDS: MAG HYDROX/AL HYDROX/SIMETH 30 ML UNIT-DOSE CUP PO PRN (02:16)
[2023-09-08] MEDS: IBUPROFEN 400 MG TABLET (FP) PO PRN (04:39)
[2023-09-08] MEDS: MAGNESIUM HYDROX 2400MG/30ML ORAL SUSPENSION 30 ML CUP PO PRN (07:30)
[2023-09-08] MEDS ORDERED: BENZOCAINE 20 % GEL TUBE MM PRN (13:49)
[2023-09-10] MEDS: QUEtiapine FUMARATE 300 MG TABLET PO SCH (19:57)
[2023-09-10] MEDS ORDERED: QUEtiapine FUMARATE 300 MG TABLET PO SCH (22:00)
[2023-09-15] MEDS ORDERED: INSULIN (NOVOLOG) ASPART 100 UNITS/ML 10ML VIAL ONE (19:30)
[2023-09-22 06:44] VITALS: RESP 18; TEMP 97.9
[2023-09-22 09:03] VITALS: BP 124/63; PULSE 73
== END 2023-09-22 14:30 | disposition home or self-care (01) | DRG 772 ==
LOC: YASAS 09:59 → Y5N 11:26
PROVIDERS: ADMIT Allergy & Immunology; ATTEND Psychiatry & Neurology Pain Medicine
PROC: HZ42ZZZ Group Counseling for Substance Abuse Treatment, Cognitive-Behavioral (ICD-10-PCS; principal; 2023-09-03)
DX: F10.20 Alcohol dependence, uncomplicated (principal); F14.20 Cocaine dependence, uncomplicated; F17.210 Nicotine dependence, cigarettes, uncomplicated; F19.282 Other psychoactive substance dependence with psychoactive substance-induced sleep disorder; F32.9 Major depressive disorder, single episode, unspecified; E87.6 Hypokalemia; I10 Essential (primary) hypertension; E11.9 Type 2 diabetes mellitus without complications; Z79.84 Long term (current) use of oral hypoglycemic drugs; K08.89 Other specified disorders of teeth and supporting structures; Z86.19 Personal history of other infectious and parasitic diseases
CPT/HCPCS: 36415; 80053; 80305; 80307; 81003; 82962; 83036; 83735; 85027; 86593; 86780; 86803; 87522; 87811

== ENCOUNTER 2024-05-07 10:03 | Inpatient (IN) | payer OTHER ==
[2024-05-07] MEDS ORDERED: hydrOXYzine PAMOATE 25 MG CAPSULE (FP) PO PRN (10:47)
[2024-05-07] MEDS ORDERED: ACETAMINOPHEN 325 MG TABLET (FP) PO PRN (10:47)
[2024-05-07] MEDS ORDERED: NALOXONE (NARCAN) HCL 4 MG/0.1 ML SPRAY NS PRN (10:47)
[2024-05-07] MEDS ORDERED: MAGNESIUM HYDROX 2400MG/30ML ORAL SUSPENSION 30 ML CUP PO PRN (10:47)
[2024-05-07] MEDS ORDERED: guaiFENesin 600 MG TABLET.ER (FP) PO PRN (10:47)
[2024-05-07] MEDS ORDERED: BENZONATATE 200 MG CAPSULE PO PRN (10:47)
[2024-05-07] MEDS ORDERED: LOPERAMIDE HCL 2 MG CAPSULE PO PRN (10:47)
[2024-05-07] MEDS ORDERED: MAG HYDROX/AL HYDROX/SIMETH 30 ML UNIT-DOSE CUP PO PRN (10:47)
[2024-05-07] MEDS ORDERED: POLYETHYLENE GLYCOL (HEALTHYLAX) 3350 17 GM PACKET PO PRN (10:47)
[2024-05-07 11:18] VITALS: BMI 31.1
[2024-05-07] MEDS ORDERED: NICOTINE POLACRILEX 4 MG GUM BUC ONE (11:29)
[2024-05-07] MEDS ORDERED: IBUPROFEN 600 MG TABLET (FP) PO ONE (11:29)
[2024-05-07] MEDS ORDERED: PRENATAL VITAMINS W/ FOLIC ACID TABLET (FP) PO ONE (11:29)
[2024-05-07] MEDS: IBUPROFEN 600 MG TABLET (FP) PO PRN (11:50)
[2024-05-07] MEDS: PRENATAL VITAMINS W/ FOLIC ACID TABLET (FP) PO SCH (11:50)
[2024-05-07] MEDS: NICOTINE POLACRILEX 4 MG GUM BUC PRN (11:53)
[2024-05-07] MEDS: metFORMIN HCL 500 MG TABLET (FP) PO SCH (16:30)
[2024-05-07] MEDS: MELATONIN 5 MG TABLETS PO SCH (21:10)
[2024-05-07] MEDS: THIAMINE 100 MG TABLET PO SCH (21:10)
[2024-05-07] MEDS: QUEtiapine FUMARATE 200 MG TABLET PO SCH (21:11)
[2024-05-08] MEDS: LOSARTAN POTASSIUM 50 MG TABLET PO SCH (09:18)
[2024-05-08 09:47] LABS: HEMATOCRIT 43.2 % (35.4-49); HEMOGLOBIN 14.1 GM/dL (11.7-16.9); MCH 29.3 pg (25.7-33.7); MCHC 32.7 g/dl (32.0-35.9); MEAN CELL VOLUME 89.8 fl (80-96); MEAN PLT VOLUME 9.9 fl (7.5-11.1); PLATELET COUNT 151 10^3/uL (134-434); RBC 4.81 M/mm3 (4.00-5.60); RDW 14.4 % (11.9-15.9); WHITE BLOOD COUNT 6.2 K/mm3 (4.0-10.0)
[2024-05-08 10:17] LABS: POTASSIUM 3.7 mmol/L (3.5-5.1)
[2024-05-08 10:20] LABS: CALCIUM 9.6 mg/dL (8.5-10.1)
[2024-05-08 10:21] LABS: ALBUMIN 3.6 g/dl (3.4-5.0); BLOOD UREA NITROGEN 12.5 mg/dL (7-18)
[2024-05-08 10:25] LABS: BILIRUBIN,TOTAL 0.3 mg/dL (0.2-1); TOT PROT 6.6 g/dl (6.4-8.2)
[2024-05-08 11:07] LABS: SYPHILIS W/ RPR CONF REACTIVE (NONREACTIVE)
[2024-05-08] MEDS: DOXEPIN HCL 25 MG CAPSULE PO SCH (20:09)
[2024-05-08] MEDS: QUEtiapine FUMARATE 100 MG TABLET (FP) PO SCH (20:10)
[2024-05-10] MEDS: IBUPROFEN 400 MG TABLET (FP) PO PRN (05:05)
[2024-05-10] MEDS: NALTREXONE HCL 50 MG TABLET PO ONE (14:46)
[2024-05-10] MEDS: BACLOFEN 10 MG TABLET (FP) PO SCH (21:28)
[2024-05-10] MEDS: BACITRACIN 0.9 GM PACKET TP SCH (21:28)
[2024-05-11] MEDS: NALTREXONE HCL 50 MG TABLET PO SCH (09:37)
[2024-05-15] MEDS: BENZOCAINE/MENTHOL (CHLORASEPTIC ) LOZENGE MM PRN (02:42)
[2024-05-18] MEDS ORDERED: NALTREXONE MICROSPHERES (VIVITROL) 380 MG DISP.SYRIN IM ONE (10:00)
[2024-05-19 06:08] VITALS: RESP 16
[2024-05-20 06:27] VITALS: TEMP 97.3
[2024-05-20 09:18] VITALS: BP 137/67; PULSE 81
[2024-05-20] MEDS: NALOXONE (NYS OPIOID OVERDOSE PROGRAM) 4 MG/0.1 ML SPRAY NS SCH (11:04)
== END 2024-05-20 10:22 | disposition home or self-care (01) | DRG 772 ==
LOC: YASAS 10:03 → Y3NR 11:13 → Y3W 05-08 10:46
PROVIDERS: ADMIT Allergy & Immunology; ATTEND Psychiatry & Neurology Pain Medicine
PROC: HZ42ZZZ Group Counseling for Substance Abuse Treatment, Cognitive-Behavioral (ICD-10-PCS; principal; 2024-05-07)
DX: F14.20 Cocaine dependence, uncomplicated (principal); F10.20 Alcohol dependence, uncomplicated; F12.20 Cannabis dependence, uncomplicated; F17.210 Nicotine dependence, cigarettes, uncomplicated; F19.282 Other psychoactive substance dependence with psychoactive substance-induced sleep disorder; F32.A Depression, unspecified; I10 Essential (primary) hypertension; E11.9 Type 2 diabetes mellitus without complications; Z79.84 Long term (current) use of oral hypoglycemic drugs; M17.11 Unilateral primary osteoarthritis, right knee; Z86.59 Personal history of other mental and behavioral disorders; Z86.19 Personal history of other infectious and parasitic diseases
CPT/HCPCS: 36415; 80053; 82962; 85027; 86593; 86780; 86803; 87522; 93005; 93010; J0475

== ENCOUNTER 2024-07-12 10:14 | Inpatient (IN) | payer OTHER ==
[2024-07-12 10:41] VITALS: BMI 30.1
[2024-07-12] MEDS ORDERED: IBUPROFEN 400 MG TABLET (FP) PO PRN (11:02)
[2024-07-12] MEDS ORDERED: LOPERAMIDE HCL 2 MG CAPSULE PO PRN (11:02)
[2024-07-12] MEDS ORDERED: NALOXONE (NARCAN) HCL 4 MG/0.1 ML SPRAY NS PRN (11:02)
[2024-07-12] MEDS ORDERED: MAGNESIUM HYDROX 2400MG/30ML ORAL SUSPENSION 30 ML CUP PO PRN (11:02)
[2024-07-12] MEDS ORDERED: BENZONATATE 200 MG CAPSULE PO PRN (11:02)
[2024-07-12] MEDS ORDERED: POLYETHYLENE GLYCOL (HEALTHYLAX) 3350 17 GM PACKET PO PRN (11:02)
[2024-07-12] MEDS ORDERED: hydrOXYzine PAMOATE 25 MG CAPSULE (FP) PO PRN (11:02)
[2024-07-12] MEDS ORDERED: guaiFENesin 600 MG TABLET.ER (FP) PO PRN (11:02)
[2024-07-12] MEDS ORDERED: ACETAMINOPHEN 325 MG TABLET (FP) PO PRN (11:02)
[2024-07-12] MEDS: NICOTINE POLACRILEX 4 MG GUM BUC PRN (12:57)
[2024-07-12] MEDS: TUBERCULIN PPD 5 TU/0.1ML VIAL ID ONE (15:52)
[2024-07-12] MEDS: MELATONIN 5 MG TABLETS PO SCH (21:01)
[2024-07-12] MEDS: THIAMINE 100 MG TABLET PO SCH (21:02)
[2024-07-12] MEDS: DOXEPIN HCL 25 MG CAPSULE PO SCH (21:02)
[2024-07-12] MEDS: QUEtiapine FUMARATE 300 MG TABLET PO SCH (21:02)
[2024-07-13] MEDS: LOSARTAN POTASSIUM 50 MG TABLET PO SCH (10:38)
[2024-07-13] MEDS: PRENATAL VITAMINS W/ FOLIC ACID TABLET (FP) PO SCH (10:39)
[2024-07-13] MEDS: NICOTINE 21 MG/24 HOURS TOPICAL PATCH TD SCH (10:39)
[2024-07-13 11:08] LABS: MCH 29.5 pg (25.7-33.7); MCHC 33.4 g/dl (32.0-35.9); MEAN CELL VOLUME 88.3 fl (80-96); MEAN PLT VOLUME 9.9 fl (7.5-11.1); PLATELET COUNT 163 10^3/uL (134-434); RBC 4.76 M/mm3 (4.00-5.60); RDW 15.3 % (11.9-15.9)
[2024-07-13 11:45] LABS: SYPHILIS W/ RPR CONF REACTIVE (NONREACTIVE)
[2024-07-13 11:51] LABS: CHLORIDE 105 mmol/L (98-107); POTASSIUM 3.7 mmol/L (3.5-5.1); SODIUM 139 mmol/L (136-145)
[2024-07-13 12:04] LABS: ALBUMIN 3.5 g/dl (3.4-5.0); ANION GAP 10 mmol/L (4-13); BLOOD UREA NITROGEN 13.2 mg/dL (7-18); CALCIUM 9.4 mg/dL (8.5-10.1); CO2 24 mmol/L (21-32); GLUCOSE,RANDOM 142 mg/dL (74-106)
[2024-07-13 12:08] LABS: SGOT/AST 20 U/L (15-37)
[2024-07-13 12:09] LABS: BILIRUBIN,TOTAL 0.3 mg/dL (0.2-1); TOT PROT 6.7 g/dl (6.4-8.2)
[2024-07-13 12:11] LABS: ALK PHOS 162 U/L (45-117)
[2024-07-13 12:17] LABS: SGPT/ALT 45 U/L (13-61)
[2024-07-13 13:29] LABS: URINE APPEARANCE CLEAR; URINE BILIRUBIN NEGATIVE (NEGATIVE); URINE COLOR YELLOW; URINE GLUCOSE (UA) NEGATIVE (NEGATIVE); URINE KETONE TRACE (NEGATIVE); URINE LEUK ESTERASE NEGATIVE (NEGATIVE); URINE NITRITE NEGATIVE (NEGATIVE); URINE PROTEIN NEGATIVE (NEGATIVE); URINE UROBILINOGEN 0.2 mg/dL (0.2-1.0)
[2024-07-13] MEDS ORDERED: DOXEPIN HCL 50 MG CAPSULE PO SCH (20:00)
[2024-07-13] MEDS ORDERED: QUEtiapine FUMARATE 100 MG TABLET (FP) ONE (20:01)
[2024-07-13] MEDS: QUEtiapine FUMARATE 300 MG TABLET PO SCH (20:03)
[2024-07-13] MEDS: DOXEPIN HCL 25 MG CAPSULE PO SCH (21:42)
[2024-07-14] MEDS: IBUPROFEN 600 MG TABLET (FP) PO PRN (07:30)
[2024-07-14] MEDS ORDERED: QUEtiapine FUMARATE 100 MG TABLET (FP) ONE (20:24)
[2024-07-14] MEDS: DOXEPIN HCL 50 MG CAPSULE PO SCH (21:28)
[2024-07-15] MEDS: BENZOCAINE/MENTHOL (CHLORASEPTIC ) LOZENGE MM PRN (10:05)
[2024-07-15] MEDS ORDERED: DOXEPIN HCL 50 MG CAPSULE PO SCH (20:00)
[2024-07-15] MEDS: QUEtiapine FUMARATE 300 MG TABLET PO SCH (20:04)
[2024-07-15] MEDS: DOXEPIN HCL 25 MG CAPSULE PO SCH (20:04)
[2024-07-16] MEDS: NICOTINE POLACRILEX 4 MG LOZENGE BC PRN (08:53)
[2024-07-16] MEDS ORDERED: QUEtiapine FUMARATE 100 MG TABLET (FP) ONE (20:12)
[2024-07-17] MEDS: QUEtiapine FUMARATE 100 MG TABLET (FP) PO SCH (20:17)
[2024-07-18] MEDS: MAG HYDROX/AL HYDROX/SIMETH 30 ML UNIT-DOSE CUP PO PRN (05:19)
[2024-07-19 05:13] VITALS: RESP 17; TEMP 97.1
[2024-07-19 10:59] VITALS: BP 121/65; PULSE 69
== END 2024-07-19 14:26 | disposition home or self-care (01) | DRG 772 ==
LOC: YASAS 10:14 → Y3NR 11:44 → Y3W 07-13 10:44
PROVIDERS: ADMIT Allergy & Immunology; ATTEND Psychiatry & Neurology Pain Medicine
PROC: HZ42ZZZ Group Counseling for Substance Abuse Treatment, Cognitive-Behavioral (ICD-10-PCS; principal; 2024-07-12)
DX: F14.20 Cocaine dependence, uncomplicated (principal); F10.20 Alcohol dependence, uncomplicated; F17.210 Nicotine dependence, cigarettes, uncomplicated; F32.9 Major depressive disorder, single episode, unspecified; F41.9 Anxiety disorder, unspecified; I10 Essential (primary) hypertension; Z79.84 Long term (current) use of oral hypoglycemic drugs; E11.9 Type 2 diabetes mellitus without complications; M15.0 Primary generalized (osteo)arthritis; Z20.2 Contact with and (suspected) exposure to infections with a predominantly sexual mode of transmission; Z86.19 Personal history of other infectious and parasitic diseases
CPT/HCPCS: 36415; 80053; 80305; 80307; 81003; 82962; 85027; 86593; 86780; 86803; 87522; 87811; 93005; 93010

== ENCOUNTER 2024-12-27 08:11 | Inpatient (IN) | payer OTHER ==
[2024-12-27 08:26] VITALS: BMI 30.4
[2024-12-27] MEDS ORDERED: POLYETHYLENE GLYCOL (HEALTHYLAX) 3350 17 GM PACKET PO PRN (09:07)
[2024-12-27] MEDS ORDERED: IBUPROFEN 400 MG TABLET (FP) PO PRN (09:07)
[2024-12-27] MEDS ORDERED: ACETAMINOPHEN 325 MG TABLET (FP) PO PRN (09:07)
[2024-12-27] MEDS ORDERED: hydrOXYzine PAMOATE 25 MG CAPSULE (FP) PO PRN (09:07)
[2024-12-27] MEDS ORDERED: MAGNESIUM HYDROX 2400MG/30ML ORAL SUSPENSION 30 ML CUP PO PRN (09:07)
[2024-12-27] MEDS ORDERED: BENZONATATE 200 MG CAPSULE PO PRN (09:07)
[2024-12-27] MEDS ORDERED: guaiFENesin 600 MG TABLET.ER (FP) PO PRN (09:07)
[2024-12-27] MEDS ORDERED: NALOXONE (NARCAN) HCL 4 MG/0.1 ML SPRAY NS PRN (09:07)
[2024-12-27] MEDS ORDERED: PRENATAL VITAMINS W/ FOLIC ACID TABLET (FP) PO ONE (10:31)
[2024-12-27] MEDS: PRENATAL VITAMINS W/ FOLIC ACID TABLET (FP) PO SCH (10:33)
[2024-12-27] MEDS: LOSARTAN POTASSIUM 50 MG TABLET PO SCH (11:20)
[2024-12-27] MEDS: NICOTINE POLACRILEX 4 MG GUM BUC PRN (11:20)
[2024-12-27] MEDS: ACAMPROSATE CALCIUM 333 MG TABLET.DR PO SCH (13:36)
[2024-12-27] MEDS: INSULIN ASPART SLIDING SCALE (NOVOLOG) 1 VIAL SQ SCH (17:04)
[2024-12-27] MEDS: MELATONIN 5 MG TABLETS PO SCH (22:55)
[2024-12-27] MEDS: THIAMINE 100 MG TABLET PO SCH (22:55)
[2024-12-28] MEDS ORDERED: INSULIN ASPART SLIDING SCALE (NOVOLOG) 1 VIAL SQ ONE (06:23)
[2024-12-28 11:44] LABS: MCHC 32.4 g/dl (32.3-36.5); MEAN CELL VOLUME 89.9 fl (79.0-92.2); MEAN PLT VOLUME 12.0 fl (9.4-12.4); RDW 13.9 % (12.2-16.4)
[2024-12-28 11:48] LABS: EPI CELLS 4 /uL (0-25.1); HYALINE CASTS 0 /uL (0-3.1); URINE APPEARANCE CLEAR; URINE BACTERIA 0 /uL (0-1359); URINE BILIRUBIN NEGATIVE (NEGATIVE); URINE COLOR YELLOW; URINE GLUCOSE (UA) NEGATIVE (NEGATIVE); URINE KETONE NEGATIVE (NEGATIVE); URINE LEUK ESTERASE 1+ (NEGATIVE); URINE NITRITE NEGATIVE (NEGATIVE); URINE PROTEIN NEGATIVE (NEGATIVE); URINE RBC 2 /uL (0-23.9); URINE UROBILINOGEN 1.0 mg/dL (0.2-1.0); URINE WBC 8 /uL (0-25.8)
[2024-12-28 13:29] LABS: CO2 28.0 mmol/L (21-32); GLUCOSE,RANDOM 96.0 mg/dL (74-106)
[2024-12-28 13:32] LABS: CREATININE 0.9 mg/dL (0.55-1.3); SGOT/AST 34.0 U/L (15-37)
[2024-12-28 13:33] LABS: SGPT/ALT 49.0 U/L (13-61); TOT PROT 7.1 g/dl (6.4-8.2)
[2024-12-28 13:35] LABS: ALK PHOS 81.0 U/L (45-117)
[2024-12-29 10:42] LABS: URINE APPEARANCE CLEAR; URINE BILIRUBIN NEGATIVE (NEGATIVE); URINE COLOR YELLOW; URINE GLUCOSE (UA) NEGATIVE (NEGATIVE); URINE KETONE NEGATIVE (NEGATIVE); URINE LEUK ESTERASE NEGATIVE (NEGATIVE); URINE NITRITE NEGATIVE (NEGATIVE); URINE PROTEIN NEGATIVE (NEGATIVE); URINE UROBILINOGEN 0.2 mg/dL (0.2-1.0)
[2024-12-31] MEDS: IBUPROFEN 600 MG TABLET (FP) PO PRN (07:36)
[2025-01-01] MEDS: LOPERAMIDE HCL 2 MG CAPSULE PO PRN (12:23)
[2025-01-02 04:21] LABS: HIV INTERPRETATION NEGATIVE (NEGATIVE)
[2025-01-02] MEDS: MAG HYDROX/AL HYDROX/SIMETH 30 ML UNIT-DOSE CUP PO PRN (05:27)
[2025-01-03] MEDS: GABAPENTIN 100 MG CAPSULE PO SCH (14:03)
[2025-01-03] MEDS: MELATONIN 5 MG TABLETS PO SCH (20:10)
[2025-01-03] MEDS: PRENATAL VITAMINS W/ FOLIC ACID TABLET (FP) PO SCH (20:12)
[2025-01-03] MEDS: MIRTAZAPINE 15 MG TABLET (FP) PO SCH (21:20)
[2025-01-04] MEDS: MIRTAZAPINE 15 MG TABLET (FP) PO SCH (20:22)
[2025-01-11 05:11] VITALS: RESP 16
[2025-01-11] MEDS: NICOTINE POLACRILEX 4 MG GUM BUC PRN (14:54)
[2025-01-13] MEDS: BENZOCAINE/MENTHOL (CHLORASEPTIC ) LOZENGE MM PRN (10:19)
[2025-01-18 05:13] VITALS: TEMP 97.3
[2025-01-18 09:10] VITALS: BP 131/61; PULSE 68
== END 2025-01-18 09:47 | disposition home or self-care (01) | DRG 772 ==
LOC: YASAS 08:11 → Y3NR 11:05 → Y3W 12-28 11:15
PROVIDERS: ADMIT Family Medicine; ATTEND Psychiatry & Neurology Pain Medicine
PROC: HZ42ZZZ Group Counseling for Substance Abuse Treatment, Cognitive-Behavioral (ICD-10-PCS; principal; 2024-12-27)
DX: F10.20 Alcohol dependence, uncomplicated (principal); F14.20 Cocaine dependence, uncomplicated; F12.20 Cannabis dependence, uncomplicated; F17.210 Nicotine dependence, cigarettes, uncomplicated; F19.282 Other psychoactive substance dependence with psychoactive substance-induced sleep disorder; F25.9 Schizoaffective disorder, unspecified; F32.9 Major depressive disorder, single episode, unspecified; I10 Essential (primary) hypertension; E11.9 Type 2 diabetes mellitus without complications; Z79.84 Long term (current) use of oral hypoglycemic drugs; M17.11 Unilateral primary osteoarthritis, right knee; Z20.2 Contact with and (suspected) exposure to infections with a predominantly sexual mode of transmission; Z86.19 Personal history of other infectious and parasitic diseases
CPT/HCPCS: 36415; 80053; 80305; 80307; 81003; 82962; 83036; 85027; 86593; 86780; 87389; 87811; 93005; 93010